=== PATIENT | female | born 1995 | race Caucasian/White ===

== ENCOUNTER 2017-12-22 14:17 | Emergency (ER) | payer SELFPAY ==
[2017-12-22 14:18] VITALS: BP 124/73; PULSE 79; RESP 16; TEMP 36.7; O2SAT 99; BMI 24.5
[2017-12-22 16:18] VITALS: RESP 14
[2017-12-22 16:25] LABS: Red Blood Cells-Urine 0 SEEN /hpf (0-5)
[2017-12-22 16:30] LABS: Color, Urine Yellow (Yellow); Glucose, Dipstick Normal (Normal); Leukocyte Esterase-Dipstick 25 /ul (Negative); Nitrite-Dipstick Negative (Negative); Occult Blood-Urine Negative /ul (Negative); Protein-Dipstick Negative (Negative); Specific Gravity, Urine 1.015 (1.002-1.030); Urine Bilirubin Dipstick Negative (Negative); Urine Clarity Clear (Clear); Urine Urobilinogen Normal (Normal); Urine pH 6.5 (5.0 - 8.0)
--- NOTE | 2017-12-22 16:33 | ED.VISSUMM ---
- ER Visit Summary Date of Service: 12/22/17 Chief Complaint: Abdominal pain History of Present Illness: The patient is a 22 F who [facility] the [facility]. She is a 14 weeks . She reports that she has intermittent abdominal pain that began 3 days ago. It lasts seconds to minutes at a time. She reports that is worsened by sitting down and relieved by nothing. Pain is 3 out of 10 at worst and she is pain-free currently. She denies any nausea, vomiting, diarrhea. No melena or hematochezia. No dysuria or frequency. No vaginal bleeding or discharge. Physical Examination: Vitals: Stable. Afebrile. General: Well-nourished and well-developed. Head: Normocephalic atraumatic. Neck: Supple, no lymphadenopathy. No JVD. Nontender. Cardiovascular: Regular rate and rhythm. No murmurs. Respiratory: No respiratory distress. Clear to auscultation bilaterally. Abdominal: Soft, mild tenderness palpation in the left upper quadrant, nondistended, normal bowel sounds. No guarding, rebound, or peritoneal signs. Specifically no pain in the right upper or right lower quadrants. Back: Nontender. Extremities: Nontender, no edema. Skin: Normal color, no rash. Neurologic: Alert and oriented ?3. Cranial nerves II through XII are intact. Normal strength and sensation. Psych: Normal affect. Test Results: Urinalysis shows bacteria with no signs of infection. Emergency Department Course and Treatment: Patient refused pain or nausea medications. Bedside ultrasound shows good movement and heartbeat. Patient's urine was sent for culture and she was given a dose of Macrobid p.o. Treatment Plan: At this time the patient was reassured. She will be discharged on Macrobid. She will be discharged with instructions [facility] Disposition: To home in improved and stable condition. Impression: 1. Abdominal pain, uncertain cause. 2. Second trimester . 3. Bacteriuria. This note was generated with [employer] software. It may contain incorrect words, spelling, and punctuation that were not noted in review of the chart prior to signing ED Disposition - Plan for ED Patient: Chief Complaint: Abd Pain Instructions: ED Abdominal Pain Unkn Cause Prescriptions: Nitrofurantoin Macrocrystals [Macrobid] 100 mg PO Q12 #14 capsule Referrals: Thelma Penny CNM [Certified Nurse Sales Representative Door To Door] - 1 Week
[2017-12-22 16:34] LABS: Ketone-Dipstick 150 mg/dl (Negative)
[2017-12-22 16:50] LABS: Bacteria 1+ /hpf (None Seen); Mucous, Urine RARE /hpf (<or=2+); Squamous Epithelial Cells - UA 0-5 SEEN /hpf (5-10); White Blood Cells 0-5 SEEN /hpf (0-5)
[2017-12-22] MEDS: Nitrofurantoin Macrocrystals 100 MG Capsule PO (17:13)
[2017-12-22 17:19] VITALS: BP 121/76; PULSE 83; RESP 14; O2SAT 99
== END 2017-12-22 17:20 | disposition home or self-care (01) ==
LOC: ED 15:00
PROVIDERS: Emergency Provider Emergency Medicine
DX: O26.892 Other specified pregnancy related conditions, second trimester (principal); R10.9 Unspecified abdominal pain; R82.71 Bacteriuria; Z3A.14 14 weeks gestation of pregnancy; Z87.442 Personal history of urinary calculi
CPT/HCPCS: 81001; 87086; 87088; 99283; J7030; A4216

== ENCOUNTER 2018-02-16 13:47 | Emergency (ER) | payer MEDICAID, SELFPAY ==
[2018-02-16 13:47] VITALS: BP 153/91; PULSE 95; RESP 20; TEMP 36.6; O2SAT 98; BMI 24.9
--- NOTE | 2018-02-16 14:04 | ED.VISSUMM ---
- ER Visit Summary Date of Service: 02/16/18 Chief Complaint: Burning right-sided chest pain under her bra strap History of Present Illness: The patient is a 22 F who presents with right-sided burning chest pain that is worse when she sits up and moves. She denies any history of direct trauma. 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 She is , 21 weeks gestation. Third . Second was complicated by miscarriage. She denies any shortness of breath or difficulty breathing. She denies indigestion. She denies any leg pain, swelling discoloration. She has not noted a rash. She denies any recent URI symptoms. She has no other complaints. Physical Examination: Vital signs are remarkable for an elevated blood pressure 153/91. She is not tachycardic hypoxic or febrile. HEENT exam is unremarkable. There is reproducible chest pain over the right costal margin/lower rib cage. There is no rash. There is no crepitus obtains air. There is no erythema, warmth or induration. Negative clinical Burks sign. Lungs are clear to auscultation. Heart is regular without murmur, gallop or rub. Patient winces when she sits up from supine position. This reproduces/exacerbates her pain. Test Results: None Emergency Department Course and Treatment: Since patient has reproducible pain with palpation and change in position this represents a musculoskeletal issue. Since she is in her second trimester NSAIDs are safe. Treatment Plan: Anti-inflammatory and follow-up with commercial litigation associate as needed Disposition: Discharged to home Impression: Right-sided chest wall pain of musculoskeletal etiology Second trimester This note was generated with [employer] dictation software. It may contain incorrect words, spelling, and punctuation that were not noted in review of the chart prior to signing ED Disposition - Plan for ED Patient: Disposition: Home or Assisted Living Chief Complaint: Chest Other Instructions: ED Strain Chest Wall Prescriptions: Naproxen [Naprosyn] 500 mg PO BID #10 tab Referrals: Care Physician,No Primary [Primary Care Provider] - Thelma Penny CNM [Certified Nurse Front Desk Person] - 1 Week if not improving
--- NOTE | 2018-02-16 14:09 | ED.DCSUM_ITS ---
- ER Visit Summary Date of Service: 02/16/18 Chief Complaint: Burning right-sided chest pain under her bra strap History of Present Illness: The patient is a 22 F who presents with right-sided burning chest pain that is worse when she sits up and moves. She denies any history of direct trauma. 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 She is , 21 weeks gestation. Third . Second was complicated by miscarriage. She denies any shortness of breath or difficulty breathing. She denies indigestion. She denies any leg pain, swelling discoloration. She has not noted a rash. She denies any recent URI symptoms. She has no other complaints. Physical Examination: Vital signs are remarkable for an elevated blood pressure 153/91. She is not tachycardic hypoxic or febrile. HEENT exam is unremarkable. There is reproducible chest pain over the right costal margin/ lower rib cage. There is no rash. There is no crepitus obtains air. There is no erythema, warmth or induration. Negative clinical Burks sign. Lungs are clear to auscultation. Heart is regular without murmur, gallop or rub. Patient winces when she sits up from supine position. This reproduces/ exacerbates her pain. Test Results: None Emergency Department Course and Treatment: Since patient has reproducible pain with palpation and change in position this represents a musculoskeletal issue. Since she is in her second trimester NSAIDs are safe. Treatment Plan: Anti-inflammatory and follow-up with looseleaf binder coverer as needed Disposition: Discharged to home Impression: Right-sided chest wall pain of musculoskeletal etiology Second trimester This note was generated with [employer] dictation software. It may contain incorrect words, spelling, and punctuation that were not noted in review of the chart prior to signing ED Disposition - Plan for ED Patient: Disposition: Home or Assisted Living Chief Complaint: Chest Other Instructions: ED Strain Chest Wall Prescriptions: Naproxen [Naprosyn] 500 mg PO BID #10 tab Referrals: Care Physician,No Primary [Primary Care Provider] - Thelma Penny CNM [Certified Nurse Drug And Alcohol Treatment Specialist] - 1 Week if not improving
[2018-02-16 14:20] VITALS: BP 130/77; PULSE 78; RESP 16; O2SAT 99
[2018-02-16] MEDS: Naproxen 250 MG Tablet 500 MG PO (14:20)
== END 2018-02-16 14:41 | disposition home or self-care (01) ==
PROVIDERS: Emergency Provider Emergency Medicine
DX: R07.89 Other chest pain (principal); O26.892 Other specified pregnancy related conditions, second trimester; Z3A.21 21 weeks gestation of pregnancy
CPT/HCPCS: 99283

== ENCOUNTER 2018-05-18 15:15 | Outpatient (CLI) | payer MEDICAID, SELFPAY ==
[2018-05-18 15:31] VITALS: BMI 30.6
[2018-05-18 15:38] LABS: Color, Urine Straw (Yellow); Glucose, Dipstick Normal (Normal); Ketone-Dipstick 5 mg/dl (Negative); Leukocyte Esterase-Dipstick Negative /ul (Negative); Nitrite-Dipstick Negative (Negative); Occult Blood-Urine Negative /ul (Negative); Protein-Dipstick Negative (Negative); Specific Gravity, Urine 1.005 (1.002-1.030); Urine Bilirubin Dipstick Negative (Negative); Urine Clarity Clear (Clear); Urine Urobilinogen Normal (Normal)
[2018-05-18] MEDS: 0.9% Normal Saline 1,000 ML 500 ML IV (16:20)
[2018-05-18] MEDS: Betamethasone/Betamethasone 30 MG/5 ML Vial 12 MG IM (16:25)
[2018-05-18 16:46] LABS: Hematocrit 35.2 % (37-47); Hemoglobin 11.5 g/dl (12.0-15.0); Mean Corp Hgb Conc 32.7 g/gl (32-36); Mean Corpuscular Hgb 27.8 pg (27.0-32.0); Mean Platelet Vol. 9.8 fl (6.2-12.0); Platelet Count 241 K/mm3 (150-450); RBC Distribution Width CV 12.5 % (11.6-14.6); RBC Distribution Width SD 38.5 fl (35.1-43.9); Red Blood Count 4.14 M/mm3 (4.2-5.4); Scan Indicated on CBC? Y/N NO
[2018-05-18 16:53] LABS: Partial Thromboplast Time 24.3 Seconds (24.1-36.2)
[2018-05-18 16:57] LABS: AST(SGOT) 16 U/L (15-37); Alanine Aminotransfer ALT/SGPT 11 U/L (13-56); Creatinine, Serum 0.64 mg/dL (0.55-1.02); EST Glomerular Filtration Rate 123 mL/min (>60); Est Glom Filt Rate - Afr Amer 149 mL/min (>60); Estimated Creatinine Clearance 103.16 ml/min
[2018-05-18 17:04] LABS: Creatinine, Urine (random) < 13.00 mg/dL (NO RANGE EST.); Protein, Urine (Random) < 6.0 mg/dL (<11.9)
[2018-05-18 18:01] LABS: Group B Strep DNA By PCR Negative (Negative); Internal Control PASS; Probe Check PASS; Specimen Processing Control PASS
[2018-05-18] MEDS: 0.9% Normal Saline 1,000 ML 200 ML IV (18:10)
--- NOTE | 2018-05-19 13:23 | OB.TRI.NOTE ---
History of Present Illness Date of Service: 05/18/18 Was patient seen by the physician?: Yes Reason For Visit: threatened PTL Date of Service: 05/18/18 Final LEIGHTON: 07/01/18 Final LEIGHTON Source: LMP Gestational age: 33 Weeks and 6 Days Allergies No Known Allergies Allergy (Verified 05/18/18 15:32) NST - FHR Rate Baby A Baseline: 125 Variability:: Moderate Accelerations:: 15 x 15 Decelerations:: None NST Reactive:: Yes Uterine Activity:: Q 2-5 minutes Impression/Plan 22yo female with threatened PTL Patient monitored for more than 6 hours. Cvx was stable at 3.5cm for 4 hours. She was then discharged home. BMZ given & patient will return tomorrow for BMZ #2. Normal preE labs - no evidence preE Rapid GBS - negative
== END 2018-05-18 23:05 | disposition home or self-care (01) ==
LOC: WPOUT 15:21 → WP 15:22
PROVIDERS: Visit Provider Obstetrics & Gynecology
DX: O60.03 Preterm labor without delivery, third trimester (principal); Z3A.33 33 weeks gestation of pregnancy
CPT/HCPCS: 96360; 96361 ×4; 36415; 59025; 59050; 81002; 82565; 82570; 84156; 84450; 84460; 84550; 85027; 85610; 85730; 87081; 87653; 96372; 99218; J7030; G0378; J0702

== ENCOUNTER 2018-05-19 16:15 | Outpatient (CLI) | payer MEDICAID, SELFPAY ==
[2018-05-19 16:58] VITALS: BMI 30.6
--- NOTE | 2018-06-25 23:22 | OB.TRI.NOTE ---
History of Present Illness Date of Service: 05/19/18 Was patient seen by the physician?: No Reason For Visit: CELESTONE Final LEIGHTON Source: LMP Allergies No Known Allergies Allergy (Verified 05/25/18 23:17) Impression/Plan BMZ administration
== END 2018-05-19 17:20 | disposition home or self-care (01) ==
LOC: WPOUT 16:24 → WP 16:25
PROVIDERS: Visit Provider Obstetrics & Gynecology
DX: O60.00 Preterm labor without delivery, unspecified trimester (principal); Z3A.00 Weeks of gestation of pregnancy not specified
CPT/HCPCS: 99218; G0378; J0702

== ENCOUNTER 2018-05-21 12:30 | Outpatient (CLI) | payer MEDICAID, SELFPAY ==
--- NOTE | 2018-05-22 01:13 | OB.TRI.NOTE ---
History of Present Illness Date of Service: 05/21/18 Was patient seen by the physician?: Yes Reason For Visit: R/O LABOR Date of Service: 05/21/18 Final LEIGHTON: 07/01/18 Final LEIGHTON Source: LMP Gestational age: 34 Weeks and 2 Days History of Present Illness: 22yo @ 34+ wks gestation c/o contractions. no vb or lof. Allergies No Known Allergies Allergy (Verified 05/18/18 15:32) - Pertinent Past Medical History Pertinent Past Medical History: pt did receive 2 doses of 12mg IM celestone with last dose given on 05/20/18 Physical Exam General: Alert, Oriented x3 Abdomen: Soft, Non Tender, Gravid Estimated gestational size: Appropriate for gestational size Presentation: Cephalic Cervix Dilation (cm): 3.5 Station: -2 Effacement (%): 75 NST - FHR Rate Baby A Baseline: 140 Variability:: Moderate Accelerations:: 15 x 15 Decelerations:: None NST Reactive:: Yes FHR Category:: Category I Uterine Activity:: irregular Impression/Plan 22yo @ 34+ wks gestation, contractions- not in labor 1) cervical exam done by myself x 2 - first exam was 4cm had membranes that were bulging- on second exam two hours later she was 3.5 cm and 70-80% effaced with NO bulging membranes 2) expectant mgmt at home at this time- DC HOME with LABOR INSTRUCTIONS REVIEWED 3) GBS negative
== END 2018-05-21 15:00 | disposition home or self-care (01) ==
LOC: WPOUT 12:43 → WP 12:43
PROVIDERS: Visit Provider Obstetrics & Gynecology
DX: O26.893 Other specified pregnancy related conditions, third trimester (principal); Z3A.34 34 weeks gestation of pregnancy; N85.8 Other specified noninflammatory disorders of uterus
CPT/HCPCS: 59025; 59050; 99218; G0378

== ENCOUNTER 2018-05-23 18:55 | Outpatient (CLI) | payer MEDICAID, SELFPAY ==
[2018-05-23 19:47] VITALS: BMI 31.0
--- NOTE | 2018-05-23 20:09 | OB.TRI.NOTE ---
History of Present Illness Was patient seen by the physician?: Yes Reason For Visit: R/O LABOR Date of Service: 05/23/18 Final LEIGHTON: 07/01/18 Final LEIGHTON Source: LMP Gestational age: 34 Weeks and 3 Days Allergies No Known Allergies Allergy (Verified 05/23/18 19:49) Physical Exam Cervix Dilation (cm): 4 Station: -3 Effacement (%): 70 NST - FHR Rate Baby A Baseline: 130 Variability:: Moderate Accelerations:: 15 x 15 Decelerations:: None NST Reactive:: Yes Uterine Activity:: Q 5-7 minutes Impression/Plan 22yo female with ctxs No evidence PTL - stable cervical exam Reactive NST
== END 2018-05-23 20:17 | disposition home or self-care (01) ==
LOC: WPOUT 19:09 → WP 19:09
PROVIDERS: Visit Provider Obstetrics & Gynecology
DX: O26.893 Other specified pregnancy related conditions, third trimester (principal); N85.8 Other specified noninflammatory disorders of uterus; Z3A.34 34 weeks gestation of pregnancy
CPT/HCPCS: 59025; 59050; 99218; G0378

== ENCOUNTER 2018-05-25 22:35 | Inpatient (IN) | payer MEDICAID, SELFPAY ==
[2018-05-25 23:14] VITALS: BMI 31.5
[2018-05-25] MEDS: Lactated Ringers 1,000 ML 50 ML IV (23:45)
[2018-05-26 00:18] LABS: Hemoglobin 10.8 g/dl (12.0-15.0); Mean Corp Hgb Conc 32.7 g/gl (32-36); Mean Corpuscular Hgb 27.6 pg (27.0-32.0); Mean Corpuscular Volume 84.4 fL (81-99); Mean Platelet Vol. 9.7 fl (6.2-12.0); Platelet Count 252 K/mm3 (150-450); RBC Distribution Width CV 12.5 % (11.6-14.6); RBC Distribution Width SD 38.2 fl (35.1-43.9); Red Blood Count 3.91 M/mm3 (4.2-5.4); Scan Indicated on CBC? Y/N NO; White Blood Count 18.2 K/mm3 (4.4-11.0)
[2018-05-26] MEDS: Oxytocin 30 units/NS 500 ml 30 UNITS/500 ML IV.SOLN 334 UNITS IV (01:05)
--- NOTE | 2018-05-26 01:16 | PCM.OB.VAG ---
Vaginal Delivery Maternal Presentation: Active Labor Amniotic Membrane Rupture Type: Spontaneous Amniotic Fluid Description: Clear Final LEIGHTON Source: US <20 weeks Gestational age: 35.5 Date of Procedure: 05/26/18 Pre-Operative Diagnosis: spontaneous labor Post-Operative Diagnosis: live male infant Surgery/ Procedure Performed: Spontaneous Vaginal Delivery Type of Anesthesia: None Description of Procedure: Pt presented to L&D at 6cm- progressed to 8cm at approx 12:50am at which time she had SROM and was complete and I was notified at 12:55am at which time I arrived on the unit at 1:01am and the infant was delivered by nursing staff at 1:00am on 05/26/18. Per nursing staff no delay in delivery- no nuchal cords. I delivered placenta without complication. No lacerations. Presentation: Vertex Placental Delivery Description: Spontaneous Placenta Disposition: [facility] Cord Vessel Description: 3 Vessels Nuchal Cord Compression: Without compression Cord Entanglement: None Estimated Blood Loss: 100 A gender: Male (1 minute): 8 (5 minute): 9 Episiotomy Description: None Laceration: None Medications given after delivery: IV Pitocin Complications: None
--- NOTE | 2018-05-26 01:20 | OP.PCM_ITS ---
Vaginal Delivery Maternal Presentation: Active Labor Amniotic Membrane Rupture Type: Spontaneous Amniotic Fluid Description: Clear Final LEIGHTON Source: US <20 weeks Gestational age: 35.5 Date of Procedure: 05/26/18 Pre-Operative Diagnosis: spontaneous labor Post-Operative Diagnosis: live male infant Surgery/ Procedure Performed: Spontaneous Vaginal Delivery Type of Anesthesia: None Description of Procedure: Pt presented to L&D at 6cm- progressed to 8cm at approx 12:50am at which time she had SROM and was complete and I was notified at 12:55am at which time I arrived on the unit at 1:01am and the infant was delivered by nursing staff at 1 :00am on 05/26/18. Per nursing staff no delay in delivery- no nuchal cords. I delivered placenta without complication. No lacerations. Presentation: Vertex Placental Delivery Description: Spontaneous Placenta Disposition: [facility] Cord Vessel Description: 3 Vessels Nuchal Cord Compression: Without compression Cord Entanglement: None Estimated Blood Loss: 100 A gender: Male (1 minute): 8 (5 minute): 9 Episiotomy Description: None Laceration: None Medications given after delivery: IV Pitocin Complications: None
[2018-05-26] MEDS: Oxytocin 30 units/NS 500 ml 30 UNITS/500 ML IV.SOLN 167 UNITS IV (01:35)
[2018-05-26] MEDS: Ibuprofen 600 MG Tablet PO ×2 (05:52→15:54)
[2018-05-26 08:00] VITALS: BP 123/82; RESP 18; TEMP 36.8
--- NOTE | 2018-05-26 09:10 | PCM.HP.OB ---
History Date of Admission: 05/25/18 Final LEIGHTON: 06/25/18 Final LEIGHTON Source: US <20 weeks Gestational age: 35 Weeks and 5 Days History of this : This is a 22 year-old, G [], P [], at 35 weeks gestational age. Allergies No Known Allergies Allergy (Verified 05/25/18 23:17) Home Medications: Home Medications Ferrous Gluconate 325 mg PO BIDCM 05/18/18 Pnv with Ca,No.72/Iron/FA [ Plus Tablet] 1 each PO DAILY 05/18/18 Smoking Status: Former smoker Alcohol: None Number of Fetus(es): 1 History Past Pregnancies: Past Pregnancies Delivery Date Name GA/Weeks Outcome Route Weight Infant Gender Labor Length Anesthesia Delivery Location Provider FOB Labs: AB +, HIV neg, RUB imm, HEP B neg, GBS neg, Syphilis neg Expected Delivery Method: Spontaneous Vaginal Physical Exam Vitals: Vital Signs Temp Resp BP 98.2 F 18 123/82 H 05/26/18 08:00 05/26/18 08:00 05/26/18 08:00 General: Alert, Oriented x3 Estimated gestational size: Appropriate for gestational size Presentation: Cephalic Cervix Dilation (cm): 6 Station: -2 Effacement (%): 80 Assessment/Plan This is a 22 year-old, G 3, P 1, at 35 weeks gestational age in labor 1) admit to L&D 2) monitor FHR/toco 3) anticipate 4) previously received IM steriods 5) GBS neg
--- NOTE | 2018-05-26 10:20 | NURSING ---
Patient expressed large clot into toilet while voiding. Denies abdominal pain, cramping, or gushes of blood. Fundus is firm and two below umbilicus. Will notify physician.
[2018-05-26 12:00] VITALS: BP 134/93; PULSE 80; RESP 16; TEMP 36.4
[2018-05-26 15:58] VITALS: BP 122/79; PULSE 80; RESP 18; TEMP 36.5
--- NOTE | 2018-05-26 19:04 | DCINST_ITS ---
Discharge Diet: No Restrictions Discharge Activity: Return to Normal Activity, May not drive while taking narcotic pain medications., May Shower May resume sexual activity in: 4-6 weeks Additional Activity Instructions:: Nothing in the vagina for 4-6 weeks. You may return to work/school in 6 weeks. Call your doctor if your incision/area has: Continuous Slow Oozing, Sudden Increased Bleeding, Increased Pain/ Swelling, Increased Redness, Foul Smelling Discharge Additional Instructions: If you experience any of the following, contact your healthcare provider. * Bleeding that soaks a pad every hour for 2 hours * Fever 100.4 or higher * Unrelieved incision or abdominal pain * Swelling, redness, discharge or bleeding from your incision or episiotomy site * Your incision begins to separate * Problems urinating (including inability to urinate or burning while urinating) . * Visual changes * Severe headache * Flu-like symptoms * Pain or redness in one of both of your breasts * Pain, warmth, tenderness or swelling in your legs, especially the calf area * Frequent nausea and vomiting * Symptoms of depression or anxiety If you experience any of the following, call 911 or go to the nearest Emergency Room. * Chest pain * Problems breathing * Seizure activity * Partial or complete paralysis of a body part, slurred speech, weakness or drooping of the face, or a sudden inability to walk or hold your balance Allergies/Adverse Reactions: Allergies No Known Allergies Allergy (Verified 05/25/18 23:17) Medications to take at Discharge Pnv with Ca,No.72/Iron/FA [ Plus Tablet] 1 each PO DAILY 05/18/18 Ibuprofen [Motrin] 800 mg PO Q8H PRN PRN #30 tab 05/26/18 The following prescriptions were given: Ibuprofen [Motrin] 800 mg PO Q8H PRN PRN #30 tab PRN Reason: Pain When: Call to make an appointment with your doctor in 6 weeks. If you had elevated Blood Pressure or 4th degree laceration you will need to be seen in 2 weeks. Primary Care Physician: Care Physician,No Primary [Primary Care Provider] -
[2018-05-26 21:05] VITALS: BP 130/75; PULSE 91; RESP 16; TEMP 36.9
[2018-05-26] MEDS: Senna/Docusate Sodium 1 Tablet PO (21:17)
[2018-05-26 23:54] VITALS: BP 114/72; PULSE 81; RESP 18; TEMP 36.7
[2018-05-27 03:30] VITALS: BP 128/87; PULSE 83; RESP 20; TEMP 37.2
--- NOTE | 2018-05-27 09:07 | PCM.PN.OB ---
Subjective: Doing well per patient and nursing staff. Voiding and passing flatus. without difficulty. Motrin for pain. Denies headache, visual changes, chest pain, shortness of breath, increased vaginal bleeding or clots, no leg pain. Planning D/C home today. - Physical Exam General: Alert, Oriented x3, Cooperative Neck: Supple, No JVD, Negative Carotid Bruits Lungs: Clear to auscultation, Normal air movement, No rhonchi, No wheeze Cardiovascular: Regular rate, Regular Rhythm, No murmurs Abdomen: Bowel Sounds Present, Soft, Non Tender Extremities: No edema Psych/Mental Status: Normal Affect, Appropriate Vital Signs Temp Pulse Resp BP 98.9 F 83 20 H 128/87 H 05/27/18 03:30 05/27/18 03:30 05/27/18 03:30 05/27/18 03:30 Oxygen Delivery Method Room Air Weight: 166 lb 14.239 oz Body Mass Index (BMI) 31.5 Intake and Output for Last 24 Hours 05/25/18 05/26/18 05/27/18 23:59 23:59 23:59 Output Total 1100 / 1100 Balance -1100 / -1100 Medical Necessity - Tobacco Use Smoking Status: Former smoker Assessment/Plan A: PPD#1 P: 1) Planning D/C home today. Discharge and instructions given. 2) Follow up in 6 weeks for visit.
[2018-05-27 09:31] VITALS: BP 132/84; PULSE 96; RESP 16; TEMP 36.8; O2SAT 97
[2018-05-27] MEDS: Prenatal Vits Tablet 1 TABLET PO (10:47)
[2018-05-27 13:30] VITALS: BP 135/84; PULSE 104; RESP 16; TEMP 37.1; O2SAT 99
[2018-05-27 19:46] VITALS: BP 138/75; PULSE 100; RESP 18; TEMP 36.8; O2SAT 99
[2018-05-28 02:25] VITALS: BP 138/87; PULSE 80; RESP 18; TEMP 36.4; O2SAT 99
[2018-05-28 08:00] VITALS: BP 137/88; PULSE 86; RESP 16; TEMP 36.9; O2SAT 97
[2018-05-28] MEDS: Prenatal Vits Tablet 1 TABLET PO (08:53)
[2018-05-28] MEDS: Ibuprofen 600 MG Tablet PO (08:53)
--- NOTE | 2018-05-28 08:55 | PCM.PN.OB ---
Subjective: Doing well per patient and nursing staff. Voiding and passing flatus. Ambulating and taking PO without difficulty. , consulted regarding for engorgement. Denies any headache, visual changed, chest pain, shortness of breath, vaginal bleeding, leg pain. Planning D/C home today. - Physical Exam General: Alert, Oriented x3, Cooperative Lungs: Clear to auscultation, Normal air movement, No rhonchi, No wheeze Cardiovascular: Regular rate, Regular Rhythm, No murmurs Abdomen: Bowel Sounds Present, Soft, Non Tender, - - Fundus firm 2 below U Extremities: No edema, - - Greg's negative. Musculoskeletal: No Tenderness to Palpation of Joints or Extremities Neurological: Deep Tendon Reflexes 2+/4 and Symmetrical Psych/Mental Status: Normal Affect, Appropriate Vital Signs Temp Pulse Resp BP Pulse Ox 98.5 F 86 16 137/88 H 97 05/28/18 08:00 05/28/18 08:00 05/28/18 08:00 05/28/18 08:00 05/28/18 08:00 Oxygen Delivery Method Room Air Weight: 166 lb 14.239 oz Body Mass Index (BMI) 31.5 Intake and Output for Last 24 Hours 05/26/18 05/27/18 05/28/18 23:59 23:59 23:59 Output Total 1100 / 1100 Balance -1100 / -1100 Medical Necessity - Tobacco Use Smoking Status: Former smoker Assessment/Plan A: PPD #2 P: 1) Discharge home today. Instructions given. 2) Follow up in 6 weeks. 3) BP elevated. Follow up in office in 3 days for BP check.
[2018-05-28 10:00] VITALS: BP 135/82; PULSE 89; RESP 16; TEMP 36.9; O2SAT 98
[2018-05-28 12:00] VITALS: BP 135/84; PULSE 84; RESP 16; TEMP 36.9; O2SAT 98
== END 2018-05-28 13:05 | disposition home or self-care (01) | DRG 373 ==
PROVIDERS: Admitting Provider Obstetrics & Gynecology; Visit Provider Obstetrics & Gynecology
DX: O60.14X0 Preterm labor third trimester with preterm delivery third trimester, not applicable or unspecified (principal); Z3A.35 35 weeks gestation of pregnancy; Z37.0 Single live birth; Z87.891 Personal history of nicotine dependence
CPT/HCPCS: 36415; 59025; 59050; 85027; 86850; 86900; 99218; J7120; G0378

== ENCOUNTER 2018-12-22 20:02 | Emergency (ER) | payer MEDICAID, SELFPAY ==
[2018-12-22 20:03] VITALS: BP 133/73; PULSE 117; PULSE 124; RESP 18; RESP 20; TEMP 37.7; O2SAT 99; BMI 29.4
--- NOTE | 2018-12-22 20:14 | ED.DCSUM_ITS ---
- ER Visit Summary Date of Service: 12/22/18 Chief Complaint: Fever, back pain History of Present Illness: The patient is a 23 F who has had fever and back pain that started this morning. She states that she has had body aches and chills. Her temperature is been elevated at home. She has been medicating with Tylenol. The pain is been in the lower part of her back on both sides. She denies dysuria or hematuria. She is currently 5 weeks gestation. She did not get a flu shot this year. Physical Examination: Vital signs reviewed. HEENT exam unremarkable. Heart is cardiac in regular rhythm without murmurs. Lungs are clear to auscultation. Abdomen is soft and nontender. Back is nontender at any place. Extremities reveal no edema. Skin exam normal. Neurologic exam normal. Test Results: Urinalysis is negative for infection. Influenza testing is also negative. Emergency Department Course and Treatment: The patient is to have a flu. She does not have a UTI or pyelonephritis. She likely has another viral illness that is causing this temperature at and body aches. She has no cough so I do not feel she needs a chest x-ray. She is currently . She can only take Tylenol. She will increase her hydration. She will follow-up with her [employer]ECT[employer]. Treatment Plan: [] Disposition: Discharge Impression: Acute viral illness This note was generated with [employer] dictation software. It may contain incorrect words, spelling, and punctuation that were not noted in review of the chart prior to signing ED Disposition - Plan for ED Patient: Chief Complaint: General Illness Referrals: Care Physician,No Primary [Primary Care Provider] -
[2018-12-22 20:20] VITALS: PULSE 111; TEMP 37.7
[2018-12-22 20:48] LABS: Bacteria 0 SEEN /hpf (None Seen); Mucous, Urine 0 SEEN /hpf (<or=2+); Red Blood Cells-Urine 0 SEEN /hpf (0-5); White Blood Cells 0 SEEN /hpf (0-5)
[2018-12-22 20:49] LABS: Color, Urine Yellow (Yellow); Glucose, Dipstick Normal (Normal); Ketone-Dipstick 50 mg/dl (Negative); Leukocyte Esterase-Dipstick Negative /ul (Negative); Nitrite-Dipstick Negative (Negative); Occult Blood-Urine Negative /ul (Negative); Protein-Dipstick Negative (Negative); Urine Bilirubin Dipstick Negative (Negative); Urine Clarity Clear (Clear); Urine Urobilinogen Normal (Normal); Urine pH 6.5 (5.0 - 8.0)
[2018-12-22 21:00] LABS: Squamous Epithelial Cells - UA 0-5 SEEN /hpf (5-10)
--- NOTE | 2018-12-22 21:11 | ED.DEP ---
ED Disposition - Plan for ED Patient: Disposition: Home or Assisted Living Chief Complaint: General Illness Instructions: ED Viral Syndrome Referrals: Care Physician,No Primary [Primary Care Provider] - Mami Griffith DO [STAFF PHYSICIAN] -
[2018-12-22 21:23] VITALS: PULSE 109; RESP 18; TEMP 37.7; O2SAT 97
== END 2018-12-22 21:24 | disposition home or self-care (01) ==
PROVIDERS: Emergency Provider Emergency Medicine
DX: O98.511 Other viral diseases complicating pregnancy, first trimester (principal); B34.9 Viral infection, unspecified; Z3A.01 Less than 8 weeks gestation of pregnancy
CPT/HCPCS: 81001; 87804; 99282

== ENCOUNTER 2019-06-28 10:40 | Outpatient (CLI) | payer MEDICAID, SELFPAY ==
[2019-06-28 10:48] VITALS: BMI 29.9
[2019-06-28] MEDS: Betamethasone/Betamethasone 30 MG/5 ML Vial 12 MG IM (10:58)
--- NOTE | 2019-07-04 08:12 | OB.TRI.NOTE ---
History of Present Illness Reason For Visit: CELESTONE Date of Service: 06/28/19 Final LEIGHTON: 08/24/19 Final LEIGHTON Source: US <20 weeks Gestational age: 32 Weeks and 5 Days Allergies No Known Allergies Allergy (Verified 06/28/19 10:49) Impression/Plan Visit for BMZ injection
== END 2019-06-28 11:00 | disposition home or self-care (01) ==
LOC: WPOUT 10:46 → WP 10:47
PROVIDERS: Referring Provider Obstetrics & Gynecology; Visit Provider Obstetrics & Gynecology
DX: Z34.93 Encounter for supervision of normal pregnancy, unspecified, third trimester (principal); Z3A.32 32 weeks gestation of pregnancy
CPT/HCPCS: 96372; 99218; G0378; J0702

== ENCOUNTER 2019-08-12 07:35 | Inpatient (IN) | payer MEDICAID, SELFPAY ==
[2019-08-12] MEDS: Lactated Ringers 1,000 ML 50 ML IV (07:50)
[2019-08-12 08:04] VITALS: BMI 31.2
[2019-08-12 08:12] LABS: Absolute Lymphocyte Count 2.39 X10^3/uL (0.83-4.51); Absolute Neutrophil Count 10.1 X10^3/uL (2.0-7.7); Basophil# 0.04 X10^3/uL; Basophil% 0.3 % (0-1); Eosinophil# 0.03 X10^3/uL; Eosinophils% 0.2 % (0-5); Hematocrit 35.1 % (37-47); Hemoglobin 11.3 g/dL (12.0-15.0); Lymphocyte # 2.39 X10^3/ul (4.0); Lymphocyte % 17.5 % (19-41); Mean Corp Hgb Conc 32.2 g/dL (32-36); Mean Corpuscular Hgb 26.6 pg (27.0-32.0); Mean Corpuscular Volume 82.6 fL (81-99); Mean Platelet Vol. 10.6 fl (6.2-12.0); Monocyte# 0.95 X10^3/uL; NRBC Flagged by Analyzer 0 % (0-5); Neutrophil # 10.11 X10^3/uL (2.7-7.7); Neutrophil % 74.1 % (47-70); Platelet Count 229 K/mm3 (150-450); RBC Distribution Width CV 14.8 % (11.6-14.6); RBC Distribution Width SD 43.6 fl (35.1-43.9); Red Blood Count 4.25 M/mm3 (4.2-5.4); White Blood Count 13.6 K/mm3 (4.4-11.0)
[2019-08-12] MEDS: Oxytocin 30 units/NS 500 ml 30 UNITS/500 ML IV.SOLN 334 UNITS IV (08:45)
--- NOTE | 2019-08-12 08:47 | PCM.OPRPT ---
Vaginal Delivery Maternal Presentation: Active Labor Amniotic Membrane Rupture Type: Spontaneous Amniotic Fluid Description: Clear Final LEIGHTON: 08/24/19 Gestational age: 38 Weeks and 2 Days Date of Procedure: 08/12/19 Pre-Operative Diagnosis: term gestation, active labor Post-Operative Diagnosis: live male Surgery/ Procedure Performed: Spontaneous Vaginal Delivery Type of Anesthesia: None Description of Procedure: of live male born without complication. Delayed cord clamping performed. Presentation: Vertex Placental Delivery Description: Spontaneous Placenta Disposition: [facility] Cord Vessel Description: 3 Vessels Cord Entanglement: None Estimated Blood Loss: 250 Infant A gender: Male (1 minute): 9 (5 minute): 9 Episiotomy Description: None Laceration: None Medications given after delivery: IV Pitocin
--- NOTE | 2019-08-12 08:51 | HP.PCM_ITS ---
History Date of Admission: 05/25/18 Final LEIGHTON: 08/24/19 Final LEIGHTON Source: US <20 weeks Gestational age: 38 Weeks and 2 Days History of this : This is a 23 year-old, G [id number] at 38.2 weeks gestation presents in active labor. Allergies No Known Allergies Allergy (Verified 08/12/19 08:04) Home Medications: Home Medications Pnv,Calcium 72/Iron/Folic Acid [ Plus Tablet] 1 each PO DAILY 05/18/18 Smoking Status: Never smoker Alcohol: None Number of Fetus(es): 1 History Past Pregnancies: Past Pregnancies Delivery Date Name GA/Weeks Outcome Route Weight Infant Gender Labor Length Anesthesia Delivery Location Provider FOB Physical Exam General: Alert, Oriented x3 Abdomen: Gravid Neurological: Cranial nerves II-XII grossly intact AUTO DAMAGE TRAINEE: Normal external genitalia Estimated gestational size: Appropriate for gestational size Presentation: Cephalic Cervix Dilation (cm): 10 Station: 2 Effacement (%): 100 Assessment/Plan This is a 23 year-old, G [id number] at 38.2 weeks gestation presents in active labor at 6 cm. I was called immediately for delivery- progressed to complete soon after SROM. Admit to labor and delivery Monitor heart rate and toco Anticipate normal spontaneous vaginal delivery
[2019-08-12] MEDS: Acetaminophen 500 MG Tablet 1000 MG PO ×2 (09:41→18:34)
[2019-08-12] MEDS: 0.9% Saline Lock 10 ML Syringe IV (11:35)
[2019-08-12 12:35] VITALS: BP 127/75; PULSE 93; RESP 16; TEMP 36.6; O2SAT 99
[2019-08-12 15:43] VITALS: BP 130/84; PULSE 85; RESP 18; TEMP 36.6; O2SAT 98
[2019-08-12] MEDS: Ibuprofen 600 MG Tablet PO ×2 (15:47→22:22)
[2019-08-12 20:29] VITALS: BP 127/88; PULSE 88; RESP 16; TEMP 37.1
[2019-08-13] VITALS: BP 114/62; PULSE 78; RESP 14; TEMP 36.7
[2019-08-13] MEDS: Acetaminophen 500 MG Tablet 1000 MG PO (01:56)
[2019-08-13 04:00] VITALS: BP 146/87; PULSE 68; RESP 16; TEMP 37.1
--- NOTE | 2019-08-13 07:26 | NURSING ---
Reviewed and agreed with charting by Natali Garcia RN.
--- NOTE | 2019-08-13 08:26 | PCM.PN.OB ---
Subjective: Seen at bedside, doing well. Patient reports good pain control. Lochia mild. Breast-feeding well. Voiding without difficulty. Patient requesting DC home. Patient denies any headaches, visual changes or right upper quadrant pain. - Physical Exam General: Alert, Oriented x3 Abdomen: Soft, Non Tender, Non-Distended, - - Fundus firm Extremities: No Calf Tenderness Vital Signs Temp Pulse Resp BP Pulse Ox 98.7 F 68 16 146/87 H 98 08/13/19 04:00 08/13/19 04:00 08/13/19 04:00 08/13/19 04:00 08/12/19 15:43 Oxygen Delivery Method Room Air Weight: 75 kg Body Mass Index (BMI) 31.2 Intake and Output for Last 24 Hours 08/11/19 08/12/19 08/13/19 23:59 23:59 23:59 Intake Total 545.83 / 545.83 Output Total 400 / 400 Balance 145.83 / 145.83 Laboratory Tests Past 24 Hrs 08/12/19 07:55 Blood Type AB POSITIVE Antibody Screen NEGATIVE Medical Necessity - Tobacco Use Smoking Status: Former smoker Assessment/Plan day #1, doing well Routine care Monitor vital signs-blood pressure slightly elevated but patient is asymptomatic. Will recheck blood pressure. Signs and symptoms of preeclampsia were reviewed with the patient
--- NOTE | 2019-08-13 08:29 | DCINST_ITS ---
Discharge Diet: No Restrictions Discharge Activity: Return to Normal Activity, May not drive while taking narcotic pain medications., May Shower May resume sexual activity in: 4-6 weeks Additional Activity Instructions:: Nothing in the vagina for 4-6 weeks. You may return to work/school in 6 weeks. Call your doctor if your incision/area has: Continuous Slow Oozing, Sudden Increased Bleeding, Increased Pain/ Swelling, Increased Redness, Foul Smelling Discharge Additional Instructions: If you experience any of the following, contact your healthcare provider. * Bleeding that soaks a pad every hour for 2 hours * Fever 100.4 or higher * Unrelieved incision or abdominal pain * Swelling, redness, discharge or bleeding from your incision or episiotomy site * Your incision begins to separate * Problems urinating (including inability to urinate or burning while urinating). * Visual changes * Severe headache * Flu-like symptoms * Pain or redness in one of both of your breasts * Pain, warmth, tenderness or swelling in your legs, especially the calf area * Frequent nausea and vomiting * Symptoms of depression or anxiety If you experience any of the following, call 911 or go to the nearest Emergency Room. * Chest pain * Problems breathing * Seizure activity * Partial or complete paralysis of a body part, slurred speech, weakness or drooping of the face, or a sudden inability to walk or hold your balance Allergies/Adverse Reactions: Allergies No Known Allergies Allergy (Verified 08/12/19 08:04) Medications to take at Discharge Pnv,Calcium 72/Iron/Folic Acid [ Plus Tablet] 1 each PO DAILY 05/18/18 Ibuprofen [Motrin] 600 mg PO Q6H PRN PRN #30 tab 08/13/19 The following prescriptions were given: Ibuprofen [Motrin] 600 mg PO Q6H PRN PRN #30 tab PRN Reason: Mild Pain (-02/02) Transmission Status: Pending to [facility] When: Call to make an appointment with your doctor in 6 weeks. If you had elevated Blood Pressure or 4th degree laceration you will need to be seen in 2 weeks. Please Follow Up With: Jada Shah MD Primary Care Physician: Care Physician,No Primary [Primary Care Provider] - Test Results: Test results from this visit will be discussed in further detail at your follow- up appointment, if applicable.
[2019-08-13 08:50] VITALS: BP 124/72; PULSE 83; RESP 14; TEMP 36.6
[2019-08-13 11:45] VITALS: BP 130/76; PULSE 88; RESP 18; TEMP 36.6; O2SAT 98
[2019-08-13 12:45] VITALS: BP 131/85; PULSE 78; RESP 16; TEMP 36.6
== END 2019-08-13 13:10 | disposition home or self-care (01) | DRG 560 ==
PROVIDERS: Obstetrics & Gynecology; Admitting Provider Obstetrics & Gynecology; Visit Provider Obstetrics & Gynecology
DX: O26.23 Pregnancy care for patient with recurrent pregnancy loss, third trimester (principal); Z3A.38 38 weeks gestation of pregnancy; Z37.0 Single live birth; Z87.891 Personal history of nicotine dependence
CPT/HCPCS: 59050; 85025; 86850; 86900; 86901; 99218; J7120; A4216; G0378

== ENCOUNTER 2020-08-27 09:37 | Emergency (ER) | payer MEDICAID, SELFPAY ==
[2020-08-27 09:38] VITALS: BP 123/60; PULSE 108; RESP 20; TEMP 35.5; O2SAT 96; BMI 23.9
--- NOTE | 2020-08-27 10:00 | CT_ITS ---
STUDY: CT ABDOMEN AND PELVIS WITHOUT CONTRAST REASON FOR EXAM: Female, 24 years old. LLQ PAIN RADIATION DOSAGE (If Supplied By Facility): CTDIvol = ( 6.51 ) mGy, DLP = ( 304.21 ) mGycm TECHNIQUE: Transaxial images were obtained from the dome of the diaphragm to the symphysis pubis without oral contrast, and without intravenous contrast. Sagittal and coronal images were reconstructed. Individualized dose optimization techniques were used for this CT. COMPARISON: 01/18/2017 FINDINGS: The visualized lung bases are unremarkable. The visualized portions of the heart are within normal limits. Normal liver. Normal gallbladder and extrahepatic biliary system. Normal spleen. Normal pancreas. Normal bilateral adrenal glands. Bilateral nonobstructing renal stones. 5 mm obstructing stone at the left ureteral vesicle junction with moderate ureteral dilatation and hydronephrosis. Normal visualized stomach. Normal small intestine. Normal colon. The appendix is visualized and appears normal. Normal abdominal aorta. Normal inferior vena cava. Normal retroperitoneum. Normal urinary bladder. Normal abdominal wall. Normal osseous structures. CT/Abdomen/Pelvis without Cont IMPRESSION: 5 mm obstructing stone at the left ureterovesical junction with moderate ureteral dilatation and hydronephrosis. Electronically Signed: Mateo Bernabe MD at 11:55 EDT Tel , Service support ,
--- NOTE | 2020-08-27 10:02 | ED.DCSUM_ITS ---
- ER Visit Summary Date of Service: 08/27/20 Chief Complaint: Left lower quadrant abdominal pain History of Present Illness: The patient is a 24 F who presents with left lower quadrant abdominal pain that began this morning. Patient states the pain began when she woke up today. Patient states she felt like she needed to have a bowel movement. Patient states she was able to have a bowel movement but this made her pain worse. Patient describes the pain is cramping. Patient states the pain is localized to the left lower quadrant but is starting to radiate to the right lower quadrant. Patient states nothing seems to help it. Patient admits to nausea but denies any vomiting. Patient denies any dysuria or hematuria. Patient denies any position of comfort. Physical Examination: Vital signs are stable for mild tachycardia of 108. Patient is afebrile. Patient is in no acute distress. Oral mucosa is pink and moist. Neck is supple. Trachea is midline. There is no JVD. Heart was regular rate and rhythm. Lungs are clear and equal bilaterally. Abdomen is soft. Bowel sounds are normal. There is mild left lower quadrant tenderness. There is no rebound or guarding noted. There is no CVA tenderness noted. Cranial nerves II through XII are intact. There are no focal motor or sensory deficits noted. Test Results: CT scan of the abdomen and pelvis was obtained. There is a 5 mm left distal ureteral calculus. There is hydronephrosis and hydroureter noted. This was interpreted by the radiologist and reviewed by myself. CBC shows a leukocytosis of 15.7. Basic metabolic profile was within normal limits. Urinalysis does not show any evidence of urinary tract infection. Serum hCG was negative. Emergency Department Course and Treatment: Patient was given IV fluids, Toradol, and Zofran. Patient was feeling better on reevaluation. Patient was given a prescription for a short course of [place]. Patient was instructed to drink plenty of fluids. Patient was instructed to follow-up with her primary care physician in 5 to 7 days. Patient was also given a referral for urology. Patient understood and was agreeable with the plan. All questions were answered. Disposition: Discharge home Impression: Left ureteral calculus This note was generated with [employer] software. It may contain incorrect words, spelling, and punctuation that were not noted in review of the chart prior to signing ED Disposition - Plan for ED Patient: Disposition: Home or Assisted Living Diagnosis: Calculus of distal left ureter Instructions: ED Renal Stone w Colic Prescriptions: Hydrocodone Bitart/Apap 5-325 [[place] 5MG-325MG] 1 tab PO Q6H PRN PRN 3 Days #10 tab PRN Reason: Pain Prescription Printed Referrals: Zuri Callahan MD [STAFF PHYSICIAN] - 3-5 Days
[2020-08-27] MEDS: Ketorolac 30 MG/ML Syringe IV (10:14)
[2020-08-27] MEDS: 0.9% Normal Saline 1,000 ML 250 ML IV (10:14)
[2020-08-27] MEDS: Ondansetron 4 MG/2 ML Vial IV (10:14)
[2020-08-27 10:19] LABS: Absolute Neutrophil Count 12.2 X10^3/uL (2.0-7.7); Basophil# 0.07 X10^3/uL; Basophil% 0.4 % (0-1); Eosinophil# 0.04 X10^3/uL; Eosinophils% 0.3 % (0-5); Hematocrit 39.8 % (37-47); Hemoglobin 12.5 g/dL (12.0-15.0); Lymphocyte % 17.2 % (19-41); Mean Corp Hgb Conc 31.4 g/dL (32-36); Mean Corpuscular Hgb 27.1 pg (27.0-32.0); Mean Corpuscular Volume 86.1 fL (81-99); Mean Platelet Vol. 9.6 fl (6.2-12.0); Monocyte% 3.8 % (0-10); NRBC Flagged by Analyzer 0 % (0-5); Neutrophil # 12.24 X10^3/uL (2.7-7.7); Neutrophil % 77.9 % (47-70); Platelet Count 351 K/mm3 (150-450); RBC Distribution Width CV 12.5 % (11.6-14.6); RBC Distribution Width SD 39.2 fl (35.1-43.9); Red Blood Count 4.62 M/mm3 (4.2-5.4); White Blood Count 15.7 K/mm3 (4.4-11.0)
[2020-08-27 10:20] LABS: Bacteria 0 SEEN /hpf (None Seen)
[2020-08-27 10:22] LABS: Color, Urine Yellow (Yellow); Glucose, Dipstick Normal (Normal); Ketone-Dipstick 50 mg/dl (Negative); Leukocyte Esterase-Dipstick 25 /ul (Negative); Nitrite-Dipstick Negative (Negative); Occult Blood-Urine 50 /ul (Negative); Protein-Dipstick 30 mg/dl (Negative); Specific Gravity, Urine 1.025 (1.002-1.030); Urine Clarity Clear (Clear); Urine Urobilinogen 1 mg/dl (Normal)
[2020-08-27 10:23] LABS: Urine Bilirubin Dipstick 1 mg/dL (Negative)
[2020-08-27 10:32] LABS: BUN 12 mg/dL (7-18); Estimated Creatinine Clearance 81.12 ml/min; Glucose 111 mg/dL (74-106)
[2020-08-27 10:32] LABS: Mucous, Urine 1+ /hpf (<or=2+); Red Blood Cells-Urine 0-5 SEEN /hpf (0-5); Squamous Epithelial Cells - UA 0-5 SEEN /hpf (5-10); White Blood Cells 0-5 SEEN /hpf (0-5)
[2020-08-27 10:33] LABS: Anion Gap 8 (5-15); Calcium,Total 8.8 mg/dL (8.5-10.1); Chloride 107 mmol/L (98-107); EST Glomerular Filtration Rate 93 mL/min (>60); Est Glom Filt Rate - Afr Amer 112 mL/min (>60); Potassium 3.8 mmol/L (3.5-5.1); Sodium Level 139 mmol/L (136-145)
[2020-08-27 10:52] LABS: Internal QC Validated? YES +Cl - CLEAR BKGD; Pregnancy, Serum, hCG Quali. NEGATIVE Negative
[2020-08-27 12:03] VITALS: BP 108/63; PULSE 74; RESP 15; O2SAT 98
--- NOTE | 2020-08-27 13:05 | CM.ED ---
Social Work Consult: No PCP Informant: Self Referral Met with patient in room. Introduced self and social work specialist role. Patient agreeable to speaking with this social work specialist. This social work specialist inquiring about PCP for patient. Patient reports to have a PCP at [facility] but to not be sure of their name. Patient states I see whoever over there. Patient denies any community needs or limitations. Patient reports to have positive support. No further needs identified. Matthieu Dorantes MSW, MIGUEL-S
[2020-08-27 13:16] VITALS: BP 116/74; PULSE 79; RESP 16; O2SAT 98
--- NOTE | 2020-08-27 13:16 | ED.RN ---
THIS NURSE REVIEWED D/C INSTRUCTIONS WITH PT. PT VERBALIZED UNDERSTANDING OF INSTRUCTIONS. IV D/C. IV CATHETER INTACT. PT TOLERATED WELL. PT DENIES FURTHER NEEDS OR QUESTIONS AT THIS TIME.
== END 2020-08-27 13:18 | disposition home or self-care (01) ==
PROVIDERS: Emergency Provider Emergency Medicine
DX: N20.1 Calculus of ureter (principal)
CPT/HCPCS: 74176; 80048; 81001; 84703; 85025; 96361; 96374; 96375; 99283; J7030; A4216; J2405

== ENCOUNTER 2021-06-09 12:55 | Inpatient (IN) | payer MEDICAID, SELFPAY ==
[2021-06-09] VITALS (18 sets, daily range): BP systolic 116–149; BP diastolic 62–88; PULSE 85–115; TEMP 36.2–36.9; O2SAT 98–100; BMI 30.5
[2021-06-09 12:59] LABS: Color, Urine Yellow (Yellow); Glucose, Dipstick Normal (Normal); Ketone-Dipstick Negative (Negative); Leukocyte Esterase-Dipstick Negative /ul (Negative); Nitrite-Dipstick Negative (Negative); Occult Blood-Urine Negative /ul (Negative); Protein-Dipstick Negative (Negative); Specific Gravity, Urine 1.015 (1.002-1.030); Urine Bilirubin Dipstick Negative (Negative); Urine Clarity Clear (Clear); Urine Urobilinogen Normal (Normal)
[2021-06-09] MEDS: Lactated Ringers 1,000 ML 50 ML IV (13:05)
--- NOTE | 2021-06-09 13:12 | PCM.HP.OB ---
HPI - General General Date of Admission: 06/09/21 HPI Narrative RONAL BHAKTA, is a 25 F @ 36.4 weeks who presents c/o contractions- Pt found to be 4/-3, admitted for labor. Maternal Data Information Final LEIGHTON: 07/03/21 Final LEIGHTON Source: US <20 weeks Gestational age: 36.4 [facility] Medical History (Updated 06/09/21 @ 13:[address] Jada Shah MD) GERD (gastroesophageal reflux disease) Headache History of pre-term labor Home Medications PNV,calcium 48-[id number]-edybj acid [ Plus (calcium carb)] 1 ea PO DAILY 05/18/18 [History Last Taken 08/11/19 10:00 1 tab] Allergy/AdvReac Type Severity Reaction Status Date / Time No Known Allergies Allergy Verified 06/09/21 12:17 Social History Smoking Status: Former smoker History Elective abortions Hx Para 3 Spontaneous abortions Hx # Term Pregnancies Ectopic pregnancies Hx # Pregnancies Multiple births # of living children NST FHR Rate Baby A Baseline: 140 Variability:: Moderate Accelerations:: 15 x 15 Decelerations:: Variable (possible occasional decel- breakup in FHR tracing.) NST Reactive:: Yes FHR Category:: Category I Uterine Activity:: q3-5 Vital Signs Vital Signs Vital Signs: 06/09/21 12:19 06/09/21 12:20 Temperature Source Temporal Pulse Rate 106 H Blood Pressure 149/88 H BP Systolic 149 BP Diastolic 88 Weight Weight: 73.3 kg Body Mass Index (BMI) 30.5 Physical Exam Const alert and oriented x3 General Appearance: cooperative HEENT normocephalic GI GI Narrative: Gravid, non tender to palpation. OB / External & Speculum: external exam normal Extremity normal to inspection Skin no rashes or lesions noted Neuro oriented x3 and CN's II-XII intact bilaterally Psych Appearance: grossly normal Labs Labs Labs: Blood Type AB POSITIVE Antibody Screen NEGATIVE Hct 39.8 % (37-47) Hgb 12.5 g/dL (12.0-15.0) Obstetrics US Group B Strep DNA Negative (Negative) Rhogam given: No Assessment & Plan (1) labor: QUALIFIERS: labor trimester: third trimester labor delivery status: with delivery in third trimester Fetus number: single or unspecified fetus Qualified Code(s): O60.14X0 - labor third trimester with delivery third trimester, not applicable or unspecified (2) 36 weeks gestation of : (3) Positive GBS test: (4) History of precipitous delivery: (5) History of delivery:
[2021-06-09 13:30] LABS: Absolute Lymphocyte Count 1.84 X10^3/uL (0.83-4.51); Absolute Neutrophil Count 10.4 X10^3/uL (2.0-7.7); Basophil# 0.05 X10^3/uL; Basophil% 0.4 % (0-1); Eosinophil# 0.07 X10^3/uL; Eosinophils% 0.5 % (0-5); Hematocrit 31.5 % (37-47); Hemoglobin 9.4 g/dL (12.0-15.0); Lymphocyte # 1.84 X10^3/ul (0.83-4.51); Lymphocyte % 13.6 % (19-41); Mean Corp Hgb Conc 29.8 g/dL (32-36); Mean Corpuscular Hgb 22.9 pg (27.0-32.0); Mean Corpuscular Volume 76.8 fL (81-99); Mean Platelet Vol. 10.1 fl (6.2-12.0); Monocyte# 0.68 X10^3/uL; NRBC Flagged by Analyzer 0.1 % (0-5); Neutrophil # 10.36 X10^3/uL (2.7-7.7); Neutrophil % 76.7 % (47-70); Platelet Count 218 K/mm3 (150-450); RBC Distribution Width CV 17.2 % (11.6-14.6); RBC Distribution Width SD 40.7 fl (35.1-43.9); White Blood Count 13.5 K/mm3 (4.4-11.0)
--- NOTE | 2021-06-09 16:41 | PCM.PN.BLA ---
Progress Note pt seen at bedside, contractions q2-5min, cervical change- 5cm/70/-2. AROM performed, clear fluid. Pt declines epidural at this time. Nitrous if desired. Anticipate vaginal delivery. FHR Cat 1 reactive.
[2021-06-09] MEDS: Penicillin G 3,000,000 Units 50 ML 100 UNITS IV (17:15)
[2021-06-09] MEDS: Oxytocin 30 units/NS 500 ml 30 UNITS/500 ML IV.SOLN 334 UNITS IV (17:51)
--- NOTE | 2021-06-09 17:57 | EX.PCM.OBRPT ---
Assessment & Plan (1) Vaginal delivery: (2) delivery: Maternal Data Information Final LEIGHTON: 07/03/21 Gestational age: 36.4 Vaginal Delivery Maternal Presentation Maternal Presentation: Active Labor Operative Information Date of Procedure: 06/09/21 Pre-Operative Diagnosis: gestation, labor, gbs positive Post-Operative Diagnosis: same, live male infant Surgery / Procedure Performed: Spontaneous Vaginal Delivery Type of Anesthesia: None Estimated Blood Loss: 200 Time of Delivery: 18:49 Findings Description of Procedure: pt progressed to fully dilated- remained in hands and knees position. Good maternal pushing efforts delivered infant without complication. was delivered and given to mother for immediate skin to skin. was vigorous at delivery. Delayed cord clamping performed- cord then clamped and cut. mother was then turned onto back to evaluate vagina, no lacerations noted. Pitocin started and placenta delivered intact without complication. Presentation: Vertex Amniotic Membrane Rupture Type: Artificial Amniotic Fluid Description: Clear Placental Delivery Description: Expressed Placenta Disposition: [facility] Specimen(s) Removed: placenta Cord Vessel Description: 3 Vessels Cord Entanglement: None Infant A Gender: Male (1 minute): 8 (5 minute): 9 Delayed Cord Clamping: Yes Post Vaginal Delivery Medications Given After Delivery: IV Pitocin Episiotomy Description: None Laceration: None Complication Complications: None
[2021-06-09] MEDS: Acetaminophen 500 MG Tablet 1000 MG PO (19:40)
[2021-06-09] MEDS: 0.9% Saline Lock 10 ML Syringe IV (20:17)
[2021-06-10] VITALS (11 sets, daily range): BP systolic 112–136; BP diastolic 60–85; PULSE 81–92; RESP 16–20; TEMP 36.3–36.8
[2021-06-10] MEDS: Acetaminophen 500 MG Tablet 1000 MG PO (03:55)
--- NOTE | 2021-06-10 13:04 | PCM.PN.OB ---
Subjective Subjective No complaints Objective Data Objective Data Vital Signs: Vital Signs Temp Pulse Resp BP Pulse Ox 97.6 F L 81 18 124/83 H 99 06/10/21 07:30 06/10/21 12:01 06/10/21 07:30 06/10/21 12:01 06/09/21 19:57 Oxygen Delivery Method Room Air Weight: 161 lb 9.581 oz Body Mass Index (BMI) 30.5 Intake & Output: Intake and Output for Last 24 Hours 06/08/21 06/09/21 06/10/21 23:59 23:59 23:59 Intake Total 905.0 / 905.0 Output Total 200 / 200 Balance 705.0 / 705.0 Lab / Micro Data Result Diagrams: 06/09/21 13:05 Labs: Laboratory Results - last 24 hr 06/09/21 13:05: WBC 13.5 H, RBC 4.10 L, Hgb 9.4 L, Hct 31.5 L, MCV 76.8 L, MCH 22.9 L, MCHC 29.8 L, RDW Std Deviation 40.7, RDW Coeff of Chance 17.2 H, Plt Count 218, MPV 10.1, Immature Gran % (Auto) 3.800 H, Neut % (Auto) 76.7 H, Lymph % (Auto) 13.6 L, [place] % (Auto) 5.0, Eos % (Auto) 0.5, Baso % (Auto) 0.4, Absolute Neuts (auto) 10.4 H, Absolute Lymphs (auto) 1.84, Nucleated RBC % 0.1 06/09/21 13:05: Blood Type AB POSITIVE, Antibody Screen NEGATIVE Micro: Microbiology 06/09/21 13:20 Mucosa - Nose SARS-CoV-2 Antigen (Rapid) - Final Physical Exam Const alert, oriented x3 and no apparent distress HEENT normocephalic GI soft to palpation, non-tender and non-distended GI Narrative: fundus firm, mid & below umbilicus Extremity normal to inspection and no calf tenderness Assessment & Plan (1) delivery: COMMENT: PPD#1 PLAN: Routine care D/c to home later today per patient request
--- NOTE | 2021-06-10 13:20 | PCM.DC.SUM ---
Providers Date of Admission: 06/09/21 Primary Care Physician: No Primary Care Phys Reason For Visit: VAGINAL DELIVERY Diagnosis Discharge Diagnosis (1) delivery: Status: Acute Code(s): O60.10X0 - labor with delivery, unspecified trimester, not applicable or unspecified Medications at Discharge Home Medications PNV,calcium 06-wsnx-lxcar acid [ Plus (calcium carb)] 1 ea PO DAILY 05/18/18 acetaminophen 1,000 mg PO Q6H PRN PRN #0 tab 06/10/21 ferrous sulfate [Slow Fe] 142 mg PO DAILY #30 tab 06/10/21 ibuprofen 600 mg PO Q6H PRN PRN #0 tab 06/10/21 Weight / BMI Weight Weight: 161 lb 9.581 oz Body Mass Index (BMI) 30.5 ABG / Lab / Microbiology Data Result Diagrams: 06/09/21 13:05 Laboratory: Laboratory Results - last 24 hr 06/09/21 13:05: WBC 13.5 H, RBC 4.10 L, Hgb 9.4 L, Hct 31.5 L, MCV 76.8 L, MCH 22.9 L, MCHC 29.8 L, RDW Std Deviation 40.7, RDW Coeff of Chance 17.2 H, Plt Count 218, MPV 10.1, Immature Gran % (Auto) 3.800 H, Neut % (Auto) 76.7 H, Lymph % (Auto) 13.6 L, [place] % (Auto) 5.0, Eos % (Auto) 0.5, Baso % (Auto) 0.4, Absolute Neuts (auto) 10.4 H, Absolute Lymphs (auto) 1.84, Nucleated RBC % 0.1 06/09/21 13:05: Blood Type AB POSITIVE, Antibody Screen NEGATIVE Microbiology: Microbiology 06/09/21 13:20 Mucosa - Nose SARS-CoV-2 Antigen (Rapid) - Final D/C Instructions Discharge Diet: No restrictions Discharge Activity: May Shower May resume sexual activity in: 6 weeks Weight Bearing Status: Weight bearing as tolerated Call your doctor if you observe: Fever of 101 or Higher, Coldness, Increased Pain, Change in Color, Inability to urinate, Inability to have a bowel movement, Using more than 1 pad per hour, Shortness of breath, Dizziness, Fainting spells, Chest pain, Increased palpitations (irregular heartbeat), Calf discomfort and Uncontrolled pain Please Follow Up With: Tuan Tim MD When: Follow up in 2 and 6 weeks for visits. Meaningful Use Info Meaningful Use Diagnoses (Choose all that apply): None applicable Discharge Plan Admission Admit Date/Time: 06/09/21 12:55 Primary Reason for Your Visit: Vaginal delivery Attending Provider: Jada Shah Primary Care Provider: Care Physician,No Primary Discharge Orders/Prescriptions Prescriptions: New acetaminophen 500 mg Tablet 1,000 mg PO Q6H PRN PRN (Reason: Pain 1-10 Or Fever) Qty: 0 RF: 0 ibuprofen 600 mg Tablet 600 mg PO Q6H PRN PRN (Reason: Pain Score 1-3) Qty: 0 RF: 0 Slow Fe 142 mg (45 mg iron) tablet extended release 142 mg PO DAILY Qty: 30 RF: 1 Continued PNV,calcium 81-zssa-ztbfy acid [ Plus (calcium carb)] 1 EACH tablet 1 ea PO DAILY RF: 0 Referrals / Follow Up: Care Physician,No Primary [Primary Care Provider] - Disposition Disposition (needs filled in before D/C Order can be placed): Home, Self Care
[2021-06-10] MEDS: Senna/Docusate Sodium 1 Tablet PO (16:56)
== END 2021-06-10 20:40 | disposition home or self-care (01) | DRG 560 ==
LOC: WPOUT 13:01 → WP 13:01
PROVIDERS: Admitting Provider Obstetrics & Gynecology; Referring Provider Obstetrics & Gynecology; Visit Provider Obstetrics & Gynecology
DX: O60.14X0 Preterm labor third trimester with preterm delivery third trimester, not applicable or unspecified (principal); O99.824 Streptococcus B carrier state complicating childbirth; Z3A.36 36 weeks gestation of pregnancy; Z37.0 Single live birth; Z87.891 Personal history of nicotine dependence
CPT/HCPCS: 59025; 59050; 81002; 85025; 86850; 86900; 86901; 87426; 99218; J7120; A4216; G0378

== ENCOUNTER 2021-08-29 04:53 | Emergency (ER) | payer OTHER, MEDICAID, SELFPAY ==
[2021-08-29 04:57] VITALS: BP 123/70; PULSE 86; RESP 18; TEMP 35.9; O2SAT 98; BMI 25.7
--- NOTE | 2021-08-29 05:05 | ED.VIS.GI ---
HPI HPI - GI History of Present Illness Chief Complaint: Abd Pain Informant: patient Abdominal Pain/Flank Pain Onset: Today and Hours Context: Gradual Onset Timing: Intermittent Quality: Cramping Current Severity: Mild Maximum Severity: Mild Nausea/Vomiting/Emesis GI Symptom: Positive for Nausea and Vomiting Onset: Today Severity: Mild Diarrhea/Melena/Hematochezia GI Symptom: Positive for Diarrhea; Negative for Melena and Hematochezia Onset: Today Stool Quality: Positive for Watery Severity: Mild Associated Symptoms Associated Symptoms: Negative for Dysuria, Frequency, Hematuria and Urgency Narrative Narrative: 25-year-old female past medical history of gastroesophageal reflux. States has never had a bleeding ulcer internal bleeding. She is also kidney stones. Said she was feeling fine and today had nausea vomiting diarrhea. Denies any melena. Denies any fever. No dysuria. Does not believe she is . She said when she threw up she thought that there might be some right and it was concerned it could be blood. She denies any black or bloody stools. Prior similar symptoms: No Recent Illness/Hospitalization: No PFSH PFSH Medical History GERD (gastroesophageal reflux disease) Headache History of pre-term labor History of delivery Home Medications NK 08/29/21 [History Last Taken Unknown] Allergy/AdvReac Type Severity Reaction Status Date / Time No Known Allergies Allergy Verified 08/29/21 04:54 Social History Smoking Status: Never smoker ROS ROS ED ROS Narrative Nausea, vomiting and diarrhea. Review of Systems ROS Unobtainable: Denies due to encephalopathy Constitutional Constitutional ED: Denies chills or fever(s) ENT ENT ED: Denies ear pain or sore throat Cardiovascular Cardiovascular: Denies chest pain Respiratory/Chest Respiratory/Chest: Denies cough or dyspnea Gastrointestinal Gastrointestinal: Reports abdominal pain, diarrhea, nausea and vomiting Genitourinary Genitourinary ED: Denies dysuria Musculoskeletal Musculoskeletal: Denies myalgias Integumentary Denies rash Neurologic Neurologic: Denies headache(s) Psychiatric Psychiatric: Denies depression Endocrine Endocrinology: Denies polyuria Hematologic/Lymphatic Hematologic/Lymphatic: Denies easy bruising Allergic/Immunologic Allergic/Immunologic ED: Denies urticaria EXAM Physical Exam Narrative Exam Narrative: Pleasant female no acute distress vital signs stable afebrile. Lungs are clear. Heart regular rhythm rate about 80 no murmur. Abdomen is soft, nontender, nondistended normal bowel sounds no peritoneal signs. Absolutely no localizing tenderness. Moving all 4 extremities. Skin unremarkable. Back nontender. Neurologically awake and alert. Const Vital Signs: 08/29/21 04:57 Temperature 96.7 F L Temperature Source Temporal Pulse Rate 86 Respiratory Rate 18 Blood Pressure 123/70 H Blood Pressure Mean 87 Pulse Ox 98 Oxygen Delivery Method Room Air Positive well nourished and well developed; Negative for obese, cachectic, contractures or unkempt General Appearance ED: well developed and NAD; Negative for unkempt, cachectic, contractures or pallor Nutritional Appearance: Negative for cachectic or obese HEENT Reports moist mucous membranes normocephalic and atraumatic; Negative for trauma or tenderness Eyes PERRL and EOMs intact bilaterally General Eye ED: Negative for pale conjunctiva or scleral icterus Neck no lymphadenopathy, supple and no JVD General: Negative for tenderness Resp normal respiratory effort and clear to auscultation bilaterally Auscultation: Negative for rales, rhonchi or wheezes Cardio regular rate, regular rhythm, S1 normal heart sound, S2 normal heart sound and no murmurs GI non-tender, non-distended and no masses Auscultation: normoactive bowel sounds Palpation: soft and tender; Negative for guarding, rigid or rebound tenderness present Back/Spine no CVA tenderness Extremity full ROM General Extremety ED: Negative for edema or tenderness General Extremity: Negative for edema Neuro moves all extremities Sensorium / Orientation: alert, oriented to person, oriented to place and oriented to time; Negative for confused, lethargic or stuporous Motor Exam: strength 5/5 throughout Psych mental status grossly normal Appearance: Negative for unkempt Skin no wounds General Skin Exam: Negative for jaundice or pallor Lesions: no lesions Rashes: no rashes MDM MDM MDM Narrative Medical decision making narrative: Young female clinically looks well has a very benign exam. Had nausea and vomiting and was concerned that she may have thrown up some blood. No prior history other than reflux. She has had no melena. Screening labs are being obtained along with she will be treated with IV fluids. States she is not nauseated now and is currently not having any pain. Repeat exam patient is doing well at 5:50 AM. Patient's exam is normal. Her abdomen is completely nontender. Has been very stable in emergency department. That she did show me a picture it did not clinically look like blood. Even if it was it was a very small amount. She will be discharged to home. Lab Data Attestation: I reviewed the patient's lab results. Lab results narrative: CBC normal white count 8. Hemoglobin 13.7 which is actually much better than her baseline from prior labs. Electrolytes potassium of 3.3. Gap of 9. Normal creatinine normal BUN. Liver enzymes are normal. Serum test negative. Labs: Laboratory Results - last 24 hr 08/29/21 08/29/21 08/29/21 05:14 05:14 05:14 WBC 8.2 RBC 5.02 Hgb 13.7 Hct 42.4 MCV 84.5 MCH 27.3 MCHC 32.3 RDW Std Deviation 43.5 RDW Coeff of Chance 14.3 Plt Count 363 MPV 9.8 Immature Gran % (Auto) 0.400 Neut % (Auto) 59.8 Lymph % (Auto) 29.8 [place] % (Auto) 7.0 Eos % (Auto) 2.3 Baso % (Auto) 0.7 Absolute Neuts (auto) 4.9 Absolute Lymphs (auto) 2.44 Nucleated RBC % 0 Sodium 140 Potassium 3.3 L Chloride 103 Carbon Dioxide 28.0 Anion Gap 9 BUN 15 Creatinine 0.66 Estim Creat Clear Calc 97.47 Est GFR (MDRD) Af Amer 137 Est GFR (MDRD) Non-Af 114 BUN/Creatinine Ratio 22.6 H Glucose 123 H Calcium 9.7 Total Bilirubin 0.30 AST 13 L ALT 14 Alkaline Phosphatase 82 Total Protein 8.5 H Albumin 4.5 Globulin 4.0 Albumin/Globulin Ratio 1.1 Serum , Qual NEGATIVE Discharge Plan Triage Chief Complaint: Abd Pain ED Provider: Johny Delong Dx/Rx/DC Orders Clinical Impression: Nausea & vomiting, Abdominal pain Instructions: Abdominal Pain, ED Vomiting (Adult) Prescriptions: No Action NK RF: 0 Primary Care Provider: Care Physician,No Primary Referrals: Care Physician,No Primary [Primary Care Provider] - Activity Restrictions/Additional Instructions: Plenty of fluids and rest. Increase diet slowly as tolerated. Your labs and blood counts today were normal. If you start throwing up again have significant blood or black or bloody stools you need reevaluated. There is no signs of any significant bleeding at this time. Disposition Disposition: Home, Self Care
[2021-08-29] MEDS: 0.9% Normal Saline 1,000 ML 1000 ML IV (05:14)
[2021-08-29 05:24] LABS: Absolute Lymphocyte Count 2.44 X10^3/uL (0.83-4.51); Absolute Neutrophil Count 4.9 X10^3/uL (2.0-7.7); Basophil# 0.06 X10^3/uL; Basophil% 0.7 % (0-1); Eosinophil# 0.19 X10^3/uL; Eosinophils% 2.3 % (0-5); Hematocrit 42.4 % (37-47); Hemoglobin 13.7 g/dL (12.0-15.0); Lymphocyte # 2.44 X10^3/ul (0.83-4.51); Lymphocyte % 29.8 % (19-41); Mean Corp Hgb Conc 32.3 g/dL (32-36); Mean Corpuscular Hgb 27.3 pg (27.0-32.0); Mean Corpuscular Volume 84.5 fL (81-99); Mean Platelet Vol. 9.8 fl (6.2-12.0); Monocyte# 0.57 X10^3/uL; NRBC Flagged by Analyzer 0 % (0-5); Neutrophil # 4.91 X10^3/uL (2.7-7.7); Neutrophil % 59.8 % (47-70); Platelet Count 363 K/mm3 (150-450); RBC Distribution Width CV 14.3 % (11.6-14.6); RBC Distribution Width SD 43.5 fl (35.1-43.9); Red Blood Count 5.02 M/mm3 (4.2-5.4); White Blood Count 8.2 K/mm3 (4.4-11.0)
[2021-08-29 05:31] LABS: Internal QC Validated? YES +Cl - CLEAR BKGD; Pregnancy, Serum, hCG Quali. NEGATIVE Negative
[2021-08-29 05:37] LABS: ALB/GLOB Ratio 1.1 RATIO (0.9-2.4); AST(SGOT) 13 U/L (15-37); Alanine Aminotransfer ALT/SGPT 14 U/L (13-56); Albumin, Serum 4.5 g/dL (3.2-5.0); Alkaline Phosphatase 82 U/L (45-117); Anion Gap 9 (5-15); BUN 15 mg/dL (7-18); BUN/Creat Ratio 22.6 RATIO (10-20); Calcium,Total 9.7 mg/dL (8.5-10.1); Chloride 103 mmol/L (98-107); Creatinine, Serum 0.66 mg/dL (0.55-1.02); EST Glomerular Filtration Rate 114 mL/min (>60); Est Glom Filt Rate - Afr Amer 137 mL/min (>60); Estimated Creatinine Clearance 97.47 ml/min; Glucose 123 mg/dL (74-106); Potassium 3.3 mmol/L (3.5-5.1); Protein, Total 8.5 g/dL (6.4-8.2); Sodium Level 140 mmol/L (136-145)
== END 2021-08-29 06:05 | disposition home or self-care (01) ==
PROVIDERS: Emergency Provider Emergency Medicine
DX: R10.9 Unspecified abdominal pain (principal); R11.2 Nausea with vomiting, unspecified; K21.9 Gastro-esophageal reflux disease without esophagitis; R19.7 Diarrhea, unspecified
CPT/HCPCS: 80053; 84703; 85025; 99283; J7030; A4216

== ENCOUNTER 2022-10-18 11:42 | Emergency (ER) | payer MEDICAID, SELFPAY ==
[2022-10-18 11:43] VITALS: BP 135/77; PULSE 96; RESP 16; TEMP 37.3; O2SAT 100; BMI 29.5
--- NOTE | 2022-10-18 12:51 | EX.ED.VIS.UR ---
HPI <KEVIN Gray - Last Filed: 10/18/22 18:17> HPI - URI History of Present Illness Chief Complaint: Cough Narrative Narrative: Patient presents today with a cough, nasal congestion, fatigue, and sore throat that started Sunday. Currently 31 weeks and has only been taking Tylenol for her symptoms. She states she did have a 101 degree fever yesterday. Patient denies abdominal pain, nausea, vomiting, diarrhea. She states the whole household is sick with similar symptoms and brought two of her children here to be evaluated also. ROS <KEVIN Gray - Last Filed: 10/18/22 18:17> ROS ED Constitutional Constitutional ED: Reports fever(s); Denies chills Eyes Eyes: Denies change in vision ENT ENT ED: Reports rhinorrhea and sore throat; Denies ear pain Cardiovascular Cardiovascular: Denies chest pain Respiratory/Chest Respiratory/Chest: Reports cough; Denies dyspnea, shortness of breath at rest, shortness of breath with exertion or wheezing Gastrointestinal Gastrointestinal: Denies abdominal pain, constipation, diarrhea, nausea or vomiting Genitourinary Genitourinary ED: Denies dysuria Musculoskeletal Musculoskeletal: Denies myalgias Integumentary Denies abscess, Abrasions or rash Neurologic Neurologic: Denies headache(s) or weakness PFSH <KEVIN Gray - Last Filed: 10/18/22 18:17> [facility] Medical History GERD (gastroesophageal reflux disease) Headache History of pre-term labor History of delivery Home Medications NK 08/29/21 [History Last Taken Unknown] Allergy/AdvReac Type Severity Reaction Status Date / Time No Known Allergies Allergy Verified 10/18/22 11:45 Social History Smoking Status: Never smoker EXAM <KEVIN Gray - Last Filed: 10/18/22 18:17> Physical Exam Const Vital Signs: 10/18/22 11:43 10/18/22 12:10 10/18/22 14:17 Temperature 99.1 F Temperature Source Temporal Pulse Rate 96 59 L Respiratory Rate 16 16 Respiratory Effort Normal Respiratory Depth Normal Respiratory Pattern Normal Blood Pressure 135/77 H 134/62 H Blood Pressure Mean 96 Pulse Ox 100 98 Oxygen Delivery Method Room Air Positive well nourished and well developed General Appearance ED: well developed HEENT Reports TM's clear and moist mucous membranes normocephalic and atraumatic Nose: nasal discharge Tympanic Membrane ED: Yes TM's clear Throat: posterior oropharynx normal Eyes PERRL and EOMs intact bilaterally Neck no lymphadenopathy and supple Resp normal respiratory effort and clear to auscultation bilaterally Auscultation: Negative for rales, rhonchi, wheezes or diminished lung sounds Cardio no murmurs Rate: regular rate Rhythm: regular rhythm GI non-tender, non-distended and no masses Palpation: soft Back/Spine normal ROM Extremity normal to inspection and full ROM Neuro oriented x3, CN's II-XII intact bilaterally and no sensory deficits noted Psych mental status grossly normal Skin Lesions: no lesions Rashes: no rashes <Dr. Sveta Mendez MD - Last Filed: 10/18/22 16:11> Physical Exam Const Vital Signs: 10/18/22 11:43 10/18/22 12:10 10/18/22 14:17 Temperature 99.1 F Temperature Source Temporal Pulse Rate 96 59 L Respiratory Rate 16 16 Respiratory Effort Normal Respiratory Depth Normal Respiratory Pattern Normal Blood Pressure 135/77 H 134/62 H Blood Pressure Mean 96 Pulse Ox 100 98 Oxygen Delivery Method Room Air [facility] <KEVIN Gray - Last Filed: 10/18/22 18:17> [facility] Narrative Medical decision making narrative: Patient tested positive for influenza A. Patient stated her whole household is sick with the same symptoms. I educated patient on supportive care and told her to follow-up if any worsening symptoms such as difficulty breathing or shortness of breath. Patient's vital signs are stable here in the ED and she did not have a fever. Patient is comfortable with plan and I am comfortable discharging her home with supportive care measures. I have answered all of her questions. <Dr. Sveta Mendez MD - Last Filed: 10/18/22 16:11> [facility] Treatment and Re-Evaluation Narrative: Patient seen and evaluated with MARIBEL. I personally interviewed and examined the patient. I was involved in all aspects of patient's orders, interpretation of results, and treatment. Patient presents with 2 of her children, all ill with URI symptoms including cough and fever. She is currently . No cramping or vaginal bleeding. Patient lying in bed no acute distress. Head neck examination unremarkable. Heart is regular rate and rhythm. Lung sounds are clear. Abdomen is soft, gravid, nontender. Skin examination reveals no rash. Swabs for COVID and influenza obtained. She does test positive for influenza A. Supportive care is discussed. Return instructions given. Discharge Plan Triage Chief Complaint: Cough ED Midlevel Provider: Kellie Alan ED Provider: Sveta Mendez Dx/Rx/DC Orders Clinical Impression: Influenza A, Instructions: ED Influenza (Adult) Prescriptions: No Action NK Primary Care Provider: Care Physician,No Primary Referrals: Care Physician,No Primary [Primary Care Provider] - Activity Restrictions/Additional Instructions: Stay well-hydrated and take [id number] Tylenol for fever. Follow-up with PCP in 1 week if no improvement in symptoms or if symptoms worsen. Disposition Disposition: Home, Self Care Discharge Date/Time: 10/18/22 14:17
[2022-10-18 14:17] VITALS: BP 134/62; PULSE 59; RESP 16; O2SAT 98
== END 2022-10-18 14:17 | disposition home or self-care (01) ==
PROVIDERS: Emergency Provider Emergency Medicine; Visit Provider Emergency Medicine
DX: O99.513 Diseases of the respiratory system complicating pregnancy, third trimester (principal); J10.1 Influenza due to other identified influenza virus with other respiratory manifestations; Z3A.31 31 weeks gestation of pregnancy
CPT/HCPCS: 87428; 99282

== ENCOUNTER 2022-12-16 03:45 | Inpatient (IN) | payer MEDICAID, SELFPAY ==
[2022-12-16] VITALS (62 sets, daily range): BP systolic 120–180; BP diastolic 61–99; PULSE 83–122; RESP 16; TEMP 36.3–37.6; O2SAT 90–100; BMI 32.3
[2022-12-16] MEDS: Lactated Ringers 1,000 ML 50 ML IV (04:00)
[2022-12-16 04:08] LABS: Absolute Lymphocyte Count 2.02 X10^3/uL (0.83-4.51); Absolute Neutrophil Count 7.7 X10^3/uL (2.0-7.7); Basophil# 0.06 X10^3/uL; Basophil% 0.6 % (0-1); Eosinophil# 0.06 X10^3/uL; Eosinophils% 0.6 % (0-5); Hematocrit 29.2 % (37-47); Lymphocyte # 2.02 X10^3/ul (0.83-4.51); Lymphocyte % 19.2 % (19-41); Mean Corp Hgb Conc 30.8 g/dL (32-36); Mean Corpuscular Hgb 25.1 pg (27.0-32.0); Mean Corpuscular Volume 81.3 fL (81-99); Mean Platelet Vol. 9.4 fl (6.2-12.0); Monocyte# 0.55 X10^3/uL; Monocyte% 5.2 % (0-10); NRBC Flagged by Analyzer 0 % (0-5); Neutrophil # 7.73 X10^3/uL (2.7-7.7); Neutrophil % 73.5 % (47-70); Platelet Count 257 K/mm3 (150-450); RBC Distribution Width CV 13.6 % (11.6-14.6); RBC Distribution Width SD 39.7 fl (35.1-43.9); Red Blood Count 3.59 M/mm3 (4.2-5.4); White Blood Count 10.5 K/mm3 (4.4-11.0)
[2022-12-16] MEDS: LACTATED RINGERS 500 ML 999 ML IV (08:11)
[2022-12-16] MEDS: Penicillin G 3,000,000 Units 50 ML 100 UNITS IV ×2 (08:46→12:26)
--- NOTE | 2022-12-16 09:40 | PCM.HP.OB ---
HPI - General General Date of Admission: 12/16/22 Date of Service: 12/16/22 Chief Complaint: ctx's HPI Narrative RONAL BHAKTA, is a 26 F who presents with ctx's q 4-7 min apart and mild range BP's. No pre e symptoms. No vb, lof. Good FM. She offer no complaints other than ctx's. PFSH PFS Medical History (Updated 12/16/22 @ 09:[address] Mami Griffith, DO) Chlamydia infection affecting GERD (gastroesophageal reflux disease) Headache History of pre-term labor History of delivery Allergy/AdvReac Type Severity Reaction Status Date / Time No Known Allergies Allergy Verified 10/18/22 11:45 Social History Smoking Status: Former smoker History Elective abortions Hx Para 4 Spontaneous abortions Hx # Term Pregnancies Ectopic pregnancies Hx # Pregnancies Multiple births # of living children NST FHR Rate Baby A FHR Category:: Category I Vital Signs Vital Signs Vital Signs: 12/16/22 02:47 12/16/22 02:47 12/16/22 02:48 Temperature Temperature Source Temporal Pulse Rate 108 H Blood Pressure BP Systolic BP Diastolic Pulse Ox 98 12/16/22 02:48 12/16/22 02:53 12/16/22 02:53 Temperature 98.6 F Temperature Source Pulse Rate 104 H Blood Pressure 142/95 H BP Systolic 142 BP Diastolic 95 Pulse Ox 12/16/22 03:00 12/16/22 03:00 12/16/22 03:17 Temperature Temperature Source Pulse Rate 101 H Blood Pressure 149/92 H 136/86 H BP Systolic 149 136 BP Diastolic 92 86 Pulse Ox 12/16/22 03:17 12/16/22 03:31 12/16/22 03:31 Temperature Temperature Source Pulse Rate 100 101 H Blood Pressure 136/80 H BP Systolic 136 BP Diastolic 80 Pulse Ox 12/16/22 07:22 12/16/22 07:22 12/16/22 07:22 Temperature Temperature Source Temporal Pulse Rate 106 H Blood Pressure 143/92 H BP Systolic 143 BP Diastolic 92 Pulse Ox 12/16/22 07:22 12/16/22 07:22 12/16/22 09:29 Temperature 98.0 F Temperature Source Pulse Rate Blood Pressure 140/89 H BP Systolic 140 BP Diastolic 89 Pulse Ox 100 12/16/22 09:29 12/16/22 09:29 12/16/22 09:29 Temperature Temperature Source Pulse Rate 110 H 109 H Blood Pressure BP Systolic BP Diastolic Pulse Ox 90 12/16/22 09:29 12/16/22 09:34 12/16/22 09:34 Temperature Temperature Source Pulse Rate 104 H Blood Pressure 140/90 H BP Systolic 140 BP Diastolic 90 Pulse Ox 99 12/16/22 09:34 Temperature Temperature Source Pulse Rate Blood Pressure BP Systolic BP Diastolic Pulse Ox 96 Weight Weight: 171 lb 4 oz Body Mass Index (BMI) 32.3 Physical Exam Const alert and no apparent distress HEENT normocephalic Resp normal respiratory effort GI soft to palpation GI Narrative: Gravid Labs Labs Labs: Blood Type AB POSITIVE Antibody Screen NEGATIVE Hct 29.2 % (37-47) L Hgb 9.0 g/dL (12.0-15.0) L Obstetrics US Group B Strep DNA Negative (Negative) Rhogam given: No Assessment & Plan (1) 39 weeks gestation of : PLAN: Admit for routine intrapartum care. PCN for GBS positive. Will rupture after 4 hours of antibiotic time. Epidural PRN. Pit as needed for augmentation. No symptoms of pre e. BP's were normal in office. Pre e workup on admission. Pelvis adequate and expected EFW < 4500 g. Anticipate vaginal delivery. (2) Uterine contractions: (3) Positive GBS test: (4) Elevated blood pressure reading without diagnosis of hypertension:
[2022-12-16] MEDS: fentaNYL-bupivacaine (epidural) 100 ML BAG EPIDURAL (10:00)
--- NOTE | 2022-12-16 10:23 | PCM.PN.BLA ---
Progress Note At bedside to check on pt. Comfortable with epidural. Assessment & Plan Assessment/Plan (1) Elevated blood pressure reading without diagnosis of hypertension: (2) Positive GBS test: (3) Uterine contractions: (4) 39 weeks gestation of : PLAN: Uterine contractions have spaced apart. Cvx remains 3/70/-2, head well applied. BP's still elevated without symptoms of pre e. AROM performed in usual fashion with return of clear fluid. Will start pit per protocol.
[2022-12-16] MEDS: Oxytocin 15 Units/NS 250ml 15 UNITS/250 ML IV.SOLN 2 UNITS IV (10:41)
--- NOTE | 2022-12-16 12:58 | PCM.PN.BLA ---
Progress Note Pt feeling pressure w/ ctx's. Assessment & Plan Assessment/Plan (1) Elevated blood pressure reading without diagnosis of hypertension: (2) Positive GBS test: (3) Uterine contractions: (4) 39 weeks gestation of : PLAN: Cvx /-1, anticipate vaginal delivery. Cont position changes. Category 1 tracing.
--- NOTE | 2022-12-16 13:51 | PCM.OPRPT ---
Problems Associated Problem List Diagnoses (1) Elevated blood pressure reading without diagnosis of hypertension: (2) Positive GBS test: (3) Uterine contractions: (4) 39 weeks gestation of : (5) Vaginal delivery: (6) Vaginal laceration: Report of Operation Date of Procedure: 12/16/22 Pre-Operative Diagnosis: 39 week gestation, single viable IUP, uterine contractions, gHTN Post-Operative Diagnosis: As above Surgery/Procedure Performed:: Repair of 1st degree vaginal laceration Description of Surgical Findings:: VFI apgars 9, 9 Normal appearing placenta with 3 VC 1st degree vaginal laceration Surgeon: Mami Griffith director of scout work: None Type of Anesthesia: Epidural Special Medications: None Specimen's removed: Placenta Drains: Dodge Estimated Blood Loss (mL): 150 Fluids Replaced: N/A Description of Procedure: The patient was complete and pushing. She pushed for 2 contractions. Head of infant was delivered in left occiput anterior position. Anterior shoulder was delivered with gentle downward traction, followed by the posterior shoulder and body of the infant without any force or delay. A vigorous viable female infant was delivered and placed on maternal abdomen. Apgars 9, 9. The cord was clamped and cut after a 60 sec delay by the father of the baby. The placenta was delivered with fundal massage and noted to be normal-appearing and intact with three-vessel cord. Pitocin was started. The uterus was explored x1. Fundus firm and bleeding hemostatic. A first-degree vaginal laceration was noted to be bleeding, therefore a [id number] was placed using 3-0 Vicryl to achieve hemostasis. Vaginal sweep was performed. Sharp and sponge counts were correct. Grafts/Implants Used: None Complications None Admit VTE Documentation VTE Present on Admission: No
[2022-12-16] MEDS: Acetaminophen 500 MG Tablet 1000 MG PO ×2 (14:24→22:46)
[2022-12-16] MEDS: Senna/Docusate Sodium 1 Tablet PO (14:24)
[2022-12-16] MEDS: Oxytocin 15 Units/NS 250ml 15 UNITS/250 ML IV.SOLN 334 UNITS IV (15:55)
[2022-12-16] MEDS: miSOPROStol 200 MCG Tablet 800 MCG RC (16:15)
[2022-12-16 16:17] LABS: Absolute Lymphocyte Count 2.42 X10^3/uL (0.83-4.51); Absolute Neutrophil Count 14.1 X10^3/uL (2.0-7.7); Basophil# 0.05 X10^3/uL; Basophil% 0.3 % (0-1); Eosinophil# 0.03 X10^3/uL; Eosinophils% 0.2 % (0-5); Hematocrit 28.5 % (37-47); Hemoglobin 8.8 g/dL (12.0-15.0); Lymphocyte # 2.42 X10^3/ul (0.83-4.51); Lymphocyte % 13.8 % (19-41); Mean Corp Hgb Conc 30.9 g/dL (32-36); Mean Corpuscular Hgb 25.4 pg (27.0-32.0); Mean Corpuscular Volume 82.1 fL (81-99); Mean Platelet Vol. 9.5 fl (6.2-12.0); Monocyte# 0.92 X10^3/uL; Monocyte% 5.2 % (0-10); NRBC Flagged by Analyzer 0 % (0-5); Neutrophil # 14.05 X10^3/uL (2.7-7.7); Neutrophil % 79.8 % (47-70); Platelet Count 277 K/mm3 (150-450); RBC Distribution Width SD 41.1 fl (35.1-43.9); Red Blood Count 3.47 M/mm3 (4.2-5.4); White Blood Count 17.6 K/mm3 (4.4-11.0)
--- NOTE | 2022-12-16 16:18 | PCM.PN.BLA ---
Progress Note Called for increased bleeding. At bedside to examine patient. She is reasonably tearful. No lightheadedness or dizziness. Having some uterine pain. Assessment & Plan Assessment/Plan (1) hemorrhage: PLAN: - Total EBL ~1200 L. Upon presentation into the room Pitocin running. Uterus explored with minimal clot removed and no retained tissue. Cytotec 800 mcg rectal placed. Fundus firm at U-1. Bleeding hemostatic at this time. Suspect atony given rapid change and multiparous patient. With fundal massage minimal to no bleeding noted. Closely monitor vitals and for symptoms of anemia given Hgb 9.0 prior to delivery. Stat CBC now and repeat CBC in AM. May need IV iron or a blood transfusion given anemia in . Will reassess bleeding and fundus.
[2022-12-16 16:33] LABS: International Normalized Ratio 1.1; Prothrombin Time (Protime)PT. 13.9 SECONDS (11.7-14.9)
[2022-12-16 16:34] LABS: Partial Thromboplast Time 25.6 Seconds (24.1-36.2)
[2022-12-16] MEDS: Ibuprofen 600 MG Tablet PO (16:36)
[2022-12-16 16:37] LABS: Fibrinogen 444 mg/dl (203-444)
--- NOTE | 2022-12-16 17:19 | NURSING ---
1545: RN in to assess pt for last PP check, pt states felt gush. Upon removal of sheets, pool of blood noted. RN started fundal massage, several clots expressed. RN called discharge door operator to bring hemorrhage cart back. Math And Science Instructor to call Dr. Griffith. 1550: Extra staff in room to assist with hemorrhage. Hemorrhage cart in room. 1555: IV pitocin initated. Running at 334 ml/hr 1603: Dr. Griffith in room 1605: 2nd IV started by Sharri. 1607:Vaginal sweep completed by Dr. Griffith-small clots noted, no retained placenta. 1611: 800 mg rectal cytotec given by Dr. Griffith. Bleeding appropriate and fundus firm at U-2. 1615: Dr. Griffith out of room. 1625: Dr. Griffith back in room to assess bleeding. Bleeding appropriate and fundus U-2. Pt c/o cramping. Total QBL; 1272 ml
--- NOTE | 2022-12-16 21:18 | NURSING ---
report given to divya TOLEDO. that RN to assume care of couplet at this time.
[2022-12-17] VITALS (8 sets, daily range): BP systolic 113–137; BP diastolic 70–88; PULSE 74–87; RESP 14–16; TEMP 36.1–36.5; O2SAT 97–100
[2022-12-17] MEDS: Ibuprofen 600 MG Tablet PO (01:37)
[2022-12-17 04:13] LABS: Hematocrit 23.8 % (37-47); Hemoglobin 7.3 g/dL (12.0-15.0); Mean Corp Hgb Conc 30.7 g/dL (32-36); Mean Corpuscular Hgb 25.4 pg (27.0-32.0); Mean Corpuscular Volume 82.9 fL (81-99); Mean Platelet Vol. 9.4 fl (6.2-12.0); Platelet Count 228 K/mm3 (150-450); RBC Distribution Width CV 13.9 % (11.6-14.6); RBC Distribution Width SD 41.6 fl (35.1-43.9); Red Blood Count 2.87 M/mm3 (4.2-5.4); White Blood Count 11.3 K/mm3 (4.4-11.0)
[2022-12-17 04:35] LABS: ALB/GLOB Ratio 0.5 RATIO (0.9-2.4); AST(SGOT) 15 U/L (15-37); Alanine Aminotransfer ALT/SGPT 11 U/L (13-56); Albumin, Serum 1.9 g/dL (3.2-5.0); Alkaline Phosphatase 80 U/L (45-117); Anion Gap 8 (5-15); BUN 9 mg/dL (7-18); BUN/Creat Ratio 16.5 RATIO (10-20); Calcium,Total 7.7 mg/dL (8.5-10.1); Chloride 105 mmol/L (98-107); Creatinine, Serum 0.54 mg/dL (0.55-1.02); EST Glomerular Filtration Rate 142 mL/min (>60); Est Glom Filt Rate - Afr Amer 171 mL/min (>60); Estimated Creatinine Clearance 118.09 ml/min; Globulin 3.5 g/dL (2.2-4.2); Glucose 101 mg/dL (74-106); Potassium 3.4 mmol/L (3.5-5.1); Protein, Total 5.4 g/dL (6.4-8.2); Sodium Level 138 mmol/L (136-145)
--- NOTE | 2022-12-17 04:38 | PN.OBGYN_ITS ---
Subjective Subjective Patient is doing well. She denies any lightheadedness or dizziness. She is ambulating and voiding without difficulty. She denies chest pain or shortness of breath. Lochia has been normal. Some cramping with breast-feeding. She desires to go home today. Objective Data Objective Data Vital Signs: Vital Signs Temp Pulse Resp BP Pulse Ox O2 Del Method 97.3 F L 74 16 113/75 97 Room Air 12/17/22 03:58 12/17/22 03:58 12/17/22 03:58 12/17/22 03:58 12/17/22 03:58 12/17/22 03:58 Oxygen Delivery Method Room Air Weight: 171 lb 4 oz Body Mass Index (BMI) 32.3 Intake & Output: Intake and Output for Last 24 Hours 12/15/22 12/16/22 12/17/22 23:59 23:59 23:59 Intake Total 2192.50 / 2192.50 Output Total 2805 / 2805 Balance -612.50 / -612.50 Lab / Micro Data Result Diagrams: 12/17/22 04:00 12/17/22 04:00 Labs: Laboratory Results - last 24 hr 12/16/22 04:00: Blood Type AB POSITIVE, Antibody Screen NEGATIVE 12/16/22 16:00: WBC 17.6 H, RBC 3.47 L, Hgb 8.8 L, Hct 28.5 L, MCV 82.1, MCH 25.4 L, MCHC 30.9 L, RDW Std Deviation 41.1, RDW Coeff of Chance 14.0, Plt Count 277, MPV 9.5, Immature Gran % (Auto) 0.700, Neut % (Auto) 79.8 H, Lymph % (Auto) 13.8 L, [place] % (Auto) 5.2, Eos % (Auto) 0.2, Baso % (Auto) 0.3, Absolute Neuts (auto) 14.1 H, Absolute Lymphs (auto) 2.42, Nucleated RBC % 0 12/16/22 16:00: PT 13.9, INR 1.1, APTT 25.6, Fibrinogen 444 12/17/22 04:00: WBC 11.3 H, RBC 2.87 L, Hgb 7.3 L, Hct 23.8 L, MCV 82.9, MCH 25.4 L, MCHC 30.7 L, RDW Std Deviation 41.6, RDW Coeff of Chance 13.9, Plt Count 228, MPV 9.4 12/17/22 04:00: Sodium 138, Potassium 3.4 L, Chloride 105, Carbon Dioxide 25.0, Anion Gap 8, BUN 9, Creatinine 0.54 L, Estim Creat Clear Calc 118.09, Est GFR (MDRD) Af Amer 171, Est GFR (MDRD) Non-Af 142, BUN/Creatinine Ratio 16.5, Glucose 101, Calcium 7.7 L, Total Bilirubin 0.20, AST 15, ALT 11 L, Alkaline Phosphatase 80, Total Protein 5.4 L, Albumin 1.9 L, Globulin 3.5, Albumin/Globulin Ratio 0.5 L Physical Exam Const alert and no apparent distress General Appearance: comfortable Resp normal respiratory effort GI soft to palpation, non-tender and non-distended GI Narrative: FF@U-1 Extremity normal to inspection Assessment & Plan (1) Vaginal delivery: PLAN: PPD#1 s/p vaginal delivery followed by PPH for > 1 L. She has no symptoms of anemia. Hgb on admission was 9. Recheck this AM. Discussed possible need for IV iron vs blood transfusion. Doing well and desires to go home today. Anticipate discharge later today. (2) Vaginal laceration: (3) hemorrhage:
--- NOTE | 2022-12-17 06:33 | DCINST_ITS ---
Discharge Instructions Diet Discharge Diet: No restrictions Activity Discharge Activity: May Drive May resume sexual activity in: 6 weeks Ice area for (Minutes): 15 Weight Bearing Status: Weight bearing as tolerated Lifting Restrictions: Nothing heavier than baby Dressing / Incision Call your doctor if you observe: Fever of 101 or Higher, Coldness, Increased Pain, Numbness or Tingling, Change in Color, Inability to urinate, Inability to have a bowel movement, Using more than 1 pad per hour, Shortness of breath, Dizziness, Fainting spells, Swelling in the ankles, Chest pain, Increased palpitations (irregular heartbeat), Calf discomfort and Uncontrolled pain Cleanse incision/area with: Soap & Water Follow Up Care Please Follow Up With: Mami Griffith DO When: 1 week for blood pressure check and early visit 6 weeks for exam and will recheck your anemia Test Results: Test results from this visit will be discussed in further detail at your follow- up appointment, if applicable. Discharge Plan Admission Admit Date/Time: 12/16/22 03:45 Primary Reason for Your Visit: Delivery Attending Provider: Mami Griffith Primary Care Provider: Care Physician,Caterina Primary Instructions Patient Instructions: After a Vaginal Discharge Orders/Prescriptions Prescriptions: New ferrous sulfate 325 mg (65 mg iron) tablet 325 mg PO DAILY Qty: 60 0RF Referrals / Follow Up: Care Physician,No Primary [Primary Care Provider] - Disposition Disposition (needs filled in before D/C Order can be placed): Home, Self Care
[2022-12-17] MEDS: Senna/Docusate Sodium 1 Tablet PO (06:36)
--- NOTE | 2022-12-17 07:05 | NURSING ---
This RN has found MOB sleeping with in bed on multiple rounds throughout the night. This RN has discussed, on multiple occasions, to place in bassinet when feeling tired and wanting to sleep. MOB verbalized understanding of discussion and at 0600 rounds was in bed with MOB, and MOB was asleep. This RN placed infant in bassinet and reinforced safe sleep teaching.
[2022-12-17] MEDS: Sodium Ferric Gluconat 250 MG in 0.9% Normal Saline 250 ML 135 MG IV (08:03)
[2022-12-17] MEDS: 0.9% Saline Lock 10 ML Syringe IV ×2 (08:04→10:16)
[2022-12-17] MEDS: Acetaminophen 500 MG Tablet 1000 MG PO (08:12)
--- NOTE | 2022-12-17 08:13 | NURSING ---
this rn spoke to physician on unit. HGB went from 8.8 on admission and dropped to 7.3. Doctor ordered IV iron to be given and wants patient to be seen this week in the office. pt has remained asymptomatic and vital signs are stable.
--- NOTE | 2022-12-17 08:15 | NURSING ---
report given to Jimmy RN and that RN will assume care at this time
== END 2022-12-17 14:20 | disposition home or self-care (01) | DRG 560 ==
LOC: WPOUT 03:48 → WP 03:48
PROVIDERS: Admitting Provider Obstetrics & Gynecology; Visit Provider Obstetrics & Gynecology
DX: O98.82 Other maternal infectious and parasitic diseases complicating childbirth (principal); O70.0 First degree perineal laceration during delivery; Z37.0 Single live birth; O72.1 Other immediate postpartum hemorrhage; R03.0 Elevated blood-pressure reading, without diagnosis of hypertension; O26.23 Pregnancy care for patient with recurrent pregnancy loss, third trimester; Z87.891 Personal history of nicotine dependence; O99.824 Streptococcus B carrier state complicating childbirth; Z3A.39 39 weeks gestation of pregnancy; O26.893 Other specified pregnancy related conditions, third trimester; B95.1 Streptococcus, group B, as the cause of diseases classified elsewhere
CPT/HCPCS: 59025; 59050; 80053; 85025; 85027; 85384; 85610; 85730; 86850; 86900; 86901; 99221; J7050; J7120; A4216; G0378; J2916

== ENCOUNTER 2023-12-02 15:36 | Emergency (ER) | payer MEDICAID, SELFPAY ==
[2023-12-02 15:36] VITALS: BP 165/95; PULSE 105; RESP 24; TEMP 36; O2SAT 100; BMI 33.8
[2023-12-02 15:47] VITALS: BP 140/91; PULSE 112; RESP 18; O2SAT 100; O2SAT 99
--- NOTE | 2023-12-02 15:56 | EKG12_ITS ---
Test Reason : SOB Blood Pressure : / mmHG Vent. Rate : 100 BPM Atrial Rate : 100 BPM P-R Int : 112 ms QRS Dur : 070 ms QT Int : 350 ms P-R-T Axes : 053 037 023 degrees QTc Int : 451 ms Normal sinus rhythm Normal ECG Confirmed by HORACE CAGE, HENRY ([id number]), manager editorial JOSE EDEN ([id number]) on 12/04/2023 9:54:03 AM Referred By: Confirmed By:HENRY VU MD
--- NOTE | 2023-12-02 15:59 | EDS_ITS ---
HPI History of Present Illness Chief Complaint: Shortness of Breath Narrative Narrative: 27-year-old female presenting with cough, congestion for 8 or 9 weeks. Patient initially seen at urgent care for the symptoms and stated that she never had any fever, chills, body aches, nausea, vomiting. She is coughing but not producing much sputum. Patient was initially treated for sinobronchitis with amoxicillin. She states at this point she still continues have symptoms and followed up with the urgent care again and was put on Augmentin for sinusitis. Patient is not doing any better as far as cough or congestion. She notes that she has pain under her right breast. She states it is reproducible. She does not have any known trauma. She notes no bruising. No rashes. There is no radiation of the pain under her breast. No PE risk factors other than and no cardiac history. She notes that her blood pressure looks higher than usual today but she states it has been normal at all of her follow-up visits with OB and has not been elevated at home. [facility] Medical History Chlamydia infection affecting Elevated blood pressure reading without diagnosis of hypertension GERD (gastroesophageal reflux disease) Headache History of pre-term labor History of delivery hemorrhage Vaginal laceration Home Medications ferrous sulfate 325 mg (65 mg iron) tablet 325 mg PO DAILY #60 tabs 12/17/22 [Rx Last Taken Unknown] Allergy/AdvReac Type Severity Reaction Status Date / Time No Known Allergies Allergy Verified 10/18/22 11:45 Social History Smoking Status: Former smoker ROS ROS ED Constitutional Constitutional ED: Denies chills, fever(s) or sweats Eyes Eyes: Denies blurry vision or change in vision ENT ENT ED: Denies ear pain or sore throat Cardiovascular Cardiovascular: Reports chest pain; Denies palpitations or racing heartbeat Respiratory/Chest Respiratory/Chest: Reports cough and dyspnea; Denies sputum Gastrointestinal Gastrointestinal: Denies abdominal pain, constipation, diarrhea, nausea or vomiting Genitourinary Genitourinary ED: Denies dysuria, hematuria or urinary frequency Musculoskeletal Musculoskeletal: Denies arthralgias, myalgias or neck pain Integumentary Denies abscess, Abrasions or rash Neurologic Neurologic: Denies headache(s), paresthesias or weakness Psychiatric Psychiatric: Denies anxiety, depression, suicidal ideation or suicidal thoughts Endocrine Endocrinology: Denies polydipsia or polyuria EXAM Physical Exam Const Vital Signs: 12/02/23 15:36 12/02/23 15:47 12/02/23 15:47 Temperature 96.8 F L Temperature Source Temporal Pulse Rate 105 H 112 H Respiratory Rate 24 H 18 Respiratory Effort Short of Breath Respiratory Depth Normal Respiratory Pattern Tachypnea Blood Pressure 165/95 H 140/91 H Blood Pressure Mean 118 107 Pulse Ox 100 100 Oxygen Delivery Method Room Air Room Air Room Air 12/02/23 16:13 12/02/23 16:36 Temperature Temperature Source Pulse Rate 107 H Respiratory Rate 16 Respiratory Effort Respiratory Depth Respiratory Pattern Blood Pressure 135/95 H Blood Pressure Mean 108 Pulse Ox 99 99 Oxygen Delivery Method Room Air Room Air Positive well nourished General Appearance ED: NAD; Negative for pallor HEENT Reports moist mucous membranes Face and Sinus: normal facial exam, sinuses nontender and face symmetric Nose: external nose normal and nasal discharge clear Eyes PERRL and EOMs intact bilaterally Chest Wall Chest Narrative: Focal area of tenderness to palpation under the right breast approximately a centimeter in diameter. No crepitance. Equal symmetric breath sounds and chest wall rise. Resp normal respiratory effort and clear to auscultation bilaterally Auscultation: Negative for rales or rhonchi Cardio regular rate Rate: tachycardic GI normal to inspection, nondistended, normoactive bowel sounds Neuro oriented x3 and CN's II-XII intact bilaterally Sensorium / Orientation: alert Motor Exam: strength 5/5 throughout Psych mental status grossly normal Skin no rashes or lesions noted General Skin Exam: Negative for jaundice or pallor MDM MDM MDM Narrative Medical decision making narrative: Patient presenting with shortness of breath, cough, congestion x 8-9 weeks. Patient has been on amoxicillin and Augmentin with no significant improvement. She notes that she has some pain in her chest which is completely reproducible and is under her right breast that is very focal area. Differential includes ACS,PE, costochondritis, dehydration, anemia, electrolyte abnormalities, pn eumonia, muscle strain. CBC was obtained to assess white blood cell count, hemoglobin, platelets. CMP to assess liver function, renal function, electrolytes, glucose. High-sensitivity troponin EKG to assess for ischemia/dysrhythmia. Chest x-ray was not ordered as a D-dimer was ordered to assess for PE and if this is positive we will obtain a CTA of the chest and we will skip the chest x-ray. CBC shows a leukocytosis at 14.7. Hemoglobin 10.1. Renal function, electrolytes within normal limits. LFTs are normal. High- sensitivity troponin 4. EKG on my interpretation shows normal sinus rhythm with reticular 100 bpm without sign of ischemic change or dysrhythmia. D-dimer was elevated at 1.28. After discussion of the risk benefits with the patient we we will perform CTA of the chest. Bedside ultrasound was performed and shows good movement with heart tones of 140 bpm. CTA of the chest was obtained and is negative for PE, dissection, infiltrate. Patient counseled on findings. Patient's blood pressure currently 135/95. I spoke with Jackie Thompson who is on-call for [employer]. She recommend that the patient make a follow-up appointment tomorrow to be seen in the office in the next couple of days given that she has not been seen by them and she has been going to the urgent care and with her elevated blood pressure she wants her to have her assessed. She will keep blood pressure diary at home. Patient again states that her blood pressures have been normal outpatient. Return precautions are discussed Impression: 1. Chest wall pain 2. Dyspnea 3. Cough 4. Elevated blood pressure Lab Data Attestation: I reviewed the patient's lab results. Labs: Laboratory Results - last 24 hr 12/02/23 15:49 WBC 14.7 H RBC 3.91 L Hgb 10.1 L Hct 32.3 L MCV 82.6 MCH 25.8 L MCHC 31.3 L RDW Std Deviation 39.3 RDW Coeff of Chance 13.2 Plt Count 241 MPV 9.7 Immature Gran % (Auto) 2.400 H Neut % (Auto) 83.0 H Lymph % (Auto) 8.7 L [place] % (Auto) 4.9 Eos % (Auto) 0.7 Baso % (Auto) 0.3 Absolute Neuts (auto) 12.2 H Absolute Lymphs (auto) 1.28 Nucleated RBC % 0 D-Dimer Quant (PE/DVT) 1.50 H* Sodium 139 Potassium 3.5 Chloride 106 Carbon Dioxide 26.0 Anion Gap 7 BUN 6 L Creatinine 0.67 Estim Creat Clear Calc 94.33 Est GFR (MDRD) Af Amer 134 Est GFR (MDRD) Non-Af 111 BUN/Creatinine Ratio 9.0 L Glucose 88 Calcium 8.7 Total Bilirubin 0.30 Direct Bilirubin 0.06 AST 19 ALT 11 L Alkaline Phosphatase 88 Troponin I High Sens 4 Total Protein 7.2 Albumin 2.5 L Globulin 4.7 H Radiography Diagnostic Testing: Clinical Impression(s) from Imaging Studies Chest CTA 12/02/23 16:33 IMPRESSION: No demonstrated pulmonary embolism or arterial dissection. Splenomegaly. Electronically Signed: Yonathan Maxwell DO at 17:22 EST Reading Location ID and State: [facility] / [place] Tel [phone], Service support , Procedures Other Procedures Procedure(s): Bedside ultrasound: Performed by myself at the bedside. heart tones 140 bpm. Good movement. Discharge Plan Triage Chief Complaint: Shortness of Breath ED Provider: Shelton Corral Dx/Rx/DC Orders Instructions: ED Dyspnea Prescriptions: No Action ferrous sulfate 325 mg (65 mg iron) tablet 325 mg PO DAILY Qty: 60 0RF Primary Care Provider: Care Physician,No Primary Referrals: Jackie Correia CNM [Med Staff - Adv Practice Prof] - As soon as possible Care Physician,No Primary [Primary Care Provider] - Disposition Disposition: Home, Self Care
--- OUTSIDE RECORDS SUMMARY | 2023-12-02 16:00 | XMS RPT_ITS | CCD ---
Author Name Unknown Address [id number] [place] [address] Organization [facility] Care Team Providers Care Postal Inspector Name Role Phone SAUNDRA DODSON Unavailable Unavailable PHYSICIAN, NONE Unavailable Unavailable Danica CAGE, Tiara Nguyen Primary Care Provider Danica CAGE, Tiara Nguyen Primary Care Provider Tiara Mishra MD Primary Care Provider Danica CAGE, Tiara Nguyen Primary Care Provider TIARA MISHRA Primary Care Unavailab le JADA GONZALEZ Attending Unavail able JACKIE GUNN Attending Unavailable TIARA MISHRA Primary Care Unavailab le TIARA MISHRA Primary Care Unavailab le TIARA MISHRA Primary Care Unavailab ERICA Garcia Referring Unavailable TIARA MISHRA Primary Care Unavailab CALIXTO Garcia Attending Unavailable CALIXTO COLLADO Referring Unavailable TIARA MISHRA Primary Care Unavailab le TIARA MISHRA Primary Care Unavailab le TIARA MISHRA Primary Care Unavailab le JADA GONZALEZ Attending Unavail able TIARA MISHRA Primary Care Unavailab THELMA Santos Attending Unavailable TIARA MISHRA Primary Care Unavailab le JADA GONZALEZ Attending Unavail able TIARA MISHRA Primary Care Unavailab le TIARA MISHRA Primary Care Unavailab SANDRA Fleming Attending Unavailable EMELY ADLER Attending Unavailable TIARA MISHRA Primary Care Unavailab le TIARA MISHRA Primary Care Unavailab ERICA Garcia Attending Unavailable TIARA MISHRA Primary Care Unavailab ERICA Garcia Referring Unavailable EDUARDO GUEVARA Attending Unavailable TIARA MISHRA Primary Care Unavailab sean Medications Current Medications Medication Drug Class(es) Dates Sig (Normalized) Sig (Original) amoxicillin 875 mg oral tablet (4 sources) Penicillin-class Antibacterial Start: 11-11-2023 End: 11-18-2023 take 1 tablet by mouth twice daily amoxicillin (AMOXIL) 875 mg tablet Take 1 tablet by mouth two times a day for 7 days. 14 tablet 0 11/11/2023 11/18/2023 Active Completed/Discontinued Medications Medication Drug Class(es) Dates Sig (Normalized) Sig (Original) famotidine 20 mg oral tablet (20 sources) Histamine-2 Receptor Antagonist Start: 10-27-2022 End: 09-04-2023 take 1 tablet by mouth twice daily famotidine (PEPCID) 20 mg tablet Indications: 32 weeks gestation of , Encounter for supervision of other normal in second trimester , Mild acid reflux Take 1 tablet by mouth twice daily. 60 tablet 0 11/16/2022 09/04/2023 Discontinued (Other) Problems Active Problems Problem Classification Problem Date Documented Date Episodic/Chronic Esophageal disorders (2 sources) Gastroesophageal reflux disease; Translations: [Gastro-esophageal reflux disease without esophagitis] Chronic Headache; including migraine (20 sources) Migraine; Translations: [Migraine, unspecified, not intractable, without status migrainosus] 09-05-2016 Chronic Other complications of ; puerperium affecting management of mother (1 source) Complication of , childbirth and/or the puerperium; Translations: [Other complications of the puerperium, not elsewhere classified] Episodic Other complications of ; puerperium affecting management of mother (1 source) Disorder of breast associated with childbirth; Translations: [Other disorders of breast associated with and the puerperium] Episodic Other complications of (1 source) Maternal obesity complicating , childbirth and the puerperium, antepartum; Translations: [Obesity complicating , second trimester] Chronic Other complications of (1 source) Anemia during - baby not yet delivered; Translations: [Anemia complicating , third trimester] Chronic Other complications of (1 source) Uncertain viability of ; Translations: [ with inconclusive viability, not applicable or unspecified] 07-11-2023 Episodic Other complications of (1 source) History of gestational diabetes mellitus; Translations: [Supervision of with other poor reproductive or obstetric history, unspecified trimester] 07-11-2023 Episodic Other female genital disorders (1 source) Personal history of pre-term labor; Translations: [History of delivery] Onset: 09-04-2023 Episodic Other and delivery including normal (3 sources) Normal ; Translations: [Encounter for supervision of other normal , second trimester] Episodic Other screening for suspected conditions (not mental disorders or infectious disease) (20 sources) Patient encounter status; Translations: [Encounter for other screening for genetic and chromosomal anomalies] Onset: 01-28-2019 01-28-2019 Episodic Other upper respiratory infections (2 sources) Bacterial sinusitis; Translations: [Chronic sinusitis, unspecified] Chronic Other upper respiratory infections (3 sources) Acute upper respiratory infection; Translations: [Acute upper respiratory infection, unspecified] Onset: 11-21-2023 Episodic Residual codes; unclassified (2 sources) Gestation period, 11 weeks; Translations: [11 weeks gestation of ] Episodic Residual codes; unclassified (1 source) Gestation period, 17 weeks; Translations: [17 weeks gestation of ] Episodic Residual codes; unclassified (2 sources) Gestation period, 20 weeks; Translations: [20 weeks gestation of ] Episodic Residual codes; unclassified (1 source) Gestation period, 28 weeks; Translations: [28 weeks gestation of ] Episodic Residual codes; unclassified (3 sources) Gestation period, 32 weeks; Translations: [32 weeks gestation of ] Episodic Residual codes; unclassified (1 source) Gestation period, 34 weeks; Translations: [34 weeks gestation of ] Episodic Residual codes; unclassified (1 source) Gestation period, 36 weeks; Translations: [36 weeks gestation of ] Episodic Residual codes; unclassified (1 source) Gestation period, 37 weeks; Translations: [37 weeks gestation of ] Episodic Residual codes; unclassified (1 source) Gestation period, 39 weeks; Translations: [39 weeks gestation of ] Episodic Residual codes; unclassified (1 source) Gestation period, 10 weeks; Translations: [10 weeks gestation of ] 07-11-2023 Episodic Residual codes; unclassified (2 sources) History of hemorrhage; Translations: [Personal history of other complications of , childbirth and the puerperium] 07-11-2023 Episodic Residual codes; unclassified (2 sources) Gestation period, 18 weeks; Translations: [18 weeks gestation of ] 09-04-2023 Episodic Residual codes; unclassified (1 source) Gestation period, 25 weeks; Translations: [25 weeks gestation of ] 10-25-2023 Episodic Residual codes; unclassified (1 source) Personal history of other complications of , childbirth and the puerperium; Translations: [History of hemorrhage] Onset: 09-04-2023 Episodic Unclassified (1 source) Cough, unspecified type; Translations: [Cough, unspecified type] Onset: 11-21-2023 Past or Other Problems Problem Classification Problem Date Documented Date Episodic/Chronic Bacterial infection; unspecified site (20 sources) Bacteria present; Translations: [Streptococcus, group B, as the cause of diseases classified elsewhere] Onset: 06-08-2021 06-08-2021 Episodic Contraceptive and procreative management (1 source) Encounter for other general counseling and advice on contraception; Translations: [ control counseling] Onset: 04-10-2023 Episodic Diabetes mellitus without complication (20 sources) Increased glucose level; Translations: [Other abnormal glucose] Onset: 03-24-2014 Episodic Diabetes or abnormal glucose tolerance complicating ; childbirth; or the puerperium (4 sources) Abnormal glucose level; Translations: [Abnormal glucose complicating ] Onset: 07-25-2023 Episodic Other complications of ; puerperium affecting management of mother (1 source) Other disorders of breast associated with and the puerperium; Translations: [ bloody nipple discharge] Onset: 04-10-2023 Episodic Other complications of (20 sources) Nausea and vomiting; Translations: [Vomiting of , unspecified] Onset: 11-15-2020 Episodic Other complications of (20 sources) H/O: premature delivery; Translations: [Supervision of other high risk pregnancies, unspecified trimester] Onset: 12-26-2018 Episodic Other complications of (20 sources) High risk ; Translations: [Supervision of high risk , unspecified, unspecified trimester] Onset: 04-27-2021 Episodic Other complications of (20 sources) Pain in female pelvis; Translations: [Other specified related conditions, unspecified trimester] Onset: 11-15-2020 11-15-2020 Episodic Other complications of (1 source) Supervision of with other poor reproductive or obstetric history, unspecified trimester; Translations: [History of gestational diabetes in prior , currently ] Onset: 07-25-2023 Episodic Other complications of (2 sources) with inconclusive viability, not applicable or unspecified; Translations: [Encounter to determine viability of , single or unspecified fetus] Onset: 07-11-2023 Episodic Other hematologic conditions (20 sources) History of anemia; Translations: [Personal history of diseases of the blood and blood-forming organs and certain disorders involving the immune mechanism] Onset: 05-22-2022 Episodic Residual codes; unclassified (20 sources) Genetic disorder carrier; 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] Onset: 11-15-2020 Episodic Residual codes; unclassified (20 sources) Family history of substance abuse; Translations: [Family history of other substance abuse and dependence] Onset: 04-01-2018 04-01-2018 Episodic Residual codes; unclassified (20 sources) History of past delivery; Translations: [Personal history of other complications of , childbirth and the puerperium] Onset: 01-15-2019 11-15-2020 Episodic Residual codes; unclassified (1 source) 10 weeks gestation of ; Translations: [10 weeks gestation of ] Onset: 07-25-2023 Episodic Results Test Name Value Interpretation Reference Range Facil ity Vital Signs Date Time Vital Sign Value Performing Clinician Agustin العلي 11-11-2023 13:35-0500 Body temperature 98.71 [degF] Aman Dickens APRN.CNP Work Phone: [facility] 11-11-2023 13:35-0500 Body weight 80.11 kg Aman Dickens APRN.CNP Work Phone: [facility] 11-11-2023 13:35-0500 Diastolic blood pressure 95 mm[Hg] Aman Dickens APRN.CNP Work Phone: [facility] 11-11-2023 13:35-0500 Heart rate 100 /min Aman Dickens APRN.ACID PURIFICATION EQUIPMENT OPERATOR Work Phone: [facility] 11-11-2023 13:35-0500 Respiratory rate 22 /min Aman Rodriguezjulius BATCH WEIGHER.ACID PURIFICATION EQUIPMENT OPERATOR Work Phone: [facility] 11-11-2023 13:35-0500 SaO2% (BldA) [Mass fraction] 98 % [facility] BATCH WEIGHER.ACID PURIFICATION EQUIPMENT OPERATOR Work Phone: [facility] 11-11-2023 13:35-0500 Systolic blood pressure 143 mm[Hg] Aman Wenjulius BATCH WEIGHER.ACID PURIFICATION EQUIPMENT OPERATOR Work Phone: [facility] 10-25-2023 16:00-0500 Body weight 78.02 kg Jada Howard MD Work Phone: [facility] 10-25-2023 16:00-0500 Diastolic blood pressure 78 mm[Hg] Jada Howard MD Work Phone: [facility] 10-25-2023 16:00-0500 Systolic blood pressure 120 mm[Hg] Jada Howard MD Work Phone: [facility] 09-14-2023 12:01-0400 Body temperature 97.7 [degF] Brenda Adler BATCH WEIGHER.ACID PURIFICATION EQUIPMENT OPERATOR Work Phone: [facility] 09-14-2023 12:01-0400 Body weight 75.75 kg Brenda Adler APRN.ACID PURIFICATION EQUIPMENT OPERATOR Work Phone: [facility] 09-14-2023 12:01-0400 Diastolic blood pressure 74 mm[Hg] Brenda Adler BATCH WEIGHER.ACID PURIFICATION EQUIPMENT OPERATOR Work Phone: [facility] 09-14-2023 12:01-0400 Heart rate 98 /min Brenda Adler APRN.ACID PURIFICATION EQUIPMENT OPERATOR Work Phone: [facility] 09-14-2023 12:01-0400 Respiratory rate 18 /min Brenda Adler BATCH WEIGHER.ACID PURIFICATION EQUIPMENT OPERATOR Work Phone: [facility] 09-14-2023 12:01-0400 SaO2% (BldA) [Mass fraction] 97 % Brenda Adler APRN.ACID PURIFICATION EQUIPMENT OPERATOR Work Phone: [facility] 09-14-2023 12:01-0400 Systolic blood pressure 122 mm[Hg] Brenda Adler APRN.ACID PURIFICATION EQUIPMENT OPERATOR Work Phone: [facility] 09-04-2023 11:10-0400 Body weight 72.12 kg Calixto Collado MD Work Phone: [facility] 09-04-2023 11:10-0400 Diastolic blood pressure 80 mm[Hg] Calixto Collado MD Work Phone: [facility] 09-04-2023 11:10-0400 Systolic blood pressure 120 mm[Hg] Calixto Collado MD Work Phone: [facility] 09-04-2023 10:02-0400 Body weight 72.12 kg Eduardo Guevara MD Work Phone: [facility] 09-04-2023 10:02-0400 Diastolic blood pressure 80 mm[Hg] Eduardo Guevara MD Work Phone: [facility] 09-04-2023 10:02-0400 Systolic blood pressure 120 mm[Hg] Eduardo Guevara MD Work Phone: [facility] 07-11-2023 13:06-0400 Body height 154.9 cm Erica Menon APRN.ACID PURIFICATION EQUIPMENT OPERATOR Work Phone: [facility] 07-11-2023 13:06-0400 Body weight 70.76 kg Erica Menon APRN.ACID PURIFICATION EQUIPMENT OPERATOR Work Phone: [facility] 07-11-2023 13:06-0400 Diastolic blood pressure 70 mm[Hg] Erica Menon APRN.ACID PURIFICATION EQUIPMENT OPERATOR Work Phone: [facility] 07-11-2023 13:06-0400 Systolic blood pressure 110 mm[Hg] Erica Menon APRN.ACID PURIFICATION EQUIPMENT OPERATOR Work Phone: [facility] 04-10-2023 15:11-0400 Body weight 66.68 kg Emely Adler MD Work Phone: [facility] 04-10-2023 15:11-0400 Diastolic blood pressure 60 mm[Hg] Emely Adler MD Work Phone: [facility] 04-10-2023 15:11-0400 Systolic blood pressure 110 mm[Hg] Emely Adler MD Work Phone: [facility] 04-05-2023 10:05-0400 Body temperature 97.81 [degF] Krislyn Aberegg PA Work Phone: [facility] 04-05-2023 10:05-0400 Body weight 66.77 kg Krislyn Aberegg PA Work Phone: [facility] 04-05-2023 10:05-0400 Diastolic blood pressure 76 mm[Hg] Krislyn Aberegg PA Work Phone: [facility] 04-05-2023 10:05-0400 Heart rate 97 /min Krislyn Aberegg PA Work Phone: [facility] 04-05-2023 10:05-0400 Respiratory rate 21 /min Krislyn Aberegg PA Work Phone: [facility] 04-05-2023 10:05-0400 SaO2% (BldA) [Mass fraction] 97 % Krislyn Aberegg PA Work Phone: [facility] 04-05-2023 10:05-0400 Systolic blood pressure 104 mm[Hg] Krislyn Aberegg PA Work Phone: [facility] 2022 13:24-0500 Body weight 74.75 kg Jackie Plotts BATCH WEIGHER.CNM Work Phone: [facility] 2022 13:24-0500 Diastolic blood pressure 74 mm[Hg] Jackie Plotts BATCH WEIGHER.CNM Work Phone: [facility] 2022 13:24-0500 Systolic blood pressure 110 mm[Hg] Jackie Plotts BATCH WEIGHER.CNM Work Phone: [facility] 12-13-2022 11:05-0500 Body weight 77.56 kg Jada Howard MD Work Phone: [facility] 12-13-2022 11:05-0500 Diastolic blood pressure 76 mm[Hg] Jada Howard MD Work Phone: [facility] 12-13-2022 11:05-0500 Systolic blood pressure 136 mm[Hg] Jada Howard MD Work Phone: [facility] 12-04-2022 11:35-0500 Body weight 76.57 kg Thelma Penny BATCH WEIGHER.CNM Work Phone: [facility] 12-04-2022 11:35-0500 Diastolic blood pressure 70 mm[Hg] Thelma Penny BATCH WEIGHER.CNM Work Phone: [facility] 12-04-2022 11:35-0500 Systolic blood pressure 122 mm[Hg] Thelma Penny BATCH WEIGHER.CNM Work Phone: [facility] 11-24-2022 13:28-0500 Body weight 78.02 kg Calixto Collado MD Work Phone: [facility] 11-24-2022 13:28-0500 Diastolic blood pressure 74 mm[Hg] Calixto Collado MD Work Phone: [facility] 11-24-2022 13:28-0500 Systolic blood pressure 122 mm[Hg] Calixto Collado MD Work Phone: [facility] 11-13-2022 14:03-0500 Body weight 76.66 kg Jackie Gunn BATCH WEIGHER.CNM Work Phone: [facility] 11-13-2022 14:03-0500 Diastolic blood pressure 70 mm[Hg] Jackie Gunn BATCH WEIGHER.CNM Work Phone: [facility] 11-13-2022 14:03-0500 Systolic blood pressure 122 mm[Hg] Jackie Gunn BATCH WEIGHER.CNM Work Phone: [facility] 10-27-2022 13:39-0500 Body weight 76.66 kg Mami Griffith MD Work Phone: [facility] 10-27-2022 13:39-0500 Diastolic blood pressure 70 mm[Hg] Mami Griffith MD Work Phone: [facility] 10-27-2022 13:39-0500 Systolic blood pressure 120 mm[Hg] Mami Griffith MD Work Phone: [facility] 10-23-2022 15:58-0500 Body temperature 97.59 [degF] Amanda Praisler-Wood BATCH WEIGHER.ACID PURIFICATION EQUIPMENT OPERATOR Work Phone: [facility] 10-23-2022 15:58-0500 Body weight 75.3 kg Amanda Praisler-Wood BATCH WEIGHER.ACID PURIFICATION EQUIPMENT OPERATOR Work Phone: [facility] 10-23-2022 15:58-0500 Diastolic blood pressure 86 mm[Hg] Amanda Praisler-Wood BATCH WEIGHER.ACID PURIFICATION EQUIPMENT OPERATOR Work Phone: [facility] 10-23-2022 15:58-0500 Heart rate 91 /min Amanda Praisler-Wood BATCH WEIGHER.ACID PURIFICATION EQUIPMENT OPERATOR Work Phone: [facility] 10-23-2022 15:58-0500 Respiratory rate 18 /min Amanda Praisler-Wood BATCH WEIGHER.ACID PURIFICATION EQUIPMENT OPERATOR Work Phone: [facility] 10-23-2022 15:58-0500 SaO2% (BldA) [Mass fraction] 100 % Amanda Praisler-Wood BATCH WEIGHER.ACID PURIFICATION EQUIPMENT OPERATOR Work Phone: [facility] 10-23-2022 15:58-0500 Systolic blood pressure 122 mm[Hg] Amanda Praisler-Wood BATCH WEIGHER.ACID PURIFICATION EQUIPMENT OPERATOR Work Phone: [facility] 09-29-2022 13:10-0400 Body weight 74.12 kg Thelma Penny BATCH WEIGHER.CNM Work Phone: [facility] 09-29-2022 13:10-0400 Diastolic blood pressure 60 mm[Hg] Thelma Penny BATCH WEIGHER.CNM Work Phone: [facility] 09-29-2022 13:10-0400 Systolic blood pressure 100 mm[Hg] Thelma Penny BATCH WEIGHER.CNM Work Phone: [facility] 08-03-2022 14:31-0400 Body weight 68.95 kg Jackie Plotts BATCH WEIGHER.CNM Work Phone: [facility] 08-03-2022 14:31-0400 Diastolic blood pressure 60 mm[Hg] Jackie Plotts BATCH WEIGHER.CNM Work Phone: [facility] 08-03-2022 14:31-0400 Systolic blood pressure 110 mm[Hg] Jackie Plotts BATCH WEIGHER.CNM Work Phone: [facility] 07-18-2022 10:32-0400 Body weight 67.59 kg Calixto Collado MD Work Phone: [facility] 07-18-2022 10:32-0400 Diastolic blood pressure 64 mm[Hg] Calixto Collado MD Work Phone: [facility] 07-18-2022 10:32-0400 Systolic blood pressure 118 mm[Hg] Calixto Collado MD Work Phone: [facility] 06-05-2022 13:12-0400 Body weight 65.32 kg Jackie Plotts BATCH WEIGHER.CNM Work Phone: [facility] 06-05-2022 13:12-0400 Diastolic blood pressure 68 mm[Hg] Jackie Plotts BATCH WEIGHER.CNM Work Phone: [facility] 06-05-2022 13:12-0400 Systolic blood pressure 110 mm[Hg] Jackie Plotts BATCH WEIGHER.CNM Work Phone: [facility] Encounters Encounter Date Encounter Type Care Provider Facility Start: 11-21-2023 End: 11-22-2023 ambulatory TIARA MISHRA Facility:[facility] Start: 11-11-2023 End: 11-11-2023 [facility] Start: 11-11-2023 End: 11-11-2023 Office outpatient visit 25 minutes Aman Chrissie LUNA Work Phone: [facility] Procedures Date Procedure Procedure Detail Performing Clinician Start: 10-25-2023 URINE OB DIP B/O Jada Howard MD Work Phone: Start: 09-04-2023 URINE OB DIP B/O Abelardo Collado MD Work Phone: Start: 07-25-2023 Antibody screen DANIEL MISHRA Plan of Treatment Date Care Activity Detail Author Start: 07-11-2026 PAP TESTING PAP TESTING [facility] Start: 07-11-2026 Screening for malign ant neoplasm of cervix Pap Testing [facility] Start: 03-20-2024 Urine microalbumin profile [facility] Start: 12-10-2023 RSV Vaccine (1 - Ris k 1-dose series) RSV Vaccine (1 - Risk 1-dose series) [facility] Start: 11-22-2023 PAP TESTING PAP TESTING [facility] Start: 10-25-2023 End: 01-24-2024 CBC panel - Blood by Automated count [facility] Work Phone: Immunizations Immunization Date Immunization Notes Care Provider Melissa zarate 11-14-2018 influenza virus vaccine, unspecified formulation Emely Adler MD Work Phone: [facility] 03-20-2014 tetanus toxoid, redu camilo diphtheria toxoid, and acellular pertussis vaccine, adsorbed Nurse Wstr Work Phone: [facility] Work Phone: Payers Date Payer Category Payer Medicaid [id number] 2021 Private Health Insurance [employer] A ETNA CHOICE POS II [id number] 2021-Present [phone] [address] [place] [address] POS [id number] 2021 Private Health Insurance [employer] A ETNA CHOICE POS II [id number] 2021-Present [phone] [address] [place] [address] POS [id number] 2018 Medicaid [id number] 2018 Medicaid [employer] [id number] 2018-Present [phone] [address] [place] [address] Medicaid [id number] 2018 Medicaid [id number] Social History Date Type Detail Facility Start: 04-24-2016 End: 08-31-2022 Tobacco smoking status NHIS Ex-smoker [facility] End: 10-07-2013 History of tobacco use Current smoker [facility] Start: 04-24-2016 End: 08-31-2022 Tobacco use and exposure Smokeless tobacco non-user [facility] Start: 05-22-2022 End: 11-11-2023 Alcohol intake Current non-drinker of alcohol (finding) [facility] Start: 11-15-2020 Education 21 [facility] Start: 03-29-2022 [facility] Start: 1995 Sex Assigned At Not on file [facility] Start: 05-12-2022 End: 08-31-2022 Exposure to SARS-CoV-2 (event) Not sure [facility] Work Phone: End: 10-07-2013 History of tobacco use Cigarette Smoker [facility] Start: 11-14-2018 End: 07-11-2023 History of Social function [facility] Start: 11-14-2018 End: 07-11-2023 Tobacco use panel [facility] Adult Depression Screening Assessment 0 [facility] Medical Equipment Procedure Code Equipment Code Equipment Origin al Text Equipment Identifier Dates Start: 10-27-2022 End: 09-04-2023 Goals Date Patient Goal Desired Activity /State Personal health goal Personal health goal Clinical Notes 06-27-2019 to 11-21-2023 Aman Dickens APRN.ACID PURIFICATION EQUIPMENT OPERATOR - 11/11/2023 1:38 PM ESTTelephone Encounter - Marita Brothers RN - 11/02/2023 1:22 PM ESTPrenatal Quick Notes - Jada Gonzalez MD - 10/25/2023 4:49 PM EST Note Date & Type Note Facility 11-21-2023 Note HNO ID: [id number] Author: Sandra Carias APRN.ACID PURIFICATION EQUIPMENT OPERATOR Service: ? Author Type: Nurse Practitioner Type: Progress Notes Filed: 11/21/2023 6:35 PM Note Text: 11/21/2023 Patient presents with: Recheck: Seen in 11/11, completed ATB. Continues with head pressure, congestion and cough SUBJECTIVE: This is a 27 year old that is here today for Above Complaints.. Cough for eight Completed seven day course of Amoxicillin. Ears feel plugged. Using OTC benadryl and zyrtec as recommended by OB. Currently 30 weeks . No decrease in movement or vaginal drainage. Denies fevers, chills, sore throat, headaches, SOB, dyspnea, wheezing, chest pain, nausea, vomiting or diarrhea PAST MEDICAL HISTORY Diagnosis Date Abnormal Pap smear of cervix LGSIL Acid reflux Anemia complicating , second trimester 04/16/2018 ASCUS of cervix with negative high risk HPV Chlamydia infection complicating 05/28/2014 Migraines Overweight ALLERGIES Patient has no known allergies. MEDICATIONS Current Outpatient Medications Medication Sig multivitamin (CLASSIC ) 28 mg iron- 800 mcg tab(s) Take 1 tablet by mouth once daily. No current facility-administered medications for this visit. Medications and allergies reviewed by this provider. SOCIAL HISTORY Social History Tobacco Use Smoking status: Former Years: 1 Types: Cigarettes Quit date: 10/07/2013 Years since quittin.1 Smokeless tobacco: Never Vaping Use Vaping Use: Never used Substance Use Topics Alcohol use: No Drug use: No REVIEW OF SYSTEMS All other reviewed and negative other than HPI. OBJECTIVE: BP 138/80 Pulse 96 Temp 36.9 ?C (98.4 ?F) Resp 16 Wt 80.5 kg (177 lb 6.4 oz) LMP 04/30/2023 SpO2 96% BMI 33.52 kg/m? . Vital signs reviewed by this provider. APPEARANCE Well appearing, alert, in no acute distress, well-hydrated, well nourished. EYES PERRLA, conjunctiva and sclera normal. EARS External ears normal, canals clear NOSE/SINUS positive findings: sinus tenderness maxillary bilateral THROAT normal, no erythema NECK Supple, no adenopathy HEART RRR with normal S1 and S2, no murmurs, no gallops, no JVD appreciated LUNG clear to auscultation. No wheezes, rhonchi or rales Hepatitis B Vaccine(1 of 3 - 3-dose series) Never done Covid-19 Vaccine(1) Never done Depression Assessment Never done Influenza Vaccine(1) due on 07/27/2023 RSV Vaccine(1 - Risk 1-dose series) due on 12/10/2023 DTaP,Tdap,Td Vaccine(2 - Td or Tdap) due on 03/20/2024 Pap Testing due on 07/11/2026 Hepatitis C Screening Completed HIV Screening Completed HPV Vaccine Aged Out ASSESSMENT/PLAN: 1. Acute maxillary sinusitis, recurrence not specified - ICD9: 461.0, ICD10: J01.00 (primary diagnosis) - will extend treatment for 7 more days - Will begin treatment with Augmentin 875 mg PO BID for 7 days - The patient should also be given nasal saline gtts and suction prn and Flonase nasal spray for the first 5-7 days of treatment. - Supportive care with plenty of fluids, rest, and analgesia prn. - Follow up in 3-5 days if symptoms persist or worsen. - AMOXICILLIN 875 MG-POTASSIUM CLAVULANATE 125 MG TABLET - FLUTICASONE PROPIONATE 50 MCG/ACTUATION NASAL SPRAY,SUSPENSION - keep humidifier by bed 2. Cough, unspecified type - ICD9: 786.2, ICD10: R05.9 - likely caused from nasal drainage - no red flag symptoms or exam findings - red flag symptoms discussed, verbalizes understanding - follow-up if fails to improve to ER with red flag symptoms Sandra Carias, BATCH WEIGHER.ACID PURIFICATION EQUIPMENT OPERATOR Prescription instructions reviewed with patient as applicable. Patient advised if symptoms do not improve or if symptoms worsen sooner, to contact their primary care physician. Potential red flag symptoms discussed with the patient. Reviewed appropriate action plan to take if red flag symptoms occur. Patient agreeable to treatment plan. I spent a total of 25 minutes on the date of the service which included preparing to see the patient, [id number] patient care, completing clinical documentation, obtaining and/or reviewing separately obtained history, performing a medically appropriate examination, counseling and educating the patient/family/caregiver, and ordering medications, tests, or procedures. [facility] 11-11-2023 Note HNO ID: [id number] Author: Aman Dickens APRN.ASHLEY Service: ? Author Type: Nurse Practitioner Type: Progress Notes Filed: 11/11/2023 1:54 PM Note Text: Subjective HPI Nontoxic-appearing 27-week female presents urgent care chief complaint cough sinus pressure. Duration of symptoms 6 weeks. Associated symptoms listed above. States sinus pressure and cough worse in the last 4 to 5 days. Has not used any OTC medications. Denies any significant pain. Increased pain over sinuses if leaning forward. No decreased movement and leaking of fluid. Denies any fever body aches chills productive cough chest pain shortness of breath pleuritic pain hemoptysis nausea vomiting abdominal pain change in bowel or bladder habits. Past medical history prescription medication use and allergies reviewed. .Patient presents with: Cough: Productive cough, chest congestion x6 weeks PAST MEDICAL HISTORY Diagnosis Date Abnormal Pap smear of cervix LGSIL Acid reflux Anemia complicating , second trimester 04/16/2018 ASCUS of cervix with negative high risk HPV Chlamydia infection complicating 05/28/2014 Migraines Overweight PAST SURGICAL HISTORY Procedure Laterality Date ESOPHAGOGASTRODUODENOSCOPY TRANSORAL DIAGNOSTIC 09/14/16 EGD ([facility] [place] ALLERGIES Patient has no known allergies. MEDICATIONS multivitamin (CLASSIC ) 28 mg iron- 800 mcg tab(s) Take 1 tablet by mouth once daily. FAMILY HISTORY Adopted: Yes Problem Relation Age of Onset Alcohol/Drug Mother ETOH No Known Problems Sister other ( alcohol Syndrome) Brother No Known Problems Brother No Known Problems Brother No Known Problems Son No Known Problems Son No Known Problems Son Social History Tobacco Use Smoking status: Former Years: 1 Types: Cigarettes Quit date: 10/07/2013 Years since quittin.1 Smokeless tobacco: Never Vaping Use Vaping Use: Never used Substance Use Topics Alcohol use: No Drug use: No BP 143/95 Pulse 100 Temp 37.1 ?C (98.7 ?F) Resp 22 Wt 80.1 kg (176 lb 9.6 oz) LMP 04/30/2023 SpO2 98% BMI 33.37 kg/m? Bp 138/85 hr 80 Review of Systems Constitutional: Negative for chills, fever and malaise/fatigue. HENT: Positive for congestion and sinus pain. Negative for ear discharge, ear pain and sore throat. Eyes: Negative for blurred vision, pain, discharge and redness. Respiratory: Positive for cough. Negative for hemoptysis, sputum production, shortness of breath, wheezing and stridor. Cardiovascular: Negative for chest pain. Gastrointestinal: Negative for abdominal pain, diarrhea, nausea and vomiting. Musculoskeletal: Negative for myalgias. Skin: Negative for itching and rash. Neurological: Negative for dizziness and headaches. Objective Physical Exam Constitutional: General: She is not in acute distress. Appearance: She is not diaphoretic. HENT: Head: Normocephalic. Jaw: No trismus, tenderness, swelling or pain on movement. Nose: Congestion present. Right Sinus: Maxillary sinus tenderness present. Left Sinus: Maxillary sinus tenderness present. Mouth/Throat: Mouth: Mucous membranes are moist. Pharynx: Oropharynx is clear. Uvula midline. No pharyngeal swelling, oropharyngeal exudate, posterior oropharyngeal erythema or uvula swelling. Eyes: Conjunctiva/sclera: Conjunctivae normal. Pupils: Pupils are equal, round, and reactive to light. Cardiovascular: Rate and Rhythm: Normal rate and regular rhythm. Heart sounds: Normal heart sounds. Pulmonary: Effort: Pulmonary effort is normal. No tachypnea, accessory muscle usage or respiratory distress. Breath sounds: Normal breath sounds. No stridor. No wheezing, rhonchi or rales. Abdominal: General: There is no distension. Palpations: Abdomen is soft. Tenderness: There is no abdominal tenderness. There is no guarding or rebound. Musculoskeletal: Cervical back: Normal range of motion and neck supple. No edema, erythema, rigidity or tenderness. No pain with movement. Normal range of motion. Lymphadenopathy: Cervical: No cervical adenopathy. Skin: General: Skin is warm and dry. Neurological: Mental Status: She is alert and oriented to person, place, and time. ASSESSMENT/PLAN: 1. Sinobronchitis - ICD9: 473.9, 490, ICD10: J32.9, J40 No adventitious lung sounds. Hemodynamically stable. Treat as sinobronchitis. Recommend follow-up with PCP or SAP PORTAL CONSULTANT next 2 to 3 days for reevaluation. Repeat BP check. Patient was educated on supportive therapies. Patient was instructed to immediately proceed to emergency room for any new, worsening, or symptoms lasting longer than anticipated. The patient's clinical presentation is otherwise unremarkable at this time. Based on exam and clinical finding, the patient is stable for discharge. Plan of care was discussed with patient. Patient verbalizes understanding and agrees to plan (more content not included)... [facility] 11-11-2023 History of Presen t illness Narrative Subjective HPI Nontoxic-appearing 27-week female presents urgent care chief complaint cough sinus pressure. Duration of symptoms 6 weeks. Associated symptoms listed above. States sinus pressure and cough worse in the last 4 to 5 days. Has not used any OTC medications. Denies any significant pain. Increased pain over sinuses if leaning forward. No decreased movement and leaking of fluid. Denies any fever body aches chills productive cough chest pain shortness of breath pleuritic pain hemoptysis nausea vomiting abdominal pain change in bowel or bladder habits. Past medical history prescription medication use and allergies reviewed. .Patient presents with: Cough: Productive cough, chest congestion x6 weeks PAST MEDICAL HISTORY Diagnosis Date Abnormal Pap smear of cervix LGSIL Acid reflux Anemia complicating , second trimester 04/16/2018 ASCUS of cervix with negative high risk HPV Chlamydia infection complicating 05/28/2014 Migraines Overweight PAST SURGICAL HISTORY Procedure Laterality Date ESOPHAGOGASTRODUODENOSCOPY TRANSORAL DIAGNOSTIC 09/14/16 EGD ([facility] [place]) ALLERGIES Patient has no known allergies. MEDICATIONS multivitamin (CLASSIC ) 28 mg iron- 800 mcg tab(s) Take 1 tablet by mouth once daily. FAMILY HISTORY Adopted: Yes Problem Relation Age of Onset Alcohol/Drug Mother ETOH No Known Problems Sister other ( alcohol Syndrome) Brother No Known Problems Brother No Known Problems Brother No Known Problems Son No Known Problems Son No Known Problems Son Social History Tobacco Use Smoking status: Former Years: 1 Types: Cigarettes Quit date: 10/07/2013 Years since quittin.1 Smokeless tobacco: Never Vaping Use Vaping Use: Never used Substance Use Topics Alcohol use: No Drug use: No BP 143/95 Pulse 100 Temp 37.1 C (98.7 F) Resp 22 Wt 80.1 kg (176 lb 9.6 oz) LMP 04/30/2023 SpO2 98% BMI 33.37 kg/m Bp 138/85 hr 80 Review of Systems Constitutional: Negative for chills, fever and malaise/fatigue. HENT: Positive for congestion and sinus pain. Negative for ear discharge, ear pain and sore throat. Eyes: Negative for blurred vision, pain, discharge and redness. Respiratory: Positive for cough. Negative for hemoptysis, sputum production, shortness of breath, wheezing and stridor. Cardiovascular: Negative for chest pain. Gastrointestinal: Negative for abdominal pain, diarrhea, nausea and vomiting. Musculoskeletal: Negative for myalgias. Skin: Negative for itching and rash. Neurological: Negative for dizziness and headaches. Objective Physical Exam Constitutional: General: She is not in acute distress. Appearance: She is not diaphoretic. HENT: Head: Normocephalic. Jaw: No trismus, tenderness, swelling or pain on movement. Nose: Congestion present. Right Sinus: Maxillary sinus tenderness present. Left Sinus: Maxillary sinus tenderness present. Mouth/Throat: Mouth: Mucous membranes are moist. Pharynx: Oropharynx is clear. Uvula midline. No pharyngeal swelling, oropharyngeal exudate, posterior oropharyngeal erythema or uvula swelling. Eyes: Conjunctiva/sclera: Conjunctivae normal. Pupils: Pupils are equal, round, and reactive to light. Cardiovascular: Rate and Rhythm: Normal rate and regular rhythm. Heart sounds: Normal heart sounds. Pulmonary: Effort: Pulmonary effort is normal. No tachypnea, accessory muscle usage or respiratory distress. Breath sounds: Normal breath sounds. No stridor. No wheezing, rhonchi or rales. Abdominal: General: There is no distension. Palpations: Abdomen is soft. Tenderness: There is no abdominal tenderness. There is no guarding or rebound. Musculoskeletal: Cervical back: Normal range of motion and neck supple. No edema, erythema, rigidity or tenderness. No pain with movement. Normal range of motion. Lymphadenopathy: Cervical: No cervical adenopathy. Skin: General: Skin is warm and dry. Neurological: Mental Status: She is alert and oriented to person, place, and time. ASSESSMENT/PLAN: 1. Sinobronchitis - ICD9: 473.9, 490, ICD10: J32.9, J40 No adventitious lung sounds. Hemodynamically stable. Treat as sinobronchitis. Recommend follow-up with PCP or SAP PORTAL CONSULTANT next 2 to 3 days for reevaluation. Repeat BP check. Patient was educated on supportive therapies. Patient was instructed to immediately proceed to emergency room for any new, worsening, or symptoms lasting longer than anticipated. The patient's clinical presentation is otherwise unremarkable at this time. Based on exam and clinical finding, the patient is stable for discharge. Plan of care was discussed with patient. Patient verbalizes understanding and agrees to plan of care. This note was generated using Pianpian software. It may contain errors in wording, punctuation, or spelling. Aman Dickens APRN.ASHLEY documented in this encounter [facility] 11-02-2023 Miscellaneous Notes 2nd risk assessment form submitted 11/02/23 Marita Brothers RN documented in this encounter [facility] 10-25-2023 Miscellaneous Notes DM-Pt doing well. Denies vaginal Bleeding, Leaking fluid, or regular Contractions. Pt reports good movement. Mucous dischage Physical Exam: Gen: female in no apparent distress Abd: soft, Gravid. Non tender to palpation. See flow sheet A/P: @ 25.3 weeks 1) s/sx labor reviewed 2) 28 week labs ordered 3) reviewed tdap and rsv vaccine 4) RTO 2-3 weeks Jada Shah MD documented in this encounter [facility] 10-25-2023 Instructions Vijay Cooper, TRE - 10/25/2023 3:48 PM EST SEQUENTIAL SCREENINGS The [facility] offers sequential screenings for women who are interested in screenings for chromosomal abnormalities and certain defects during a . The sequential screen combines ultrasound and blood tests to determine the risk of chromosomal abnormalities, including Down's Syndrome (Trisomy 21) and Trisomy 18, as well as open neural tube defects including spina bifida. Ultrasound examination is performed between 11 weeks and 13 weeks gestational age. Blood tests are drawn after the ultrasound and again later in the between 15 and 21 weeks gestational age. Please let your physician know if you are interested in this testing. It will require an appointment with our quality control lab technician. This is not an ultrasound performed by a physician in our office during a routine visit. SIGNS AND SYMPTOMS OF LABOR 1. Contractions every 10 minutes or more often 2. Clear, pink, or brownish fluid (water) leaking from vagina 3. Feeling that baby is pushing down, pressure 4. Low, dull backache 5. Cramps that feel like a period 6. Cramps with or without diarrhea If you notice any of the above symptoms, contact our office at [phone] and ask to speak with a nurse. After hours, you can call doctors registry at [phone] OR call [facility] at [phone] and ask to have the doctor automobile service station mechanic paged. If you consider this an emergency, dial 9-1-0 or go to your nearest emergency department. NEED HELP? Are you dealing with a violent or abusive relationship? Are you a victim of rape or sexual assult? Call [facility] ([place]) 24 hour Crisis Hotline: 925.527.2417 or 974-721-5735. MANUAL Your Guide to a Healthy manual is now on-line. Visit [email or web address] to download your free copy documented in this encounter [facility] 09-14-2023 Note HNO ID: [id number] Author: Brenda Adler APRN.ACID PURIFICATION EQUIPMENT OPERATOR Service: ? Author Type: Nurse Practitioner Type: Progress Notes Filed: 09/14/2023 12:23 PM Note Text: CC: Patient presents with: Sinus Problem: Sinus congestion and POSADA x 3 days HPI: Sara Bhakta is a 27 year old female who presents to the office with complaint of head congestion and sinus symptoms for 3 days. Symptoms are worsening Associated symptoms includes nasal congestion and headache. Denies fever, cough, nausea, vomiting , and diarrhea. Treatments tried include Acetaminophen with no relief of symptoms. Sick contacts: unknown. History of asthma, frequent episodes of bronchitis, chronic bronchitis, bronchiectasis or COPD: No Smoker: No Seasonal/environmental allergies: No The ROS is otherwise negative. The patient's pmh, medications, allergies, and past visits are reviewed. PHYSICAL EXAM: BP 122/74 Pulse 98 Temp 36.5 ?C (97.7 ?F) (Tympanic) Resp 18 Wt 75.8 kg (167 lb) LMP 04/30/2023 SpO2 97% BMI 31.55 kg/m? General appearance: in no acute distress Head: Normocephalic Eyes: EOM's intact, conjunctiva pink and moist, no icterus, sclera white, non-injected Ears: Right ear: External ear/canal- Normal, TM - clear with good landmarks. Left ear: External ear/canal- Normal, TM - clear with good landmarks Oropharynx:moist without lesions, No erythema, exudates or tonsillar hypertrophy. Heart: Negative. RRR without obvious murmur, gallop, or rubs. No ectopy. Lungs: clear to auscultation, without rales or wheeze, good air exchange PAST MEDICAL HISTORY Diagnosis Date Abnormal Pap smear of cervix LGSIL Acid reflux Anemia complicating , second trimester 04/16/2018 ASCUS of cervix with negative high risk HPV Chlamydia infection complicating 05/28/2014 Migraines Overweight PAST SURGICAL HISTORY Procedure Laterality Date ESOPHAGOGASTRODUODENOSCOPY TRANSORAL DIAGNOSTIC 09/14/16 EGD ([facility] [place] ALLERGIES Patient has no known allergies. MEDICATIONS multivitamin (CLASSIC ) 28 mg iron- 800 mcg tab(s) Take 1 tablet by mouth once daily. FAMILY HISTORY Adopted: Yes Problem Relation Age of Onset Alcohol/Drug Mother ETOH No Known Problems Sister other ( alcohol Syndrome) Brother No Known Problems Brother No Known Problems Brother No Known Problems Son No Known Problems Son No Known Problems Son Social History Tobacco Use Smoking status: Former Years: 1 Types: Cigarettes Quit date: 10/07/2013 Years since quittin.9 Smokeless tobacco: Never Vaping Use Vaping Use: Never used Substance Use Topics Alcohol use: No Drug use: No ASSESSMENT/PLAN: 1. URI, acute - ICD9: 465.9, ICD10: J06.9 Patient does not want any viral testing at this time. Did discuss patient she is in viral window at 3 days. Most viruses are 7 to 10 days. Potential red flag symptoms discussed with the patient. Reviewed appropriate action plan to take if red flag symptoms occur. Patient agreeable to treatment plan. Brenda Adler APRN.[facility] 09-14-2023 History of Presen t illness Narrative CC: Patient presents with: Sinus Problem: Sinus congestion and POSADA x 3 days HPI: Sara Bhakta is a 27 year old female who presents to the office with complaint of head congestion and sinus symptoms for 3 days. Symptoms are worsening Associated symptoms includes nasal congestion and headache. Denies fever, cough, nausea, vomiting , and diarrhea. Treatments tried include Acetaminophen with no relief of symptoms. Sick contacts: unknown. History of asthma, frequent episodes of bronchitis, chronic bronchitis, bronchiectasis or COPD: No Smoker: No Seasonal/environmental allergies: No The ROS is otherwise negative. The patient's pmh, medications, allergies, and past visits are reviewed. PHYSICAL EXAM: BP 122/74 Pulse 98 Temp 36.5 C (97.7 F) (Tympanic) Resp 18 Wt 75.8 kg (167 lb) LMP 04/30/2023 SpO2 97% BMI 31.55 kg/m General appearance: in no acute distress Head: Normocephalic Eyes: EOM's intact, conjunctiva pink and moist, no icterus, sclera white, non-injected Ears: Right ear: External ear/canal- Normal, TM - clear with good landmarks. Left ear: External ear/canal- Normal, TM - clear with good landmarks Oropharynx:moist without lesions, No erythema, exudates or tonsillar hypertrophy. Heart: Negative. RRR without obvious murmur, gallop, or rubs. No ectopy. Lungs: clear to auscultation, without rales or wheeze, good air exchange PAST MEDICAL HISTORY Diagnosis Date Abnormal Pap smear of cervix LGSIL Acid reflux Anemia complicating , second trimester 04/16/2018 ASCUS of cervix with negative high risk HPV Chlamydia infection complicating 05/28/2014 Migraines Overweight PAST SURGICAL HISTORY Procedure Laterality Date ESOPHAGOGASTRODUODENOSCOPY TRANSORAL DIAGNOSTIC 09/14/16 EGD ([facility]) ALLERGIES Patient has no known allergies. MEDICATIONS multivitamin (CLASSIC ) 28 mg iron- 800 mcg tab(s) Take 1 tablet by mouth once daily. FAMILY HISTORY Adopted: Yes Problem Relation Age of Onset Alcohol/Drug Mother ETOH No Known Problems Sister other ( alcohol Syndrome) Brother No Known Problems Brother No Known Problems Brother No Known Problems Son No Known Problems Son No Known Problems Son Social History Tobacco Use Smoking status: Former Years: 1 Types: Cigarettes Quit date: 10/07/2013 Years since quittin.9 Smokeless tobacco: Never Vaping Use Vaping Use: Never used Substance Use Topics Alcohol use: No Drug use: No ASSESSMENT/PLAN: 1. URI, acute - ICD9: 465.9, ICD10: J06.9 Patient does not want any viral testing at this time. Did discuss patient she is in viral window at 3 days. Most viruses are 7 to 10 days. Potential red flag symptoms discussed with the patient. Reviewed appropriate action plan to take if red flag symptoms occur. Patient agreeable to treatment plan. Brenda Adler APRN.ASHLEY documented in this encounter [facility] 09-14-2023 Miscellaneous Notes Patient notified and voiced understanding of information and instructions below from provider. Appointment given for BP check in office today. Sofiya Leal RN Left message for patient to call office. See if patient can come at 9:50 on CP schedule for a blood pressure check. VIJAY COOPER RN Patient has history of migraine headaches. Please make sure she is taking Extra Strength Tylenol 1000 mg by mouth every 6-8 hours. She should try drinking electrolytes (Gatorade, Powerade etc.) and she can also try taking a Zyrtec 10 mg as well as Benadryl 25 mg. The Benadryl will make her tired so don't drive/work etc. She is welcome to stop in for BP check today. Jackie Gunn APRN.CNM Patient 19w4d calling with complaints of headache for the last 3 days. Patient states she is taking Tylenol every 4 hours and also trying caffeine drinks and nothing is helping. Denies any dizziness or blurred vision with the headache. States on day 1 of headache she did have nausea with the headache but that has since went away. Denies any cramping, bleeding or leaking fluid. Patient states she is prone to migraine headaches. Do you want patient to be seen in office for BP check? Patient does not have access to check her BP at home. Sofiya Leal RN documented in this encounter [facility] 09-04-2023 Note HNO ID: [id number] Author: Eduardo Guevara MD Service: ? Author Type: Physician Type: Progress Notes Filed: 09/04/2023 12:34 PM Note Text: OBSTETRICS MATERNAL MEDICINE CONSULT SERVICE DATE: September 04, 2023 SERVICE TIME: 10:00am REQUESTING PROVIDER: Erica Menon CNP Subjective HISTORY OF THE PRESENT ILLNESS: Sara is a 27 year old female, , who is at 18w1d with an LEIGHTON of 02/04/2024, by Last Menstrual Period dating method. 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 She had consultation with [facility] in 2019 , reports history of spontaneous in 34th week. 17OHP was recommended in that (delivered at term). Review of medical record notes first delivery was term ,2nd delivery was spontaneous at 35w5d. This was followed by term , then delivery 36w4d, followed by most recently term delivery (11/2022). Her last was complicated by gestational hypertension. She is overall feeling well this . She does struggle with migraine headaches when , which have been an issue however none currently. She denies any relevant medical history relating to today's visit other than obstetrics history as noted. HISTORY REVIEW PAST MEDICAL HISTORY Diagnosis Date Abnormal Pap smear of cervix LGSIL Acid reflux Anemia complicating , second trimester 04/16/2018 ASCUS of cervix with negative high risk HPV Chlamydia infection complicating 05/28/2014 Migraines Overweight PAST SURGICAL HISTORY Procedure Laterality Date ESOPHAGOGASTRODUODENOSCOPY TRANSORAL DIAGNOSTIC 09/14/16 EGD [place] [place] FAMILY HISTORY Adopted: Yes Problem Relation Age of Onset Alcohol/Drug Mother ETOH No Known Problems Sister other ( alcohol Syndrome) Brother No Known Problems Brother No Known Problems Brother No Known Problems Son No Known Problems Son No Known Problems Son Social History Tobacco Use Smoking status: Former Years: 1 Types: Cigarettes Quit date: 10/07/2013 Years since quittin.9 Smokeless tobacco: Never Vaping Use Vaping Use: Never used Substance Use Topics Alcohol use: No Drug use: No Obstetric History T3 L5 SAB0 IAB0 Ectopic0 Multiple0 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 Name of Baby 1: Leonel Date: 06/05/14 GA: 37w3d Delivery: Vaginal, Spontaneous Apgar1: 8 Apgar5: 9 Living: Living Name of Baby 2: Not recorded Date: 02/2017 GA: 5w0d Delivery: SPONTANEOUS Apgar1: Not recorded Apgar5: Not recorded Living: Not recorded Name of Baby 3: Meri Date: 05/26/18 GA: 35w5d Delivery: Vaginal, Spontaneous Apgar1: 8 Apgar5: 9 Living: Living Name of Baby 4: David Date: 08/12/19 GA: 38w2d Delivery: Vaginal, Spontaneous Apgar1: 9 Apgar5: 9 Living: Living Name of Baby 5: Not recorded Date: 06/09/21 GA: 36w4d Delivery: Vaginal, Spontaneous Apgar1: 8 Apgar5: 9 Living: Living Name of Baby 6: Ronald Date: 12/16/22 GA: 39w3d Delivery: Vaginal, Spontaneous Apgar1: 9 Apgar5: 9 Living: Living Name of Baby 7: Not recorded Date: Not recorded GA: Not recorded Delivery: Not recorded Apgar1: Not recorded Apgar5: Not recorded Living: Not recorded ALLERGIES No Known Allergies PRIOR TO ADMISSION MEDICATIONS: Current Outpatient Medications Medication Instructions alcohol swabs Use 4 times a day blood sugar diagnostic test strip Check blood sugar 4 times a day: fasting and 2 hours after each meal famotidine (PEPCID) 20 mg, ORAL, 2 TIMES DAILY ferrous sulfate 325 mg, ORAL, EVERY OTHER DAY-AMB fluticasone (FLONASE) 50 mcg/actuation nasal spray 2 Sprays, EACH NOSTRIL, DAILY, Rinse mouth after use. Lancets lancets Use 4 times a day multivitamin (CLASSIC ) 28 mg iron- 800 mcg tab(s) 1 tablet, ORAL, DAILY REVIEW OF SYSTEMS: The remainder of the review of systems is negative. Objective LAST VITALS: BP 120/80 Wt 159 lb (72.1 kg) LMP 04/30/2023 BMI 30.04 kg/m? 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 Doing well today with reassuring anatomy ultrasound and cervical length ultrasound. She is at increased risk for recurrent based on her history. She previously declined 17OHP in prior , and now FDA has removed this medication from the market. We discussed vagi (more content not included)... [facility] 09-04-2023 Miscellaneous Notes RR- VB No. LOF No. CTXS No. Movement: present. Other c/o: No. Medication list reviewed. Physical Exam See Flow Sheet Abd: soft, nontender, gravid Ext: edema: no A/P 18w1d Estimated Date of Delivery: 02/04/24 Labs: second part of sequential today declines flu vaccine. f/u in 4 weeks or prn Calixto Collado M.D. documented in this encounter [facility] 09-04-2023 Instructions Pascale Bingham Ma - 09/04/2023 10:51 AM EDT SEQUENTIAL SCREENINGS The [facility] offers sequential screenings for women who are interested in screenings for chromosomal abnormalities and certain defects during a . The sequential screen combines ultrasound and blood tests to determine the risk of chromosomal abnormalities, including Down's Syndrome (Trisomy 21) and Trisomy 18, as well as open neural tube defects including spina bifida. Ultrasound examination is performed between 11 weeks and 13 weeks gestational age. Blood tests are drawn after the ultrasound and again later in the between 15 and 21 weeks gestational age. Please let your physician know if you are interested in this testing. It will require an appointment with our quality control lab technician. This is not an ultrasound performed by a physician in our office during a routine visit. SIGNS AND SYMPTOMS OF LABOR 1. Contractions every 10 minutes or more often 2. Clear, pink, or brownish fluid (water) leaking from vagina 3. Feeling that baby is pushing down, pressure 4. Low, dull backache 5. Cramps that feel like a period 6. Cramps with or without diarrhea If you notice any of the above symptoms, contact our office at [phone] and ask to speak with a nurse. After hours, you can call doctors registry at [phone] OR call [facility] at [phone] and ask to have the doctor automobile service station mechanic paged. If you consider this an emergency, dial 9-1-1 or go to your nearest emergency department. NEED HELP? Are you dealing with a violent or abusive relationship? Are you a victim of rape or sexual assult? Call [facility] 24 hour Crisis Hotline: 357.664.4733 or 903-603-2610. MANUAL Your Guide to a Healthy manual is now on-line. Visit [email or web address] to download your free copy documented in this encounter [facility] 09-04-2023 History of Presen t illness Narrative OBSTETRICS MATERNAL MEDICINE CONSULT SERVICE DATE: September 04, 2023 SERVICE TIME: 10:00am REQUESTING PROVIDER: Erica Menon CNP Subjective HISTORY OF THE PRESENT ILLNESS: Sara is a 27 year old female, , who is at 18w1d with an LEIGHTON of 02/04/2024, by Last Menstrual Period dating method. 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 She had consultation with M in 2019 , reports history of spontaneous in 34th week. 17OHP was recommended in that (delivered at term). Review of medical record notes first delivery was term ,2nd delivery was spontaneous at 35w5d. This was followed by term , then delivery 36w4d, followed by most recently term delivery (11/2022). Her last was complicated by gestational hypertension. She is overall feeling well this . She does struggle with migraine headaches when , which have been an issue however none currently. She denies any relevant medical history relating to today's visit other than obstetrics history as noted. HISTORY REVIEW PAST MEDICAL HISTORY Diagnosis Date Abnormal Pap smear of cervix LGSIL Acid reflux Anemia complicating , second trimester 04/16/2018 ASCUS of cervix with negative high risk HPV Chlamydia infection complicating 05/28/2014 Migraines Overweight PAST SURGICAL HISTORY Procedure Laterality Date ESOPHAGOGASTRODUODENOSCOPY TRANSORAL DIAGNOSTIC 09/14/16 EGD ([facility] [place] FAMILY HISTORY Adopted: Yes Problem Relation Age of Onset Alcohol/Drug Mother ETOH No Known Problems Sister other ( alcohol Syndrome) Brother No Known Problems Brother No Known Problems Brother No Known Problems Son No Known Problems Son No Known Problems Son Social History Tobacco Use Smoking status: Former Years: 1 Types: Cigarettes Quit date: 10/07/2013 Years since quittin.9 Smokeless tobacco: Never Vaping Use Vaping Use: Never used Substance Use Topics Alcohol use: No Drug use: No Obstetric History T3 L5 SAB0 IAB0 Ectopic0 Multiple0 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 Name of Baby 1: Leonel Date: 06/05/14 GA: 37w3d Delivery: Vaginal, Spontaneous Apgar1: 8 Apgar5: 9 Living: Living Name of Baby 2: Not recorded Date: 02/2017 GA: 5w0d Delivery: SPONTANEOUS Apgar1: Not recorded Apgar5: Not recorded Living: Not recorded Name of Baby 3: Meri Date: 05/26/18 GA: 35w5d Delivery: Vaginal, Spontaneous Apgar1: 8 Apgar5: 9 Living: Living Name of Baby 4: David Date: 08/12/19 GA: 38w2d Delivery: Vaginal, Spontaneous Apgar1: 9 Apgar5: 9 Living: Living Name of Baby 5: Not recorded Date: 06/09/21 GA: 36w4d Delivery: Vaginal, Spontaneous Apgar1: 8 Apgar5: 9 Living: Living Name of Baby 6: Ronald Date: 12/16/22 GA: 39w3d Delivery: Vaginal, Spontaneous Apgar1: 9 Apgar5: 9 Living: Living Name of Baby 7: Not recorded Date: Not recorded GA: Not recorded Delivery: Not recorded Apgar1: Not recorded Apgar5: Not recorded Living: Not recorded ALLERGIES No Known Allergies PRIOR TO ADMISSION MEDICATIONS: Current Outpatient Medications Medication Instructions alcohol swabs Use 4 times a day blood sugar diagnostic test strip Check blood sugar 4 times a day: fasting and 2 hours after each meal famotidine (PEPCID) 20 mg, ORAL, 2 TIMES DAILY ferrous sulfate 325 mg, ORAL, EVERY OTHER DAY-AMB fluticasone (FLONASE) 50 mcg/actuation nasal spray 2 Sprays, EACH NOSTRIL, DAILY, Rinse mouth after use. Lancets lancets Use 4 times a day multivitamin (CLASSIC ) 28 mg iron- 800 mcg tab(s) 1 tablet, ORAL, DAILY REVIEW OF SYSTEMS: The remainder of the review of systems is negative. Objective LAST VITALS: BP 120/80 Wt 159 lb (72.1 kg) LMP 04/30/2023 BMI 30.04 kg/m PHYSICAL EXAM: General: WD, WN HEENT: NC/AT, sclera white, pupils equal Lungs: normal respiratory effort Abdomen: soft, nontender during US exam FHT: Present on US LABS relevant to today's visit: HgbA1c: 5.1% First trimester screen: negative IMAGING: US shows: biometry consistent with dates No gross anomalies Normal TV cervical length Impression/Recommendations 27 year old EGA:18w1d with two prior late births and 3 term births, also history carrier screen positive for SLOS carrier. Doing well today with reassuring anatomy ultrasound and cervical length ultrasound. She is at increased risk for recurrent based on her history. She previously declined 17OHP in prior , and now FDA has removed this medication from the market. We discussed vaginal progesterone. Evidence not strong to support this as prophylaxis, however may be beneficial in context of cervical shortening to reduce risk of recurrent . Evidence for cerclage in context of cervical shortening Therefore offered cervical length measurement at 20 and 22 weeks with plan for vaginal progesterone if shortening < 25 mm. She declines cervical length screening or progesterone, elects clinical surveillance. Discussed carrier frequency/autosomal recessive inheritance of SLOS and option for partner screening or diagnosis. She declines. Ultrasound today is reassuring however all ultrasounds have potential for non-visualized malformations. She did have concerns regarding bleeding at delivery, and we discussed that grand multiparity is risk factor for hemorrhage, therefore precautions are made by delivery team to mitigate bleeding. Her hemoglobin should be optimized third trimester in anticipation of delivery. She would like to avoid IOL if possible although understands if indicated (ie for hypertension or indication). She will continue care with her OB team; MFM is available if any complications arise. As she declines cervical length screening, follow up ultrasound can be performed if requested (she does have history of insulin resistance in past therefore may need third trimester growth surveillance). Consultation requested by Erica Menon CNP for an opinion regarding history delivery, history SLOS carrier. My final recommendations will be communicated back to the requesting physician by way of shared Medical record or letter to requesting physician via US mail. Medical Decision Making: Problems: Moderate: 2+ stable chronic illnesses Risk: Moderate: Moderate risk from testing/treatment Medical Decision Making Level: 4 - Moderate SIGNATURE: Eduardo Guevara MD PATIENT NAME: Sara Clarkwrubina DATE: September 04, 2023 TIME: 10:28 AM documented in this encounter [facility] 08-30-2023 Miscellaneous Notes Patient notified. Lizz Cano RN Needs cervical length US so keep MFM consult scheduled Emely Adler MD 17w3d Patient called to cancel today's appointment because she does not have a sausage cutter. She was scheduled to see you this afternoon. Asking why she is needing MFM consult on 09/04. Per AG note patient is to see MFM with hx of labor. Patient asking why she didn't need to see MFM her last 3 pregnancies. She has not been seen by a provider since 07/11 initial OB. Please advise if patient needs MFM appointment. She has an OB visit with RR on 09/04 scheduled. Sveta Ashford RN documented in this encounter [facility] 07-25-2023 Instructions Sveta Ashford RN - 07/25/2023 2:14 PM EDT SEQUENTIAL TESTING PROCESS Sequential Screen First Trimester Today you are currently: 12w2d weeks 07/25/2023: Ultrasound and blood test. Sequential Screen Second Trimester (16-17 Weeks Gestation) When you are called with your results, the nurse will give the optimal draw dates for the Sequential screen second trimester. Blood testing can be done at any [facility] lab. Please report to the any baker chef office medical front desk specialist for the Sequential Part 2 requisition and order before reporting to the lab. Your weight will need to be documented for testing. Please note: -No appointment is need for your second blood draw. -Office hours are 8 am to 4:30 pm. -Please have testing done prior to 12 noon on Sunday's -Once the sequential testing is started, in the first trimester the only follow-up will be for the sequential screen second trimester. Please don't have a Quad screen ordered by another provider. If you or your Provider have any questions please call your maternal medicine office, for east side please call [phone] or for the West side call [phone] and ask for the the nurse. Thank you. documented in this encounter [facility] 07-25-2023 Miscellaneous Notes Patient here for First Trimester Screening. Please file order. documented in this encounter [facility] 07-13-2023 Miscellaneous Notes risk assessment form complete Joelle Awan RN documented in this encounter [facility] 07-12-2023 Note HNO ID: [id number] Author: Jada Gonzalez MD Service: ? Author Type: Physician Type: Progress Notes Filed: 07/12/2023 1:12 PM Note Text: OB point of care ultrasound was performed. See imaging tab for details. Jada Shah MD [facility] 07-12-2023 History of Presen t illness Narrative OB point of care ultrasound was performed. See imaging tab for details. Jada Shah MD documented in this encounter [facility] 07-11-2023 Note HNO ID: [id number] Author: Erica Mneon APRN.ASHLEY Service: ? Author Type: Nurse Practitioner Type: Progress Notes Filed: 07/11/2023 4:23 PM Note Text: INITIAL OB ASSESSMENT OB Provider: Erica Menon CNP HPI: Sara is a 27 year old White here to establish Obstetrical Care. Patient's last menstrual period was 04/30/2023. from OB Dating Form. Cycles regular was unplanned but accepted Complaints: None OB History T3 L5 SAB0 IAB0 Ectopic0 Multiple0 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 Previous history: Prior : never History of 4th degree laceration: No History of shoulder dystocia: No History of Hypertensive disorders including pre-eclampsia, chronic hypertension or gestational hypertension: No History of gestational diabetes: Yes, diet-controlled. Hgba1c ordered. Patient's Risk Screening for delivery: Have you had a prior palacio between 20w and 36w6d?: (!) Yes (35weeks and 5 days 2017 and 36 weeks 4 days 2020) Did you present in active spontaneous labor or have ruptured membranes, or advanced cervical dilation (greater than or equal to 4 cm) or effacement?: (!) Yes MEDICAL/PSYCHOSOCIAL HISTORY: History of hemorrhage or bleeding concerns: Yes, last PPH. No blood transfusion.+ iron transfusion Thyroid Disease: No History of chronic hypertension: No History of pre-existing diabetes: No ABO/RH(D) Date Value Ref Range Status 12/23/2020 AB POSTIVE Final BMI 29.48 kg/(m2) History of abnormal pap: Yes LSIL Prior treatment for cervical dysplasia: none. 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 I don't have enough money to pay my bills: Never Within the past 12 months, have you worried that your food would run out before you had money to buy more: Never In the past 12 months, has lack of reliable transportation kept you from going to medical appointments or work, or from keeping things needed for daily living: Never In the past 12 months, have you had any concerns about having a place to live, or about the condition or quality of your housing: Never Are there any cultural or spiritual needs we should be aware of: No Depression: denies symptoms of depression. OB Depression and Anxiety Screening- This Encounter (since 07/10/2023) Over the past 2 weeks have you felt down, depressed, or hopeless? Negative Over the past two weeks, have you felt little interest or pleasure in doing things?? Negative Feeling nervous, anxious or on edge 0-Not at all Not being able to stop or control worrying 0-Not al all Anxiety Pre-Screening Total (If >/= 3 additional questions will be reviewed) 0 GENETIC SCREENING: Partner present: No Patient verbalized knowledge of partner family health history: No Do you or your partner have any personal or family history of defects not previously discussed: unknown if family has defects Do you have history of a complicated by anomaly, genetic condition, or demise: Yes, one child with 2 webbed toes on each foot. Marital Status:Co-habitating Partner: Name: Harmeet King Age: 40 Occupation: CPA Gender: Male History of STDs: None PAST MEDICAL HISTORY Diagnosis Date Abnormal Pap smear of cervix LGSIL Acid reflux Anemia complicating , second trimester 04/16/2018 ASCUS of cervix with negative high risk HPV Chlamydia infection complicating 05/28/2014 Migraines Overweight PAST SURGICAL HISTORY Procedure Laterality Date ESOPHAGOGASTRODUODENOSCOPY TRANSORAL DIAGNOSTIC 09/14/16 EGD ([facility] [place] Current Outpatient Medications Medication Sig Dispense Refill multivitamin (CLASSIC ) 28 mg iron- 800 mcg tab(s) Take 1 tablet by mouth once daily. fluticasone (FLONASE) 50 mcg/actuation nasal spray Use 2 Sprays in each nostril once daily. Rinse mouth after use. 11.1 mL 0 famotidine (PEPCID) 20 mg tablet Take 1 tablet by mouth twice daily. 60 tablet 0 ferrous sulfate 325 mg (65 mg iron) tablet Take 1 tablet by mouth every other day. (Patient not taking: Reported on 04/05/2023) 30 tablet 1 blood sugar diagnostic test strip Check blood sugar 4 times a day: fasting and 2 hours after each meal (Patient not taking: Reported on 04/05/2023) 300 Strip 5 Lancets lancets Use 4 times a day (Patient not taking: Reported on 04/05/2023) 300 Each 5 alcohol swabs Use 4 times a day 300 Each 5 No current (more content not included)... [facility] 07-11-2023 Instructions Isela Wyman Ma 07/11/2023 1:05 PM EDT Please select the following link to access the [facility] Your Guide to a Healthy . [email or web address] documented in this encounter [facility] 07-11-2023 History of Presen t illness Narrative Images from the original note were not included. INITIAL OB ASSESSMENT OB Provider: Erica Menon CNP HPI: Sara is a 27 year old White here to establish Obstetrical Care. Patient's last menstrual period was 04/30/2023. from OB Dating Form. Cycles regular was unplanned but accepted Complaints: None OB History T3 L5 SAB0 IAB0 Ectopic0 Multiple0 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 Previous history: Prior : never History of 4th degree laceration: No History of shoulder dystocia: No History of Hypertensive disorders including pre-eclampsia, chronic hypertension or gestational hypertension: No History of gestational diabetes: Yes, diet-controlled. Hgba1c ordered. Patient's Risk Screening for delivery: Have you had a prior palacio between 20w and 36w6d?: (!) Yes (35weeks and 5 days 2017 and 36 weeks 4 days 2020) Did you present in active spontaneous labor or have ruptured membranes, or advanced cervical dilation (greater than or equal to 4 cm) or effacement?: (!) Yes MEDICAL/PSYCHOSOCIAL HISTORY: History of hemorrhage or bleeding concerns: Yes, last PPH. No blood transfusion.+ iron transfusion Thyroid Disease: No History of chronic hypertension: No History of pre-existing diabetes: No ABO/RH(D) Date Value Ref Range Status 12/23/2020 AB POSTIVE Final BMI 29.48 kg/(m^2) History of abnormal pap: Yes LSIL Prior treatment for cervical dysplasia: none. 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 I don't have enough money to pay my bills: Never Within the past 12 months, have you worried that your food would run out before you had money to buy more: Never In the past 12 months, has lack of reliable transportation kept you from going to medical appointments or work, or from keeping things needed for daily living: Never In the past 12 months, have you had any concerns about having a place to live, or about the condition or quality of your housing: Never Are there any cultural or spiritual needs we should be aware of: No Depression: denies symptoms of depression. OB Depression and Anxiety Screening- This Encounter (since 07/10/2023) Over the past 2 weeks have you felt down, depressed, or hopeless? Negative Over the past two weeks, have you felt little interest or pleasure in doing things? Negative Feeling nervous, anxious or on edge 0-Not at all Not being able to stop or control worrying 0-Not al all Anxiety Pre-Screening Total (If >/= 3 additional questions will be reviewed) 0 GENETIC SCREENING: Partner present: No Patient verbalized knowledge of partner family health history: No Do you or your partner have any personal or family history of defects not previously discussed: unknown if family has defects Do you have history of a complicated by anomaly, genetic condition, or demise: Yes, one child with 2 webbed toes on each foot. Marital Status:Co-habitating Partner: Name: Harmeet King Age: 40 Occupation: CPA Gender: Male History of STDs: None PAST MEDICAL HISTORY Diagnosis Date Abnormal Pap smear of cervix LGSIL Acid reflux Anemia complicating , second trimester 04/16/2018 ASCUS of cervix with negative high risk HPV Chlamydia infection complicating 05/28/2014 Migraines Overweight PAST SURGICAL HISTORY Procedure Laterality Date ESOPHAGOGASTRODUODENOSCOPY TRANSORAL DIAGNOSTIC 09/14/16 EGD ([facility] [place] Current Outpatient Medications Medication Sig Dispense Refill multivitamin (CLASSIC ) 28 mg iron- 800 mcg tab(s) Take 1 tablet by mouth once daily. fluticasone (FLONASE) 50 mcg/actuation nasal spray Use 2 Sprays in each nostril once daily. Rinse mouth after use. 11.1 mL 0 famotidine (PEPCID) 20 mg tablet Take 1 tablet by mouth twice daily. 60 tablet 0 ferrous sulfate 325 mg (65 mg iron) tablet Take 1 tablet by mouth every other day. (Patient not taking: Reported on 04/05/2023) 30 tablet 1 blood sugar diagnostic test strip Check blood sugar 4 times a day: fasting and 2 hours after each meal (Patient not taking: Reported on 04/05/2023) 300 Strip 5 Lancets lancets Use 4 times a day (Patient not taking: Reported on 04/05/2023) 300 Each 5 alcohol swabs Use 4 times a day 300 Each 5 No current facility-administered medications for this visit. Allergies As of Date: 07/11/2023 (No Known Allergies) Fully Assessed 07/11/2023 Does patient have penicillin allergy: No REVIEW OF SYSTEMS: GENERAL: Negative for: Fever or Chills HEENT: Negative for: Headache, Impaired Vision, Ringing in Ears, Nosebleeds. Hx migraine NECK: Negative for: Swelling, Pain, Stiffness RESPIRATORY: Negative for: Cough, Shortness of breath, Wheezing GASTROINTESTINAL: Negative for: Heartburn, Constipation, Diarrhea, Blood in stool, Vomiting MUSCULOSKELETAL: Negative for: Muscle or joint pain, stiffness, Joint swelling NEUROLOGIC/PSYCHIATRIC: Negative for: Weakness, Paralysis, Numbness, Tingling, Tremor, Anxiety, Depression, Memory loss SKIN: fine rash to arms and face - no itching GENITOURINARY: Negative for: vaginal itching, vaginal discharge, hematuria or dysuria PHYSICAL EXAM: BP 110/70 Ht 5' 1 (1.55m) Wt 156 lb (70.8kg) LMP 04/30/2023 BMI 29.49 kg/(m^2). GENERAL: pleasant in no apparent distress DERMATOLOGY: Normal, non-icteric, and non-hirsute. Non-pruitic rash to face and forearms. NECK: Supple, full range of motion, no adenopathy, and thyroid normal CHEST: Normal inspiratory effort BREAST: soft, non-tender, symmetric, no dominant mass, normal nipple-areolar complex, no lymphadenopathy, and no nipple discharge ABDOMEN: soft, non-tender, and no masses NEURO: alert and oriented x3,exam grossly non-focal PELVIS: External genitalia normal without lesions. Perineal body intact. No vaginal or cervical lesions. Cervix closed. Uterus 10 week size. No adnexal masses or tenderness. Clinical Pelvimetry: Pelvimetry clinically assessed as adequate Limited OB ultrasound exam: single intrauterine , positive cardiac activity, and crown-rump length 10 weeks 4 days OB Risk Screening: Completed, positive findings include: Patient answered 'Yes' they had a prior palacio between 20w and 36w6d. SBIRT Sara Bhakta was given the 4P's screening tool. Sara answered as follows: OB Opioid Screening - Last Recorded (since 10/14/2022) Did any of your parents have a problem with alcohol or other drug use? -- biological mother has issues with drinking. Patient adopted Does your partner have a problem with alcohol or other drug use? No In the past, have you had difficulties in your life because of alcohol or other drugs, including prescription medications? No In the past month have you drunk any alcohol or used other drugs? No Are you taking medication for pain during the either prescribed or not? No Based on the screen and further questions, she is considered at Low risk due to:No past or current use. Positive reinforcement of current behavior. Erica Menon APRN.ACID PURIFICATION EQUIPMENT OPERATOR ASSESSMENT: 27 year old at 10w2d wks gestational age PLAN: 1) Patient oriented to practice. Discussed nutrition, folic acid supplementation, dietary guidelines, exercise, smoking, alcohol, caffeine, and drug use. Discussed gestational weight gain guidelines. Discussed routine OB labs including STD/HIV. Discussed how to access Your guide to a health and the Gyroscopic Engineering Technician. Discussed aneuploidy and carrier screening. Regarding aneuploidy screening, nuchal translucency/first trimester early anatomy ultrasound and NIPT were discussed. Regarding carrier screening, the myriad screen was discussed. The risks/benefits and limitations of NIPT/aneuploidy screening were reviewed including the potential for false negative and false positive results. We discussed the availability of professional-society guided carrier screening and reviewed the conditions screened and limitations of screening. The availability of genetic counseling was reviewed. Information on aneuploidy/carrier screening was provided. The patient chooses: Aneuploidy screening: chooses to proceed with First trimester early anatomy ultrasound (12-13w6d) and Carrier screening: Accepts and genetic consult Patient offered option of Virtual Visits. Patient prefers in person visits. Reviewed midwifery and occasional babysitter services that are available. 2) History of . Will order MFM consult for further discussion. History of PPH requiring iron infusion 3) Grand multip Follow up in 2 weeks or sooner prn. Erica Menon APRN.CNP documented in this encounter [facility] 04-10-2023 Note HNO ID: [id number] Author: Emely Adler MD Service: ? Author Type: Physician Type: Progress Notes Filed: 04/10/2023 3:47 PM Note Text: cultureChaperone offered: Patient declines. Sara Bhakta is a 27 year old female who presents for problem visit. HPI: Patient presents with blood tinged breast mild from her right breast. It seems to only occur when pumping on that side. She is nursing her 2 year old AND . It is painful on the right nipple when her 2 year old nurses. Denies left breast concerns. OB History T3 L5 SAB0 IAB0 Ectopic0 Multiple0 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 Rug Shampooer History LMP: 04/08/2022 (Approximate), Unknown Age at Menarche: Age at First : Age at Menopause: Rug Shampooer History Comments: Sexual Activity: Yes; Male; TTC Contraception: No contraception data on record PAST MEDICAL HISTORY Diagnosis Date Abnormal Pap smear of cervix LGSIL Acid reflux Anemia complicating , second trimester 04/16/2018 ASCUS of cervix with negative high risk HPV Chlamydia infection complicating 05/28/2014 Migraines Overweight PAST SURGICAL HISTORY Procedure Laterality Date ESOPHAGOGASTRODUODENOSCOPY TRANSORAL DIAGNOSTIC 09/14/16 EGD ([facility] [place] FAMILY HISTORY Adopted: Yes Problem Relation Age of Onset Alcohol/Drug Mother ETOH No Known Problems Sister other ( alcohol Syndrome) Brother No Known Problems Brother No Known Problems Brother No Known Problems Son No Known Problems Son No Known Problems Son Social History Tobacco Use Smoking status: Former Years: 1.00 Types: Cigarettes Quit date: 10/07/2013 Years since quittin.5 Smokeless tobacco: Never Vaping Use Vaping Use: Never used Substance Use Topics Alcohol use: No Drug use: No Current Outpatient Medications Medication Sig fluticasone (FLONASE) 50 mcg/actuation nasal spray Use 2 Sprays in each nostril once daily. Rinse mouth after use. famotidine (PEPCID) 20 mg tablet Take 1 tablet by mouth twice daily. ferrous sulfate 325 mg (65 mg iron) tablet Take 1 tablet by mouth every other day. (Patient not taking: Reported on 04/05/2023) blood sugar diagnostic test strip Check blood sugar 4 times a day: fasting and 2 hours after each meal (Patient not taking: Reported on 04/05/2023) Lancets lancets Use 4 times a day (Patient not taking: Reported on 04/05/2023) alcohol swabs Use 4 times a day multivitamin (CLASSIC ) 28 mg iron- 800 mcg tab(s) Take 1 tablet by mouth once daily. (Patient not taking: Reported on 04/05/2023) No current facility-administered medications for this visit. Allergies As of Date: 04/10/2023 (No Known Allergies) Fully Assessed 04/05/2023 Allergies and current medication updated:Yes EXAM: LMP 04/08/2022 GENERAL: pleasant, female in no apparent distress BREAST: soft, non-tender, symmetric, no dominant mass, normal nipple-areolar complex but right nipple appears irritated with cracks, no lymphadenopathy, and no nipple discharge other than clear to white breast milk ASSESSMENT AND PLAN: 27yo female with bloody breast milk from right nipple Check breast milk culture Compounded nipple cream given Patient to update office in 1 week or PRN as may need referral to general surgery Needs to schedule annual exam Micronor given for control after discussing R/B/A Medical Decision Making: Problems: Moderate: New problem with uncertain prognosis Data: Unique test(s) ordered: 1 Risk: Moderate: Drug management Medical Decision Making Level: 4 - Moderate Emely Adler MD [facility] 04-10-2023 History of Presen t illness Narrative cultureChaperone offered: Patient declines. Sara Bhakta is a 27 year old female who presents for problem visit. HPI: Patient presents with blood tinged breast mild from her right breast. It seems to only occur when pumping on that side. She is nursing her 2 year old & . It is painful on the right nipple when her 2 year old nurses. Denies left breast concerns. OB History T3 L5 SAB0 IAB0 Ectopic0 Multiple0 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 Rug Shampooer History LMP: 04/08/2022 (Approximate), Unknown Age at Menarche: Age at First : Age at Menopause: Rug Shampooer History Comments: Sexual Activity: Yes; Male; TTC Contraception: No contraception data on record PAST MEDICAL HISTORY Diagnosis Date Abnormal Pap smear of cervix LGSIL Acid reflux Anemia complicating , second trimester 04/16/2018 ASCUS of cervix with negative high risk HPV Chlamydia infection complicating 05/28/2014 Migraines Overweight PAST SURGICAL HISTORY Procedure Laterality Date ESOPHAGOGASTRODUODENOSCOPY TRANSORAL DIAGNOSTIC 09/14/16 EGD ([facility] [place] FAMILY HISTORY Adopted: Yes Problem Relation Age of Onset Alcohol/Drug Mother ETOH No Known Problems Sister other ( alcohol Syndrome) Brother No Known Problems Brother No Known Problems Brother No Known Problems Son No Known Problems Son No Known Problems Son Social History Tobacco Use Smoking status: Former Years: 1.00 Types: Cigarettes Quit date: 10/07/2013 Years since quittin.5 Smokeless tobacco: Never Vaping Use Vaping Use: Never used Substance Use Topics Alcohol use: No Drug use: No Current Outpatient Medications Medication Sig fluticasone (FLONASE) 50 mcg/actuation nasal spray Use 2 Sprays in each nostril once daily. Rinse mouth after use. famotidine (PEPCID) 20 mg tablet Take 1 tablet by mouth twice daily. ferrous sulfate 325 mg (65 mg iron) tablet Take 1 tablet by mouth every other day. (Patient not taking: Reported on 04/05/2023) blood sugar diagnostic test strip Check blood sugar 4 times a day: fasting and 2 hours after each meal (Patient not taking: Reported on 04/05/2023) Lancets lancets Use 4 times a day (Patient not taking: Reported on 04/05/2023) alcohol swabs Use 4 times a day multivitamin (CLASSIC ) 28 mg iron- 800 mcg tab(s) Take 1 tablet by mouth once daily. (Patient not taking: Reported on 04/05/2023) No current facility-administered medications for this visit. Allergies As of Date: 04/10/2023 (No Known Allergies) Fully Assessed 04/05/2023 Allergies and current medication updated:Yes EXAM: LMP 04/08/2022 GENERAL: pleasant, female in no apparent distress BREAST: soft, non-tender, symmetric, no dominant mass, normal nipple-areolar complex but right nipple appears irritated with cracks, no lymphadenopathy, and no nipple discharge other than clear to white breast milk ASSESSMENT AND PLAN: 27yo female with bloody breast milk from right nipple Check breast milk culture Compounded nipple cream given Patient to update office in 1 week or PRN as may need referral to general surgery Needs to schedule annual exam Micronor given for control after discussing R/B/A Medical Decision Making: Problems: Moderate: New problem with uncertain prognosis Data: Unique test(s) ordered: 1 Risk: Moderate: Drug management Medical Decision Making Level: 4 - Moderate Emely Adler MD documented in this encounter [facility] 04-05-2023 Note HNO ID: [id number] Author: KEVIN Prince Service: ? Author Type: Physician Hydro Electric Station Operator Type: Progress Notes Filed: 04/05/2023 10:20 AM Note Text: This note was created using CleanMyCRM. Subjective Sara Bhakta is a 27 year old female. HPI 19-year-old female presents for sore throat, sinus congestion and headache. Patient states she started getting nasal congestion about 3 days ago. She has a lot of sinus pressure. She states she had a sore throat a few days ago, but this is now resolved. No cough. No fevers. No sick contacts. No other complaints. She has not tried anything [id number] for symptoms PAST MEDICAL HISTORY Diagnosis Date Abnormal Pap smear of cervix LGSIL Acid reflux Anemia complicating , second trimester 04/16/2018 ASCUS of cervix with negative high risk HPV Chlamydia infection complicating 05/28/2014 Migraines Overweight PAST SURGICAL HISTORY Procedure Laterality Date ESOPHAGOGASTRODUODENOSCOPY TRANSORAL DIAGNOSTIC 09/14/16 EGD ([facility] [place] ALLERGIES Patient has no known allergies. MEDICATIONS famotidine (PEPCID) 20 mg tablet Take 1 tablet by mouth twice daily. alcohol swabs Use 4 times a day fluticasone (FLONASE) 50 mcg/actuation nasal spray Use 2 Sprays in each nostril once daily. Rinse mouth after use. ferrous sulfate 325 mg (65 mg iron) tablet Take 1 tablet by mouth every other day. (Patient not taking: Reported on 04/05/2023) blood sugar diagnostic test strip Check blood sugar 4 times a day: fasting and 2 hours after each meal (Patient not taking: Reported on 04/05/2023) Lancets lancets Use 4 times a day (Patient not taking: Reported on 04/05/2023) multivitamin (CLASSIC ) 28 mg iron- 800 mcg tab(s) Take 1 tablet by mouth once daily. (Patient not taking: Reported on 04/05/2023) FAMILY HISTORY Adopted: Yes Problem Relation Age of Onset Alcohol/Drug Mother ETOH No Known Problems Sister other ( alcohol Syndrome) Brother No Known Problems Brother No Known Problems Brother No Known Problems Son No Known Problems Son No Known Problems Son Social History Tobacco Use Smoking status: Former Years: 1.00 Types: Cigarettes Quit date: 10/07/2013 Years since quittin.4 Smokeless tobacco: Never Vaping Use Vaping Use: Never used Substance Use Topics Alcohol use: No Drug use: No Review of Systems Constitutional: Negative for chills and fever. HENT: Positive for congestion and sinus pressure. Negative for ear pain and sore throat. Respiratory: Negative for cough and shortness of breath. Cardiovascular: Negative for chest pain. Gastrointestinal: Negative for diarrhea and vomiting. Objective BP 104/76 Pulse 97 Temp 36.6 ?C (97.8 ?F) Resp 21 Wt 66.8 kg (147 lb 3.2 oz) LMP 04/08/2022 (Approximate) SpO2 97% BMI 26.92 kg/m? Physical Exam Vitals and nursing note reviewed. Constitutional: General: She is not in acute distress. Appearance: Normal appearance. She is not toxic-appearing. HENT: Right Ear: Tympanic membrane and ear canal normal. Left Ear: Tympanic membrane and ear canal normal. Nose: Mucosal edema and congestion present. Mouth/Throat: Mouth: Mucous membranes are moist. Pharynx: No oropharyngeal exudate or posterior oropharyngeal erythema. Eyes: Conjunctiva/sclera: Conjunctivae normal. Cardiovascular: Rate and Rhythm: Normal rate and regular rhythm. Pulmonary: Effort: Pulmonary effort is normal. Breath sounds: Normal breath sounds. Neurological: Mental Status: She is alert. Assessment and Plan ASSESSMENT/PLAN: 1. URI, acute - ICD9: 465.9, ICD10: J06.9 - Discussed viral etiology and rationale for treatment. - Symptomatic treatment with prn analgesia - Supportive care with fluids and rest -Day 3 of symptoms, discussed most likely viral. -Rx for Flonase -Declines COVID/flu swab Diagnosis and treatment plan were discussed and questions were answered to the patient's satisfaction. Pt acknowledged understanding of concepts and follow up plan. Specific signs and symptoms that would indicate the need for higher level of care were discussed in detail warranting prompt ER evaluation. KEVIN Prince [facility] 04-05-2023 History of Presen t illness Narrative This note was created using CleanMyCRM. Subjective Sara Bhakta is a 27 year old female. HPI 19-year-old female presents for sore throat, sinus congestion and headache. Patient states she started getting nasal congestion about 3 days ago. She has a lot of sinus pressure. She states she had a sore throat a few days ago, but this is now resolved. No cough. No fevers. No sick contacts. No other complaints. She has not tried anything [id number] for symptoms PAST MEDICAL HISTORY Diagnosis Date Abnormal Pap smear of cervix LGSIL Acid reflux Anemia complicating , second trimester 04/16/2018 ASCUS of cervix with negative high risk HPV Chlamydia infection complicating 05/28/2014 Migraines Overweight PAST SURGICAL HISTORY Procedure Laterality Date ESOPHAGOGASTRODUODENOSCOPY TRANSORAL DIAGNOSTIC 09/14/16 EGD ([facility] [place] ALLERGIES Patient has no known allergies. MEDICATIONS famotidine (PEPCID) 20 mg tablet Take 1 tablet by mouth twice daily. alcohol swabs Use 4 times a day fluticasone (FLONASE) 50 mcg/actuation nasal spray Use 2 Sprays in each nostril once daily. Rinse mouth after use. ferrous sulfate 325 mg (65 mg iron) tablet Take 1 tablet by mouth every other day. (Patient not taking: Reported on 04/05/2023) blood sugar diagnostic test strip Check blood sugar 4 times a day: fasting and 2 hours after each meal (Patient not taking: Reported on 04/05/2023) Lancets lancets Use 4 times a day (Patient not taking: Reported on 04/05/2023) multivitamin (CLASSIC ) 28 mg iron- 800 mcg tab(s) Take 1 tablet by mouth once daily. (Patient not taking: Reported on 04/05/2023) FAMILY HISTORY Adopted: Yes Problem Relation Age of Onset Alcohol/Drug Mother ETOH No Known Problems Sister other ( alcohol Syndrome) Brother No Known Problems Brother No Known Problems Brother No Known Problems Son No Known Problems Son No Known Problems Son Social History Tobacco Use Smoking status: Former Years: 1.00 Types: Cigarettes Quit date: 10/07/2013 Years since quittin.4 Smokeless tobacco: Never Vaping Use Vaping Use: Never used Substance Use Topics Alcohol use: No Drug use: No Review of Systems Constitutional: Negative for chills and fever. HENT: Positive for congestion and sinus pressure. Negative for ear pain and sore throat. Respiratory: Negative for cough and shortness of breath. Cardiovascular: Negative for chest pain. Gastrointestinal: Negative for diarrhea and vomiting. Objective BP 104/76 Pulse 97 Temp 36.6 C (97.8 F) Resp 21 Wt 66.8 kg (147 lb 3.2 oz) LMP 04/08/2022 (Approximate) SpO2 97% BMI 26.92 kg/m Physical Exam Vitals and nursing note reviewed. Constitutional: General: She is not in acute distress. Appearance: Normal appearance. She is not toxic-appearing. HENT: Right Ear: Tympanic membrane and ear canal normal. Left Ear: Tympanic membrane and ear canal normal. Nose: Mucosal edema and congestion present. Mouth/Throat: Mouth: Mucous membranes are moist. Pharynx: No oropharyngeal exudate or posterior oropharyngeal erythema. Eyes: Conjunctiva/sclera: Conjunctivae normal. Cardiovascular: Rate and Rhythm: Normal rate and regular rhythm. Pulmonary: Effort: Pulmonary effort is normal. Breath sounds: Normal breath sounds. Neurological: Mental Status: She is alert. Assessment and Plan ASSESSMENT/PLAN: 1. URI, acute - ICD9: 465.9, ICD10: J06.9 - Discussed viral etiology and rationale for treatment. - Symptomatic treatment with prn analgesia - Supportive care with fluids and rest -Day 3 of symptoms, discussed most likely viral. -Rx for Flonase -Declines COVID/flu swab Diagnosis and treatment plan were discussed and questions were answered to the patient's satisfaction. Pt acknowledged understanding of concepts and follow up plan. Specific signs and symptoms that would indicate the need for higher level of care were discussed in detail warranting prompt ER evaluation. KEVIN Prince documented in this encounter [facility] 2022 Note HNO ID: [id number] Author: Jackie Gunn APRN.CNM Service: ? Author Type: Junior Electrical Engineer Type: Progress Notes Filed: 2022 2:00 PM Note Text: EARLY VISIT Sara Bhakta is a 27 year old here for a problem visit of post headache. She reports headache started on right side of head towards cheondoism last night. Took Tylenol with minimal relief. Denies vison changes or photophobia. Stopped drinking caffeine since delivery and recent lack of sleep due to and . Here today for blood pressure check. Delivery Summary: 12/16/2022 ROS: General: Denies any fever or chills Hypertension Screening: Headache? Yes. Was it successfully treated with Tylenol? minimal Visual Changes? No Epigastric Pain? No Increased Swelling? No Taking any BP medications at home? No If applicable, monitoring BP at home? (If Yes, include results) NA Mood: normal Depression: denies symptoms of depression. OB Depression and Anxiety Screening- This Encounter (since 12/18/2022) Over the past 2 weeks have you felt down, depressed, or hopeless? Negative Over the past two weeks, have you felt little interest or pleasure in doing things?? Negative Feeling nervous, anxious or on edge 0-Not at all Not being able to stop or control worrying 0-Not al all Anxiety Pre-Screening Total (If >/= 3 additional questions will be reviewed) 0 Feeding: Breast feeding problems: None Bladder: No dysuria, gross hematuria, urinary frequency, urinary urgency, or incontinence Bowel symptoms: Negative for abdominal discomfort, blood in stools or black stools and change in bowel habits Abdomen: N/A Bleeding: light flow Bottom and Perineum: No issues Sleep: no sleep concerns, does not feel rested [place] since delivery: n/a Emotional support: Yes Exercise: N/A Other issues: None PHYSICAL EXAMINATION: BP 110/74 Wt 164 lb 12.8 oz (74.8 kg) LMP 04/08/2022 (Approximate) Yes BMI 30.14 kg/m? General: pleasant,female in no apparent distress, AANDO x 3. Skin warm and intact. Breast: Deferred Abdomen: Deferred /Incision: N/A Pelvic: Deferred Bimanual: Deferred ASSESSMENT AND PLAN: 27 year old status post with normal course. Headache - Suspect tension headache - Drink caffeine - Increase fluids - add in electrolytes - Continue Tylenol 1000 mg PO every 8 hours as needed - Ibuprofen 600 mg PO every 6 hours as needed - Blood pressures today- 119/77 average - Recommended healthcare prof - Reviewed preeclampsia precautions and when to keke Follow up: RTO next week for 2 week post visit Jackie Gunn APRN.CNM [facility] 2022 Instructions Jackie Gunn APRN.CNM - 2022 1:44 PM EST Ibuprofen 600 mg by mouth every 6 hours Tylenol 1000 mg by mouth every 8 hours Cold and warm packs to back of neck Schedule with chiropractor documented in this encounter [facility] 2022 History of Presen t illness Narrative EARLY VISIT Sara Bhakta is a 27 year old here for a problem visit of post headache. She reports headache started on right side of head towards cheondoism last night. Took Tylenol with minimal relief. Denies vison changes or photophobia. Stopped drinking caffeine since delivery and recent lack of sleep due to and . Here today for blood pressure check. Delivery Summary: 12/16/2022 ROS: General: Denies any fever or chills Hypertension Screening: Headache? Yes. Was it successfully treated with Tylenol? minimal Visual Changes? No Epigastric Pain? No Increased Swelling? No Taking any BP medications at home? No If applicable, monitoring BP at home? (If Yes, include results) NA Mood: normal Depression: denies symptoms of depression. OB Depression and Anxiety Screening- This Encounter (since 12/18/2022) Over the past 2 weeks have you felt down, depressed, or hopeless? Negative Over the past two weeks, have you felt little interest or pleasure in doing things? Negative Feeling nervous, anxious or on edge 0-Not at all Not being able to stop or control worrying 0-Not al all Anxiety Pre-Screening Total (If >/= 3 additional questions will be reviewed) 0 Feeding: Breast feeding problems: None Bladder: No dysuria, gross hematuria, urinary frequency, urinary urgency, or incontinence Bowel symptoms: Negative for abdominal discomfort, blood in stools or black stools and change in bowel habits Abdomen: N/A Bleeding: light flow Bottom and Perineum: No issues Sleep: no sleep concerns, does not feel rested [place] since delivery: n/a Emotional support: Yes Exercise: N/A Other issues: None PHYSICAL EXAMINATION: BP 110/74 Wt 164 lb 12.8 oz (74.8 kg) LMP 04/08/2022 (Approximate) Yes BMI 30.14 kg/m General: pleasant,female in no apparent distress, A&O x 3. Skin warm and intact. Breast: Deferred Abdomen: Deferred /Incision: N/A Pelvic: Deferred Bimanual: Deferred ASSESSMENT AND PLAN: 27 year old status post with normal course. Headache - Suspect tension headache - Drink caffeine - Increase fluids - add in electrolytes - Continue Tylenol 1000 mg PO every 8 hours as needed - Ibuprofen 600 mg PO every 6 hours as needed - Blood pressures today- 119/77 average - Recommended healthcare prof - Reviewed preeclampsia precautions and when to keke Follow up: RTO next week for 2 week post visit Jackie Gunn APRN.CNM documented in this encounter [facility] 12-18-2022 Note HNO ID: [id number] Author: Lizz Cano RN Service: ? Author Type: ? Type: Progress Notes Filed: 12/18/2022 10:35 AM Note Text: Patient delivered via by Dr. Griffith on 12/16/22 at [facility]. See OB history. Lizz Cano RN [facility] 12-18-2022 History of Presen t illness Narrative Patient delivered via by Dr. Griffith on 12/16/22 at [facility]. See OB history. Lizz Cano RN documented in this encounter [facility] 12-13-2022 Miscellaneous Notes DM-Pt doing well. Denies vaginal Bleeding, Leaking fluid, or regular Contractions. Pt reports good movement Physical Exam: Gen: female in no apparent distress Abd: soft, Gravid. Non tender to palpation. See flow sheet A/P: @ 39 weeks 1) requesting IOL- set up for 39.2 weeks 2) Consent signed 3) Kick counts and labor reviewed Jada Shah MD documented in this encounter [facility] 12-13-2022 Instructions Isela Wyman Ma - 12/13/2022 11:04 AM EST SEQUENTIAL SCREENINGS The [facility] offers sequential screenings for women who are interested in screenings for chromosomal abnormalities and certain defects during a . The sequential screen combines ultrasound and blood tests to determine the risk of chromosomal abnormalities, including Down's Syndrome (Trisomy 21) and Trisomy 18, as well as open neural tube defects including spina bifida. Ultrasound examination is performed between 11 weeks and 13 weeks gestational age. Blood tests are drawn after the ultrasound and again later in the between 15 and 21 weeks gestational age. Please let your physician know if you are interested in this testing. It will require an appointment with our quality control lab technician. This is not an ultrasound performed by a physician in our office during a routine visit. SIGNS AND SYMPTOMS OF LABOR 1. Contractions every 10 minutes or more often 2. Clear, pink, or brownish fluid (water) leaking from vagina 3. Feeling that baby is pushing down, pressure 4. Low, dull backache 5. Cramps that feel like a period 6. Cramps with or without diarrhea If you notice any of the above symptoms, contact our office at [phone] and ask to speak with a nurse. After hours, you can call doctors registry at [phone] OR call [facility] at [phone] and ask to have the doctor automobile service station mechanic paged. If you consider this an emergency, dial 9-- or go to your nearest emergency department. NEED HELP? Are you dealing with a violent or abusive relationship? Are you a victim of rape or sexual assult? Call [facility] ([place]) 24 hour Crisis Hotline: 692.412.5000 or 502-253-8757. MANUAL Your Guide to a Healthy manual is now on-line. Visit [email or web address] to download your free copy documented in this encounter [facility] 12-04-2022 Miscellaneous Notes JAMES-S: Sara Bhakta is a 26 year old female who presents at 37w5d with LEIGHTON:12/20/2022, by Ultrasound for a routine visit. Good FM. Denies headache, visual changes, chest pain, shortness of breath, vaginal bleeding, leakage of fluid, or dysuria. Feeling well, no complaints. O: See flow sheet Gen: No apparent distress Abd: Gravid, nontender S=D, 26 lb, vertex ASSESSMENT/PLAN: 1. 37 weeks gestation of P: 1) Labor precautions reviewed and when to call 2) RTO in one week 3) Prepregnancy BMI 25 4) GBS positive, will treat during labor Thelma Penny APRN.CNM documented in this encounter [facility] 12-04-2022 Loretta Hobbs Cma - 12/04/2022 11:06 AM EST SEQUENTIAL SCREENINGS The [facility] offers sequential screenings for women who are interested in screenings for chromosomal abnormalities and certain defects during a . The sequential screen combines ultrasound and blood tests to determine the risk of chromosomal abnormalities, including Down's Syndrome (Trisomy 21) and Trisomy 18, as well as open neural tube defects including spina bifida. Ultrasound examination is performed between 11 weeks and 13 weeks gestational age. Blood tests are drawn after the ultrasound and again later in the between 15 and 21 weeks gestational age. Please let your physician know if you are interested in this testing. It will require an appointment with our quality control lab technician. This is not an ultrasound performed by a physician in our office during a routine visit. SIGNS AND SYMPTOMS OF LABOR 1. Contractions every 10 minutes or more often 2. Clear, pink, or brownish fluid (water) leaking from vagina 3. Feeling that baby is pushing down, pressure 4. Low, dull backache 5. Cramps that feel like a period 6. Cramps with or without diarrhea If you notice any of the above symptoms, contact our office at [phone] and ask to speak with a nurse. After hours, you can call doctors registry at [phone] OR call [facility] at [phone] and ask to have the doctor automobile service station mechanic paged. If you consider this an emergency, dial [phone]- or go to your nearest emergency department. NEED HELP? Are you dealing with a violent or abusive relationship? Are you a victim of rape or sexual assult? Call [facility] ([place]) 24 hour Crisis Hotline: 891.977.7906 or 943-233-8876. MANUAL Your Guide to a Healthy manual is now on-line. Visit [email or web address] to download your free copy documented in this encounter [facility] 11-29-2022 Miscellaneous Notes Patient notified. Voiced understanding. Sveta Ashford RN At this time I would just maintain a bland diet and stay hydrated with electrolyte drinks. Cramping/pain is normal with diarrhea and GI illness which we are seeing right now. If she has high fever, blood in stool then needs to go to ER. If any OB concerns notify office. 37w0d Patient has been having diarrhea since 11/24/22. Still occuring about 6x a day. When she does have BM she has severe lower abdominal and back pain to the point she is bent over and shaking- almost intolerable. Pain only occurs during BM. She has been taking tylenol and that does help at times. She is starting to feel better overall yesterday and today. She has an appetite and is able to eat and drink normal. No fever. She previously talked to RR over the weekend and thought it was a GI virus. Asking if she should be concerned this is still occurring or what else she can do. Next ob visit 12/04/21. Please review. Lizz Cano RN documented in this encounter [facility] 11-24-2022 Miscellaneous Notes RR- VB No. LOF No. CTXS irreg . Movement: present. Other c/o: No. Medication list reviewed. Physical Exam See Flow Sheet Abd: soft, nontender, gravid Ext: edema: Trace A/P 36w2d Estimated Date of Delivery: 12/20/22 GBS done. Brief US confirms vtx did not do 3 hr gtt, BS done for 2 weeks, all within target F/u in 1 week or prn. Calixto Collado M.D. documented in this encounter [facility] 11-24-2022 Instructions Pascale Bingham Ma - 11/24/2022 1:26 PM EST SEQUENTIAL SCREENINGS The [facility] offers sequential screenings for women who are interested in screenings for chromosomal abnormalities and certain defects during a . The sequential screen combines ultrasound and blood tests to determine the risk of chromosomal abnormalities, including Down's Syndrome (Trisomy 21) and Trisomy 18, as well as open neural tube defects including spina bifida. Ultrasound examination is performed between 11 weeks and 13 weeks gestational age. Blood tests are drawn after the ultrasound and again later in the between 15 and 21 weeks gestational age. Please let your physician know if you are interested in this testing. It will require an appointment with our quality control lab technician. This is not an ultrasound performed by a physician in our office during a routine visit. SIGNS AND SYMPTOMS OF LABOR 1. Contractions every 10 minutes or more often 2. Clear, pink, or brownish fluid (water) leaking from vagina 3. Feeling that baby is pushing down, pressure 4. Low, dull backache 5. Cramps that feel like a period 6. Cramps with or without diarrhea If you notice any of the above symptoms, contact our office at [phone] and ask to speak with a nurse. After hours, you can call doctors registry at [phone] OR call [facility] at [phone] and ask to have the doctor automobile service station mechanic paged. If you consider this an emergency, dial 9--3 or go to your nearest emergency department. NEED HELP? Are you dealing with a violent or abusive relationship? Are you a victim of rape or sexual assult? Call [facility] ([place]) 24 hour Crisis Hotline: 597.985.8825 or 527-690-1073. MANUAL Your Guide to a Healthy manual is now on-line. Visit [email or web address] to download your free copy documented in this encounter [facility] 11-16-2022 Miscellaneous Notes filed 35w0d Last RX sent 10/27. 30 tablets. Patient is taking twice a day. Would you like to increase number of tablets? Requested Prescriptions Pending Prescriptions Disp Refills famotidine (PEPCID) 20 mg tablet 30 tablet 0 Sig: Take 1 tablet by mouth twice daily. Sveta Ashford RN documented in this encounter [facility] 11-13-2022 Miscellaneous Notes S: aSra Bhakta is a 26 year old female who presents at 34 weeks gestation for a routine visit. Has been monitoring blood glucose levels but forgot to bring in the sheets today. Reports only 3 elevated levels after dinner only. All fasting levels within normal ranges. She will send results through MyChart. Denies headache, visual changes, chest pain, shortness of breath, vaginal bleeding, leakage of fluid, or dysuria. Taking iron daily. Feeling well, no complaints. O: See flow sheet Gen: No apparent distress Abd: Gravid, nontender ASSESSMENT/PLAN: 1. Diet controlled gestational diabetes mellitus (GDM) in third trimester - ICD9: 648.83, ICD10: O24.410 (primary diagnosis) - URINE OB DIP B/O - Patient to send in logs 2. 34 weeks gestation of - ICD9: V22.2, ICD10: Z3A.34 - Repeat CBC next visit P: 1) PTL precautions reviewed and when to call 2) RTO 2 weeks or sooner if needed Jackie Gunn APRN.CNM documented in this encounter [facility] 11-13-2022 Instructions Pascale Bingham Ma - 11/13/2022 1:58 PM EST SEQUENTIAL SCREENINGS The [facility] offers sequential screenings for women who are interested in screenings for chromosomal abnormalities and certain defects during a . The sequential screen combines ultrasound and blood tests to determine the risk of chromosomal abnormalities, including Down's Syndrome (Trisomy 21) and Trisomy 18, as well as open neural tube defects including spina bifida. Ultrasound examination is performed between 11 weeks and 13 weeks gestational age. Blood tests are drawn after the ultrasound and again later in the between 15 and 21 weeks gestational age. Please let your physician know if you are interested in this testing. It will require an appointment with our quality control lab technician. This is not an ultrasound performed by a physician in our office during a routine visit. SIGNS AND SYMPTOMS OF LABOR 1. Contractions every 10 minutes or more often 2. Clear, pink, or brownish fluid (water) leaking from vagina 3. Feeling that baby is pushing down, pressure 4. Low, dull backache 5. Cramps that feel like a period 6. Cramps with or without diarrhea If you notice any of the above symptoms, contact our office at [phone] and ask to speak with a nurse. After hours, you can call [facility] at [phone] OR call [facility] at [phone] and ask to have the doctor automobile service station mechanic paged. If you consider this an emergency, dial 9-1-5 or go to your nearest emergency department. NEED HELP? Are you dealing with a violent or abusive relationship? Are you a victim of rape or sexual assult? Call [facility] ([place]) 24 hour Crisis Hotline: 543.669.6513 or 363-186-9564. MANUAL Your Guide to a Healthy manual is now on-line. Visit [email or web address] to download your free copy documented in this encounter [facility] 10-27-2022 Miscellaneous Notes SW- Recovered from the flu. Having some residual congestion. Went to urgent care. No pain, vb, lof. Good FM. PE: Gen- NAD, well appearing Abd- Soft, gravid, NT Ext- No edema See flowsheet A/p 32 wk gestation - Pepcid for acid reflux - Growth US today and final report pending - Start iron for anemia - Difficult for her to complete 3 hour GTT. Will do BG checks x 2 weeks - RTO 2 wks Mami Griffith DO documented in this encounter [facility] 10-27-2022 Instructions Angela Brown MA - 10/27/2022 1:05 PM EST SEQUENTIAL SCREENINGS The [facility] offers sequential screenings for women who are interested in screenings for chromosomal abnormalities and certain defects during a . The sequential screen combines ultrasound and blood tests to determine the risk of chromosomal abnormalities, including Down's Syndrome (Trisomy 21) and Trisomy 18, as well as open neural tube defects including spina bifida. Ultrasound examination is performed between 11 weeks and 13 weeks gestational age. Blood tests are drawn after the ultrasound and again later in the between 15 and 21 weeks gestational age. Please let your physician know if you are interested in this testing. It will require an appointment with our quality control lab technician. This is not an ultrasound performed by a physician in our office during a routine visit. SIGNS AND SYMPTOMS OF LABOR 1. Contractions every 10 minutes or more often 2. Clear, pink, or brownish fluid (water) leaking from vagina 3. Feeling that baby is pushing down, pressure 4. Low, dull backache 5. Cramps that feel like a period 6. Cramps with or without diarrhea If you notice any of the above symptoms, contact our office at [phone] and ask to speak with a nurse. After hours, you can call doctors registry at [phone] OR call [facility] at [phone] and ask to have the doctor automobile service station mechanic paged. If you consider this an emergency, dial 2-8-4 or go to your nearest emergency department. NEED HELP? Are you dealing with a violent or abusive relationship? Are you a victim of rape or sexual assult? Call [facility] ([place]) 24 hour Crisis Hotline: 699.484.1738 or 971-964-1306. MANUAL Your Guide to a Healthy manual is now on-line. Visit [email or web address] to download your free copy documented in this encounter [facility] 10-23-2022 History of Presen t illness Narrative Subjective HPI Sara Bhakta is a 26 year old female who presents with head congestion, pressure on left side of her face, sinus pain, and cough for the past 8 days. She was diagnosed with COVID 10/16/2022 and has had these symptoms since. She is currently 31.5 weeks . She has not had a fever. She has been taking tylenol at home. Review of Systems Constitutional: Negative for chills and fever. HENT: Positive for congestion and sinus pain. Negative for ear pain and sore throat. Respiratory: Positive for cough. Cardiovascular: Negative. Neurological: Positive for headaches. BP 122/86 Pulse 91 Temp 36.4 C (97.6 F) Resp 18 Wt 75.3 kg (166 lb) LMP 04/08/2022 (Approximate) SpO2 100% BMI 30.36 kg/m PAST MEDICAL HISTORY Diagnosis Date Abnormal Pap smear of cervix LGSIL Acid reflux Anemia complicating , second trimester 04/16/2018 ASCUS of cervix with negative high risk HPV Chlamydia infection complicating 05/28/2014 Migraines Overweight PAST SURGICAL HISTORY Procedure Laterality Date ESOPHAGOGASTRODUODENOSCOPY TRANSORAL DIAGNOSTIC 09/14/16 EGD ([facility] ALLERGIES Patient has no known allergies. MEDICATIONS amoxicillin (AMOXIL) 875 mg tablet Take 1 tablet by mouth twice daily for 10 days. multivitamin (CLASSIC ) 28 mg iron- 800 mcg tab(s) Take 1 tablet by mouth once daily. FAMILY HISTORY Adopted: Yes Problem Relation Age of Onset Alcohol/Drug Mother ETOH No Known Problems Sister other ( alcohol Syndrome) Brother No Known Problems Brother No Known Problems Brother No Known Problems Son No Known Problems Son No Known Problems Son Social History Tobacco Use Smoking status: Former Years: 1.00 Types: Cigarettes Quit date: 10/07/2013 Years since quittin.0 Smokeless tobacco: Never Vaping Use Vaping Use: Never used Substance Use Topics Alcohol use: No Drug use: No Objective Physical Exam Vitals and nursing note reviewed. Constitutional: Appearance: Normal appearance. HENT: Right Ear: Tympanic membrane, ear canal and external ear normal. Left Ear: Tympanic membrane, ear canal and external ear normal. Nose: Nasal tenderness, mucosal edema, congestion and rhinorrhea present. Mouth/Throat: Mouth: Mucous membranes are moist. Pharynx: Oropharynx is clear. Uvula midline. No oropharyngeal exudate or posterior oropharyngeal erythema. Cardiovascular: Rate and Rhythm: Normal rate and regular rhythm. Heart sounds: Normal heart sounds. Pulmonary: Effort: Pulmonary effort is normal. No respiratory distress. Breath sounds: Normal breath sounds. No wheezing or rales. Musculoskeletal: Cervical back: Neck supple. Lymphadenopathy: Cervical: No cervical adenopathy. Skin: General: Skin is warm and dry. Findings: No erythema or rash. Neurological: Mental Status: She is alert. ASSESSMENT/PLAN: 1. Bacterial sinusitis - ICD9: 473.9, 041.9, ICD10: J32.9, B96.89 - Will begin treatment with as per antibiotic as written, see orders - Supportive care with plenty of fluids, rest, and analgesia prn. - AMOXICILLIN 875 MG TABLET - Follow-up with your PCP in 3-5 days if symptoms have not improved or sooner if symptoms worsen - Discussed red flags and need for immediate medical evaluation if any occur. - Discussed supportive care treatment with fluids, rest and analgesia. - Discussed expected course of illness Amanda Brown APRN.CNP documented in this encounter [facility] 10-23-2022 Instructions Amanda Brown APRN.CNP - 10/23/2022 4:17 PM EST Images from the original note were not included. ASSESSMENT/PLAN: 1. Bacterial sinusitis - ICD9: 473.9, 041.9, ICD10: J32.9, B96.89 - Will begin treatment with as per antibiotic as written, see orders - Supportive care with plenty of fluids, rest, and analgesia prn. - AMOXICILLIN 875 MG TABLET - Follow-up with your PCP in 3-5 days if symptoms have not improved or sooner if symptoms worsen - Discussed red flags and need for immediate medical evaluation if any occur. - Discussed supportive care treatment with fluids, rest and analgesia. - Discussed expected course of illness Amanda Brown APRN.CNP Adult Sinusitis Patient Education What is Sinusitis? Sinusitis [[id number]-[id number]-[id number]-tis] is inflammation of the sinuses or swelling of the lining of the sinus cavity or nose. During an infection the sinuses become blocked with fluid causing swelling of the lining of the sinuses. Symptoms: (viral and bacterial infections) Stuffy nose Runny nose Postnasal drip Fever Toothache Headache Tiredness Cough Sore throat Face and head pressure and or pain Common causes: 98% of sinus infections are viral caused by viruses. Risk Factors of Sinusitis Include: Allergies, air pollution, indoor humidity and outdoor temperature changes, andstructural changes in the nose may contribute to sinus pain, pressure and congestion. When to get help? Temperature greater than 100.4 F Symptoms lasting more than 10 days or worsening symptoms greater than 7-10 days. If you do not improve or worsen after a course of antibiotics, you should be re-examined. Diagnosis and Treatment: Your healthcare provider will ask a number of questions about your symptoms and how long they have occurred. If symptoms of sinusitis persist greater than 10 days, it is possible you have a bacterial sinus infection and an antibiotic is prescribed. If it is viral, antibiotics will not help. You may be instructed to take vshr-juj-tlsmuax medications for symptoms. including fever reducers acetaminophen or ibuprofen, nasal saline spray, cough and cold preparations and decongestants as prescribed by the physician, nurse practitioner or physician assistant auditor. Self-Care and Prevention: Rest Fluids for hydration Good hand washing Humidifier Avoid smoking and exposure to second hand smoke Avoid sick contacts documented in this encounter [facility] 10-23-2022 Miscellaneous Notes Patient notified. Voiced understanding. [employer] message also sent for patient to refer back to. Sveta Ashford RN Attempted to call patient. Unable to leave message-mailbox is full. Lizz Cano RN She can take pseudofed to help with sinus pressure. Can use a netti pot as well to help clear nasal passages. Vitamin D 1,000 international unit(s) PO once daily and vitamin c 500mg PO once daily. Hope she gets relief soon. Thelma Penny APRN.CNM 31w5d Patient called to report that she tested positive for influenza on Sunday, 10/19 at [facility]. Calling to report that she has sinus pressure that is making the left side of her face hurt. The pressure is even making her teeth hurt. Taking Tylenol only. [employer] message sent with link to medications safe in . Advised to go to ER if she develops SOB or CP. Next OB visit is on 10/27. Encouraged to rest and push fluids. Do you have anything further to advise. Sveta Ashford RN documented in this encounter [facility] 09-29-2022 Miscellaneous Notes JAMES-S: Sara Bhakta is a 26 year old female who presents at 28w2d with LEIGHTON:12/20/2022, by Ultrasound for a routine visit. Good FM. Denies headache, visual changes, chest pain, shortness of breath, vaginal bleeding, leakage of fluid, or dysuria. Feeling well, no complaints. O: See flow sheet Gen: No apparent distress Abd: Gravid, nontender S=D, 21 lb TWG ASSESSMENT/PLAN: 1. 28 weeks gestation of Plan: - 1 hour GCT, CBC, and RPR today - AB positive - TDAP vaccine declines - LARC form reviewed and signed. Patient declines. Does not plan to use control - Depression screen negative - Opioid screen negative - plan form discussed and given to patient. Patient desires unmedicated - PTL precautions and kick counts reviewed - RTO- 2 weeks or sooner if needed Thelma Penny APRN.CNM SBIRT Sara Bhakta was given the 4P's screening tool. Sara answered as follows: OB Opioid Screening - Last Recorded (since 01/02/2022) Did any of your parents have a problem with alcohol or other drug use? No Does your partner have a problem with alcohol or other drug use? No In the past, have you had difficulties in your life because of alcohol or other drugs, including prescription medications? No In the past month have you drunk any alcohol or used other drugs? No Are you taking medication for pain during the either prescribed or not? No Based on the screen and further questions, she is considered at Low risk due to:No past or current use. Positive reinforcement of current behavior. Plan to rescreen early third trimester. Thelma Penny APRN.CNM I spent a total of minutes on the date of the service which included preparing to see the patient, [id number]-[id number] patient care, completing clinical documentation, obtaining and/or reviewing separately obtained history, performing a medically appropriate examination, counseling and educating the patient/family/caregiver, and ordering medications, tests, or procedures. documented in this encounter [facility] 09-29-2022 Instructions Thelma Penny APRN.CNM - 09/29/2022 1:08 PM EDT 1) Chiropractor for back pain. 2) Ice to back, on for 20 minutes, off for 20 minutes, for 2 hours 3) Pelvic tilts, handout given 4) Biofreeze or icy hot 5) Warm bath with 2 cups of epsom salt 6) Abdominal support belt ([employer], [employer], or check with insurance for coverage) Go to [facility] [facility] online and fill out information SIGNS AND SYMPTOMS OF LABOR 1. Contractions every 10 minutes or more often 2. Clear, pink, or brownish fluid (water) leaking from vagina 3. Feeling that baby is pushing down, pressure 4. Low, dull backache 5. Cramps that feel like a period 6. Cramps with or without diarrhea If you notice any of the above symptoms, contact our office at [phone] and ask to speak with a nurse. After hours, you can call doctors registry at [phone] OR call [facility] at [phone] and ask to have the doctor automobile service station mechanic paged. If you consider this an emergency, dial 7-8-7 or go to your nearest emergency department. NEED HELP? Are you dealing with a violent or abusive relationship? Are you a victim of rape or sexual assult? Call [facility] ([place]) 24 hour Crisis Hotline: 290.412.1338 or 338-439-4094. MANUAL Your Guide to a Healthy manual is now on-line. Visit [email or web address] to download your free copy documented in this encounter [facility] 08-17-2022 Miscellaneous Notes Agree with urgent care eval 22w1d Called and spoke with patient. See attached image. Rash appeared 5 days ago. Continues to become larger in size. Warm to the touch. Does not itch. Feels more like a burn. She has poison edda on her hands and arms. Was treated for another rash in June with hydrocortisone cream. That rash cleared up. Has been apply the hydrocortisone cream to this rash as well. No improvement. Would you like patient to go back to Urgent Care? Sveta Ashford RN documented in this encounter [facility] 08-03-2022 Miscellaneous Notes Sara Bhakta is a 26 year old female who presents at 20w1d for a routine visit. Just completed anatomy US- awaiting final results. Having a girl! No movement to date- placenta is anterior. Denies any nausea or vomiting. Appetite has improved. Denies headache, visual changes, chest pain, shortness of breath, vaginal bleeding, leakage of fluid, or dysuria. Feeling well, no complaints. PTL / Bleeding precautions reviewed. RTC in 4 weeks or sooner if needed. Jackie Gunn APRN.CNM documented in this encounter [facility] 08-03-2022 Instructions Isela Wyman Ma - 08/03/2022 1:53 PM EDT SEQUENTIAL SCREENINGS The [facility] offers sequential screenings for women who are interested in screenings for chromosomal abnormalities and certain defects during a . The sequential screen combines ultrasound and blood tests to determine the risk of chromosomal abnormalities, including Down's Syndrome (Trisomy 21) and Trisomy 18, as well as open neural tube defects including spina bifida. Ultrasound examination is performed between 11 weeks and 13 weeks gestational age. Blood tests are drawn after the ultrasound and again later in the between 15 and 21 weeks gestational age. Please let your physician know if you are interested in this testing. It will require an appointment with our quality control lab technician. This is not an ultrasound performed by a physician in our office during a routine visit. SIGNS AND SYMPTOMS OF LABOR 1. Contractions every 10 minutes or more often 2. Clear, pink, or brownish fluid (water) leaking from vagina 3. Feeling that baby is pushing down, pressure 4. Low, dull backache 5. Cramps that feel like a period 6. Cramps with or without diarrhea If you notice any of the above symptoms, contact our office at [phone] and ask to speak with a nurse. After hours, you can call doctors registry at [phone] OR call [facility] at [phone] and ask to have the doctor automobile service station mechanic paged. If you consider this an emergency, dial 9-1-6 or go to your nearest emergency department. NEED HELP? Are you dealing with a violent or abusive relationship? Are you a victim of rape or sexual assult? Call [facility] ([place]) 24 hour Crisis Hotline: 858.493.5813 or 109-971-5921. MANUAL Your Guide to a Healthy manual is now on-line. Visit [email or web address] to download your free copy documented in this encounter [facility] 07-18-2022 Miscellaneous Notes RR- VB No. LOF No. CTXS No. Movement: not yet. Other c/o: Yes: Other: approx8 small erythemetous 4 mm-10mm lesions on abdomen and one on upper right thigh. No necrotic area, not raised, no pustules or plaques. Has not had before. Given hydrocortisone by urgent care. No exposures. No one else has them. Mildly pruritic. Medication list reviewed. Physical Exam See Flow Sheet Abd: soft, nontender, gravid A/P 17w6d Estimated Date of Delivery: 12/20/22 nonspecifici skin rash, hydrocortisone, if worsens notify office avoid irritants Second portion of sequential screen today anatomy US scheduled f/u in 4 weeks or prn Calixto Collado M.D. documented in this encounter [facility] 07-18-2022 Instructions Pascale Bingham Ma - 07/18/2022 10:34 AM EDT SEQUENTIAL SCREENINGS The [facility] offers sequential screenings for women who are interested in screenings for chromosomal abnormalities and certain defects during a . The sequential screen combines ultrasound and blood tests to determine the risk of chromosomal abnormalities, including Down's Syndrome (Trisomy 21) and Trisomy 18, as well as open neural tube defects including spina bifida. Ultrasound examination is performed between 11 weeks and 13 weeks gestational age. Blood tests are drawn after the ultrasound and again later in the between 15 and 21 weeks gestational age. Please let your physician know if you are interested in this testing. It will require an appointment with our quality control lab technician. This is not an ultrasound performed by a physician in our office during a routine visit. SIGNS AND SYMPTOMS OF LABOR 1. Contractions every 10 minutes or more often 2. Clear, pink, or brownish fluid (water) leaking from vagina 3. Feeling that baby is pushing down, pressure 4. Low, dull backache 5. Cramps that feel like a period 6. Cramps with or without diarrhea If you notice any of the above symptoms, contact our office at [phone] and ask to speak with a nurse. After hours, you can call doctors registry at [phone] OR call [facility] at [phone] and ask to have the doctor automobile service station mechanic paged. If you consider this an emergency, dial 7-2-5 or go to your nearest emergency department. NEED HELP? Are you dealing with a violent or abusive relationship? Are you a victim of rape or sexual assult? Call [facility] ([facility] 24 hour Crisis Hotline: 152.492.6010 or 704-073-6740. MANUAL Your Guide to a Healthy manual is now on-line. Visit [email or web address] to download your free copy documented in this encounter [facility] 06-05-2022 Miscellaneous Notes NOB completed today. Jackie Gunn APRN.CNM documented in this encounter [facility] 06-05-2022 Instructions Sofiya Leal RN - 06/05/2022 2:00 PM EDT SEQUENTIAL TESTING PROCESS Sequential Screen First Trimester Today you are currently: 8w2d weeks 06/05/2022: Ultrasound and blood test. Sequential Screen Second Trimester (16-17 Weeks Gestation) When you are called with your results, the nurse will give the optimal draw dates for the Sequential screen second trimester. Blood testing can be done at any [facility] lab. Please report to the any baker chef office medical front desk specialist for the Sequential Part 2 requisition and order before reporting to the lab. Your weight will need to be documented for testing. Please note: -No appointment is need for your second blood draw. -Office hours are 8 am to 4:30 pm. -Please have testing done prior to 12 noon on Sunday's -Once the sequential testing is started, in the first trimester the only follow-up will be for the sequential screen second trimester. Please don't have a Quad screen ordered by another provider. If you or your Provider have any questions please call your maternal medicine office, for east side please call [phone] or for the West side call [phone] and ask for the the nurse. Thank you. documented in this encounter [facility] 06-05-2022 Miscellaneous Notes Please file pended order Sofiya Leal RN Patient here for First Trimester Screening. See ultrasound report for details. Options for genetic screening and diagnosis discussed with the patient. Patient opts for first trimester screening and the sequential screening protocol. Limitations of screening tests discussed with the patient. Jackie Gunn APRN.CNM documented in this encounter [facility] 06-05-2022 History of Presen t illness Narrative Images from the original note were not included. INITIAL OB ASSESSMENT OB Provider: Jackie Gunn CNM HPI: Sara Bhakta is a 26 year old female here to establish Obstetrical Care. Patient's last menstrual period was 04/08/2022 (approximate). from OB Dating Form. Cycle length: 28 days Complaints: nausea without vomiting, headaches- history of migraines- no treatment was planned. This is patient and her partner's first child together OB History T2 L4 SAB0 IAB0 Ectopic0 Multiple0 Live Births4 Prior : never History of 4th degree laceration: No Patient's Risk Screening for delivery: History of abnormal pap: Yes Prior treatment for cervical dysplasia: none. 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 No Marital Status: Legally from father of previous pregnancies Partner: Name: Camron Age: 38 Occupation: [employer] Gender: male History of STDs: None PAST MEDICAL HISTORY Diagnosis Date Abnormal Pap smear of cervix LGSIL Acid reflux Anemia complicating , second trimester 04/16/2018 ASCUS of cervix with negative high risk HPV Chlamydia infection complicating 05/28/2014 Migraines Overweight PAST SURGICAL HISTORY Procedure Laterality Date ESOPHAGOGASTRODUODENOSCOPY TRANSORAL DIAGNOSTIC 09/14/16 EGD ([facility] [place] Review of Systems: GENERAL: Negative for: Fever or Chills and Positive for: Fatigue HEENT: Negative for: Impaired Vision, Ringing in Ears, Nosebleeds + Headaches NECK: Negative for: Swelling, Pain, Stiffness RESPIRATORY: Negative for: Cough, Shortness of breath, Wheezing GASTROINTESTINAL: Negative for: Constipation, Diarrhea, Blood in stool, Vomiting and Positive for: Heartburn MUSCULOSKELETAL: Negative for: Muscle or joint pain, stiffness, Joint swelling NEUROLOGIC/PSYCHIATRIC: Negative for: Weakness, Paralysis, Numbness, Tingling, Tremor, Anxiety, Depression, Memory loss SKIN: Negative for: Rash, Itching GENITOURINARY: Negative for: vaginal itching, vaginal discharge, hematuria or dysuria PHYSICAL EXAM: BP 110/68 Wt 144 lb (65.3kg) LMP 04/08/2022 GENERAL: pleasant female in no apparent distress DERMATOLOGY: Normal, without lesions, non-icteric and non-hirsute NECK: Supple, full range of motion, no adenopathy and thyroid normal CHEST: Normal inspiratory effort BREAST: soft, non-tender, symmetric, no dominant mass, normal nipple-areolar complex, no lymphadenopathy and no nipple discharge ABDOMEN: soft, non-tender and no masses NEURO: alert and oriented x3,exam grossly non-focal PELVIS: External genitalia normal without lesions. Perineal body intact. No vaginal or cervical lesions. Cervix closed. Uterus 12 week size. No adnexal masses or tenderness. Clinical Pelvimetry: Pelvimetry clinically assessed as adequate Limited OB ultrasound exam: single intrauterine , positive cardiac activity and crown-rump length 11.6 weeks OB Risk Screening: Completed, positive findings include: Patient answered 'Yes' they had a prior palacio between 20w and 36w6d. SBIRT Sara Bhakta was given the 4P's screening tool. Sara answered as follows: OB Opioid Screening - Last Recorded (since 09/08/2021) Did any of your parents have a problem with alcohol or other drug use? Yes mother-ETOH Does your partner have a problem with alcohol or other drug use? No In the past, have you had difficulties in your life because of alcohol or other drugs, including prescription medications? No In the past month have you drunk any alcohol or used other drugs? No Are you taking medication for pain during the either prescribed or not? No Based on the screen and further questions, she is considered at Low risk due to:No past or current use. Positive reinforcement of current behavior. Jackie Gunn APRN.CNM ASSESSMENT: 26 year old at 11.5 wks gestational age PLAN: 1) Patient oriented to practice. Discussed nutrition, folic acid supplementation, dietary guidelines, exercise, smoking, alcohol, caffeine, and drug use. Discussed routine OB labs including STD/HIV. Discussed aneuploidy screening options including serum screening and nuchal translucency. Dating US today - per LMP 8 weeks gestation, but by TVUS 12 weeks gestation 2) History of counseled regarding use of 17 hydroxy progestrone, patient declines Follow up in 4 weeks or sooner prn. Jackie Gunn APRN.CNM documented in this encounter [facility] 06-05-2022 Instructions Isela Wyman Ma - 06/05/2022 1:12 PM EDT Reglan, Tylenol 1000 mg, and Benadryl 25 mg for headache Drink Powerade or Gatorade Please select the following link to access the [facility] Your Guide to a Healthy . [email or web address] documented in this encounter [facility] 05-23-2022 Miscellaneous Notes I don't think she will need blood work at this time. I will complete an US at first OB. Thanks for the heads up! Jackie Gunn APRN.CNM Patient had telephone Pre new OB appointment today. She is 6 para 4. She states her last menstrual period was April 08. She states she had a negative test on April 07 and a positive test on April 19. She has an appointment with Jackie on June 05. Please advise if you want to do any blood work or ultrasound prior to new OB appointment. documented in this encounter [facility] 05-22-2022 Miscellaneous Notes DISTANCE HEALTH VISIT This Team Access Model visit is a phone encounter. It required patient-provider interaction for the medical decision making as documented below. is not the father the baby. They are .Patient is complaining of nausea and occasional vomiting in . Dietary considerations discussed . Vitamin B6 recommended. Advised patient to call/come in if she is unable to keep any food or fluids down in a 24-hour period. Patient has a history of anemia. Received IV iron last . Patient has a history of a precipitous delivery with her third delivery. Patient had 2 previous deliveries her second and fourth delivery. She took Lisa for 1 week with her third and did not like how it made her feel. Declined Lisa last . Does not want Lisa this as well. Patient had genetic testing in the past. 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 Quiroz and he had recommended seeing a genetic counselor. Patient did not want to proceed and declines to proceed at this time as well. Discussed aneuploidy screening. Patient desires nuchal ultrasound and sequential testing.Joanne Anderson RN documented in this encounter [facility] 05-22-2022 History of Presen t illness Narrative # 1 - Date: 06/05/14, Sex: Male, Weight: 8 lb 6 oz (3.799 kg), GA: 37w3d, Delivery: Vaginal, Spontaneous, Apgar1: 8, Apgar5: 9, Living: Living, Comments: Spontaneous labor, 1st degree laceration, EBL 300cc # 2 - Date: 02/2017, Sex: None, Weight: None, GA: 5w0d, Delivery: SPONTANEOUS , Apgar1: None, Apgar5: None, Living: None, Comments: None # 3 - Date: 05/26/18, Sex: Male, Weight: 5 lb 15 oz (2.693 kg), GA: 35w5d, Delivery: Vaginal, Spontaneous, Apgar1: 8, Apgar5: 9, Living: Living, Comments: spontaneous labor, EBL 100cc # 4 - Date: 08/12/19, Sex: Male, Weight: 7 lb 14 oz (3.572 kg), GA: 38w2d, Delivery: Vaginal, Spontaneous, Apgar1: 9, Apgar5: 9, Living: Living, Comments: spontaneous labor,precipitous delivery, EBL 250cc # 5 - Date: 06/09/21, Sex: Male, Weight: 6 lb 5 oz (2.863 kg), GA: 36w4d, Delivery: Vaginal, Spontaneous, Apgar1: 8, Apgar5: 9, Living: Living, Comments: spontaneous labor, EBL 200mL, no lacerations # 6 - Date: None, Sex: None, Weight: None, GA: None, Delivery: None, Apgar1: None, Apgar5: None, Living: None, Comments: None documented in this encounter [facility] documented as of this encounter (statuses as of 09/04/2023) [facility] History of Past illness Narrative* Problem Noted Date Diagnosed Date Resolved Date Positive GBS test 06/08/2021 09/04/2023 Pelvic pain in 11/15/202008/2023 Overview: 11/15/2020 Patient called in on November 08 complaining of cramping in . Quantitative hCGs were done and she had an ultrasound this morning. Patient denies any bleeding this . Denies any pain today. TKRN Nausea and vomiting in 11/15/2020 09/04/2023 Overview: 2Patient is complaining of nausea and occasional vomiting in . Dietary considerations discussed . Vitamin B6 recommended. Advised patient to call/come in if she is unable to keep any food or fluids down in a 24-hour period. 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 ASCUS with positive high risk HPV cervical 01/15/2019 11/30/2020 Overview: 11/30/20-Pap smear Negative. Thelma Penny APRN.CNM 01/15/19-Patient with history of ASCUS positive HR HPV, other type on 07/18/18. Patient did not follow up for colposcopy. To schedule colposcopy in second trimester with physician. Thelma Penny APRN.CNM Screening for genetic disease carrier status 9 08/04/2019 Overview: 01/15/19-Patient would like Horizon 14 panel carrier screening. Drawn today. Thelma Penny APRN.CNM History of precipitous delivery 01/15/2019 09/04/2023 Short interval between pregn ancies affecting , antepartum 12/26/2018 09/23/2019 Overview: 12/26/2018Patient delivered last child 05/26/2018. TKRN Anemia complicating pregnanc y, second trimester 04/16/2018 11/22/2020 Overview: 04/01/18-Hgb 10.7, start PO iron. Recheck in 4 weeks. Thelma Penny APRN.CNM UTI (urinary tract infection ) in , antepartum 01/22/2018 01/15/2019 Overview: 12/22/17- UTI, treated with Macrobid by [facility] ER. Thelma Penny CNM Current with histo ry of spontaneous during prior 10/25/2017 08/04/20 Overview: 10/25/2017Patient had a previous miscarriage 02/2017. Denies any bleeding, pain or cramping. Miscarriage precautions given. TKRN Chlamydia infection complicating 05/28/2014 06/22/2015 Overview: Negative GC/Chlamydia 06/08/14. Sho Weiss, ASHLEY Elevated glucose 03/24/2014 09/04/2023 Overview: 10/02/22- Elevated 1 hour- 3 hour ordered. Jackie Gunn APRN.CNM 03/30/14 - 3hr GTT normal - KJ 03/24/14 - needs 3hr GTT - KJ of partner 03/20/2014 06/22/2015 Overview: 03/20/14 - father of baby Sunday of a drug overdose, she is upset but coping, referal to counseling, her parents are supportive & going to help her with baby - KJ Supervision of normal first 12/04/2013 06/22/2015 Overview: Boy on us Leonel Quit smoking 10/28/2013 06/22/2015 Overview: 10/28/2013 Pt recently quit smoking October 07, 2013. Discussed risks of smoking during and advised pt to continue not smoking. TKRN Patient request for diagnostic testing 10/28/2013 09/04/2023 Overview: 05/22/2022 Discussed aneuploidy screening. Patient desires nuchal ultrasound and sequential testing.Joanne Anderson RN documented as of this encounter (statuses as of 09/04/2023) [facility] History of Past illness Narrative* Problem Noted Date Diagnosed Date Resolved Date Positive GBS test 06/08/2021 09/04/2023 Pelvic pain in 11/15/202008/2023 Overview: 11/15/2020 Patient called in on November 08 complaining of cramping in . Quantitative hCGs were done and she had an ultrasound this morning. Patient denies any bleeding this . Denies any pain today. TKRN Nausea and vomiting in 11/15/2020 09/04/2023 Overview: 05/22/2022atient is complaining of nausea and occasional vomiting in . Dietary considerations discussed . Vitamin B6 recommended. Advised patient to call/come in if she is unable to keep any food or fluids down in a 24-hour period. 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 ASCUS with positive high risk HPV cervical 01/15/2019 11/30/2020 Overview: 11/30/20-Pap smear Negative. Thlema Penny APRN.CNM 01/15/19-Patient with history of ASCUS positive HR HPV, other type on 07/18/18. Patient did not follow up for colposcopy. To schedule colposcopy in second trimester with physician. Thelma Penny APRN.CNM Screening for genetic disease carrier status 9 08/04/2019 Overview: 01/15/19-Patient would like Horizon 14 panel carrier screening. Drawn today. Thelma Penny APRN.CNM History of precipitous delivery 01/15/2019 09/04/2023 Short interval between pregn ancies affecting , antepartum 12/26/2018 09/23/2019 Overview: 12/26/2018Patient delivered last child 05/26/2018. TKRN Anemia complicating pregnanc y, second trimester 04/16/2018 11/22/2020 Overview: 04/01/18-Hgb 10.7, start PO iron. Recheck in 4 weeks. Thelma Penny APRN.CNM UTI (urinary tract infection ) in , antepartum 01/22/2018 01/15/2019 Overview: 12/22/17- UTI, treated with Macrobid by [facility] ER. Thelma Penny CNM Current with histo ry of spontaneous during prior 10/25/2017 08/04/20 19 Overview: 10/25/2017Patient had a previous miscarriage 02/2017. Denies any bleeding, pain or cramping. Miscarriage precautions given. TKRN Chlamydia infection complicating 05/28/2014 06/22/2015 Overview: Negative GC/Chlamydia 06/08/14. Sho Weiss, ACID PURIFICATION EQUIPMENT OPERATOR Elevated glucose 03/24/2014 09/04/2023 Overview: 10/02/22- Elevated 1 hour- 3 hour ordered. Jackie Gunn APRN.CNM 03/30/14 - 3hr GTT normal - KJ 03/24/14 - needs 3hr GTT - KJ of partner 03/20/2014 06/22/2015 Overview: 03/20/14 - father of baby Sunday of a drug overdose, she is upset but coping, referal to counseling, her parents are supportive & going to help her with baby - KJ Supervision of normal first 12/04/2013 06/22/2015 Overview: Boy on us Leonel Quit smoking 10/28/2013 06/22/2015 Overview: 10/28/2013 Pt recently quit smoking October 07, 2013. Discussed risks of smoking during and advised pt to continue not smoking. TKRN Patient request for diagnostic testing 10/28/2013 09/04/2023 Overview: 05/22/2022 Discussed aneuploidy screening. Patient desires nuchal ultrasound and sequential testing.Joanne Anderson RN documented as of this encounter (statuses as of 09/14/2023) [facility] History of Past illness Narrative* Problem Noted Date Diagnosed Date Resolved Date Positive GBS test 06/08/2021 09/04/2023 Pelvic pain in 11/15/202008/2023 Overview: 11/15/2020 Patient called in on November 08 complaining of cramping in . Quantitative hCGs were done and she had an ultrasound this morning. Patient denies any bleeding this . Denies any pain today. TKRN Nausea and vomiting in 11/15/2020 09/04/2023 Overview: 05/22/2022atient is complaining of nausea and occasional vomiting in . Dietary considerations discussed . Vitamin B6 recommended. Advised patient to call/come in if she is unable to keep any food or fluids down in a 24-hour period. 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 ASCUS with positive high risk HPV cervical 01/15/2019 11/30/2020 Overview: 11/30/20-Pap smear Negative. Thelma Penny APRN.CNM 01/15/19-Patient with history of ASCUS positive HR HPV, other type on 07/18/18. Patient did not follow up for colposcopy. To schedule colposcopy in second trimester with physician. Thelma Penny APRN.CNM Screening for genetic disease carrier status 08/04/2019 Overview: 01/15/19-Patient would like Horizon 14 panel carrier screening. Drawn today. Thelma Penny APRN.CNM History of precipitous delivery 01/15/2019 09/04/2023 Short interval between pregn ancies affecting , antepartum 12/26/2018 09/23/2019 Overview: 12/26/2018Patient delivered last child 05/26/2018. TKRN Anemia complicating pregnanc y, second trimester 04/16/2018 11/22/2020 Overview: 04/01/18-Hgb 10.7, start PO iron. Recheck in 4 weeks. Thelma Penny APRN.CNM UTI (urinary tract infection ) in , antepartum 01/22/2018 01/15/2019 Overview: 12/22/17- UTI, treated with Macrobid by [facility]. Thelma Penny CNM Current with histo ry of spontaneous during prior 10/25/2017 08/04/20 19 Overview: 10/25/2017Patient had a previous miscarriage 02/2017. Denies any bleeding, pain or cramping. Miscarriage precautions given. TKRN Chlamydia infection complicating 05/28/2014 06/22/2015 Overview: Negative GC/Chlamydia 06/08/14. Sho Weiss, ACID PURIFICATION EQUIPMENT OPERATOR Elevated glucose 03/24/2014 09/04/2023 Overview: 10/02/22- Elevated 1 hour- 3 hour ordered. Jackie Gunn APRN.CNM 03/30/14 - 3hr GTT normal - KJ 03/24/14 - needs 3hr GTT - KJ of partner 03/20/2014 06/22/2015 Overview: 03/20/14 - father of baby Sunday of a drug overdose, she is upset but coping, referal to counseling, her parents are supportive & going to help her with baby - KJ Supervision of normal first 12/04/2013 06/22/2015 Overview: Boy on us Castaneda Quit smoking 10/28/2013 06/22/2015 Overview: 10/28/2013 Pt recently quit smoking October 07, 2013. Discussed risks of smoking during and advised pt to continue not smoking. TKRN Patient request for diagnostic testing 10/28/2013 09/04/2023 Overview: 05/22/2022 Discussed aneuploidy screening. Patient desires nuchal ultrasound and sequential testing.Joanne Anderson RN documented as of this encounter (statuses as of 09/14/2023) [facility]07-14-2021 History of Past illness Narrative* Problem Noted Date Diagnosed Date Resolved Date Positive GBS test 06/08/2021 09/04/2023 Pelvic pain in 11/15/202008/2023 Overview: 11/15/2020 Patient called in on November 08 complaining of cramping in . Quantitative hCGs were done and she had an ultrasound this morning. Patient denies any bleeding this . Denies any pain today. TKRN Nausea and vomiting in 11/15/2020 09/04/2023 Overview: 2Patient is complaining of nausea and occasional vomiting in . Dietary considerations discussed . Vitamin B6 recommended. Advised patient to call/come in if she is unable to keep any food or fluids down in a 24-hour period. 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 ASCUS with positive high risk HPV cervical 01/15/2019 11/30/2020 Overview: 11/30/20-Pap smear Negative. Thelma Penny APRN.CNM 01/15/19-Patient with history of ASCUS positive HR HPV, other type on 07/18/18. Patient did not follow up for colposcopy. To schedule colposcopy in second trimester with physician. Thelma Penny APRN.CNM Screening for genetic disease carrier status 9 08/04/2019 Overview: 01/15/19-Patient would like Horizon 14 panel carrier screening. Drawn today. Thelma Penny APRN.CNM History of precipitous delivery 01/15/2019 09/04/2023 Short interval between pregn ancies affecting , antepartum 12/26/2018 09/23/2019 Overview: 12/26/2018Patient delivered last child 05/26/2018. TKRN Anemia complicating pregnanc y, second trimester 04/16/2018 11/22/2020 Overview: 04/01/18-Hgb 10.7, start PO iron. Recheck in 4 weeks. Thelma Penny APRN.CNM UTI (urinary tract infection ) in , antepartum 01/22/2018 01/15/2019 Overview: 12/22/17- UTI, treated with Macrobid by [facility]. Thelma Penny CNM Current with histo ry of spontaneous during prior 10/25/2017 08/04/20 19 Overview: 10/25/2017Patient had a previous miscarriage 02/2017. Denies any bleeding, pain or cramping. Miscarriage precautions given. TKRN Chlamydia infection complicating 05/28/2014 06/22/2015 Overview: Negative GC/Chlamydia 06/08/14. Sho Weiss CNP Elevated glucose 03/24/2014 09/04/2023 Overview: 10/02/22- Elevated 1 hour- 3 hour ordered. Jackie Gunn APRN.CNM 03/30/14 - 3hr GTT normal - KJ 03/24/14 - needs 3hr GTT - KJ of partner 03/20/2014 06/22/2015 Overview: 03/20/14 - father of baby Sunday of a drug overdose, she is upset but coping, referal to counseling, her parents are supportive & going to help her with baby - KJ Supervision of normal first 12/04/2013 06/22/2015 Overview: Boy on us Leonel Quit smoking 10/28/2013 06/22/2015 Overview: 10/28/2013 Pt recently quit smoking October 07, 2013. Discussed risks of smoking during and advised pt to continue not smoking. TKRN Patient request for diagnostic testing 10/28/2013 09/04/2023 Overview: 05/22/2022 Discussed aneuploidy screening. Patient desires nuchal ultrasound and sequential testing.Joanne Anderson RN documented as of this encounter (statuses as of 10/26/2023) [facility]07-14-2021 History of Past illness Narrative* Problem Noted Date Diagnosed Date Resolved Date Positive GBS test 06/08/2021 09/04/2023 Pelvic pain in 11/15/202008/2023 Overview: 11/15/2020 Patient called in on November 08 complaining of cramping in . Quantitative hCGs were done and she had an ultrasound this morning. Patient denies any bleeding this . Denies any pain today. TKRN Nausea and vomiting in 11/15/2020 09/04/2023 Overview: 2Patient is complaining of nausea and occasional vomiting in . Dietary considerations discussed . Vitamin B6 recommended. Advised patient to call/come in if she is unable to keep any food or fluids down in a 24-hour period. 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 ASCUS with positive high risk HPV cervical 01/15/2019 11/30/2020 Overview: 11/30/20-Pap smear Negative. Thelma Penny APRN.CNM 01/15/19-Patient with history of ASCUS positive HR HPV, other type on 07/18/18. Patient did not follow up for colposcopy. To schedule colposcopy in second trimester with physician. Thelma Penny APRN.CNM Screening for genetic disease carrier status 08/04/2019 Overview: 01/15/19-Patient would like Horizon 14 panel carrier screening. Drawn today. Thelma Penny APRN.CNM History of precipitous delivery 01/15/2019 09/04/2023 Short interval between pregn ancies affecting , antepartum 12/26/2018 09/23/2019 Overview: 12/26/2018Patient delivered last child 05/26/2018. TKRN Anemia complicating pregnanc y, second trimester 04/16/2018 11/22/2020 Overview: 04/01/18-Hgb 10.7, start PO iron. Recheck in 4 weeks. Thelma Penny APRN.TIANNA UTI (urinary tract infection ) in , antepartum 01/22/2018 01/15/2019 Overview: 12/22/17- UTI, treated with Macrobid by [facility]. Thelma Penny CNM Current with histo ry of spontaneous during prior 10/25/2017 08/04/20 19 Overview: 10/25/2017Patient had a previous miscarriage 02/2017. Denies any bleeding, pain or cramping. Miscarriage precautions given. TKRN Chlamydia infection complicating 05/28/2014 06/22/2015 Overview: Negative GC/Chlamydia 06/08/14. Sho Weiss, ASHLEY Elevated glucose 03/24/2014 09/04/2023 Overview: 10/02/22- Elevated 1 hour- 3 hour ordered. Jackie Gunn APRN.TIANNA 03/30/14 - 3hr GTT normal - KJ 03/24/14 - needs 3hr GTT - KJ of partner 03/20/2014 06/22/2015 Overview: 03/20/14 - father of baby Sunday of a drug overdose, she is upset but coping, referal to counseling, her parents are supportive & going to help her with baby - KJ Supervision of normal first 12/04/2013 06/22/2015 Overview: Boy on us Leonel Quit smoking 10/28/2013 06/22/2015 Overview: 10/28/2013 Pt recently quit smoking October 07, 2013. Discussed risks of smoking during and advised pt to continue not smoking. TKRN Patient request for diagnostic testing 10/28/2013 09/04/2023 Overview: 05/22/2022 Discussed aneuploidy screening. Patient desires nuchal ultrasound and sequential testing.Joanne Anderson RN documented as of this encounter (statuses as of 11/02/2023) [facility]07-14-2021 History of Past illness Narrative* Problem Noted Date Diagnosed Date Resolved Date Positive GBS test 06/08/2021 09/04/2023 Pelvic pain in 11/15/202008/2023 Overview: 11/15/2020 Patient called in on November 08 complaining of cramping in . Quantitative hCGs were done and she had an ultrasound this morning. Patient denies any bleeding this . Denies any pain today. TKRN Nausea and vomiting in 11/15/2020 09/04/2023 Overview: 05/22/2022atient is complaining of nausea and occasional vomiting in . Dietary considerations discussed . Vitamin B6 recommended. Advised patient to call/come in if she is unable to keep any food or fluids down in a 24-hour period. 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 ASCUS with positive high risk HPV cervical 01/15/2019 11/30/2020 Overview: 11/30/20-Pap smear Negative. Thelma Penny APRN.CNM 01/15/19-Patient with history of ASCUS positive HR HPV, other type on 07/18/18. Patient did not follow up for colposcopy. To schedule colposcopy in second trimester with physician. Thelma Penny APRN.CNM Screening for genetic disease carrier status 9 08/04/2019 Overview: 01/15/19-Patient would like Horizon 14 panel carrier screening. Drawn today. Thelma Penny APRN.CNM History of precipitous delivery 01/15/2019 09/04/2023 Short interval between pregn ancies affecting , antepartum 12/26/2018 09/23/2019 Overview: 12/26/2018Patient delivered last child 05/26/2018. TKRN Anemia complicating pregnanc y, second trimester 04/16/2018 11/22/2020 Overview: 04/01/18-Hgb 10.7, start PO iron. Recheck in 4 weeks. Thelma Penny APRN.CNM UTI (urinary tract infection ) in , antepartum 01/22/2018 01/15/2019 Overview: 12/22/17- UTI, treated with Macrobid by [facility]. Thelma Penny CNM Current with histo ry of spontaneous during prior 10/25/2017 08/04/20 Overview: 10/25/2017Patient had a previous miscarriage 02/2017. Denies any bleeding, pain or cramping. Miscarriage precautions given. TKRN Chlamydia infection complicating 05/28/2014 06/22/2015 Overview: Negative GC/Chlamydia 06/08/14. Sho Weiss CNP Elevated glucose 03/24/2014 09/04/2023 Overview: 10/02/22- Elevated 1 hour- 3 hour ordered. Jackie Gunn APRN.CNM 03/30/14 - 3hr GTT normal - KJ 03/24/14 - needs 3hr GTT - KJ of partner 03/20/2014 06/22/2015 Overview: 03/20/14 - father of baby Sunday of a drug overdose, she is upset but coping, referal to counseling, her parents are supportive & going to help her with baby - KJ Supervision of normal first 12/04/2013 06/22/2015 Overview: Boy on us Leonel Quit smoking 10/28/2013 06/22/2015 Overview: 10/28/2013 Pt recently quit smoking October 07, 2013. Discussed risks of smoking during and advised pt to continue not smoking. TKRN Patient request for diagnostic testing 10/28/2013 09/04/2023 Overview: 05/22/2022 Discussed aneuploidy screening. Patient desires nuchal ultrasound and sequential testing.Joanne Anderson RN documented as of this encounter (statuses as of 11/11/2023) [facility]08-02-2019 History of Past illness Narrative* Problem Noted Date Resolved Date Threatened premature labor in third trimester 08/04/2019 Overview: 06/27/19 - BMZ #1 today and will repeat tomorrow at [facility] - Emely Adler MD ASCUS with positive high risk HPV cervical 01/1511/30/2020 Overview: 11/30/20-Pap smear Negative. Thelma Penny APRN.CNM 01/15/19-Patient with history of ASCUS positive HR HPV, other type on 07/18/18. Patient did not follow up for colposcopy. To schedule colposcopy in second trimester with physician. Thelma Penny APRN.CNM Screening for genetic disease carrier status 08/04/2019 Overview: 01/15/19-Patient would like Horizon 14 panel carrier screening. Drawn today. Thelma Penny APRN.CNM Short interval between pregn ancies affecting , antepartum 12/26/2018 09/23/2019 Overview: 12/26/2018Patient delivered last child 05/26/2018. TKRN Anemia complicating , second trimester 04/16/2018 11/22/2020 Overview: 04/01/18-Hgb 10.7, start PO iron. Recheck in 4 weeks. Thelma Penny APRN.TIANNA UTI (urinary tract infection) in , ante 01/22/2018 01/15/2019 Overview: 12/22/17- UTI, treated with Macrobid by [facility]. Thelma Penny CNM Current with histo ry of spontaneous during prior 10/25/2017 08/04/2019 Overview: 10/25/2017Patient had a previous miscarriage 02/2017. Denies any bleeding, pain or cramping. Miscarriage precautions given. TKRN Chlamydia infection complicating 05/2806/22/2015 Overview: Negative GC/Chlamydia 06/08/14. Sho Weiss, ACID PURIFICATION EQUIPMENT OPERATOR Elevated glucose 03/24/2014 06/22/2015 Overview: 03/30/14 - 3hr GTT normal - KJ 03/24/14 - needs 3hr GTT - KJ of partner 03/20/2014 06/22/2015 Overview: 03/20/14 - father of baby Sunday of a drug overdose, she is upset but coping, referal to counseling, her parents are supportive & going to help her with baby - KJ Supervision of normal first 12/04/2013 06/22/2015 Overview: Boy on us Leonel Quit smoking 10/28/2013 06/22/2015 Overview: 10/28/2013 Pt recently quit smoking October 07, 2013. Discussed risks of smoking during and advised pt to continue not smoking. TKRN documented as of this encounter (statuses as of 05/22/2022) [facility] History of Past illness Narrative* Problem Noted Date Resolved Date Threatened premature labor in third trimester 08/04/2019 Overview: 06/27/19 - BMZ #1 today and will repeat tomorrow at [facility] - Emely Adler MD ASCUS with positive high risk HPV cervical 01/1511/30/2020 Overview: 11/30/20-Pap smear Negative. Thelma Penny APRN.CNM 01/15/19-Patient with history of ASCUS positive HR HPV, other type on 07/18/18. Patient did not follow up for colposcopy. To schedule colposcopy in second trimester with physician. Thelma Penny APRN.CNM Screening for genetic disease carrier status 08/04/2019 Overview: 01/15/19-Patient would like Horizon 14 panel carrier screening. Drawn today. Thelma Penny APRN.CNM Short interval between pregn ancies affecting , antepartum 12/26/2018 09/23/2019 Overview: 12/26/2018Patient delivered last child 05/26/2018. TKRN Anemia complicating , second trimester 04/16/2018 11/22/2020 Overview: 04/01/18-Hgb 10.7, start PO iron. Recheck in 4 weeks. Thelma Penny APRN.CNM UTI (urinary tract infection) in , ante 01/22/2018 01/15/2019 Overview: 12/22/17- UTI, treated with Macrobid by [facility]. Thelma Penny CNM Current with histo ry of spontaneous during prior 10/25/2017 08/04/2019 Overview: 10/25/2017Patient had a previous miscarriage 02/2017. Denies any bleeding, pain or cramping. Miscarriage precautions given. TKRN Chlamydia infection complicating 05/2806/22/2015 Overview: Negative GC/Chlamydia 06/08/14. Sho Weiss, ACID PURIFICATION EQUIPMENT OPERATOR Elevated glucose 03/24/2014 06/22/2015 Overview: 03/30/14 - 3hr GTT normal - KJ 03/24/14 - needs 3hr GTT - KJ of partner 03/20/2014 06/22/2015 Overview: 03/20/14 - father of baby Sunday of a drug overdose, she is upset but coping, referal to counseling, her parents are supportive & going to help her with baby - KJ Supervision of normal first 12/04/2013 06/22/2015 Overview: Boy on us Castaneda Quit smoking 10/28/2013 06/22/2015 Overview: 10/28/2013 Pt recently quit smoking October 07, 2013. Discussed risks of smoking during and advised pt to continue not smoking. TKRN documented as of this encounter (statuses as of 05/23/2022) [facility] History of Past illness Narrative* Problem Noted Date Resolved Date Threatened premature labor in third trimester 08/04/2019 Overview: 06/27/19 - BMZ #1 today and will repeat tomorrow at [facility] - Emely Adler MD ASCUS with positive high risk HPV cervical 01/1511/30/2020 Overview: 11/30/20-Pap smear Negative. Thelma Penny APRN.CNM 01/15/19-Patient with history of ASCUS positive HR HPV, other type on 07/18/18. Patient did not follow up for colposcopy. To schedule colposcopy in second trimester with physician. Thelma Penny APRN.CNM Screening for genetic disease carrier status 08/04/2019 Overview: 01/15/19-Patient would like Horizon 14 panel carrier screening. Drawn today. Thelma Penny APRN.CNM Short interval between pregn ancies affecting , antepartum 12/26/2018 09/23/2019 Overview: 12/26/2018Patient delivered last child 05/26/2018. TKRN Anemia complicating , second trimester 04/16/2018 11/22/2020 Overview: 04/01/18-Hgb 10.7, start PO iron. Recheck in 4 weeks. Thelma Penny APRN.TIANNA UTI (urinary tract infection) in , ante 01/22/2018 01/15/2019 Overview: 12/22/17- UTI, treated with Macrobid by [facility]. Thelma Penny CNM Current with histo ry of spontaneous during prior 10/25/2017 08/04/2019 Overview: 10/25/2017Patient had a previous miscarriage 02/2017. Denies any bleeding, pain or cramping. Miscarriage precautions given. TKRN Chlamydia infection complicating 05/2806/22/2015 Overview: Negative GC/Chlamydia 06/08/14. Sho Weiss, ACID PURIFICATION EQUIPMENT OPERATOR Elevated glucose 03/24/2014 06/22/2015 Overview: 03/30/14 - 3hr GTT normal - KJ 03/24/14 - needs 3hr GTT - KJ of partner 03/20/2014 06/22/2015 Overview: 03/20/14 - father of baby Sunday of a drug overdose, she is upset but coping, referal to counseling, her parents are supportive & going to help her with baby - KJ Supervision of normal first 12/04/2013 06/22/2015 Overview: Boy on us Leonel Quit smoking 10/28/2013 06/22/2015 Overview: 10/28/2013 Pt recently quit smoking October 07, 2013. Discussed risks of smoking during and advised pt to continue not smoking. TKRN documented as of this encounter (statuses as of 06/05/2022) [facility] History of Past illness Narrative* Problem Noted Date Resolved Date Threatened premature labor in third trimester 08/04/2019 Overview: 06/27/19 - BMZ #1 today and will repeat tomorrow at [facility] - Emely Adler MD ASCUS with positive high risk HPV cervical 01/1511/30/2020 Overview: 11/30/20-Pap smear Negative. Thelma Penny APRN.CNM 01/15/19-Patient with history of ASCUS positive HR HPV, other type on 07/18/18. Patient did not follow up for colposcopy. To schedule colposcopy in second trimester with physician. Thelma Penny APRN.CNM Screening for genetic disease carrier status 08/04/2019 Overview: 01/15/19-Patient would like Horizon 14 panel carrier screening. Drawn today. Thelma Penny APRN.CNM Short interval between pregn ancies affecting , antepartum 12/26/2018 09/23/2019 Overview: 12/26/2018Patient delivered last child 05/26/2018. TKRN Anemia complicating , second trimester 04/16/2018 11/22/2020 Overview: 04/01/18-Hgb 10.7, start PO iron. Recheck in 4 weeks. Thelma Penny APRN.CNM UTI (urinary tract infection) in , ante 01/22/2018 01/15/2019 Overview: 12/22/17- UTI, treated with Macrobid by [facility]. Thelma Penny CNM Current with histo ry of spontaneous during prior 10/25/2017 08/04/2019 Overview: 10/25/2017Patient had a previous miscarriage 02/2017. Denies any bleeding, pain or cramping. Miscarriage precautions given. TKRN Chlamydia infection complicating 05/2806/22/2015 Overview: Negative GC/Chlamydia 06/08/14. Sho Weiss, ACID PURIFICATION EQUIPMENT OPERATOR Elevated glucose 03/24/2014 06/22/2015 Overview: 03/30/14 - 3hr GTT normal - KJ 03/24/14 - needs 3hr GTT - KJ of partner 03/20/2014 06/22/2015 Overview: 03/20/14 - father of baby Sunday of a drug overdose, she is upset but coping, referal to counseling, her parents are supportive & going to help her with baby - KJ Supervision of normal first 12/04/2013 06/22/2015 Overview: Boy on us Leonel Quit smoking 10/28/2013 06/22/2015 Overview: 10/28/2013 Pt recently quit smoking October 07, 2013. Discussed risks of smoking during and advised pt to continue not smoking. TKRN documented as of this encounter (statuses as of 06/05/2022) [facility] History of Past illness Narrative* Problem Noted Date Resolved Date Threatened premature labor in third trimester 08/04/2019 Overview: 06/27/19 - BMZ #1 today and will repeat tomorrow at [facility] - Emely Adler MD ASCUS with positive high risk HPV cervical 01/1511/30/2020 Overview: 11/30/20-Pap smear Negative. Thelma Penny APRN.CNM 01/15/19-Patient with history of ASCUS positive HR HPV, other type on 07/18/18. Patient did not follow up for colposcopy. To schedule colposcopy in second trimester with physician. Thelma Penny APRN.CNM Screening for genetic disease carrier status 08/04/2019 Overview: 01/15/19-Patient would like Horizon 14 panel carrier screening. Drawn today. Thelma Penny APRN.CNM Short interval between pregn ancies affecting , antepartum 12/26/2018 09/23/2019 Overview: 12/26/2018Patient delivered last child 05/26/2018. TKRN Anemia complicating , second trimester 04/16/2018 11/22/2020 Overview: 04/01/18-Hgb 10.7, start PO iron. Recheck in 4 weeks. Thelma Penny APRN.TIANNA UTI (urinary tract infection) in , ante 01/22/2018 01/15/2019 Overview: 12/22/17- UTI, treated with Macrobid by [facility]. Thelma Penny CNM Current with histo ry of spontaneous during prior 10/25/2017 08/04/2019 Overview: 10/25/2017Patient had a previous miscarriage 02/2017. Denies any bleeding, pain or cramping. Miscarriage precautions given. TKRN Chlamydia infection complicating 05/2806/22/2015 Overview: Negative GC/Chlamydia 06/08/14. Sho Weiss, ACID PURIFICATION EQUIPMENT OPERATOR Elevated glucose 03/24/2014 06/22/2015 Overview: 03/30/14 - 3hr GTT normal - KJ 03/24/14 - needs 3hr GTT - KJ of partner 03/20/2014 06/22/2015 Overview: 03/20/14 - father of baby Sunday of a drug overdose, she is upset but coping, referal to counseling, her parents are supportive & going to help her with baby - KJ Supervision of normal first 12/04/2013 06/22/2015 Overview: Boy on us Leonel Quit smoking 10/28/2013 06/22/2015 Overview: 10/28/2013 Pt recently quit smoking October 07, 2013. Discussed risks of smoking during and advised pt to continue not smoking. TKRN documented as of this encounter (statuses as of 06/05/2022) [facility] History of Past illness Narrative* Problem Noted Date Resolved Date Threatened premature labor in third trimester 08/04/2019 Overview: 06/27/19 - BMZ #1 today and will repeat tomorrow at [facility] - Emely Adler MD ASCUS with positive high risk HPV cervical 01/1511/30/2020 Overview: 11/30/20-Pap smear Negative. Thelma Penny APRN.CNM 01/15/19-Patient with history of ASCUS positive HR HPV, other type on 07/18/18. Patient did not follow up for colposcopy. To schedule colposcopy in second trimester with physician. Thelma Penny APRN.CNM Screening for genetic disease carrier status 08/04/2019 Overview: 01/15/19-Patient would like Horizon 14 panel carrier screening. Drawn today. Thelma Penny APRN.CNM Short interval between pregn ancies affecting , antepartum 12/26/2018 09/23/2019 Overview: 12/26/2018Patient delivered last child 05/26/2018. TKRN Anemia complicating , second trimester 04/16/2018 11/22/2020 Overview: 04/01/18-Hgb 10.7, start PO iron. Recheck in 4 weeks. Thelma Penny APRN.CNM UTI (urinary tract infection) in , ante 01/22/2018 01/15/2019 Overview: 12/22/17- UTI, treated with Macrobid by [facility]. Thelma Penny CNM Current with histo ry of spontaneous during prior 10/25/2017 08/04/2019 Overview: 10/25/2017Patient had a previous miscarriage 02/2017. Denies any bleeding, pain or cramping. Miscarriage precautions given. TKRN Chlamydia infection complicating 05/2806/22/2015 Overview: Negative GC/Chlamydia 06/08/14. Sho Weiss, ACID PURIFICATION EQUIPMENT OPERATOR Elevated glucose 03/24/2014 06/22/2015 Overview: 03/30/14 - 3hr GTT normal - KJ 03/24/14 - needs 3hr GTT - KJ of partner 03/20/2014 06/22/2015 Overview: 03/20/14 - father of baby Sunday of a drug overdose, she is upset but coping, referal to counseling, her parents are supportive & going to help her with baby - KJ Supervision of normal first 12/04/2013 06/22/2015 Overview: Boy on us Leonel Quit smoking 10/28/2013 06/22/2015 Overview: 10/28/2013 Pt recently quit smoking October 07, 2013. Discussed risks of smoking during and advised pt to continue not smoking. TKRN documented as of this encounter (statuses as of 07/18/2022) [facility]08-02-2019 History of Past illness Narrative* Problem Noted Date Resolved Date Threatened premature labor in third trimester 08/04/2019 Overview: 06/27/19 - BMZ #1 today and will repeat tomorrow at [facility] - Emely Adler MD ASCUS with positive high risk HPV cervical 01/1511/30/2020 Overview: 11/30/20-Pap smear Negative. Thelma Penny APRN.CNM 01/15/19-Patient with history of ASCUS positive HR HPV, other type on 07/18/18. Patient did not follow up for colposcopy. To schedule colposcopy in second trimester with physician. Thelma Penny APRN.CNM Screening for genetic disease carrier status 08/04/2019 Overview: 01/15/19-Patient would like Horizon 14 panel carrier screening. Drawn today. Thelma Penny APRN.CNM Short interval between pregn ancies affecting , antepartum 12/26/2018 09/23/2019 Overview: 12/26/2018Patient delivered last child 05/26/2018. TKRN Anemia complicating , second trimester 04/16/2018 11/22/2020 Overview: 04/01/18-Hgb 10.7, start PO iron. Recheck in 4 weeks. Thelma Penny APRN.CNM UTI (urinary tract infection) in , ante 01/22/2018 01/15/2019 Overview: 12/22/17- UTI, treated with Macrobid by [facility]. Thelma Penny CNM Current with histo ry of spontaneous during prior 10/25/2017 08/04/2019 Overview: 10/25/2017Patient had a previous miscarriage 02/2017. Denies any bleeding, pain or cramping. Miscarriage precautions given. TKRN Chlamydia infection complicating 05/2806/22/2015 Overview: Negative GC/Chlamydia 06/08/14. Sho Weiss, ACID PURIFICATION EQUIPMENT OPERATOR Elevated glucose 03/24/2014 06/22/2015 Overview: 03/30/14 - 3hr GTT normal - KJ 03/24/14 - needs 3hr GTT - KJ of partner 03/20/2014 06/22/2015 Overview: 03/20/14 - father of baby Sunday of a drug overdose, she is upset but coping, referal to counseling, her parents are supportive & going to help her with baby - KJ Supervision of normal first 12/04/2013 06/22/2015 Overview: Boy on us Leonel Quit smoking 10/28/2013 06/22/2015 Overview: 10/28/2013 Pt recently quit smoking October 07, 2013. Discussed risks of smoking during and advised pt to continue not smoking. TKRN documented as of this encounter (statuses as of 08/03/2022) [facility]08-02-2019 History of Past illness Narrative* Problem Noted Date Resolved Date Threatened premature labor in third trimester 08/04/2019 Overview: 06/27/19 - BMZ #1 today and will repeat tomorrow at [facility] - Emely Adler MD ASCUS with positive high risk HPV cervical 01/1511/30/2020 Overview: 11/30/20-Pap smear Negative. Thelma Penny APRN.CNM 01/15/19-Patient with history of ASCUS positive HR HPV, other type on 07/18/18. Patient did not follow up for colposcopy. To schedule colposcopy in second trimester with physician. Thelma Penny APRN.CNM Screening for genetic disease carrier status 08/04/2019 Overview: 01/15/19-Patient would like Horizon 14 panel carrier screening. Drawn today. Thelma Penny APRN.CNM Short interval between pregn ancies affecting , antepartum 12/26/2018 09/23/2019 Overview: 12/26/2018Patient delivered last child 05/26/2018. TKRN Anemia complicating , second trimester 04/16/2018 11/22/2020 Overview: 04/01/18-Hgb 10.7, start PO iron. Recheck in 4 weeks. Thelma Penny APRN.CNM UTI (urinary tract infection) in , ante 01/22/2018 01/15/2019 Overview: 12/22/17- UTI, treated with Macrobid by [facility]. Thelma Penny CNM Current with histo ry of spontaneous during prior 10/25/2017 08/04/2019 Overview: 10/25/2017Patient had a previous miscarriage 02/2017. Denies any bleeding, pain or cramping. Miscarriage precautions given. TKRN Chlamydia infection complicating 05/2806/22/2015 Overview: Negative GC/Chlamydia 06/08/14. Sho Weiss, ACID PURIFICATION EQUIPMENT OPERATOR Elevated glucose 03/24/2014 06/22/2015 Overview: 03/30/14 - 3hr GTT normal - KJ 03/24/14 - needs 3hr GTT - KJ of partner 03/20/2014 06/22/2015 Overview: 03/20/14 - father of baby Sunday of a drug overdose, she is upset but coping, referal to counseling, her parents are supportive & going to help her with baby - KJ Supervision of normal first 12/04/2013 06/22/2015 Overview: Boy on us Leonel Quit smoking 10/28/2013 06/22/2015 Overview: 10/28/2013 Pt recently quit smoking October 07, 2013. Discussed risks of smoking during and advised pt to continue not smoking. TKRN documented as of this encounter (statuses as of 08/03/2022) [facility]08-02-2019 History of Past illness Narrative* Problem Noted Date Resolved Date Threatened premature labor in third trimester 08/04/2019 Overview: 06/27/19 - BMZ #1 today and will repeat tomorrow at [facility] - Emely Adler MD ASCUS with positive high risk HPV cervical 01/1511/30/2020 Overview: 11/30/20-Pap smear Negative. Thelma Penny APRN.CNM 01/15/19-Patient with history of ASCUS positive HR HPV, other type on 07/18/18. Patient did not follow up for colposcopy. To schedule colposcopy in second trimester with physician. Thelma Penny APRN.CNM Screening for genetic disease carrier status 08/04/2019 Overview: 01/15/19-Patient would like Horizon 14 panel carrier screening. Drawn today. Thelma Penny APRN.CNM Short interval between pregn ancies affecting , antepartum 12/26/2018 09/23/2019 Overview: 12/26/2018Patient delivered last child 05/26/2018. TKRN Anemia complicating , second trimester 04/16/2018 11/22/2020 Overview: 04/01/18-Hgb 10.7, start PO iron. Recheck in 4 weeks. Thelma Penny APRN.CNM UTI (urinary tract infection) in , ante 01/22/2018 01/15/2019 Overview: 12/22/17- UTI, treated with Macrobid by [facility]. Thelma Penny CNM Current with histo ry of spontaneous during prior 10/25/2017 08/04/2019 Overview: 10/25/2017Patient had a previous miscarriage 02/2017. Denies any bleeding, pain or cramping. Miscarriage precautions given. TKRN Chlamydia infection complicating 05/2806/22/2015 Overview: Negative GC/Chlamydia 06/08/14. Sho Weiss, ACID PURIFICATION EQUIPMENT OPERATOR Elevated glucose 03/24/2014 06/22/2015 Overview: 03/30/14 - 3hr GTT normal - KJ 03/24/14 - needs 3hr GTT - KJ of partner 03/20/2014 06/22/2015 Overview: 03/20/14 - father of baby Sunday of a drug overdose, she is upset but coping, referal to counseling, her parents are supportive & going to help her with baby - KJ Supervision of normal first 12/04/2013 06/22/2015 Overview: Boy on us Leonel Quit smoking 10/28/2013 06/22/2015 Overview: 10/28/2013 Pt recently quit smoking October 07, 2013. Discussed risks of smoking during and advised pt to continue not smoking. TKRN documented as of this encounter (statuses as of 08/03/2022) [facility]08-02-2019 History of Past illness Narrative* Problem Noted Date Resolved Date Threatened premature labor in third trimester 08/04/2019 Overview: 06/27/19 - BMZ #1 today and will repeat tomorrow at [facility] - Emely Adler MD ASCUS with positive high risk HPV cervical 01/1511/30/2020 Overview: 11/30/20-Pap smear Negative. Thelma Penny APRN.CNM 01/15/19-Patient with history of ASCUS positive HR HPV, other type on 07/18/18. Patient did not follow up for colposcopy. To schedule colposcopy in second trimester with physician. Thelma Penny APRN.CNM Screening for genetic disease carrier status 08/04/2019 Overview: 01/15/19-Patient would like Horizon 14 panel carrier screening. Drawn today. Thelma Penny APRN.CNM Short interval between pregn ancies affecting , antepartum 12/26/2018 09/23/2019 Overview: 12/26/2018Patient delivered last child 05/26/2018. TKRN Anemia complicating , second trimester 04/16/2018 11/22/2020 Overview: 04/01/18-Hgb 10.7, start PO iron. Recheck in 4 weeks. Thelma Penny APRN.CNM UTI (urinary tract infection) in , ante 01/22/2018 01/15/2019 Overview: 12/22/17- UTI, treated with Macrobid by [facility]. Thelma Penny CNM Current with histo ry of spontaneous during prior 10/25/2017 08/04/2019 Overview: 10/25/2017Patient had a previous miscarriage 02/2017. Denies any bleeding, pain or cramping. Miscarriage precautions given. TKRN Chlamydia infection complicating 05/2806/22/2015 Overview: Negative GC/Chlamydia 06/08/14. Sho Isela, ACID PURIFICATION EQUIPMENT OPERATOR Elevated glucose 03/24/2014 06/22/2015 Overview: 03/30/14 - 3hr GTT normal - KJ 03/24/14 - needs 3hr GTT - KJ of partner 03/20/2014 06/22/2015 Overview: 03/20/14 - father of baby Sunday of a drug overdose, she is upset but coping, referal to counseling, her parents are supportive & going to help her with baby - KJ Supervision of normal first 12/04/2013 06/22/2015 Overview: Boy on us Leonel Quit smoking 10/28/2013 06/22/2015 Overview: 10/28/2013 Pt recently quit smoking October 07, 2013. Discussed risks of smoking during and advised pt to continue not smoking. TKRN documented as of this encounter (statuses as of 08/17/2022) [facility]08-02-2019 History of Past illness Narrative* Problem Noted Date Resolved Date Threatened premature labor in third trimester 08/04/2019 Overview: 06/27/19 - BMZ #1 today and will repeat tomorrow at [facility] - Emely Adler MD ASCUS with positive high risk HPV cervical 01/1511/30/2020 Overview: 11/30/20-Pap smear Negative. Thelma Penny APRN.CNM 01/15/19-Patient with history of ASCUS positive HR HPV, other type on 07/18/18. Patient did not follow up for colposcopy. To schedule colposcopy in second trimester with physician. Thelma Penny APRN.CNM Screening for genetic disease carrier status 08/04/2019 Overview: 01/15/19-Patient would like Horizon 14 panel carrier screening. Drawn today. Thelma Penny APRN.CNM Short interval between pregn ancies affecting , antepartum 12/26/2018 09/23/2019 Overview: 12/26/2018Patient delivered last child 05/26/2018. TKRN Anemia complicating , second trimester 04/16/2018 11/22/2020 Overview: 04/01/18-Hgb 10.7, start PO iron. Recheck in 4 weeks. Thelma Penny APRN.CNM UTI (urinary tract infection) in , ante 01/22/2018 01/15/2019 Overview: 12/22/17- UTI, treated with Macrobid by [facility]. Thelma Penny CNM Current with histo ry of spontaneous during prior 10/25/2017 08/04/2019 Overview: 10/25/2017Patient had a previous miscarriage 02/2017. Denies any bleeding, pain or cramping. Miscarriage precautions given. TKRN Chlamydia infection complicating 05/2806/22/2015 Overview: Negative GC/Chlamydia 06/08/14. Sho Weiss, ASHLEY Elevated glucose 03/24/2014 06/22/2015 Overview: 03/30/14 - 3hr GTT normal - KJ 03/24/14 - needs 3hr GTT - KJ of partner 03/20/2014 06/22/2015 Overview: 03/20/14 - father of baby Sunday of a drug overdose, she is upset but coping, referal to counseling, her parents are supportive & going to help her with baby - KJ Supervision of normal first 12/04/2013 06/22/2015 Overview: Boy on us Leonel Quit smoking 10/28/2013 06/22/2015 Overview: 10/28/2013 Pt recently quit smoking October 07, 2013. Discussed risks of smoking during and advised pt to continue not smoking. TKRN documented as of this encounter (statuses as of 09/29/2022) [facility]08-02-2019 History of Past illness Narrative* Problem Noted Date Resolved Date Threatened premature labor in third trimester 08/04/2019 Overview: 06/27/19 - BMZ #1 today and will repeat tomorrow at [facility] - Emely Adler MD ASCUS with positive high risk HPV cervical 01/1511/30/2020 Overview: 11/30/20-Pap smear Negative. Thelma Penny APRN.CNM 01/15/19-Patient with history of ASCUS positive HR HPV, other type on 07/18/18. Patient did not follow up for colposcopy. To schedule colposcopy in second trimester with physician. Thelma Penny APRN.CNM Screening for genetic disease carrier status 08/04/2019 Overview: 01/15/19-Patient would like Horizon 14 panel carrier screening. Drawn today. Thelma Penny APRN.CNM Short interval between pregn ancies affecting , antepartum 12/26/2018 09/23/2019 Overview: 12/26/2018Patient delivered last child 05/26/2018. TKRN Anemia complicating , second trimester 04/16/2018 11/22/2020 Overview: 04/01/18-Hgb 10.7, start PO iron. Recheck in 4 weeks. Thelma Penny APRN.CNM UTI (urinary tract infection) in , ante 01/22/2018 01/15/2019 Overview: 12/22/17- UTI, treated with Macrobid by [facility]. Thelma Penny CNM Current with histo ry of spontaneous during prior 10/25/2017 08/04/2019 Overview: 10/25/2017Patient had a previous miscarriage 02/2017. Denies any bleeding, pain or cramping. Miscarriage precautions given. TKRN Chlamydia infection complicating 05/2806/22/2015 Overview: Negative GC/Chlamydia 06/08/14. 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 Discussed risks of smoking during and advised pt to continue not smoking. TKRN documented as of this encounter (statuses as of 10/02/2022) [facility] History of Past illness Narrative* Problem Noted Date Resolved Date Threatened premature labor in third trimester 08/04/2019 Overview: 06/27/19 - BMZ #1 today and will repeat tomorrow at [facility] - Emely Adler MD ASCUS with positive high risk HPV cervical 01/1511/30/2020 Overview: 11/30/20-Pap smear Negative. Thelma Penny APRN.CNM 01/15/19-Patient with history of ASCUS positive HR HPV, other type on 07/18/18. Patient did not follow up for colposcopy. To schedule colposcopy in second trimester with physician. Thelma Penny APRN.CNM Screening for genetic disease carrier status 08/04/2019 Overview: 01/15/19-Patient would like Horizon 14 panel carrier screening. Drawn today. Thelma Penny APRN.CNM Short interval between pregn ancies affecting , antepartum 12/26/2018 09/23/2019 Overview: 12/26/2018Patient delivered last child 05/26/2018. TKRN Anemia complicating , second trimester 04/16/2018 11/22/2020 Overview: 04/01/18-Hgb 10.7, start PO iron. Recheck in 4 weeks. Thelma Penny APRN.CNM UTI (urinary tract infection) in , ante 01/22/2018 01/15/2019 Overview: 12/22/17- UTI, treated with Macrobid by [facility]. Thelma Penny CNM Current with histo ry of spontaneous during prior 10/25/2017 08/04/2019 Overview: 10/25/2017Patient had a previous miscarriage 02/2017. Denies any bleeding, pain or cramping. Miscarriage precautions given. TKRN Chlamydia infection complicating 05/2806/22/2015 Overview: Negative GC/Chlamydia 06/08/14. 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 Discussed risks of smoking during and advised pt to continue not smoking. TKRN documented as of this encounter (statuses as of 10/23/2022) [facility]08-[facility] History of Past illness Narrative* Problem Noted Date Resolved Date Threatened premature labor in third trimester 08/04/2019 Overview: 06/27/19 - BMZ #1 today and will repeat tomorrow at [facility] - Emely Adler MD ASCUS with positive high risk HPV cervical 01/1511/30/2020 Overview: 11/30/20-Pap smear Negative. Thelma Penny APRN.CNM 01/15/19-Patient with history of ASCUS positive HR HPV, other type on 07/18/18. Patient did not follow up for colposcopy. To schedule colposcopy in second trimester with physician. Thelma Penny APRN.CNM Screening for genetic disease carrier status 08/04/2019 Overview: 01/15/19-Patient would like Horizon 14 panel carrier screening. Drawn today. Thelma Penny APRN.CNM Short interval between pregn ancies affecting , antepartum 12/26/2018 09/23/2019 Overview: 12/26/2018Patient delivered last child 05/26/2018. TKRN Anemia complicating , second trimester 04/16/2018 11/22/2020 Overview: 04/01/18-Hgb 10.7, start PO iron. Recheck in 4 weeks. Thelma Penny APRN.CNM UTI (urinary tract infection) in , ante 01/22/2018 01/15/2019 Overview: 12/22/17- UTI, treated with Macrobid by [facility]. Thelma Penny CNM Current with histo ry of spontaneous during prior 10/25/2017 08/04/2019 Overview: 10/25/2017Patient had a previous miscarriage 02/2017. Denies any bleeding, pain or cramping. Miscarriage precautions given. TKRN Chlamydia infection complicating 05/2806/22/2015 Overview: Negative GC/Chlamydia 06/08/14. 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 Discussed risks of smoking during and advised pt to continue not smoking. TKRN documented as of this encounter (statuses as of 10/23/2022) [facility] History of Past illness Narrative* Problem Noted Date Resolved Date Threatened premature labor in third trimester 08/04/2019 Overview: 06/27/19 - BMZ #1 today and will repeat tomorrow at [facility] - Emely Adler MD ASCUS with positive high risk HPV cervical 01/1511/30/2020 Overview: 11/30/20-Pap smear Negative. Thelma Penny APRN.CNM 01/15/19-Patient with history of ASCUS positive HR HPV, other type on 07/18/18. Patient did not follow up for colposcopy. To schedule colposcopy in second trimester with physician. Thelma Penny APRN.CNM Screening for genetic disease carrier status 08/04/2019 Overview: 01/15/19-Patient would like Horizon 14 panel carrier screening. Drawn today. Thelma Penny APRN.CNM Short interval between pregn ancies affecting , antepartum 12/26/2018 09/23/2019 Overview: 12/26/2018Patient delivered last child 05/26/2018. TKRN Anemia complicating , second trimester 04/16/2018 11/22/2020 Overview: 04/01/18-Hgb 10.7, start PO iron. Recheck in 4 weeks. Thelma Penny APRN.TIANNA UTI (urinary tract infection) in , ante 01/22/2018 01/15/2019 Overview: 12/22/17- UTI, treated with Macrobid by [facility]. Thelma Penny CNM Current with histo ry of spontaneous during prior 10/25/2017 08/04/2019 Overview: 10/25/2017Patient had a previous miscarriage 02/2017. Denies any bleeding, pain or cramping. Miscarriage precautions given. TKRN Chlamydia infection complicating 05/2806/22/2015 Overview: Negative GC/Chlamydia 06/08/14. 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 Discussed risks of smoking during and advised pt to continue not smoking. TKRN documented as of this encounter (statuses as of 10/27/2022) [facility] History of Past illness Narrative* Problem Noted Date Resolved Date Threatened premature labor in third trimester 08/04/2019 Overview: 06/27/19 - BMZ #1 today and will repeat tomorrow at [facility] - Emely Adler MD ASCUS with positive high risk HPV cervical 01/1511/30/2020 Overview: 11/30/20-Pap smear Negative. Thelma Penny APRN.CNM 01/15/19-Patient with history of ASCUS positive HR HPV, other type on 07/18/18. Patient did not follow up for colposcopy. To schedule colposcopy in second trimester with physician. Thelma Penny APRN.CNM Screening for genetic disease carrier status 08/04/2019 Overview: 01/15/19-Patient would like Horizon 14 panel carrier screening. Drawn today. Thelma Penny APRN.CNM Short interval between pregn ancies affecting , antepartum 12/26/2018 09/23/2019 Overview: 12/26/2018Patient delivered last child 05/26/2018. TKRN Anemia complicating , second trimester 04/16/2018 11/22/2020 Overview: 04/01/18-Hgb 10.7, start PO iron. Recheck in 4 weeks. Thelma Penny APRN.CNM UTI (urinary tract infection) in , ante 01/22/2018 01/15/2019 Overview: 12/22/17- UTI, treated with Macrobid by [facility]. Thelma Penny CNM Current with histo ry of spontaneous during prior 10/25/2017 08/04/2019 Overview: 10/25/2017Patient had a previous miscarriage 02/2017. Denies any bleeding, pain or cramping. Miscarriage precautions given. TKRN Chlamydia infection complicating 05/2806/22/2015 Overview: Negative GC/Chlamydia 06/08/14. 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 Discussed risks of smoking during and advised pt to continue not smoking. TKRN documented as of this encounter (statuses as of 10/27/2022) [facility] History of Past illness Narrative* Problem Noted Date Resolved Date Threatened premature labor in third trimester 08/04/2019 Overview: 06/27/19 - BMZ #1 today and will repeat tomorrow at [facility] - Emely Adler MD ASCUS with positive high risk HPV cervical 01/1511/30/2020 Overview: 11/30/20-Pap smear Negative. Thelma Penny APRN.CNM 01/15/19-Patient with history of ASCUS positive HR HPV, other type on 07/18/18. Patient did not follow up for colposcopy. To schedule colposcopy in second trimester with physician. Thelma Penny APRN.CNM Screening for genetic disease carrier status 08/04/2019 Overview: 01/15/19-Patient would like Horizon 14 panel carrier screening. Drawn today. Thelma Penny APRN.CNM Short interval between pregn ancies affecting , antepartum 12/26/2018 09/23/2019 Overview: 12/26/2018Patient delivered last child 05/26/2018. TKRN Anemia complicating , second trimester 04/16/2018 11/22/2020 Overview: 5/7/18-Hgb 10.7, start PO iron. Recheck in 4 weeks. Thelma Penny APRN.CNM UTI (urinary tract infection) in , ante 01/22/2018 01/15/2019 Overview: 12/22/17- UTI, treated with Macrobid by [facility]. Thelma Penny CNM Current with histo ry of spontaneous during prior 10/25/2017 08/04/2019 Overview: 10/25/2017Patient had a previous miscarriage 02/2017. Denies any bleeding, pain or cramping. Miscarriage precautions given. TKRN Chlamydia infection complicating 05/2806/22/2015 Overview: Negative GC/Chlamydia 06/08/14. 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 Discussed risks of smoking during and advised pt to continue not smoking. TKRN documented as of this encounter (statuses as of 11/13/2022) [facility]08-02-2019 History of Past illness Narrative* Problem Noted Date Resolved Date Threatened premature labor in third trimester 08/04/2019 Overview: 06/27/19 - BMZ #1 today and will repeat tomorrow at [facility] - Emely Adler MD ASCUS with positive high risk HPV cervical 01/1511/30/2020 Overview: 11/30/20-Pap smear Negative. Thelma Penny APRN.CNM 01/15/19-Patient with history of ASCUS positive HR HPV, other type on 07/18/18. Patient did not follow up for colposcopy. To schedule colposcopy in second trimester with physician. Thelma Penny APRN.CNM Screening for genetic disease carrier status 08/04/2019 Overview: 01/15/19-Patient would like Horizon 14 panel carrier screening. Drawn today. Thelma Penny APRN.CNM Short interval between pregn ancies affecting , antepartum 12/26/2018 09/23/2019 Overview: 12/26/2018Patient delivered last child 05/26/2018. TKRN Anemia complicating , second trimester 04/16/2018 11/22/2020 Overview: 04/01/18-Hgb 10.7, start PO iron. Recheck in 4 weeks. Thelma Penny APRN.CNM UTI (urinary tract infection) in , ante 01/22/2018 01/15/2019 Overview: 12/22/17- UTI, treated with Macrobid by [facility] ER. Thelma Penny CNM Current with histo ry of spontaneous during prior 10/25/2017 08/04/2019 Overview: 10/25/2017Patient had a previous miscarriage 02/2017. Denies any bleeding, pain or cramping. Miscarriage precautions given. TKRN Chlamydia infection complicating 05/2806/22/2015 Overview: Negative GC/Chlamydia 06/08/14. 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 Discussed risks of smoking during and advised pt to continue not smoking. TKRN documented as of this encounter (statuses as of 11/17/2022) [facility]08-02-2019 History of Past illness Narrative* Problem Noted Date Resolved Date Threatened premature labor in third trimester 08/04/2019 Overview: 06/27/19 - BMZ #1 today and will repeat tomorrow at [facility] - Emely Adler MD ASCUS with positive high risk HPV cervical 01/1511/30/2020 Overview: 11/30/20-Pap smear Negative. Thelma Penny APRN.CNM 01/15/19-Patient with history of ASCUS positive HR HPV, other type on 07/18/18. Patient did not follow up for colposcopy. To schedule colposcopy in second trimester with physician. Thelma Penny APRN.CNM Screening for genetic disease carrier status 08/04/2019 Overview: 01/15/19-Patient would like Horizon 14 panel carrier screening. Drawn today. Thelma Penny APRN.CNM Short interval between pregn ancies affecting , antepartum 12/26/2018 09/23/2019 Overview: 12/26/2018Patient delivered last child 05/26/2018. TKRN Anemia complicating , second trimester 04/16/2018 11/22/2020 Overview: 04/01/18-Hgb 10.7, start PO iron. Recheck in 4 weeks. Thelma Penny APRN.CNM UTI (urinary tract infection) in , ante 01/22/2018 01/15/2019 Overview: 12/22/17- UTI, treated with Macrobid by [facility] ER. Thelma Penny CNM Current with histo ry of spontaneous during prior 10/25/2017 08/04/2019 Overview: 10/25/2017Patient had a previous miscarriage 02/2017. Denies any bleeding, pain or cramping. Miscarriage precautions given. TKRN Chlamydia infection complicating 05/2806/22/2015 Overview: Negative GC/Chlamydia 06/08/14. 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 Discussed risks of smoking during and advised pt to continue not smoking. TKRN documented as of this encounter (statuses as of 11/29/2022) [facility]08-02-2019 History of Past illness Narrative* Problem Noted Date Resolved Date Threatened premature labor in third trimester 08/04/2019 Overview: 06/27/19 - BMZ #1 today and will repeat tomorrow at [facility] - Emely Adler MD ASCUS with positive high risk HPV cervical 01/1511/30/2020 Overview: 11/30/20-Pap smear Negative. Thelma Penny APRN.CNM 01/15/19-Patient with history of ASCUS positive HR HPV, other type on 07/18/18. Patient did not follow up for colposcopy. To schedule colposcopy in second trimester with physician. Thelma Penny APRN.CNM Screening for genetic disease carrier status 08/04/2019 Overview: 01/15/19-Patient would like Horizon 14 panel carrier screening. Drawn today. Thelma Penny APRN.CNM Short interval between pregn ancies affecting , antepartum 12/26/2018 09/23/2019 Overview: 12/26/2018Patient delivered last child 05/26/2018. TKRN Anemia complicating , second trimester 04/16/2018 11/22/2020 Overview: 04/01/18-Hgb 10.7, start PO iron. Recheck in 4 weeks. Thelma Penny APRN.CNM UTI (urinary tract infection) in , ante 01/22/2018 01/15/2019 Overview: 12/22/17- UTI, treated with Macrobid by [facility] ER. Thelma Penny CNM Current with histo ry of spontaneous during prior 10/25/2017 08/04/2019 Overview: 10/25/2017Patient had a previous miscarriage 02/2017. Denies any bleeding, pain or cramping. Miscarriage precautions given. TKRN Chlamydia infection complicating 05/2806/22/2015 Overview: Negative GC/Chlamydia 06/08/14. 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 Discussed risks of smoking during and advised pt to continue not smoking. TKRN documented as of this encounter (statuses as of 11/30/2022) [facility]08-02-2019 History of Past illness Narrative* Problem Noted Date Resolved Date Threatened premature labor in third trimester 08/04/2019 Overview: 06/27/19 - BMZ #1 today and will repeat tomorrow at [facility] - Emely Adler MD ASCUS with positive high risk HPV cervical 01/1511/30/2020 Overview: 11/30/20-Pap smear Negative. Thelma Penny APRN.CNM 01/15/19-Patient with history of ASCUS positive HR HPV, other type on 07/18/18. Patient did not follow up for colposcopy. To schedule colposcopy in second trimester with physician. Thelma Penny APRN.CNM Screening for genetic disease carrier status 08/04/2019 Overview: 01/15/19-Patient would like Horizon 14 panel carrier screening. Drawn today. Thelma Penny APRN.CNM Short interval between pregn ancies affecting , antepartum 12/26/2018 09/23/2019 Overview: 12/26/2018Patient delivered last child 05/26/2018. TKRN Anemia complicating , second trimester 04/16/2018 11/22/2020 Overview: 04/01/18-Hgb 10.7, start PO iron. Recheck in 4 weeks. Thelma Penny APRN.CNM UTI (urinary tract infection) in , ante 01/22/2018 01/15/2019 Overview: 12/22/17- UTI, treated with Macrobid by [facility] ER. Thelma Penny CNM Current with histo ry of spontaneous during prior 10/25/2017 08/04/2019 Overview: 10/25/2017Patient had a previous miscarriage 02/2017. Denies any bleeding, pain or cramping. Miscarriage precautions given. TKRN Chlamydia infection complicating 05/2806/22/2015 Overview: Negative GC/Chlamydia 06/08/14. 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 Discussed risks of smoking during and advised pt to continue not smoking. TKRN documented as of this encounter (statuses as of 12/04/2022) [facility]08-02-2019 History of Past illness Narrative* Problem Noted Date Resolved Date Threatened premature labor in third trimester 08/04/2019 Overview: 06/27/19 - BMZ #1 today and will repeat tomorrow at [facility] - Emely Adler MD ASCUS with positive high risk HPV cervical 01/1511/30/2020 Overview: 11/30/20-Pap smear Negative. Thelma Penny APRN.CNM 01/15/19-Patient with history of ASCUS positive HR HPV, other type on 07/18/18. Patient did not follow up for colposcopy. To schedule colposcopy in second trimester with physician. Thelma Penny APRN.CNM Screening for genetic disease carrier status 08/04/2019 Overview: 01/15/19-Patient would like Horizon 14 panel carrier screening. Drawn today. Thelma Penny APRN.CNM Short interval between pregn ancies affecting , antepartum 12/26/2018 09/23/2019 Overview: 12/26/2018Patient delivered last child 05/26/2018. TKRN Anemia complicating , second trimester 04/16/2018 11/22/2020 Overview: 04/01/18-Hgb 10.7, start PO iron. Recheck in 4 weeks. Thelma Penny APRN.TIANNA UTI (urinary tract infection) in , ante 01/22/2018 01/15/2019 Overview: 12/22/17- UTI, treated with Macrobid by [facility] ER. Thelma Penny CNM Current with histo ry of spontaneous during prior 10/25/2017 08/04/2019 Overview: 10/25/2017Patient had a previous miscarriage 02/2017. Denies any bleeding, pain or cramping. Miscarriage precautions given. TKRN Chlamydia infection complicating 05/2806/22/2015 Overview: Negative GC/Chlamydia 06/08/14. 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 Discussed risks of smoking during and advised pt to continue not smoking. TKRN documented as of this encounter (statuses as of 12/13/2022) [facility]08-02-2019 History of Past illness Narrative* Problem Noted Date Resolved Date Threatened premature labor in third trimester 08/04/2019 Overview: 06/27/19 - BMZ #1 today and will repeat tomorrow at [facility] - Emely Adler MD ASCUS with positive high risk HPV cervical 01/1511/30/2020 Overview: 11/30/20-Pap smear Negative. Thelma Penny APRN.CNM 01/15/19-Patient with history of ASCUS positive HR HPV, other type on 07/18/18. Patient did not follow up for colposcopy. To schedule colposcopy in second trimester with physician. Thelma Penny APRN.CNM Screening for genetic disease carrier status 08/04/2019 Overview: 01/15/19-Patient would like Horizon 14 panel carrier screening. Drawn today. Thelma Penny APRN.CNM Short interval between pregn ancies affecting , antepartum 12/26/2018 09/23/2019 Overview: 12/26/2018Patient delivered last child 05/26/2018. TKRN Anemia complicating , second trimester 04/16/2018 11/22/2020 Overview: 04/01/18-Hgb 10.7, start PO iron. Recheck in 4 weeks. Thelma Penny APRN.CNM UTI (urinary tract infection) in , ante 01/22/2018 01/15/2019 Overview: 12/22/17- UTI, treated with Macrobid by [facility] ER. Thelma Penny CNM Current with histo ry of spontaneous during prior 10/25/2017 08/04/2019 Overview: 10/25/2017Patient had a previous miscarriage 02/2017. Denies any bleeding, pain or cramping. Miscarriage precautions given. TKRN Chlamydia infection complicating 05/2806/22/2015 Overview: Negative GC/Chlamydia 06/08/14. 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 Discussed risks of smoking during and advised pt to continue not smoking. TKRN documented as of this encounter (statuses as of 12/18/2022) [facility]08-[facility]2019 History of Past illness Narrative* Problem Noted Date Resolved Date Threatened premature labor in third trimester 08/04/2019 Overview: 06/27/19 - BMZ #1 today and will repeat tomorrow at [facility] - Emely Adler MD ASCUS with positive high risk HPV cervical 01/1511/30/2020 Overview: 11/30/20-Pap smear Negative. Thelma Penny APRN.CNM 01/15/19-Patient with history of ASCUS positive HR HPV, other type on 07/18/18. Patient did not follow up for colposcopy. To schedule colposcopy in second trimester with physician. Thelma Penny APRN.CNM Screening for genetic disease carrier status 08/04/2019 Overview: 01/15/19-Patient would like Horizon 14 panel carrier screening. Drawn today. Thelma Penny APRN.CNM Short interval between pregn ancies affecting , antepartum 12/26/2018 09/23/2019 Overview: 12/26/2018Patient delivered last child 05/26/2018. TKRN Anemia complicating , second trimester 04/16/2018 11/22/2020 Overview: 04/01/18-Hgb 10.7, start PO iron. Recheck in 4 weeks. Thelma Penny APRN.TIANNA UTI (urinary tract infection) in , ante 01/22/2018 01/15/2019 Overview: 12/22/17- UTI, treated with Macrobid by [facility] ER. Thelma Penny CNM Current with histo ry of spontaneous during prior 10/25/2017 08/04/2019 Overview: 10/25/2017Patient had a previous miscarriage 02/2017. Denies any bleeding, pain or cramping. Miscarriage precautions given. TKRN Chlamydia infection complicating 05/2806/22/2015 Overview: Negative GC/Chlamydia 06/08/14. 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 Discussed risks of smoking during and advised pt to continue not smoking. TKRN documented as of this encounter (statuses as of 2022) [facility]08-02-2019 History of Past illness Narrative* Problem Noted Date Resolved Date Threatened premature labor in third trimester 08/04/2019 Overview: 06/27/19 - BMZ #1 today and will repeat tomorrow at [facility] - Emely Adler MD ASCUS with positive high risk HPV cervical 01/1511/30/2020 Overview: 11/30/20-Pap smear Negative. Thelma Penny APRN.CNM 01/15/19-Patient with history of ASCUS positive HR HPV, other type on 07/18/18. Patient did not follow up for colposcopy. To schedule colposcopy in second trimester with physician. Thelma Penny APRN.CNM Screening for genetic disease carrier status 08/04/2019 Overview: 01/15/19-Patient would like Horizon 14 panel carrier screening. Drawn today. Thelma Penny APRN.CNM Short interval between pregn ancies affecting , antepartum 12/26/2018 09/23/2019 Overview: 12/26/2018Patient delivered last child 05/26/2018. TKRN Anemia complicating , second trimester 04/16/2018 11/22/2020 Overview: 04/01/18-Hgb 10.7, start PO iron. Recheck in 4 weeks. Thelma Penny APRN.CNM UTI (urinary tract infection) in , ante 01/22/2018 01/15/2019 Overview: 12/22/17- UTI, treated with Macrobid by [facility] ER. Thelma Penny CNM Current with histo ry of spontaneous during prior 10/25/2017 08/04/2019 Overview: 10/25/2017Patient had a previous miscarriage 02/2017. Denies any bleeding, pain or cramping. Miscarriage precautions given. TKRN Chlamydia infection complicating 05/2806/22/2015 Overview: Negative GC/Chlamydia 06/08/14. 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 Discussed risks of smoking during and advised pt to continue not smoking. TKRN documented as of this encounter (statuses as of 04/05/2023) [facility] History of Past illness Narrative* Problem Noted Date Resolved Date Threatened premature labor in third trimester 08/04/2019 Overview: 06/27/19 - BMZ #1 today and will repeat tomorrow at [facility] - Emely Adler MD ASCUS with positive high risk HPV cervical 01/1511/30/2020 Overview: 11/30/20-Pap smear Negative. Thelma Penny APRN.CNM 01/15/19-Patient with history of ASCUS positive HR HPV, other type on 07/18/18. Patient did not follow up for colposcopy. To schedule colposcopy in second trimester with physician. Thelma Penny APRN.CNM Screening for genetic disease carrier status 08/04/2019 Overview: 01/15/19-Patient would like Horizon 14 panel carrier screening. Drawn today. Thelma Penny APRN.CNM Short interval between pregn ancies affecting , antepartum 12/26/2018 09/23/2019 Overview: 12/26/2018Patient delivered last child 05/26/2018. TKRN Anemia complicating , second trimester 04/16/2018 11/22/2020 Overview: 04/01/18-Hgb 10.7, start PO iron. Recheck in 4 weeks. Thelma Penny APRN.CNM UTI (urinary tract infection) in , ante 01/22/2018 01/15/2019 Overview: 12/22/17- UTI, treated with Macrobid by [facility] ER. Thelma Penny CNM Current with histo ry of spontaneous during prior 10/25/2017 08/04/2019 Overview: 10/25/2017Patient had a previous miscarriage 02/2017. Denies any bleeding, pain or cramping. Miscarriage precautions given. TKRN Chlamydia infection complicating 05/2806/22/2015 Overview: Negative GC/Chlamydia 06/08/14. 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 Discussed risks of smoking during and advised pt to continue not smoking. TKRN documented as of this encounter (statuses as of 04/11/2023) [facility] History of Past illness Narrative* Problem Noted Date Diagnosed Date Resolved Date Threatened premature labor in third trimester 06/27/20 19 08/04/2019 Overview: 06/27/19 - BMZ #1 today and will repeat tomorrow at [facility] - Emely Adler MD ASCUS with positive high risk HPV cervical 01/15/2019 11/30/2020 Overview: 11/30/20-Pap smear Negative. Thelma Penny APRN.CNM 01/15/19-Patient with history of ASCUS positive HR HPV, other type on 07/18/18. Patient did not follow up for colposcopy. To schedule colposcopy in second trimester with physician. Thelma Penny APRN.CNM Screening for genetic disease carrier status 9 08/04/2019 Overview: 01/15/19-Patient would like Horizon 14 panel carrier screening. Drawn today. Thelma Penny APRN.CNM Short interval between pregn ancies affecting , antepartum 12/26/2018 09/23/2019 Overview: 12/26/2018Patient delivered last child 05/26/2018. TKRN Anemia complicating pregnanc y, second trimester 04/16/2018 11/22/2020 Overview: 04/01/18-Hgb 10.7, start PO iron. Recheck in 4 weeks. Thelma Penny APRN.CNM UTI (urinary tract infection ) in , antepartum 01/22/2018 01/15/2019 Overview: 12/22/17- UTI, treated with Macrobid by [facility]. Thelma Penny CNM Current with histo ry of spontaneous during prior 10/25/2017 08/04/20 19 Overview: 10/25/2017Patient had a previous miscarriage 02/2017. Denies any bleeding, pain or cramping. Miscarriage precautions given. TKRN Chlamydia infection complicating 05/28/2014 06/22/2015 Overview: Negative GC/Chlamydia 06/08/14. Sho Weiss CNP of partner 03/20/2014 06/22/2015 Overview: 03/20/14 - father of baby Sunday of a drug overdose, she is upset but coping, referal to counseling, her parents are supportive & going to help her with baby - KJ Supervision of normal first 12/04/2013 06/22/2015 Overview: Boy on us Leonel Quit smoking 10/28/2013 06/22/2015 Overview: 10/28/2013 Pt recently quit smoking October 07, 2013. Discussed risks of smoking during and advised pt to continue not smoking. TKRN documented as of this encounter (statuses as of 07/12/2023) [facility] History of Past illness Narrative* Problem Noted Date Diagnosed Date Resolved Date Threatened premature labor in third trimester 06/27/2008/04/2019 Overview: 06/27/19 - BMZ #1 today and will repeat tomorrow at [facility] - Emely Adler MD ASCUS with positive high risk HPV cervical 01/15/2019 11/30/2020 Overview: 11/30/20-Pap smear Negative. Thelma Penny APRN.CNM 01/15/19-Patient with history of ASCUS positive HR HPV, other type on 07/18/18. Patient did not follow up for colposcopy. To schedule colposcopy in second trimester with physician. Thelma Penny APRN.CNM Screening for genetic disease carrier status 08/04/2019 Overview: 01/15/19-Patient would like Horizon 14 panel carrier screening. Drawn today. Thelma Penny APRN.CNM Short interval between pregn ancies affecting , antepartum 12/26/2018 09/23/2019 Overview: 12/26/2018Patient delivered last child 05/26/2018. TKRN Anemia complicating pregnanc y, second trimester 04/16/2018 11/22/2020 Overview: 04/01/18-Hgb 10.7, start PO iron. Recheck in 4 weeks. Thelma Penny APRN.CNM UTI (urinary tract infection ) in , antepartum 01/22/2018 01/15/2019 Overview: 12/22/17- UTI, treated with Macrobid by [facility]. Thelma Penny CNM Current with histo ry of spontaneous during prior 10/25/2017 08/04/20 Overview: 10/25/2017Patient had a previous miscarriage 02/2017. Denies any bleeding, pain or cramping. Miscarriage precautions given. TKRN Chlamydia infection complicating 05/28/2014 06/22/2015 Overview: Negative GC/Chlamydia 06/08/14. 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 Discussed risks of smoking during and advised pt to continue not smoking. TKRN documented as of this encounter (statuses as of 07/12/2023) [facility] History of Past illness Narrative* Problem Noted Date Diagnosed Date Resolved Date Threatened premature labor in third trimester 06/27/20 19 08/04/2019 Overview: 06/27/19 - BMZ #1 today and will repeat tomorrow at [facility] - Emely Adler MD ASCUS with positive high risk HPV cervical 01/15/2019 11/30/2020 Overview: 11/30/20-Pap smear Negative. Thelma Penny APRN.CNM 01/15/19-Patient with history of ASCUS positive HR HPV, other type on 07/18/18. Patient did not follow up for colposcopy. To schedule colposcopy in second trimester with physician. Thelma Penny APRN.CNM Screening for genetic disease carrier status 9 08/04/2019 Overview: 01/15/19-Patient would like Horizon 14 panel carrier screening. Drawn today. Thelma Penny APRN.CNM Short interval between pregn ancies affecting , antepartum 12/26/2018 09/23/2019 Overview: 12/26/2018Patient delivered last child 05/26/2018. TKRN Anemia complicating pregnanc y, second trimester 04/16/2018 11/22/2020 Overview: 04/01/18-Hgb 10.7, start PO iron. Recheck in 4 weeks. Thelma Penny APRN.CNM UTI (urinary tract infection ) in , antepartum 01/22/2018 01/15/2019 Overview: 12/22/17- UTI, treated with Macrobid by [facility]. Thelma Penny CNM Current with histo ry of spontaneous during prior 10/25/2017 08/04/20 Overview: 10/25/2017Patient had a previous miscarriage 02/2017. Denies any bleeding, pain or cramping. Miscarriage precautions given. TKRN Chlamydia infection complicating 05/28/2014 06/22/2015 Overview: Negative GC/Chlamydia 06/08/14. Sho Weiss, ASHLEY of partner 03/20/2014 06/22/2015 Overview: 03/20/14 - father of baby Sunday of a drug overdose, she is upset but coping, referal to counseling, her parents are supportive & going to help her with baby - KJ Supervision of normal first 12/04/2013 06/22/2015 Overview: Boy on us Leonel Quit smoking 10/28/2013 06/22/2015 Overview: 10/28/2013 Pt recently quit smoking October 07, 2013. Discussed risks of smoking during and advised pt to continue not smoking. TKRN documented as of this encounter (statuses as of 07/13/2023) [facility]08-02-[facility] History of Past illness Narrative* Problem Noted Date Diagnosed Date Resolved Date Threatened premature labor in third trimester 06/27/2008/04/2019 Overview: 06/27/19 - BMZ #1 today and will repeat tomorrow at [facility] - Emely Adler MD ASCUS with positive high risk HPV cervical 01/15/2019 11/30/2020 Overview: 11/30/20-Pap smear Negative. Thelma Penny APRN.CNM 01/15/19-Patient with history of ASCUS positive HR HPV, other type on 07/18/18. Patient did not follow up for colposcopy. To schedule colposcopy in second trimester with physician. Thelma Penny APRN.CNM Screening for genetic disease carrier status 08/04/2019 Overview: 01/15/19-Patient would like Horizon 14 panel carrier screening. Drawn today. Thelma Penny APRN.CNM Short interval between pregn ancies affecting , antepartum 12/26/2018 09/23/2019 Overview: 12/26/2018Patient delivered last child 05/26/2018. TKRN Anemia complicating pregnanc y, second trimester 04/16/2018 11/22/2020 Overview: 04/01/18-Hgb 10.7, start PO iron. Recheck in 4 weeks. Thelma Penny APRN.CNM UTI (urinary tract infection ) in , antepartum 01/22/2018 01/15/2019 Overview: 12/22/17- UTI, treated with Macrobid by [facility]. Thelma Penny CNM Current with histo ry of spontaneous during prior 10/25/2017 08/04/20 Overview: 10/25/2017Patient had a previous miscarriage 02/2017. Denies any bleeding, pain or cramping. Miscarriage precautions given. TKRN Chlamydia infection complicating 05/28/2014 06/22/2015 Overview: Negative GC/Chlamydia 06/08/14. 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 Discussed risks of smoking during and advised pt to continue not smoking. TKRN documented as of this encounter (statuses as of 07/25/2023) [facility] History of Past illness Narrative* Problem Noted Date Diagnosed Date Resolved Date Threatened premature labor in third trimester 06/27/20 19 08/04/2019 Overview: 06/27/19 - BMZ #1 today and will repeat tomorrow at [facility] - Emely Adler MD ASCUS with positive high risk HPV cervical 01/15/2019 11/30/2020 Overview: 11/30/20-Pap smear Negative. Thelma Penny APRN.CNM 01/15/19-Patient with history of ASCUS positive HR HPV, other type on 07/18/18. Patient did not follow up for colposcopy. To schedule colposcopy in second trimester with physician. Thelma Penny APRN.CNM Screening for genetic disease carrier status 9 08/04/2019 Overview: 01/15/19-Patient would like Horizon 14 panel carrier screening. Drawn today. Thelma Penny APRN.CNM Short interval between pregn ancies affecting , antepartum 12/26/2018 09/23/2019 Overview: 12/26/2018Patient delivered last child 05/26/2018. TKRN Anemia complicating pregnanc y, second trimester 04/16/2018 11/22/2020 Overview: 04/01/18-Hgb 10.7, start PO iron. Recheck in 4 weeks. Thelma Penny APRN.TIANNA UTI (urinary tract infection ) in , antepartum 01/22/2018 01/15/2019 Overview: 12/22/17- UTI, treated with Macrobid by [facility] ER. Thelma Penny CNM Current with histo ry of spontaneous during prior 10/25/2017 08/04/20 Overview: 10/25/2017Patient had a previous miscarriage 02/2017. Denies any bleeding, pain or cramping. Miscarriage precautions given. TKRN Chlamydia infection complicating 05/28/2014 06/22/2015 Overview: Negative GC/Chlamydia 06/08/14. Sho Weiss, ASHLEY of partner 03/20/2014 06/22/2015 Overview: 03/20/14 - father of baby Sunday of a drug overdose, she is upset but coping, referal to counseling, her parents are supportive & going to help her with baby - KJ Supervision of normal first 12/04/2013 06/22/2015 Overview: Boy on us Leonel Quit smoking 10/28/2013 06/22/2015 Overview: 10/28/2013 Pt recently quit smoking October 07, 2013. Discussed risks of smoking during and advised pt to continue not smoking. TKRN documented as of this encounter (statuses as of 08/02/2023) [facility] History of Past illness Narrative* Problem Noted Date Diagnosed Date Resolved Date Threatened premature labor in third trimester 06/27/20 19 08/04/2019 Overview: 06/27/19 - BMZ #1 today and will repeat tomorrow at [facility] - Emely Adler MD ASCUS with positive high risk HPV cervical 01/15/2019 11/30/2020 Overview: 11/30/20-Pap smear Negative. Thelma Penny APRN.CNM 01/15/19-Patient with history of ASCUS positive HR HPV, other type on 07/18/18. Patient did not follow up for colposcopy. To schedule colposcopy in second trimester with physician. Thelma Penny APRN.CNM Screening for genetic disease carrier status 9 08/04/2019 Overview: 01/15/19-Patient would like Horizon 14 panel carrier screening. Drawn today. Thelma Penny APRN.CNM Short interval between pregn ancies affecting , antepartum 12/26/2018 09/23/2019 Overview: 12/26/2018Patient delivered last child 05/26/2018. TKRN Anemia complicating pregnanc y, second trimester 04/16/2018 11/22/2020 Overview: 04/01/18-Hgb 10.7, start PO iron. Recheck in 4 weeks. Thelma Penny APRN.CNM UTI (urinary tract infection ) in , antepartum 01/22/2018 01/15/2019 Overview: 12/22/17- UTI, treated with Macrobid by [facility]. Thelma Penny CNM Current with histo ry of spontaneous during prior 10/25/2017 08/04/20 19 Overview: 10/25/2017Patient had a previous miscarriage 02/2017. Denies any bleeding, pain or cramping. Miscarriage precautions given. TKRN Chlamydia infection complicating 05/28/2014 06/22/2015 Overview: Negative GC/Chlamydia 06/08/14. 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 Discussed risks of smoking during and advised pt to continue not smoking. TKRN documented as of this encounter (statuses as of 09/01/2023) [facility]* Diagnosis Supervision of high risk , antepartum- Primary Carrier of genetic disorder Other genetic carrier status Nausea and vomiting in Unspecified vomiting of , unspecified as to episode of care History of anemia Personal history of diseases of blood and blood-forming organs History of delivery, currently with history of pre-term labor Patient request for diagnostic testing Other specified examination [facility] Diagnosis Encounter for screening for nuchal translucency- Primary [facility] Diagnosis 11 weeks gestation of - Primary state, incidental History of delivery, currently with history of pre-term labor [facility] Diagnosis Encounter for (NT) nuchal translucency scan- Primary Other specified screening 11 weeks gestation of state, incidental [facility] Diagnosis 17 weeks gestation of - Primary state, incidental History of delivery, currently with history of pre-term labor [facility] Diagnosis Encounter for anatomic survey- Primary 20 weeks gestation of state, incidental [facility] Diagnosis 20 weeks gestation of - Primary state, incidental [facility] Diagnosis History of delivery- Primary [facility] Diagnosis 28 weeks gestation of - Primary state, incidental [facility]* Diagnosis Elevated glucose Other abnormal glucose [facility]* Diagnosis Bacterial sinusitis- Primary Unspecified sinusitis (chronic) [facility]* Diagnosis Obesity complicating , second trimester- Primary 32 weeks gestation of state, incidental [facility] Diagnosis 32 weeks gestation of - Primary state, incidental Encounter for supervision of other normal in second trimester Mild acid reflux Esophageal reflux Anemia during in third trimester Abnormal glucose complicating Abnormal maternal glucose tolerance, complicating , childbirth, or the puerperium, unspecified as to episode of care [facility]* Diagnosis Diet controlled gestational diabetes mellitus (GDM) in third trimester- Primary 34 weeks gestation of state, incidental [facility]* Diagnosis 32 weeks gestation of state, incidental Encounter for supervision of other normal in second trimester Mild acid reflux Esophageal reflux [facility] Diagnosis Diet controlled gestational diabetes mellitus (GDM) in third trimester- Primary 36 weeks gestation of state, incidental [facility]* Diagnosis 37 weeks gestation of - Primary state, incidental [facility]* Diagnosis History of delivery, currently - Primary with history of pre-term labor Positive GBS test 39 weeks gestation of state, incidental [facility]* Diagnosis headache, - Primary Other specified complications, condition or complication care and examination of lactating mother [facility]* Diagnosis URI, acute- Primary Acute upper respiratory infections of unspecified site [facility]* Diagnosis bloody nipple discharge- Primary Other and unspecified disorder of breast associated with childbirth, condition or complication control counseling General counseling for initiation of other contraceptive measures [facility]* Diagnosis with uncertain viability, single or unspecified fetus- Primary 10 weeks gestation of state, incidental Encounter for Papanicolaou smear for cervical cancer screening History of hemorrhage Personal history of diseases of blood and blood-forming organs History of delivery History of gestational diabetes in prior , currently with other poor obstetric history [facility]* Diagnosis Encounter to determine viability of , single or unspecified fetus- Primary [facility]* Diagnosis Encounter for screening for nuchal translucency- Primary documented in this encounter [facility]* Diagnosis 18 weeks gestation of - Primary state, incidental Encounter for supervision of other normal in second trimester Encounter for screening of mother Unspecified screening documented in this encounter [facility] note* Diagnosis History of delivery- Primary History of hemorrhage Personal history of diseases of blood and blood-forming organs Genetic testing Other investigation and testing for procreative management 18 weeks gestation of state, incidental Encounter for anatomic survey documented in this encounter [facility] note* Diagnosis URI, acute- Primary Acute upper respiratory infections of unspecified site documented in this encounter [facility] note* Diagnosis Supervision of high risk due to social problems, second trimester- Primary History of delivery, currently in second trimester 25 weeks gestation of state, incidental documented in this encounter [facility] note* Diagnosis Sinobronchitis- Primary Unspecified sinusitis (chronic) documented in this encounter [facility] for referral (narrative)* Diagnostic Procedure Only (Routine) - Closed Specialty Diagnoses / Procedures Referred By Barbi orozco Referred To Contact [facility] Diagnoses 11 weeks gestation of Procedures NUCHAL TRANSLUCENCY WHI US NUCHAL TRANSLUCENCY 1ST GESTATION Jackie Gunn APRN.CNM [address] [place] [address] [place] [address] Referral ID Status Reason Start Date Expiration Date V isits Requested Visits Authorized [id number] Closed Auto-Generate d Referral 06/05/2022 11/25/2022 1 1 * Diagnostic Procedure Only (Routine) - Pending Review Specialty Diagnoses / Procedures Referred By Barbi orozco Referred To Contact [facility] Diagnoses 11 weeks gestation of Procedures OBSTETRIC ULTRASOUND WHI US PREG UTERUS AFTER 1ST TRIMEST GESTATION Jackie Gunn APRN.CNM [address] [place] [address] [facility] [address] [place] [address] Referral ID Status Reason Start Date Expiration Date Visits Requested Visits Authorized [id number] Pending Review Auto-Generat ed Referral 06/05/2022 06/05/2023 1 1 [facility] Diagnostic Procedure Only (Routine) - Pending Review Specialty Diagnoses / Procedures Referred By Barbi t Referred To Contact [facility] Diagnoses History of delivery Procedures OBSTETRIC ULTRASOUND WHI US PREG UTERUS AFTER 1ST TRIMEST GESTATION Jackie Gunn APRN.CNM [address] [place] [address] 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 Advance Directive(s) 09/14/2016 1:26 PM Advance Directive(s) 09/07/2016 11:47 AM Health Concerns Problem Noted Date OB Reminders 06/05/2022 Problem Noted Date OB Reminders 06/05/2022 Problem Noted Date OB Reminders 06/05/2022 Problem Noted Date OB Reminders 06/05/2022 Problem Noted Date OB Reminders 06/05/2022 Problem Noted Date OB Reminders 06/05/2022 Problem Noted Date OB Reminders 06/05/2022 Problem Noted Date OB Reminders 06/05/2022 Problem Noted Date OB Reminders 06/05/2022 Problem Noted Date OB Reminders 06/05/2022 Problem Noted Date OB Reminders 06/05/2022 Problem Noted Date OB Reminders 06/05/2022 Problem Noted Date OB Reminders 06/05/2022 Problem Noted Date OB Reminders 06/05/2022 Problem Noted Date OB Reminders 06/05/2022 Problem Noted Date OB Reminders 06/05/2022 Problem Noted Date Diagnosed Date OB Reminders 06/05/2022 [facility] Education - [facility]ON 07/11/2023 [place] - [place] 07/11/2023 Problem Noted Date Diagnosed Date OB Reminders 06/05/2022 [facility] Education - COMMON 07/11/2023 Education - [place] 07/11/2023 Problem Noted Date Diagnosed Date OB Reminders 06/05/2022 [facility] Education - [facility]ON 07/11/2023 Education - [place] 07/11/2023 Problem Noted Date Diagnosed Date OB Reminders 06/05/2022 [facility] Education - COMMON 07/11/2023 Education - [place] 07/11/2023 Problem Noted Date Diagnosed Date OB Reminders 06/05/2022 [facility] Education - [facility]ON 07/11/2023 Education - [place] 07/11/2023 Problem Noted Date Diagnosed Date OB Reminders 06/05/2022 [facility] Education - [facility] 07/11/2023 Education - [place] 07/11/2023 Problem Noted Date Diagnosed Date OB Reminders 06/05/2022 [facility] Education - [place] 07/11/2023 Education - [place] 07/11/2023 Problem Noted Date Diagnosed Date OB Reminders 06/05/2022 [facility] Education - [facility]ON 07/11/2023 Education - [place] 07/11/2023 Problem Noted Date Diagnosed Date OB Reminders 06/05/2022 [facility] Education - [facility]ON 07/11/2023 Education - [place] 07/11/2023 Problem Noted Date Diagnosed Date OB Reminders 06/05/2022 [facility] Education - COMMON 07/11/2023 Education - [place] 07/11/2023 Problem Noted Date Diagnosed Date OB Reminders 06/05/2022 [facility] Education - [facility]ON 07/11/2023 Education - [place] 07/11/2023 Problem Noted Date Diagnosed Date OB Reminders 06/05/2022 [facility] Education - COMMON 07/11/2023 Education - [place] 07/11/2023 Problem Noted Date Diagnosed Date OB Reminders 06/05/2022 [facility] Education - [facility] 07/11/2023 Education - [place] 07/11/2023 Reason for Referral Specialty Diagnoses / Procedures Referred By Contac t Referred To Contact Diagnoses 10 weeks gestation of Procedures CONSULT TO MEDICAL GENETICS - MEDICAL GENETICS COUNSELING EACH 30 MINUTES Erica Menon APRN.ACID PURIFICATION EQUIPMENT OPERATOR [address] [place] [address] [address] Referral ID Status Reason Start Date Expiration Date Visits Requested Visits Authorized [id number] Authorized PCP Requested Referral Auto-Generate d Referral 07/11/2023 07/10/2024 1 1 Specialty Diagnoses / Procedures Referred By Contac t Referred To Contact Diagnoses with uncertain viability, single or unspecified fetus Encounter for Papanicolaou smear for cervical cancer screening 10 weeks gestation of History of hemorrhage History of delivery Procedures CONSULT TO MATERNAL MEDI OFFICE/OUTPATIENT NEW [facility] MDM 60-74 MINUTES Erica Menon APRN.ACID PURIFICATION EQUIPMENT OPERATOR [address] [place] [address] Referral ID Status Reason Start Date Expiration Date Visits Requested Visits Authorized [id number] Authorized PCP Requested Referral Auto-Generate d Referral 07/11/2023 07/10/2024 1 1 Specialty Diagnoses / Procedures Referred By Contac t Referred To Contact [facility] Diagnoses 10 weeks gestation of Procedures NUCHAL TRANSLUCENCY WHI US NUCHAL TRANSLUCENCY 1ST GESTATION Erica Menon APRN.ACID PURIFICATION EQUIPMENT OPERATOR [address] [place] [address] [address] Referral ID Status Reason Start Date Expiration Date Visits Requested Visits Authorized [id number] Authorized Auto-Generat ed Referral 07/11/2023 07/10/2024 1 1 Specialty Diagnoses / Procedures Referred By Contac t Referred To Contact [facility] Diagnoses 10 weeks gestation of Procedures OBSTETRIC ULTRASOUND WHI US PREG UTERUS AFTER 1ST TRIMEST GESTATION Erica Menon, MEHRAN.ACID PURIFICATION EQUIPMENT OPERATOR [address] [place] [address] [facility] [address] [place] [address] Referral ID Status Reason Start Date Expiration Date Visits Requested Visits Authorized [id number] Pending Review Auto-Generat ed Referral 07/11/2023 07/10/2024 1 1 Additional Source Comments INFORMATION SOURCE (unrecogn ized section and content) DATE CREATED AUTHOR AUTHOR'S ORGANIZ ATION 11/26/2023 [facility] Source Comments (unrecognize d section and content) In the event this informatio n is protected by the Federal Confidentiality of Alcohol and Drug Abuse Patient Records regulations: The Federal rules restrict any use of the information to criminally investigate or prosecute any alcohol or drug abuse patient.[facility] the event this information is protected by the Federal Confidentiality of Alcohol and Drug Abuse Patient Records regulations: The Federal rules restrict any use of the information to criminally investigate or prosecute any alcohol or drug abuse patient.[facility] the event this information is protected by the Federal Confidentiality of Alcohol and Drug Abuse Patient Records regulations: The Federal rules restrict any use of the information to criminally investigate or prosecute any alcohol or drug abuse patient.[facility] the event this information is protected by the Federal Confidentiality of Alcohol and Drug Abuse Patient Records regulations: The Federal rules restrict any use of the information to criminally investigate or prosecute any alcohol or drug abuse patient.[facility] the event this information is protected by the Federal Confidentiality of Alcohol and Drug Abuse Patient Records regulations: The Federal rules restrict any use of the information to criminally investigate or prosecute any alcohol or drug abuse patient.[facility] the event this information is protected by the Federal Confidentiality of Alcohol and Drug Abuse Patient Records regulations: The Federal rules restrict any use of the information to criminally investigate or prosecute any alcohol or drug abuse patient.[facility] the event this information is protected by the Federal Confidentiality of Alcohol and Drug Abuse Patient Records regulations: The Federal rules restrict any use of the information to criminally investigate or prosecute any alcohol or drug abuse patient.[facility] the event this information is protected by the Federal Confidentiality of Alcohol and Drug Abuse Patient Records regulations: The Federal rules restrict any use of the information to criminally investigate or prosecute any alcohol or drug abuse patient.[facility] the event this information is protected by the Federal Confidentiality of Alcohol and Drug Abuse Patient Records regulations: The Federal rules restrict any use of the information to criminally investigate or prosecute any alcohol or drug abuse patient.[facility] the event this information is protected by the Federal Confidentiality of Alcohol and Drug Abuse Patient Records regulations: The Federal rules restrict any use of the information to criminally investigate or prosecute any alcohol or drug abuse patient.[facility] the event this information is protected by the Federal Confidentiality of Alcohol and Drug Abuse Patient Records regulations: The Federal rules restrict any use of the information to criminally investigate or prosecute any alcohol or drug abuse patient.[facility] the event this information is protected by the Federal Confidentiality of Alcohol and Drug Abuse Patient Records regulations: The Federal rules restrict any use of the information to criminally investigate or prosecute any alcohol or drug abuse patient.[facility]In the event this information is protected by the Federal Confidentiality of Alcohol and Drug Abuse Patient Records regulations: The Federal rules restrict any use of the information to criminally investigate or prosecute any alcohol or drug abuse patient.[facility]In the event this information is protected by the Federal Confidentiality of Alcohol and Drug Abuse Patient Records regulations: The Federal rules restrict any use of the information to criminally investigate or prosecute any alcohol or drug abuse patient.[facility] HospitalIn the event this information is protected by the Federal Confidentiality of Alcohol and Drug Abuse Patient Records regulations: The Federal rules restrict any use of the information to criminally investigate or prosecute any alcohol or drug abuse patient.[facility]In the event this information is protected by the Federal Confidentiality of Alcohol and Drug Abuse Patient Records regulations: The Federal rules restrict any use of the information to criminally investigate or prosecute any alcohol or drug abuse patient.[facility] HospitalIn the event this information is protected by the Federal Confidentiality of Alcohol and Drug Abuse Patient Records regulations: The Federal rules restrict any use of the information to criminally investigate or prosecute any alcohol or drug abuse patient.[facility] HospitalIn the event this information is protected by the Federal Confidentiality of Alcohol and Drug Abuse Patient Records regulations: The Federal rules restrict any use of the information to criminally investigate or prosecute any alcohol or drug abuse patient.[facility] HospitalIn the event this information is protected by the Federal Confidentiality of Alcohol and Drug Abuse Patient Records regulations: The Federal rules restrict any use of the information to criminally investigate or prosecute any alcohol or drug abuse patient.[facility] HospitalIn the event this information is protected by the Federal Confidentiality of Alcohol and Drug Abuse Patient Records regulations: The Federal rules restrict any use of the information to criminally investigate or prosecute any alcohol or drug abuse patient.[facility] HospitalIn the event this information is protected by the Federal Confidentiality of Alcohol and Drug Abuse Patient Records regulations: The Federal rules restrict any use of the information to criminally investigate or prosecute any alcohol or drug abuse patient.[facility] HospitalIn the event this information is protected by the Federal Confidentiality of Alcohol and Drug Abuse Patient Records regulations: The Federal rules restrict any use of the information to criminally investigate or prosecute any alcohol or drug abuse patient.[facility] HospitalIn the event this information is protected by the Federal Confidentiality of Alcohol and Drug Abuse Patient Records regulations: The Federal rules restrict any use of the information to criminally investigate or prosecute any alcohol or drug abuse patient.[facility] HospitalIn the event this information is protected by the Federal Confidentiality of Alcohol and Drug Abuse Patient Records regulations: The Federal rules restrict any use of the information to criminally investigate or prosecute any alcohol or drug abuse patient.[facility] HospitalIn the event this information is protected by the Federal Confidentiality of Alcohol and Drug Abuse Patient Records regulations: The Federal rules restrict any use of the information to criminally investigate or prosecute any alcohol or drug abuse patient.[facility] HospitalIn the event this information is protected by the Federal Confidentiality of Alcohol and Drug Abuse Patient Records regulations: The Federal rules restrict any use of the information to criminally investigate or prosecute any alcohol or drug abuse patient.[facility] HospitalIn the event this information is protected by the Federal Confidentiality of Alcohol and Drug Abuse Patient Records regulations: The Federal rules restrict any use of the information to criminally investigate or prosecute any alcohol or drug abuse patient.[facility] HospitalIn the event this information is protected by the Federal Confidentiality of Alcohol and Drug Abuse Patient Records regulations: The Federal rules restrict any use of the information to criminally investigate or prosecute any alcohol or drug abuse patient.[facility] HospitalIn the event this information is protected by the Federal Confidentiality of Alcohol and Drug Abuse Patient Records regulations: The Federal rules restrict any use of the information to criminally investigate or prosecute any alcohol or drug abuse patient.[facility] HospitalIn the event this information is protected by the Federal Confidentiality of Alcohol and Drug Abuse Patient Records regulations: The Federal rules restrict any use of the information to criminally investigate or prosecute any alcohol or drug abuse patient.[facility] HospitalIn the event this information is protected by the Federal Confidentiality of Alcohol and Drug Abuse Patient Records regulations: The Federal rules restrict any use of the information to criminally investigate or prosecute any alcohol or drug abuse patient.[facility] HospitalIn the event this information is protected by the Federal Confidentiality of Alcohol and Drug Abuse Patient Records regulations: The Federal rules restrict any use of the information to criminally investigate or prosecute any alcohol or drug abuse patient.[facility] HospitalIn the event this information is protected by the Federal Confidentiality of Alcohol and Drug Abuse Patient Records regulations: The Federal rules restrict any use of the information to criminally investigate or prosecute any alcohol or drug abuse patient.[facility] HospitalIn the event this information is protected by the Federal Confidentiality of Alcohol and Drug Abuse Patient Records regulations: The Federal rules restrict any use of the information to criminally investigate or prosecute any alcohol or drug abuse patient.[facility] HospitalIn the event this information is protected by the Federal Confidentiality of Alcohol and Drug Abuse Patient Records regulations: The Federal rules restrict any use of the information to criminally investigate or prosecute any alcohol or drug abuse patient.[facility] HospitalIn the event this information is protected by the Federal Confidentiality of Alcohol and Drug Abuse Patient Records regulations: The Federal rules restrict any use of the information to criminally investigate or prosecute any alcohol or drug abuse patient.[facility] HospitalIn the event this information is protected by the Federal Confidentiality of Alcohol and Drug Abuse Patient Records regulations: The Federal rules restrict any use of the information to criminally investigate or prosecute any alcohol or drug abuse patient.[facility] HospitalIn the event this information is protected by the Federal Confidentiality of Alcohol and Drug Abuse Patient Records regulations: The Federal rules restrict any use of the information to criminally investigate or prosecute any alcohol or drug abuse patient.[facility] HospitalIn the event this information is protected by the Federal Confidentiality of Alcohol and Drug Abuse Patient Records regulations: The Federal rules restrict any use of the information to criminally investigate or prosecute any alcohol or drug abuse patient.[facility] Reason for Visit (unrecogniz ed section and content) Specialty Diagnoses / Procedures Referred By Barbi orozco Referred To Contact Diagnoses with uncertain viability, single or unspecified fetus Encounter for Papanicolaou smear for cervical cancer screening 10 weeks gestation of History of hemorrhage History of delivery Procedures CONSULT TO MATERNAL MEDI OFFICE/OUTPATIENT [facility] 60-74 MINUTES Erica Menon APRN.ACID PURIFICATION EQUIPMENT OPERATOR [address] [place] [address] Referral ID Status Reason Start Date Expiration Date V isits Requested Visits Authorized [id number] Closed PCP Requested Referral Auto-Generated Referral 07/11/2023 07/10/2024 1 1 Reason Comments Care Reason Comments with uncertain dates Reason Comments Orders Reason Comments Initial OB Visit Specialty Diagnoses / Procedures Referred By Barbi orozco Referred To Contact [facility] Diagnoses 11 weeks gestation of Procedures NUCHAL TRANSLUCENCY WHI US NUCHAL TRANSLUCENCY 1ST GESTATION Jackie Gunn APRN.CNM [address] [place] [address] [facility] [address] [place] [address] Referral ID Status Reason Start Date Expiration Date V isits Requested Visits Authorized [id number] Closed Auto-Generate d Referral 06/05/2022 11/25/2022 1 1 Reason Onset Date Comments Care 07/18/2022 Reason Onset Date Comments Care 08/03/2022 Reason Onset Date Comments Care 09/29/2022 Reason Comments Question (OB Question) Influenza Reason Comments Pain, Sinus Head congestion x3 d ays Specialty Diagnoses / Procedures Referred By Contac t Referred To Contact [facility] Diagnoses History of delivery Procedures OBSTETRIC ULTRASOUND WHI US PREG UTERUS AFTER 1ST TRIMEST GESTATION Jackie Gunn APRN.TIANNA [address] [place] [address] [address] Referral ID Status Reason Start Date Expiration Date V isits Requested Visits Authorized [id number] Closed Auto-Generate d Referral 08/03/2022 08/03/2023 1 1 Reason Onset Date Comments Care 10/27/2022 Reason Onset Date Comments Care 11/13/2022 Reason Onset Date Comments Refill Request 11/15/2022 Reason Onset Date Comments Care 11/24/2022 Reason Comments Question (OB Question) Reason Onset Date Comments Care 12/04/2022 Reason Onset Date Comments Care 12/13/2022 Reason Comments Ob Delivery Note Reason Comments Early Pp headache Reason Comments Sore Throat Sinus, congestion, H A x 3 days Reason Comments Breast Problem Reason Comments Initial OB Visit 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 Reason Onset Date Comments Care 09/04/2023 Reason Comments OB-Headache Reason Comments Sinus Problem Sinus congestion and POSADA x 3 days Reason Onset Date Comments Care 10/25/2023 Reason Comments PRAF Reason Comments Cough Productive cough, ch est congestion x6 weeks Care Teams (unrecognized sec tion and content) Postal Inspector Relationship Specialty Start Date End Date Tiara Mishra MD [address] [place], [place] [id number] PCP - General Family Practice 09/05/16 Postal Inspector Relationship Specialty Start Date End Date Tiara Mishra MD [address] [facility] [place] [address] PCP - General Family Practice 09/05/16 Postal Inspector Relationship Specialty Start Date End Date Tiara Mishra MD [address] [facility] [place] [address] PCP - General Family Practice 09/05/16 Postal Inspector Relationship Specialty Start Date End Date Tiara Mishra MD [address] [facility] [place] [address] PCP - General Family Practice 09/05/16 Postal Inspector Relationship Specialty Start Date End Date Tiara Mishra MD [address] [facility] [place] [address] PCP - General Family Practice 09/05/16 Postal Inspector Relationship Specialty Start Date End Date Tiara Mishra MD [address] [facility] [place] [address] PCP - General Family Practice 09/05/16 Postal Inspector Relationship Specialty Start Date End Date Tiara Mishra MD [address] [facility] [place] [address] PCP - General Family Medicine 09/05/16 Postal Inspector Relationship Specialty Start Date End Date Tiara Mishra MD [address] [facility] [place] [address] PCP - General Family Medicine 09/05/16 Postal Inspector Relationship Specialty Start Date End Date Tiara Mishra MD [address] [facility] [place] [address] PCP - General Family Medicine 09/05/16 Postal Inspector Relationship Specialty Start Date End Date Tiara Mishra MD [address] [facility] [place] [address] PCP - General Family Medicine 09/05/16 Postal Inspector Relationship Specialty Start Date End Date Tiara Mishra MD [address] [facility] [place] [address] PCP - General Family Medicine 09/05/16 Postal Inspector Relationship Specialty Start Date End Date Tiara Mishra MD [address] [facility] [place] [address] PCP - General Family Medicine 09/05/16 Postal Inspector Relationship Specialty Start Date End Date Tiara Mishra MD [address] [facility] [place] [address] PCP - General Family Medicine 09/05/16 Postal Inspector Relationship Specialty Start Date End Date Tiara Mishra MD [address] [facility] [place] [address] PCP - General Family Medicine 09/05/16 Postal Inspector Relationship Specialty Start Date End Date Tiara Mishra MD [address] [facility] [place] [address] PCP - General Family Medicine 09/05/16 Postal Inspector Relationship Specialty Start Date End Date Tiara Mishra MD [address] [facility] [place] [address] PCP - General Family Medicine 09/05/16 Postal Inspector Relationship Specialty Start Date End Date Tiara Mishra MD [address] [facility] [place] [address] PCP - General Family Medicine 09/05/16 Postal Inspector Relationship Specialty Start Date End Date Tiara Mishra MD [address] [facility] [place] [address] PCP - General Family Medicine 09/05/16 Postal Inspector Relationship Specialty Start Date End Date Tiara Mishra MD [address] [facility] [place] [address] PCP - General Family Medicine 09/05/16 Postal Inspector Relationship Specialty Start Date End Date Tiara Mishra MD [address] [facility] [place] [address] PCP - General Family Medicine 09/05/16 Postal Inspector Relationship Specialty Start Date End Date Tiara Mishra MD [address] [facility] [place] [address] PCP - General Family Medicine 09/05/16 Postal Inspector Relationship Specialty Start Date End Date Tiara Mishra MD [address] [facility] [place] [address] PCP - General Family Medicine 09/05/16 Postal Inspector Relationship Specialty Start Date End Date Tiara Mishra MD [address] [facility] [place] [address] PCP - General Family Medicine 09/05/16 Postal Inspector Relationship Specialty Start Date End Date Tiara Mishra MD [address] [facility] [place] [address] PCP - General Family Medicine 09/05/16 Postal Inspector Relationship Specialty Start Date End Date Tiara Mishra MD [address] [facility] [place] [address] PCP - General Family Medicine 09/05/16 Postal Inspector Relationship Specialty Start Date End Date Tiara Mishra MD [address] [facility] [place] [address] PCP - General Family [facility] 09/05/16 Postal Inspector Relationship Specialty Start Date End Date Tiara Mishra MD [address] [place], [place] [address] PCP - [facility] 09/05/16 Postal Inspector Relationship Specialty Start Date End Date Tiara Mishra MD [address] [place], [place] [id number] PCP - General Family [facility] 09/05/16 FOR RECORDS PERTAINING TO PATIENTS WHO ARE OR HAVE BEEN ENROLLED IN A CHEMICAL DEPENDENCY/SUBSTANCEABUSE PROGRAM, SOME INFORMATION MAY BE OMITTED. This clinical summary was aggregated from multiple sources. Caution should be exercised in using it in the provision of clinical care. This summary normalizes information from multiple sources, and as a consequence, information in this document may materially change the coding, format and clinical context of patient data. In addition, data may be omitted in some cases. CLINICAL DECISIONS SHOULD BE BASED ON THE PRIMARY CLINICAL RECORDS. [facility] [employer] [facility] provides no warranty or guarantee of the accuracy or completeness of information in this document.
--- NOTE | 2023-12-02 16:01 | NURSING ---
NO OLD EKGS
[2023-12-02 16:06] LABS: Absolute Lymphocyte Count 1.28 X10^3/uL (0.83-4.51); Absolute Neutrophil Count 12.2 X10^3/uL (2.0-7.7); Basophil# 0.05 X10^3/uL; Basophil% 0.3 % (0-1); Eosinophils% 0.7 % (0-5); Hematocrit 32.3 % (37-47); Hemoglobin 10.1 g/dL (12.0-15.0); Lymphocyte # 1.28 X10^3/ul (0.83-4.51); Lymphocyte % 8.7 % (19-41); Mean Corp Hgb Conc 31.3 g/dL (32-36); Mean Corpuscular Hgb 25.8 pg (27.0-32.0); Mean Corpuscular Volume 82.6 fL (81-99); Mean Platelet Vol. 9.7 fl (6.2-12.0); Monocyte# 0.72 X10^3/uL; Monocyte% 4.9 % (0-10); NRBC Flagged by Analyzer 0 % (0-5); Neutrophil # 12.18 X10^3/uL (2.7-7.7); Platelet Count 241 K/mm3 (150-450); RBC Distribution Width CV 13.2 % (11.6-14.6); RBC Distribution Width SD 39.3 fl (35.1-43.9); Red Blood Count 3.91 M/mm3 (4.2-5.4); White Blood Count 14.7 K/mm3 (4.4-11.0)
[2023-12-02] MEDS: 0.9% Normal Saline (1000mL) 1,000 ML 1000 ML IV ×2 (16:11→17:14)
[2023-12-02 16:13] VITALS: O2SAT 99
[2023-12-02 16:23] LABS: AST(SGOT) 19 U/L (15-37); Alanine Aminotransfer ALT/SGPT 11 U/L (13-56); Albumin, Serum 2.5 g/dL (3.2-5.0); Alkaline Phosphatase 88 U/L (45-117); Anion Gap 7 (5-15); BUN 6 mg/dL (7-18); Bilirubin, Direct 0.06 mg/dL (0.00-0.30); Calcium,Total 8.7 mg/dL (8.5-10.1); Chloride 106 mmol/L (98-107); Creatinine, Serum 0.67 mg/dL (0.55-1.02); EST Glomerular Filtration Rate 111 mL/min (>60); Est Glom Filt Rate - Afr Amer 134 mL/min (>60); Estimated Creatinine Clearance 94.33 ml/min; Globulin 4.7 g/dL (2.2-4.2); Glucose 88 mg/dL (74-106); Potassium 3.5 mmol/L (3.5-5.1); Protein, Total 7.2 g/dL (6.4-8.2); Sodium Level 139 mmol/L (136-145); Troponin-I HS (w/2H Reflex) 4 pg/mL (3.0-54.0)
--- NOTE | 2023-12-02 16:33 | CT_ITS ---
STUDY: CTA CHEST REASON FOR EXAM: Female, 27 years old. Pulmonary embolism RADIATION DOSAGE (If Supplied By Facility): CTDIvol = ( 9.43 ) mGy, DLP = ( 321.20 ) mGycm TECHNIQUE: The examination was performed with the intravenous administration of IV 100mL Isovue-370. Post-processing of the angiographic images was performed, with multiplanar reformation and 3D reconstruction. Individualized dose optimization techniques were used for this CT. COMPARISON: FINDINGS: Normal enhancement of the main pulmonary artery and right and left pulmonary arteries. Normal enhancement of the bilateral peripheral pulmonary arteries. There is no demonstrated pulmonary embolism. Normal thoracic aorta and visualized great vessels. There is no demonstrated aortic dissection. Normal heart and pericardium. Normal mediastinum. Normal hilar regions. Normal visualized trachea and bronchi. The lungs are well expanded. Normal pulmonary parenchyma. Normal pleura. Normal chest wall structures. Normal osseous structures. Splenomegaly. CT/CTA Chest W/WO Contrast IMPRESSION: No demonstrated pulmonary embolism or arterial dissection. Splenomegaly. Electronically Signed: Yonathan Maxwell DO at 17:22 EST Reading Location ID and State: [facility] / [place] Tel [phone], Service support ,
[2023-12-02 16:36] VITALS: BP 135/95; PULSE 107; RESP 16; O2SAT 99
[2023-12-02 18:00] VITALS: BP 138/80; PULSE 100; RESP 16; O2SAT 99
[2023-12-02 18:00] LABS: Reflex Troponin-HS? (from REC) Y
[2023-12-02 18:22] VITALS: BP 138/80; PULSE 100; RESP 16; O2SAT 99
== END 2023-12-02 18:23 | disposition home or self-care (01) ==
PROVIDERS: Emergency Provider Student in an Organized Health Care Education/Training Program; Visit Provider Student in an Organized Health Care Education/Training Program
DX: R07.89 Other chest pain (principal); R03.0 Elevated blood-pressure reading, without diagnosis of hypertension; R05.9 Cough, unspecified; R06.00 Dyspnea, unspecified; Z87.891 Personal history of nicotine dependence; O99.891 Other specified diseases and conditions complicating pregnancy; Z3A.00 Weeks of gestation of pregnancy not specified
CPT/HCPCS: 71275; 80048; 80076; 84484; 85025; 85379; 87631; 93005; 96360; 96361; 99284; J7030; Q9967; A4216

== ENCOUNTER 2023-12-31 22:31 | Inpatient (IN) | payer MEDICAID, SELFPAY ==
--- OUTSIDE RECORDS SUMMARY | 2023-12-31 22:03 | XMS RPT_ITS | CCD ---
Author Name Unknown Address [address] [place] [address] Organization [facility] Care Team Providers Care Communication Assistant Name Role Phone SAUNDRA DODSON Unavailable Unavailable PHYSICIAN, NONE Unavailable Unavailable Danica CAGE, Tiara Nguyen Primary Care Provider Danica CAGE, Tiara Nguyen Primary Care Provider Tiara Mishra MD Primary Care Provider Danica CAGE, Tiara Nguyen Primary Care Provider CALIXTO COLLADO Attending Unavailable TIARA MISHRA Primary Care Unavailab le TIARA MISHRA Primary Care Unavailab ERICA Garcia Attending Unavailable JADA GONZALEZ Attending Unavail able TIARA MISHRA Primary Care Unavailab le TIARA MISHRA Primary Care Unavailab le TIARA MISHRA Primary Care Unavailab ERICA Garcia Referring Unavailable TIARA MISHRA Primary Care Unavailab ERICA Garcia Referring Unavailable EDUARDO GUEVARA Attending Unavailable TIARA MISHRA Primary Care Unavailab le JADA GONZALEZ Referring Unavail able TIARA MISHRA Primary Care Unavailab CINTHIA Jensen Attending Unavailable TIARA MISHRA Primary Care Unavailab EMELY Hdz Attending Unavailable TIARA MISHRA Primary Care Unavailab CALIXTO Garcia Attending Unavailable TIARA MISHRA Primary Care Unavailab CALIXTO Garcia Referring Unavailable TIARA MISHRA Primary Care Unavailab le TIARA MISHRA Primary Care Unavailab le JADA GONZALEZ Attending Unavail TIARA Kauffman Primary Care Unavailab le TIARA MISHRA Primary Care Unavailab le TIARA MISHRA Primary Care Unavailab SANDRA Fleming Attending Unavailable TIARA MISHRA Primary Care Unavailab le JADA GONZALEZ Referring Unavail francisco j TIARA MISHRA Primary Care Unavailab le CINTHIA GRIFFITH Referring Unavailable TIARA MISHRA Primary Care Unavailab le Medications Current Medications Medication Drug Class(es) Dates [...] not intractable, without status migrainosus] 09-05-2016 Chronic Hypertension complicating ; childbirth and the puerperium (3 sources) Elevated blood pressure; Translations: [Unspecified maternal hypertension, third trimester] Onset: 12-13-2023 12-28-2023 Chronic Other circulatory disease (2 sources) Elevated blood-pressure reading without diagnosis of hypertension; Translations: [Elevated blood-pressure reading, without diagnosis of hypertension] Onset: 12-13-2023 12-13-2023 Episodic Other complications of ; puerperium affecting [...] , third trimester] Chronic Other complications of (2 sources) Anemia of ; Translations: [Anemia complicating , third trimester] Onset: 12-13-2023 12-13-2023 Chronic Other complications of (1 source) Anemia in mother complicating , childbirth AND/OR puerperium; Translations: [Anemia complicating , third trimester] 12-28-2023 Chronic Other complications of (1 source) Anemia complicating , third trimester; Translations: [Anemia during in third trimester] Onset: 12-13-2023 Chronic Other complications of (20 sources) High risk ; Translations: [Supervision of high risk , unspecified, unspecified trimester] Onset: 04-27-2021 Episodic Other complications of (1 source) Uncertain viability of ; Translations: [ with inconclusive viability, not applicable or unspecified] 07-11-2023 Episodic Other complications of (1 source) History of gestational diabetes mellitus; Translations: [Supervision of with other poor reproductive or obstetric history, unspecified trimester] 07-11-2023 Episodic Other complications of (4 sources) Uterine size for dates discrepancy; Translations: [Uterine size-date discrepancy, third trimester] Onset: 12-13-2023 12-28-2023 Episodic Other complications of (1 source) Uterine size-date discrepancy, third trimester; Translations: [Uterine size-date discrepancy, third trimester] Onset: 12-13-2023 Episodic Other complications of (1 source) Supervision of high risk due to social problems, second trimester; Translations: [Supervision of high risk due to social problems, second trimester] Onset: 12-13-2023 Episodic Other and delivery including normal (3 sources) Normal ; Translations: [Encounter for supervision of other normal , second trimester] Episodic Other upper respiratory infections (2 sources) [...] Residual codes; unclassified (3 sources) Gestation period, 34 weeks; Translations: [34 weeks [...] 10-25-2023 Episodic Residual codes; unclassified (1 source) 25 weeks gestation of ; Translations: [25 weeks gestation of ] Onset: 12-13-2023 Episodic Residual codes; unclassified (1 source) 32 weeks gestation of ; Translations: [32 weeks gestation of ] Onset: 12-13-2023 Episodic Unclassified (1 source) Cough, unspecified type; [...] tolerance complicating ; childbirth; or the puerperium (7 sources) Abnormal glucose level; Translations: [Abnormal glucose [...] 12-26-2018 Episodic Other complications of (20 sources) Pain [...] or unspecified fetus] Onset: 07-11-2023 Episodic Other female genital disorders (1 source) Personal history of pre-term labor; Translations: [History of delivery] Onset: 09-04-2023 Episodic Other hematologic conditions (20 sources) History of anemia; Translations: [Personal history of diseases of the blood and blood-forming organs and certain disorders involving the immune mechanism] Onset: 05-22-2022 Episodic Other screening for suspected conditions (not mental disorders or infectious disease) (20 sources) Patient encounter status; Translations: [Encounter for other screening for genetic and chromosomal anomalies] Onset: 01-28-2019 01-28-2019 Episodic Residual codes; unclassified (20 sources) Genetic [...] 11-15-2020 Episodic Residual codes; unclassified (1 source) Personal history of other complications of , childbirth and the puerperium; Translations: [History of hemorrhage] Onset: 09-04-2023 Episodic Residual codes; unclassified (1 source) 10 weeks gestation of ; Translations: [10 weeks gestation of ] Onset: 07-25-2023 Episodic Results Test Name Value Interpretation Reference Range Facil ity Vital Signs Date Time Vital Sign Value Performing Clinician Agustin العلي 12-28-2023 09:22-0500 Body weight 80.29 kg Calixto Collado MD Work Phone: [facility] 12-28-2023 09:22-0500 Diastolic blood pressure 82 mm[Hg] Calixto Collado MD Work Phone: [facility] 12-28-2023 09:22-0500 Systolic blood pressure 134 mm[Hg] Calixto Collado MD Work Phone: [facility] 11-11-2023 13:35-0500 Body temperature 98.71 [degF] Aman Dickens APRN.THIRD LOADER Work Phone: [facility] 11-11-2023 13:35-0500 Body weight 80.11 kg Aman Wenjulius [employer].THIRD LOADER Work Phone: [facility] 11-11-2023 13:35-0500 Diastolic blood pressure 95 mm[Hg] [facility] [employer].THIRD LOADER Work Phone: [facility] 11-11-2023 13:35-0500 Heart rate 100 /min Aman Wenjulius [employer].THIRD LOADER Work Phone: [facility] 11-11-2023 13:35-0500 Respiratory rate 22 /min [facility] [employer].THIRD LOADER Work Phone: [facility] 11-11-2023 13:35-0500 SaO2% (BldA) [Mass fraction] 98 % Amanadonis Wenjulius [employer].THIRD LOADER Work Phone: [facility] 11-11-2023 13:35-0500 Systolic blood pressure 143 mm[Hg] Aman Wenjulius [employer].THIRD LOADER Work Phone: [facility] 10-25-2023 16:00-0500 Body weight 78.02 kg Jada Chawla MD Work Phone: [facility] 10-25-2023 16:00-0500 Diastolic blood pressure 78 mm[Hg] Jada Chawla MD Work Phone: [facility] 10-25-2023 16:00-0500 Systolic blood pressure 120 mm[Hg] Jada Chawla MD Work Phone: [facility] 09-14-2023 12:01-0400 Body temperature 97.7 [degF] Brenda Tim [employer].THIRD LOADER Work Phone: [facility] 09-14-2023 12:01-0400 Body weight 75.75 kg Brenda Tim [employer].THIRD LOADER Work Phone: [facility] 09-14-2023 12:01-0400 Diastolic blood pressure 74 mm[Hg] Brenda Tim [employer].THIRD LOADER Work Phone: [facility] 09-14-2023 12:01-0400 Heart rate 98 /min Brenda Tim APRN.THIRD LOADER Work Phone: [facility] 09-14-2023 12:01-0400 Respiratory rate 18 /min Brenda Tim APRN.THIRD LOADER Work Phone: [facility] 09-14-2023 12:01-0400 SaO2% (BldA) [Mass fraction] 97 % Brenda Tim APRN.THIRD LOADER Work Phone: [facility] 09-14-2023 12:01-0400 Systolic blood pressure 122 mm[Hg] Brenda Tim APRN.THIRD LOADER Work Phone: [facility] 09-04-2023 11:10-0400 Body weight 72.12 kg Calixto Collado MD Work Phone: [facility] 09-04-2023 11:10-0400 Diastolic blood pressure 80 mm[Hg] Calixto Collado MD Work Phone: [facility] 09-04-2023 11:10-0400 Systolic blood pressure 120 mm[Hg] Calixto Collado MD Work Phone: [facility] 09-04-2023 10:02-0400 Body weight 72.12 kg Eduardo Guevara MD Work Phone: [facility] 09-04-2023 10:02-0400 Diastolic blood pressure 80 mm[Hg] Eduardo Guevara MD Work Phone: [facility] 09-04-2023 10:02-0400 Systolic blood pressure 120 mm[Hg] Eduardo Guevara MD Work Phone: [facility] 07-11-2023 13:06-0400 Body height 154.9 cm Erica Menon APRN.THIRD LOADER Work Phone: [facility] 07-11-2023 13:06-0400 Body weight 70.76 kg Erica Menon APRN.THIRD LOADER Work Phone: [facility] 07-11-2023 13:06-0400 Diastolic blood pressure 70 mm[Hg] Erica Menon APRN.THIRD LOADER Work Phone: [facility] 07-11-2023 13:06-0400 Systolic blood pressure 110 mm[Hg] Erica Menon APRN.THIRD LOADER Work Phone: [facility] 04-10-2023 15:11-0400 Body weight 66.68 kg Emely Tim MD Work Phone: [facility] 04-10-2023 15:11-0400 Diastolic blood pressure 60 mm[Hg] Emely Tim MD Work Phone: [facility] 04-10-2023 15:11-0400 Systolic blood pressure 110 mm[Hg] Emely Tim MD Work Phone: [facility] 04-05-2023 10:05-0400 Body temperature 97.81 [degF] Krislyn Aberegg PA Work Phone: [facility] 04-05-2023 10:05-0400 Body weight 66.77 kg Krislyn Aberegg PA Work Phone: [facility] 04-05-2023 10:05-0400 Diastolic blood pressure 76 mm[Hg] Krislyn Aberegg PA Work Phone: [facility] 04-05-2023 10:05-0400 Heart rate 97 /min Krislyn Aberegg PA Work Phone: [facility] 04-05-2023 10:05-0400 Respiratory rate 21 /min Krislyn Aberegg PA Work Phone: [facility] 04-05-2023 10:05-0400 SaO2% (BldA) [Mass fraction] 97 % Krislyn Aberegg PA Work Phone: [facility] 04-05-2023 10:05-0400 Systolic blood pressure 104 mm[Hg] Krislyn Aberegg PA Work Phone: [facility] 2022 13:24-0500 Body weight 74.75 kg Jackie Correia APRN.CNM Work Phone: [facility] 2022 13:24-0500 Diastolic blood pressure 74 mm[Hg] Jackie Plotts [employer].CNM Work Phone: [facility] 2022 13:24-0500 Systolic blood pressure 110 mm[Hg] Jackie Plotts [employer].CNM Work Phone: [facility] 12-13-2022 11:05-0500 Body weight 77.56 kg Jada Chawla MD Work Phone: [facility] 12-13-2022 11:05-0500 Diastolic blood pressure 76 mm[Hg] Jada Chawla MD Work Phone: [facility] 12-13-2022 11:05-0500 Systolic blood pressure 136 mm[Hg] Jada Chawla MD Work Phone: [facility] 12-04-2022 11:35-0500 Body weight 76.57 kg Thelma Penny [employer].CNM Work Phone: [facility] 12-04-2022 11:35-0500 Diastolic blood pressure 70 mm[Hg] Themla Penny [employer].CNM Work Phone: [facility] 12-04-2022 11:35-0500 Systolic blood pressure 122 mm[Hg] Thelma Penny [employer].CNM Work Phone: [facility] 11-24-2022 13:28-0500 Body weight 78.02 kg Calixto Collado MD Work Phone: [facility] 11-24-2022 13:28-0500 Diastolic blood pressure 74 mm[Hg] Calixto Collado MD Work Phone: [facility] 11-24-2022 13:28-0500 Systolic blood pressure 122 mm[Hg] Calixto Collado MD Work Phone: [facility] 11-13-2022 14:03-0500 Body weight 76.66 kg Jackie Flexiggy [employer].CNM Work Phone: [facility] 11-13-2022 14:03-0500 Diastolic blood pressure 70 mm[Hg] Jackie Plotts [employer].CNM Work Phone: [facility] 11-13-2022 14:03-0500 Systolic blood pressure 122 mm[Hg] Jackie Plotts [employer].CNM Work Phone: [facility] 10-27-2022 13:39-0500 Body weight 76.66 kg Cinthia Griffith MD Work Phone: [facility] 10-27-2022 13:39-0500 Diastolic blood pressure 70 mm[Hg] Cinthia Griffith MD Work Phone: [facility] 10-27-2022 13:39-0500 Systolic blood pressure 120 mm[Hg] Cinthia Griffith MD Work Phone: [facility] 10-23-2022 15:58-0500 Body temperature 97.59 [degF] Amanda Praisler-Wood [employer].THIRD LOADER Work Phone: [facility] 10-23-2022 15:58-0500 Body weight 75.3 kg Amanda Praisler-Wood [employer].THIRD LOADER Work Phone: [facility] 10-23-2022 15:58-0500 Diastolic blood pressure 86 mm[Hg] Amanda Praisler-Wood [employer].THIRD LOADER Work Phone: [facility] 10-23-2022 15:58-0500 Heart rate 91 /min Amanda Praisler-Wood [employer].THIRD LOADER Work Phone: [facility] 10-23-2022 15:58-0500 Respiratory rate 18 /min Amanda Praisler-Wood [employer].THIRD LOADER Work Phone: [facility] 10-23-2022 15:58-0500 SaO2% (BldA) [Mass fraction] 100 % Amanda Praisler-Wood [employer].THIRD LOADER Work Phone: [facility] 10-23-2022 15:58-0500 Systolic blood pressure 122 mm[Hg] Amanda Praisler-Wood [employer].THIRD LOADER Work Phone: [facility] 09-29-2022 13:10-0400 Body weight 74.12 kg Thelma Penny [employer].CNM Work Phone: [facility] 09-29-2022 13:10-0400 Diastolic blood pressure 60 mm[Hg] Thelma Penny [employer].CNM Work Phone: [facility] 09-29-2022 13:10-0400 Systolic blood pressure 100 mm[Hg] Thelma Penny [employer].CNM Work Phone: [facility] 08-03-2022 14:31-0400 Body weight 68.95 kg Jackie Plotts [employer].CNM Work Phone: [facility] 08-03-2022 14:31-0400 Diastolic blood pressure 60 mm[Hg] Jackie Plotts [employer].CNM Work Phone: [facility] 08-03-2022 14:31-0400 Systolic blood pressure 110 mm[Hg] Jackie Plotts [employer].CNM Work Phone: [facility] 07-18-2022 10:32-0400 Body weight 67.59 kg Calixto Collado MD Work Phone: [facility] 07-18-2022 10:32-0400 Diastolic blood pressure 64 mm[Hg] Calixto Collado MD Work Phone: [facility] 07-18-2022 10:32-0400 Systolic blood pressure 118 mm[Hg] Calixto Collado MD Work Phone: [facility] 06-05-2022 13:12-0400 Body weight 65.32 kg Jackie Plotts [employer].CNM Work Phone: [facility] 06-05-2022 13:12-0400 Diastolic blood pressure 68 mm[Hg] Jackie Plotts [employer].CNM Work Phone: [facility] 06-05-2022 13:12-0400 Systolic blood pressure 110 mm[Hg] Jackie Plotts [employer].CNM Work Phone: [facility] Encounters Encounter Date Encounter Type Care Provider Facility Start: 12-28-2023 End: 12-29-2023 ambulatory JADA CHAWLA Facility:[facility] Start: 12-28-2023 End: 12-28-2023 ambulatory CALIXTO COLLADO Facility:[facility] Start: 12-28-2023 End: 12-28-2023 Patient encounter procedure Chief Counsel Diandra Ultrasound Work Phone: OB/Gynecology Procedures Date Procedure Procedure Detail Performing Clinician Start: 12-28-2023 URINE OB DIP B/O Abelardo Collado MD Work Phone: Start: 12-28-2023 Us preg uterus after 1st trimest 11/26 gestation Cinthia Griffith MD Work Phone: Start: 10-25-2023 URINE OB DIP B/O Jada Chawla MD Work Phone: Start: 09-04-2023 URINE OB DIP B/O Abelardo Collado MD Work Phone: Start: 07-25-2023 Antibody screen CALIXTO COLLADO Plan of Treatment Date Care Activity Detail Author Start: 07-11-2026 PAP TESTING PAP TESTING [facility] Start: 07-11-2026 Screening for malign ant neoplasm of cervix Pap Testing [facility] Start: 03-20-2024 Urine microalbumin profile [facility] Start: 12-10-2023 RSV Vaccine (1 - Ris k 1-dose series) RSV Vaccine (1 - Risk 1-dose series) [facility] Start: 11-26-2023 Depression Assessment Depression Ass essment [facility] Start: 11-22-2023 PAP TESTING PAP TESTING [facility] Start: 10-25-2023 End: 01-24-2024 CBC panel - Blood by Automated count [facility] Work Phone: Immunizations Immunization Date Immunization Notes Care Provider Melissa zarate 11-14-2018 influenza virus vaccine, unspecified formulation Emely Tim MD Work Phone: [facility] 03-20-2014 tetanus toxoid, redu camilo diphtheria toxoid, and acellular pertussis vaccine, adsorbed Nurse Wstr Work Phone: [facility] Work Phone: Payers Date Payer Category Payer Medicaid [id number] 2021 Private Health Insurance [employer] A ETNA CHOICE POS II [id number] 2021-Present [phone] [address] [place] [address] POS [id number] 2021 Private Health Insurance [employer] A ETNA CHOICE POS II [id number] 2021-Present [phone] [address] [place] [address] POS [id number] 2018 Medicaid [id number] 2018 Medicaid [employer] [id number] 2018-Present [phone] [address] [place] [address] Medicaid [id number] 2018 Medicaid [id number] Social History Date Type Detail Facility Start: 04-24-2016 End: 08-31-2022 Tobacco smoking status NHIS Ex-smoker [facility] End: 10-07-2013 History of tobacco use Current smoker [facility] Start: 04-24-2016 End: 08-31-2022 Tobacco use and exposure Smokeless tobacco non-user [facility] Start: 05-22-2022 End: 11-21-2023 Alcohol intake Current non-drinker of alcohol (finding) [facility] Start: 11-15-2020 Education 21 [facility] Start: 03-29-2022 [facility] Start: 1995 Sex Assigned At Not on file [facility] Start: 05-12-2022 End: 08-31-2022 Exposure to SARS-CoV-2 (event) Not sure [facility] Work Phone: End: 10-07-2013 History of tobacco use Cigarette Smoker [facility] Start: 11-14-2018 End: 07-11-2023 History of Social function [facility] Start: 11-14-2018 End: 07-11-2023 Tobacco use panel [facility] Adult Depression Screening Assessment 0 [facility] Medical Equipment Procedure Code Equipment Code Equipment Origin al Text Equipment Identifier Dates Start: 10-27-2022 End: 09-04-2023 Goals Date Patient Goal Desired Activity /State Personal health goal Personal health goal Clinical Notes 06-27-2019 to 12-28-2023 Addendum Note - Calixto Collado MD - 12/28/2023 10:00 AM ESTAddendum Note - Tiffany Tay Ma - 12/28/2023 9:55 AM ESTPrenatal Quick Notes - Calixto Collado MD - 12/28/2023 9:43 AM EST Note Date & Type Note Facility 12-28-2023 Miscellaneous Notes Addended by: CALIXTO COLLADO on: 12/28/2023 10:00 AM Modules accepted: Orders Addended by: TIFFANY TAY MA on: 12/28/2023 09:55 AM Modules accepted: Orders RR- VB No. LOF No. CTXS yesFetal Movement: present. Other c/o: still w/ sinus drainage. For 3 months. No fever or productive cough. Medication list reviewed. Physical Exam See Flow Sheet Abd: soft, nontender, gravid Ext: edema: Trace A/P [id number] Estimated Date of Delivery: 02/04/24 Labs: abnormal 1 hr, can't find a time to do 3 hr. D/w her importance of this US reviewed for size date discrepancy- AGA w/ normal fluid anemia- cont. fe and recheck labs today contractions- no evidence of PTL, reviewed PTL precautions reviewed GBS done BP stable, no evidence of preeclampsia, monitor closely Weekly NSTs due to possible gest HTN and possible undx gest DM Calixto Collado M.D. Medical Decision Making: Problems: Moderate: 2+ stable chronic illnesses Data: Unique test result(s) reviewed: 2 Unique test(s) ordered: 2 Risk: Moderate: Moderate risk from testing/treatment Medical Decision Making Level: 4 - Moderate documented in this encounter [facility] 12-28-2023 Instructions Tiffany Tay Ma - 12/28/2023 9:20 AM EST SEQUENTIAL SCREENINGS The [facility] offers sequential screenings for women who are [...] It will require an appointment with our instrument technician. This is not an ultrasound performed [...] the above symptoms, contact our office at [phone] and ask to speak with a nurse. After hours, you can call doctors registry at [phone] OR call [facility] at [phone] and ask to have the doctor blood bank order control clerk paged. If you consider this an emergency, dial 9--1 or go to your nearest emergency department. NEED HELP? Are you dealing with a violent or abusive relationship? Are you a victim of rape or sexual assult? Call [facility] ([place]) 24 hour Crisis Hotline: 467.187.6985 or 869-528-4849. MANUAL Your Guide to a Healthy manual is now on-line. Visit [email or web address] to download your free copy documented in this encounter [facility] 12-02-2023 Note HNO ID: [id number] Author: THELMA RENE APRN.THIRD LOADER Service: ? Author Type: Nurse Practitioner Type: Progress Notes Filed: 12/02/2023 15:29 Note Text: Called to exam room to triage patient by nursing staff Patient c/o shortness of breath and right sided chest discomfort. Acute onset x 4 days She is 31 weeks presently She has tried x 2 ATB over the past several weeks, but remains with SOB and chest pain She is and hypercoagulable. Sent to ED to rule out PE Declines EMS [facility] 11-21-2023 Note HNO ID: [id number] Author: Sandra Carias APRN.THIRD LOADER Service: ? Author Type: Nurse Practitioner Type: Progress Notes Filed: 11/21/2023 6:35 PM Note Text: 11/21/2023 Patient presents with: Recheck: Seen in EC 11/11, completed ATB. Continues with head pressure, [...] to ER with red flag symptoms Sandra Carias APRN.THIRD LOADER Prescription instructions reviewed with patient as applicable. [...] which included preparing to see the patient, [id number] patient care, completing clinical documentation, obtaining and/or reviewing separately obtained history, performing a medically appropriate examination, counseling and educating the patient/family/caregiver, and ordering medications, tests, or procedures. [facility] 11-11-2023 Note HNO ID: [id number] Author: Aman Dickens APRN.THIRD LOADER Service: ? Author Type: Nurse Practitioner Type: [...] Laterality Date ESOPHAGOGASTRODUODENOSCOPY TRANSORAL DIAGNOSTIC 09/14/16 EGD ([facility]) ALLERGIES Patient has no known allergies. MEDICATIONS [...] as sinobronchitis. Recommend follow-up with PCP or YARD SUPERVISOR next 2 to 3 days for reevaluation. [...] agrees to plan (more content not included)... [facility] 11-11-2023 History of Presen t illness [...] as sinobronchitis. Recommend follow-up with PCP or YARD SUPERVISOR next 2 to 3 days for reevaluation. [...] of care. This note was generated using [employer] software. It may contain errors in wording, punctuation, or spelling. Aman Dickens APRN.THIRD LOADER documented in this encounter [facility] 11-02-2023 Miscellaneous Notes 2nd risk assessment form submitted 11/02/23 Marita Brothers RN documented in this encounter [facility] 10-25-2023 Miscellaneous Notes DM-Pt doing well. Denies [...] Jada Shah MD documented in this encounter [facility] 10-25-2023 Instructions Vijay Cooper RN - 10/25/2023 3:48 PM EST SEQUENTIAL SCREENINGS [facility] offers sequential screenings for women who are [...] It will require an appointment with our instrument technician. This is not an ultrasound performed [...] the above symptoms, contact our office at [phone] and ask to speak with a nurse. After hours, you can call doctors registry at [phone] OR call [facility] at [phone] and ask to have the doctor blood bank order control clerk paged. If you consider this an emergency, dial 07-27- or go to your nearest emergency department. NEED HELP? Are you dealing with a violent or abusive relationship? Are you a victim of rape or sexual assult? Call [facility] ([place] 24 hour Crisis Hotline: 626.604.3520 or 881-521-3170. MANUAL Your Guide to a Healthy manual is now on-line. Visit [email or web address] to download your free copy documented in this encounter [facility] 09-14-2023 Note HNO ID: [id number] Author: Brenda Tim APRN.THIRD LOADER Service: ? Author Type: Nurse Practitioner Type: [...] occur. Patient agreeable to treatment plan. Brenda Tim APRN.[facility] 09-14-2023 History of Presen t illness [...] occur. Patient agreeable to treatment plan. Brenda Tim APRN.ASHLEY documented in this encounter [facility] 09-14-2023 Miscellaneous Notes Patient notified and voiced [...] stop in for BP check today. Jackie Correia APRN.CNM Patient 19w4d calling with complaints of [...] Sofiya Leal RN documented in this encounter [facility] 09-04-2023 Note HNO ID: [id number] Author: Eduardo Guevara MD Service: ? 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 She had consultation with MFM in 2019 , reports history of spontaneous [...] Laterality Date ESOPHAGOGASTRODUODENOSCOPY TRANSORAL DIAGNOSTIC 09/14/16 EGD ([facility]) FAMILY HISTORY Adopted: Yes Problem Relation Age [...] We discussed vagi (more content not included)... [facility] 09-04-2023 Miscellaneous Notes RR- VB No. LOF No. CTXS No. Movement: present. Other c/o: No. Medication list reviewed. Physical Exam See Flow Sheet Abd: soft, nontender, gravid Ext: edema: no A/P 18w1d Estimated Date of Delivery: 02/04/24 Labs: second part of sequential today declines flu vaccine. f/u in 4 weeks or prn Calixto Collado M.D. documented in this encounter [facility] 09-04-2023 Instructions Pascale Bingham Ma - 09/04/2023 10:51 AM EDT SEQUENTIAL SCREENINGS The [facility] offers sequential screenings for women who are [...] It will require an appointment with our instrument technician. This is not an ultrasound performed [...] the above symptoms, contact our office at [phone] and ask to speak with a nurse. After hours, you can call doctors registry at [phone] OR call [facility] at [phone] and ask to have the doctor blood bank order control clerk paged. If you consider this an emergency, dial or go to your nearest emergency department. NEED HELP? Are you dealing with a violent or abusive relationship? Are you a victim of rape or sexual assult? Call [facility] 24 hour Crisis Hotline: 745.823.3133 or 755-102-6205. MANUAL Your Guide to a Healthy manual is now on-line. 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 She had consultation with [facility] in 2019 , reports history of [...] Laterality Date ESOPHAGOGASTRODUODENOSCOPY TRANSORAL DIAGNOSTIC 09/14/16 EGD ([facility]) FAMILY HISTORY Adopted: Yes Problem Relation Age [...] SIGNATURE: Eduardo Guevara MD PATIENT NAME: Sara Bhakta DATE: September 04, 2023 TIME: 10:28 AM documented in this encounter [facility] 08-30-2023 Miscellaneous Notes Patient notified. Lizz Cano RN Needs cervical length US so keep MFM consult scheduled Emely Tim MD 17w3d Patient called to cancel today's appointment because she does not have a licensed surveyor. She was scheduled to see you this [...] Sveta Ashford RN documented in this encounter [facility] 07-25-2023 Instructions Sveta Ashford RN - 07/25/2023 2:14 PM EDT SEQUENTIAL TESTING PROCESS Sequential Screen First Trimester Today you are currently: 12w2d weeks 07/25/2023: Ultrasound and blood test. Sequential Screen Second Trimester (16-17 Weeks Gestation) When you are called with your results, the nurse will give the optimal draw dates for the Sequential screen second trimester. Blood testing can be done at any [facility] lab. Please report to the any lean leader office javascript front end developer for the Sequential Part 2 requisition and [...] medicine office, for east side please call [phone] or for the West side call [phone] and ask for the the nurse. Thank you. documented in this encounter [facility] 07-25-2023 Miscellaneous Notes Patient here for First Trimester Screening. Please file order. documented in this encounter [facility] 07-13-2023 Miscellaneous Notes risk assessment form complete Joelle Awan RN documented in this encounter [facility] 07-12-2023 Note HNO ID: [id number] Author: Jada Gonzalez MD Service: ? Author Type: Physician Type: Progress Notes Filed: 07/12/2023 1:12 PM Note Text: OB point of care ultrasound was performed. See imaging tab for details. Jada Shah MD [facility] 07-12-2023 History of Presen t illness Narrative OB point of care ultrasound was performed. See imaging tab for details. Jada Shha MD documented in this encounter [facility] 07-11-2023 Note HNO ID: [id number] Author: Erica Menon APRN.THIRD LOADER Service: ? Author Type: Nurse Practitioner Type: [...] use: No Multivitamin with Folic acid: Yes Orthodoxy or heritage: No Would refuse blood transfusion [...] Laterality Date ESOPHAGOGASTRODUODENOSCOPY TRANSORAL DIAGNOSTIC 09/14/16 EGD ([facility]) Current Outpatient Medications Medication Sig Dispense Refill [...] 5 No current (more content not included)... [facility] 07-11-2023 Instructions Tiffany Tay Ma - 07/11/2023 1:05 PM EDT Please select the following link to access the [facility] Your Guide to a Healthy . [email or web address] documented in this encounter [facility] 07-11-2023 History of Presen t illness Narrative [...] dysplasia: none. History of STDs: HPV, chlamydia 2013 Tobacco use: No Caffeine use: No Drug use: No Alcohol use: No Multivitamin with Folic acid: Yes Orthodoxy or heritage: No Would refuse blood transfusion [...] Laterality Date ESOPHAGOGASTRODUODENOSCOPY TRANSORAL DIAGNOSTIC 09/14/16 EGD ([facility]) Current Outpatient Medications Medication Sig Dispense Refill [...] Positive reinforcement of current behavior. Erica Menon APRN.THIRD LOADER ASSESSMENT: 27 year old at 10w2d wks gestational age PLAN: 1) Patient oriented to practice. Discussed nutrition, folic acid supplementation, dietary guidelines, exercise, smoking, alcohol, caffeine, and drug use. Discussed gestational weight gain guidelines. Discussed routine OB labs including STD/HIV. Discussed how to access Your guide to a health and the Offset Duplicating Machine Operator. Discussed aneuploidy and carrier screening. Regarding aneuploidy [...] prefers in person visits. Reviewed midwifery and outside plant cable engineer services that are available. 2) History of . Will order MFM consult for further discussion. History of PPH requiring iron infusion 3) Grand multip Follow up in 2 weeks or sooner prn. Erica Menon APRN.ASHLEY documented in this encounter [facility] 04-10-2023 Note HNO ID: [id number] Author: Emely Tim MD Service: ? Author Type: Physician Type: Progress Notes Filed: 04/10/2023 3:47 PM Note Text: cultureChaperone offered: Patient declines. Sara Bhakta is a 27 year old female who presents for problem visit. HPI: Patient presents with blood tinged breast mild from her right breast. It seems to only occur when pumping on that side. She is nursing her 2 year old AND infant. It is painful on the right nipple when her 2 year old nurses. Denies left breast concerns. OB History T3 L5 SAB0 IAB0 Ectopic0 Multiple0 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 Inspector Returned Materials History LMP: 04/08/2022 (Approximate), Unknown Age at Menarche: Age at First : Age at Menopause: Inspector Returned Materials History Comments: Sexual Activity: Yes; Male; TTC Contraception: No contraception data on record PAST MEDICAL HISTORY Diagnosis Date Abnormal Pap smear of cervix LGSIL Acid reflux Anemia complicating , second trimester 04/16/2018 ASCUS of cervix with negative high risk HPV Chlamydia infection complicating 05/28/2014 Migraines Overweight PAST SURGICAL HISTORY Procedure Laterality Date ESOPHAGOGASTRODUODENOSCOPY TRANSORAL DIAGNOSTIC 09/14/16 EGD ([facility]) FAMILY HISTORY Adopted: Yes Problem Relation Age [...] Decision Making Level: 4 - Moderate Emely Tim MD [facility] 04-10-2023 History of Presen t illness [...] L5 SAB0 IAB0 Ectopic0 Multiple0 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 Inspector Returned Materials History LMP: 04/08/2022 (Approximate), Unknown Age at Menarche: Age at First : Age at Menopause: Inspector Returned Materials History Comments: Sexual Activity: Yes; Male; TTC Contraception: No contraception data on record PAST MEDICAL HISTORY Diagnosis Date Abnormal Pap smear of cervix LGSIL Acid reflux Anemia complicating , second trimester 04/16/2018 ASCUS of cervix with negative high risk HPV Chlamydia infection complicating 05/28/2014 Migraines Overweight PAST SURGICAL HISTORY Procedure Laterality Date ESOPHAGOGASTRODUODENOSCOPY TRANSORAL DIAGNOSTIC 09/14/16 EGD ([facility]) FAMILY HISTORY Adopted: Yes Problem Relation Age [...] Decision Making Level: 4 - Moderate Emely Tim MD documented in this encounter [facility] 04-05-2023 Note HNO ID: [id number] Author: KEVIN Prince Service: ? Author Type: Physician Media Liaison Officer Type: Progress Notes Filed: 04/05/2023 10:20 AM Note Text: This note was created using Evozriter. Subjective Sara Bhakta is a 27 year [...] other complaints. She has not tried anything ljwt-hot-sitokcq for symptoms PAST MEDICAL HISTORY Diagnosis Date [...] detail warranting prompt ER evaluation. KEVIN Prince [facility] 04-05-2023 History of Presen t illness Narrative This note was created using Tepha. Subjective Sara Bhakta is a 27 year [...] other complaints. She has not tried anything xjrd-kaq-ycqhcbg for symptoms PAST MEDICAL HISTORY Diagnosis Date Abnormal Pap smear of cervix LGSIL Acid reflux Anemia complicating , second trimester 04/16/2018 ASCUS of cervix with negative high risk HPV Chlamydia infection complicating 05/28/2014 Migraines Overweight PAST SURGICAL HISTORY Procedure Laterality Date ESOPHAGOGASTRODUODENOSCOPY TRANSORAL DIAGNOSTIC 09/14/16 EGD ([facility]) ALLERGIES Patient has no known allergies. MEDICATIONS [...] evaluation. KEVIN Prince documented in this encounter [facility] 2022 Instructions Jackie Correia APRN.CNM - 2022 1:44 PM EST Ibuprofen 600 mg by mouth every 6 hours Tylenol 1000 mg by mouth every 8 hours Cold and warm packs to back of neck Schedule with chiropractor documented in this encounter [facility] 2022 History of Presen t illness Narrative EARLY VISIT Sara Bhakta is a 27 year old here for a problem visit of post headache. She reports headache started on right side of head towards [employer] last night. Took Tylenol with minimal relief. [...] no sleep concerns, does not feel rested [place] since delivery: n/a Emotional support: Yes Exercise: [...] Blood pressures today- 119/77 average - Recommended daycare worker - Reviewed preeclampsia precautions and when to keke Follow up: RTO next week for 2 week post visit Jackie Correia APRN.CNM documented in this encounter [facility] 12-18-2022 History of Presen t illness Narrative Patient delivered via by Dr. Griffith on 12/16/22 at [facility]. See OB history. Lizz Cano RN documented in this encounter [facility] 12-13-2022 Miscellaneous Notes DM-Pt doing well. Denies [...] Jada Shah MD documented in this encounter [facility] 12-13-2022 Instructions Tiffany Tay Pa - 12/13/2022 11:04 AM EST SEQUENTIAL SCREENINGS The [facility] offers sequential screenings for women who are [...] It will require an appointment with our instrument technician. This is not an ultrasound performed [...] the above symptoms, contact our office at [phone] and ask to speak with a nurse. After hours, you can call doctors registry at [phone] OR call [facility] at [phone] and ask to have the doctor blood bank order control clerk paged. If you consider this an emergency, dial 9--6 or go to your nearest emergency department. NEED HELP? Are you dealing with a violent or abusive relationship? Are you a victim of rape or sexual assult? Call [facility] 24 hour Crisis Hotline: 900.883.7930 or 066-448-7254. MANUAL Your Guide to a Healthy manual is now on-line. Visit [email or web address] to download your free copy documented in this encounter [facility] 12-04-2022 Miscellaneous Notes JAMES-S: Sara Bhakta is [...] Thelma Penny APRN.CNM documented in this encounter [facility] 12-04-2022 Loretta Hobbs Cma - 12/04/2022 11:06 AM EST SEQUENTIAL SCREENINGS The [facility] offers sequential screenings for women who are [...] It will require an appointment with our instrument technician. This is not an ultrasound performed [...] the above symptoms, contact our office at [phone] and ask to speak with a nurse. After hours, you can call doctors registry at [phone] OR call [facility] at [phone] and ask to have the doctor blood bank order control clerk paged. If you consider this an emergency, dial 9--1 or go to your nearest emergency department. NEED HELP? Are you dealing with a violent or abusive relationship? Are you a victim of rape or sexual assult? Call [facility] ([place] 24 hour Crisis Hotline: 957.418.9329 or 093-218-5091. MANUAL Your Guide to a Healthy manual is now on-line. Visit [email or web address] to download your free copy documented in this encounter [facility] 11-29-2022 Miscellaneous Notes Patient notified. Voiced understanding. [...] Lizz Cano RN documented in this encounter [facility] 11-24-2022 Miscellaneous Notes RR- VB No. LOF [...] Calixto Collado M.D. documented in this encounter [facility] 11-24-2022 Loretta Bingham Ma - 11/24/2022 1:26 PM EST SEQUENTIAL SCREENINGS The [facility] offers sequential screenings for women who are [...] It will require an appointment with our instrument technician. This is not an ultrasound performed [...] the above symptoms, contact our office at [phone] and ask to speak with a nurse. After hours, you can call doctors registry at [phone] OR call [facility] at [phone] and ask to have the doctor blood bank order control clerk paged. If you consider this an emergency, dial 9-6 or go to your nearest emergency department. NEED HELP? Are you dealing with a violent or abusive relationship? Are you a victim of rape or sexual assult? Call [facility] 24 hour Crisis Hotline: 261.544.8209 or 859-477-4972. MANUAL Your Guide to a Healthy manual is now on-line. Visit [email or web address] to download your free copy documented in this encounter [facility] 11-16-2022 Miscellaneous Notes filed 35w0d Last RX sent 10/27. 30 tablets. Patient is taking twice a day. Would you like to increase number of tablets? Requested Prescriptions Pending Prescriptions Disp Refills famotidine (PEPCID) 20 mg tablet 30 tablet 0 Sig: Take 1 tablet by mouth twice daily. Sveta Ashford RN documented in this encounter [facility] 11-13-2022 Miscellaneous Notes S: Sara Bhakta is a 26 year old female who presents at 34 weeks gestation for a routine visit. Has been monitoring blood glucose levels but forgot to bring in the sheets today. Reports only 3 elevated levels after dinner only. All fasting levels within normal ranges. She will send results through Wish. Denies headache, visual changes, chest pain, shortness [...] 2 weeks or sooner if needed Jackie Correia APRN.CNM documented in this encounter [facility] 11-13-2022 Instructions Pascale Bingham Ma - 11/13/2022 1:58 PM EST SEQUENTIAL SCREENINGS The [facility] offers sequential screenings for women who are [...] It will require an appointment with our instrument technician. This is not an ultrasound performed [...] the above symptoms, contact our office at [phone] and ask to speak with a nurse. After hours, you can call doctors registry at [phone] OR call [facility] at [phone] and ask to have the doctor blood bank order control clerk paged. If you consider this an emergency, dial 9--1 or go to your nearest emergency department. NEED HELP? Are you dealing with a violent or abusive relationship? Are you a victim of rape or sexual assult? Call [facility] 24 hour Crisis Hotline: 439.917.3463 or 233-142-4767. MANUAL Your Guide to a Healthy manual is now on-line. Visit [email or web address] to download your free copy documented in this encounter [facility] 10-27-2022 Miscellaneous Notes SW- Recovered from the [...] x 2 weeks - RTO 2 wks Cinthia Griffith DO documented in this encounter [facility] 10-27-2022 Instructions Angela Brown MA - 10/27/2022 1:05 PM EST SEQUENTIAL SCREENINGS The [facility] offers sequential screenings for women who are [...] It will require an appointment with our instrument technician. This is not an ultrasound performed [...] the above symptoms, contact our office at [phone] and ask to speak with a nurse. After hours, you can call doctors registry at [phone] OR call [facility] at [phone] and ask to have the doctor blood bank order control clerk paged. If you consider this an emergency, dial 91-2 or go to your nearest emergency department. NEED HELP? Are you dealing with a violent or abusive relationship? Are you a victim of rape or sexual assult? Call [facility] 24 hour Crisis Hotline: 221.281.3017 or 107-160-6311. MANUAL Your Guide to a Healthy manual is now on-line. Visit [email or web address] to download your free copy documented in this encounter [facility] 10-23-2022 History of Presen t illness Narrative [...] Laterality Date ESOPHAGOGASTRODUODENOSCOPY TRANSORAL DIAGNOSTIC 09/14/16 EGD ([facility]) ALLERGIES Patient has no known allergies. MEDICATIONS [...] Discussed expected course of illness Amanda Brown APRN.THIRD LOADER documented in this encounter [facility] 10-23-2022 Instructions Amanda Brown APRN.ASHLEY - 10/23/2022 4:17 PM EST Images from [...] Discussed expected course of illness Amanda Brown APRN.ASHLEY Adult Sinusitis Patient Education What is Sinusitis? Sinusitis [mhuk-owo-ymqz-tis] is inflammation of the sinuses or swelling [...] help. You may be instructed to take nlnc-npm-bbngvoq medications for symptoms. including fever reducers acetaminophen or ibuprofen, nasal saline spray, cough and cold preparations and decongestants as prescribed by the physician, nurse practitioner or physician pediatric medical assistant. Self-Care and Prevention: Rest Fluids for hydration Good hand washing Humidifier Avoid smoking and exposure to second hand smoke Avoid sick contacts documented in this encounter [facility] 10-23-2022 Miscellaneous Notes Patient notified. Voiced understanding. Platogo message also sent for patient to refer [...] positive for influenza on Sunday, 10/19 at [facility]. Calling to report that she has sinus pressure that is making the left side of her face hurt. The pressure is even making her teeth hurt. Taking Tylenol only. Platogo message sent with link to medications safe in . Advised to go to ER if she develops SOB or CP. Next OB visit is on 10/27. Encouraged to rest and push fluids. Do you have anything further to advise. Sveta Ashford RN documented in this encounter [facility] 09-29-2022 Miscellaneous Notes JAMES-S: Sara Bhakta is [...] RTO- 2 weeks or sooner if needed CHRISTINE VeraIRLorena Sara Bhakta was given the 4P's screening [...] which included preparing to see the patient, huhx-tl-butt patient care, completing clinical documentation, obtaining and/or reviewing separately obtained history, performing a medically appropriate examination, counseling and educating the patient/family/caregiver, and ordering medications, tests, or procedures. documented in this encounter [facility] 09-29-2022 Instructions Thelma Penny APRN.CNM - 09/29/2022 [...] check with insurance for coverage) Go to [facility] online and fill out information SIGNS AND [...] the above symptoms, contact our office at [phone] and ask to speak with a nurse. After hours, you can call doctors registry at [phone] OR call [facility] at [phone] and ask to have the doctor blood bank order control clerk paged. If you consider this an emergency, dial 9-1-4 or go to your nearest emergency department. NEED HELP? Are you dealing with a violent or abusive relationship? Are you a victim of rape or sexual assult? Call [facility] 24 hour Crisis Hotline: 892.495.1875 or 348-859-1849. MANUAL Your Guide to a Healthy manual is now on-line. Visit [email or web address] to download your free copy documented in this encounter [facility] 08-17-2022 Miscellaneous Notes Agree with urgent care [...] Sveta Ashford RN documented in this encounter [facility] 08-03-2022 Miscellaneous Notes Sara Bhakta is a [...] 4 weeks or sooner if needed. Jackie Correia APRN.CNM documented in this encounter [facility] 08-03-2022 Instructions Tiffany Tay Ma - 08/03/2022 1:53 PM EDT SEQUENTIAL SCREENINGS The [facility] offers sequential screenings for women who are [...] It will require an appointment with our instrument technician. This is not an ultrasound performed [...] the above symptoms, contact our office at [phone] and ask to speak with a nurse. After hours, you can call doctors registry at [phone] OR call [facility] at [phone] and ask to have the doctor blood bank order control clerk paged. If you consider this an emergency, dial 91-2 or go to your nearest emergency department. NEED HELP? Are you dealing with a violent or abusive relationship? Are you a victim of rape or sexual assult? Call [facility] ([place] 24 hour Crisis Hotline: 802.816.7941 or 797-181-5204. MANUAL Your Guide to a Healthy manual is now on-line. Visit [email or web address] to download your free copy documented in this encounter [facility] 07-18-2022 Miscellaneous Notes RR- VB No. LOF [...] Calixto Collado M.D. documented in this encounter [facility] 07-18-2022 Loretta Bingham Ma - 07/18/2022 10:34 AM EDT SEQUENTIAL SCREENINGS The [facility] offers sequential screenings for women who are [...] It will require an appointment with our instrument technician. This is not an ultrasound performed [...] the above symptoms, contact our office at [phone] and ask to speak with a nurse. After hours, you can call doctors registry at [phone] OR call [facility] at [phone] and ask to have the doctor blood bank order control clerk paged. If you consider this an emergency, dial [phone] or go to your nearest emergency department. NEED HELP? Are you dealing with a violent or abusive relationship? Are you a victim of rape or sexual assult? Call [facility] ([facility] 24 hour Crisis Hotline: 607.466.9186 or 397-724-5097. MANUAL Your Guide to a Healthy manual is now on-line. Visit [email or web address] to download your free copy documented in this encounter [facility] 06-05-2022 Miscellaneous Notes NOB completed today. Jackie Correia APRN.CNM documented in this encounter [facility] 06-05-2022 Instructions Sofiya Leal RN - 06/05/2022 2:00 PM EDT SEQUENTIAL TESTING PROCESS Sequential Screen First Trimester Today you are currently: 8w2d weeks 06/05/2022: Ultrasound and blood test. Sequential Screen Second Trimester (16-17 Weeks Gestation) When you are called with your results, the nurse will give the optimal draw dates for the Sequential screen second trimester. Blood testing can be done at any [facility] lab. Please report to the any lean leader office javascript front end developer for the Sequential Part 2 requisition and [...] medicine office, for east side please call [phone] or for the West side call [phone] and ask for the the nurse. Thank you. documented in this encounter [facility] 06-05-2022 Miscellaneous Notes Please file pended order Sofiya Leal RN Patient here for First Trimester Screening. See ultrasound report for details. Options for genetic screening and diagnosis discussed with the patient. Patient opts for first trimester screening and the sequential screening protocol. Limitations of screening tests discussed with the patient. Jackie Correia APRN.CNM documented in this encounter [facility] 06-05-2022 History of Presen t illness Narrative Images from the original note were not included. 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 Positive reinforcement of current behavior. Jackie Correia APRN.CNM ASSESSMENT: 26 year old at 11.5 [...] in 4 weeks or sooner prn. Jackie Correia APRN.CNM documented in this encounter [facility] 06-05-2022 Instructions Tiffany Tay Ma - 06/05/2022 1:12 PM EDT Reglan, Tylenol 1000 mg, and Benadryl 25 mg for headache Drink Powerade or Gatorade Please select the following link to access the [facility] Your Guide to a Healthy . [email or web address] documented in this encounter [facility] 05-23-2022 Miscellaneous Notes I don't think she will need blood work at this time. I will complete an US at first OB. Thanks for the heads up! Jackie Correia APRN.CNM Patient had telephone Pre new OB [...] new OB appointment. documented in this encounter [facility] 05-22-2022 Miscellaneous Notes DISTANCE HEALTH VISIT This [...] Declined Lisa last . Does not want [place] this as well. 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 ASCUS with positive high risk HPV [...] Overview: 12/22/17- UTI, treated with Macrobid by [facility] ER. Thelma Penny CNM Current with histo ry of spontaneous during prior 10/25/2017 08/04/20 19 Overview: 10/25/2017Patient had a previous miscarriage 02/2017. Denies any bleeding, pain or cramping. Miscarriage precautions given. TKRN Chlamydia infection complicating 05/28/2014 06/22/2015 Overview: Negative GC/Chlamydia 06/08/14. Sho Weiss, ASHLEY Elevated glucose 03/24/2014 09/04/2023 Overview: 10/02/22- Elevated 1 hour- 3 hour ordered. 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 ASCUS with positive high risk HPV [...] Overview: 12/22/17- UTI, treated with Macrobid by [facility] ER. Thelma Penny CNM Current with histo ry of spontaneous during prior 10/25/2017 08/04/20 19 Overview: 10/25/2017Patient had a previous miscarriage 02/2017. Denies any bleeding, pain or cramping. Miscarriage precautions given. TKRN Chlamydia infection complicating 05/28/2014 06/22/2015 Overview: Negative GC/Chlamydia 06/08/14. Sho Weiss, ASHLEY Elevated glucose 03/24/2014 09/04/2023 Overview: 10/02/22- Elevated 1 hour- 3 hour ordered. 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 ASCUS with positive high risk HPV [...] Overview: 12/22/17- UTI, treated with Macrobid by [facility] ER. Thelma Penny CNM Current with histo ry of spontaneous during prior 10/25/2017 08/04/20 Overview: 10/25/2017Patient had a previous miscarriage 02/2017. Denies any bleeding, pain or cramping. Miscarriage precautions given. TKRN Chlamydia infection complicating 05/28/2014 06/22/2015 Overview: Negative GC/Chlamydia 06/08/14. Sho Weiss, ASHLEY Elevated glucose 03/24/2014 09/04/2023 Overview: 10/02/22- Elevated 1 hour- 3 hour ordered. 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 ASCUS with positive high risk HPV [...] Overview: 12/22/17- UTI, treated with Macrobid by [facility] ER. Thelma Penny CNM Current with histo ry of spontaneous during prior 10/25/2017 08/04/20 19 Overview: 10/25/2017Patient had a previous miscarriage 02/2017. Denies any bleeding, pain or cramping. Miscarriage precautions given. TKRN Chlamydia infection complicating 05/28/2014 06/22/2015 Overview: Negative GC/Chlamydia 06/08/14. Sho Weiss, THIRD LOADER Elevated glucose 03/24/2014 09/04/2023 Overview: 10/02/22- Elevated 1 hour- 3 hour ordered. 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 ASCUS with positive high risk HPV [...] Overview: 12/22/17- UTI, treated with Macrobid by [facility] ER. Thelma Penny CNM Current with histo ry of spontaneous during prior 10/25/2017 08/04/20 19 Overview: 10/25/2017Patient had a previous miscarriage 02/2017. Denies any bleeding, pain or cramping. Miscarriage precautions given. TKRN Chlamydia infection complicating 05/28/2014 06/22/2015 Overview: Negative GC/Chlamydia 06/08/14. Sho Weiss, THIRD LOADER Elevated glucose 03/24/2014 09/04/2023 Overview: 10/02/22- Elevated 1 hour- 3 hour ordered. 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 ASCUS with positive high risk HPV [...] Overview: 12/22/17- UTI, treated with Macrobid by [facility] ER. Thelma Penny CNM Current with histo ry of spontaneous during prior 10/25/2017 08/04/20 19 Overview: 10/25/2017Patient had a previous miscarriage 02/2017. Denies any bleeding, pain or cramping. Miscarriage precautions given. TKRN Chlamydia infection complicating 05/28/2014 06/22/2015 Overview: Negative GC/Chlamydia 06/08/14. Sho Weiss CNP Elevated glucose 03/24/2014 09/04/2023 Overview: 10/02/22- Elevated 1 hour- 3 hour ordered. 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 ASCUS with positive high risk HPV [...] Overview: 12/22/17- UTI, treated with Macrobid by [facility] ER. Thelma Penny CNM Current with histo ry of spontaneous during prior 10/25/2017 08/04/20 Overview: 10/25/2017Patient had a previous miscarriage 02/2017. Denies any bleeding, pain or cramping. Miscarriage precautions given. TKRN Chlamydia infection complicating 05/28/2014 06/22/2015 Overview: Negative GC/Chlamydia 06/08/14. Sho Weiss, THIRD LOADER Elevated glucose 03/24/2014 09/04/2023 Overview: 10/02/22- Elevated 1 hour- 3 hour ordered. 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 ASCUS with positive high risk HPV [...] Overview: 12/22/17- UTI, treated with Macrobid by [facility] ER. Thelma Penny CNM Current with histo ry of spontaneous during prior 10/25/2017 08/04/20 19 Overview: 10/25/2017Patient had a previous miscarriage 02/2017. Denies any bleeding, pain or cramping. Miscarriage precautions given. TKRN Chlamydia infection complicating 05/28/2014 06/22/2015 Overview: Negative GC/Chlamydia 06/08/14. Sho Weiss, THIRD LOADER Elevated glucose 03/24/2014 09/04/2023 Overview: 10/02/22- Elevated 1 hour- 3 hour ordered. Jackie Correia APRN.CNM 03/30/14 - 3hr GTT normal - [...] as of this encounter (statuses as of 12/28/2023) [facility] History of Past illness Narrative* Problem Noted Date Resolved Date Threatened premature labor in third trimester 08/04/2019 Overview: 06/27/19 - BMZ #1 today and will repeat tomorrow at [facility] - Emely Tim MD ASCUS with positive high risk HPV [...] Overview: 12/22/17- UTI, treated with Macrobid by [facility] ER. Thelma Penny CNM Current with histo ry of spontaneous during prior 10/25/2017 08/04/2019 Overview: 10/25/2017Patient had a previous miscarriage 02/2017. Denies any bleeding, pain or cramping. Miscarriage precautions given. TKRN Chlamydia infection complicating 05/2806/22/2015 Overview: Negative GC/Chlamydia 06/08/14. Sho Weiss, THIRD LOADER Elevated glucose 03/24/2014 06/22/2015 Overview: 03/30/14 - [...] of this encounter (statuses as of 05/22/2022) [facility] History of Past illness Narrative* Problem Noted Date Resolved Date Threatened premature labor in third trimester 08/04/2019 Overview: 06/27/19 - BMZ #1 today and will repeat tomorrow at [facility] - Emely Tim MD ASCUS with positive high risk HPV [...] Overview: 12/22/17- UTI, treated with Macrobid by [facility] ER. Thelma Penny CNM Current with histo ry of spontaneous during prior 10/25/2017 08/04/2019 Overview: 10/25/2017Patient had a previous miscarriage 02/2017. Denies any bleeding, pain or cramping. Miscarriage precautions given. TKRN Chlamydia infection complicating 05/2806/22/2015 Overview: Negative GC/Chlamydia 06/08/14. Sho Weiss, THIRD LOADER Elevated glucose 03/24/2014 06/22/2015 Overview: 03/30/14 - [...] of this encounter (statuses as of 05/23/2022) [facility] History of Past illness Narrative* Problem Noted Date Resolved Date Threatened premature labor in third trimester 08/04/2019 Overview: 06/27/19 - BMZ #1 today and will repeat tomorrow at [facility] - Emely Tim MD ASCUS with positive high risk HPV [...] Horizon 14 panel carrier screening. Drawn today. hTelma Penny APRN.CNM Short interval between pregn ancies affecting , antepartum 12/26/2018 09/23/2019 Overview: 12/26/2018Patient delivered last child 05/26/2018. TKRN Anemia complicating , second trimester 04/16/2018 11/22/2020 Overview: 04/01/18-Hgb 10.7, start PO iron. Recheck in 4 weeks. Thelma Penny APRN.CNM UTI (urinary tract infection) in , ante 01/22/2018 01/15/2019 Overview: 12/22/17- UTI, treated with Macrobid by [facility] ER. Thelma Penny CNM Current with histo ry of spontaneous during prior 10/25/2017 08/04/2019 Overview: 10/25/2017Patient had a previous miscarriage 02/2017. Denies any bleeding, pain or cramping. Miscarriage precautions given. TKRN Chlamydia infection complicating 05/2806/22/2015 Overview: Negative GC/Chlamydia 06/08/14. Sho Weiss, THIRD LOADER Elevated glucose 03/24/2014 06/22/2015 Overview: 03/30/14 - [...] of this encounter (statuses as of 06/05/2022) [facility] History of Past illness Narrative* Problem Noted Date Resolved Date Threatened premature labor in third trimester 08/04/2019 Overview: 06/27/19 - BMZ #1 today and will repeat tomorrow at [facility] - Emely Tim MD ASCUS with positive high risk HPV [...] Overview: 12/22/17- UTI, treated with Macrobid by [facility] ER. Thelma Penny CNM Current with histo ry of spontaneous during prior 10/25/2017 08/04/2019 Overview: 10/25/2017Patient had a previous miscarriage 02/2017. Denies any bleeding, pain or cramping. Miscarriage precautions given. TKRN Chlamydia infection complicating 05/2806/22/2015 Overview: Negative GC/Chlamydia 06/08/14. Sho Weiss, THIRD LOADER Elevated glucose 03/24/2014 06/22/2015 Overview: 03/30/14 - [...] of this encounter (statuses as of 06/05/2022) [facility] History of Past illness Narrative* Problem Noted Date Resolved Date Threatened premature labor in third trimester 08/04/2019 Overview: 06/27/19 - BMZ #1 today and will repeat tomorrow at [facility] - Emely Tim MD ASCUS with positive high risk HPV cervical 01/1511/30/2020 Overview: 11/30/20-Pap smear Negative. Thelma Penny APRN.TIANNA 01/15/19-Patient with history of ASCUS positive HR [...] Overview: 12/22/17- UTI, treated with Macrobid by [facility] ER. Thelma Penny CNM Current with histo ry of spontaneous during prior 10/25/2017 08/04/2019 Overview: 10/25/2017Patient had a previous miscarriage 02/2017. Denies any bleeding, pain or cramping. Miscarriage precautions given. TKRN Chlamydia infection complicating 05/2806/22/2015 Overview: Negative GC/Chlamydia 06/08/14. Sho Weiss, THIRD LOADER Elevated glucose 03/24/2014 06/22/2015 Overview: 03/30/14 - [...] of this encounter (statuses as of 06/05/2022) [facility] History of Past illness Narrative* Problem Noted Date Resolved Date Threatened premature labor in third trimester 08/04/2019 Overview: 06/27/19 - BMZ #1 today and will repeat tomorrow at [facility] - Emely Tim MD ASCUS with positive high risk HPV [...] Horizon 14 panel carrier screening. Drawn today. Tehlma Penny APRN.CNM Short interval between pregn ancies affecting , antepartum 12/26/2018 09/23/2019 Overview: 12/26/2018Patient delivered last child 05/26/2018. TKRN Anemia complicating , second trimester 04/16/2018 11/22/2020 Overview: 04/01/18-Hgb 10.7, start PO iron. Recheck in 4 weeks. Thelma Penny APRN.CNM UTI (urinary tract infection) in , ante 01/22/2018 01/15/2019 Overview: 12/22/17- UTI, treated with Macrobid by [facility] ER. Thelma Penny CNM Current with histo ry of spontaneous during prior 10/25/2017 08/04/2019 Overview: 10/25/2017Patient had a previous miscarriage 02/2017. Denies any bleeding, pain or cramping. Miscarriage precautions given. TKRN Chlamydia infection complicating 05/2806/22/2015 Overview: Negative GC/Chlamydia 06/08/14. Sho Weiss, THIRD LOADER Elevated glucose 03/24/2014 06/22/2015 Overview: 03/30/14 - [...] of this encounter (statuses as of 07/18/2022) [facility] History of Past illness Narrative* Problem Noted Date Resolved Date Threatened premature labor in third trimester 08/04/2019 Overview: 06/27/19 - BMZ #1 today and will repeat tomorrow at [facility] - Emely Tim MD ASCUS with positive high risk HPV [...] Overview: 12/22/17- UTI, treated with Macrobid by [facility] ER. Thelma Penny CNM Current with histo ry of spontaneous during prior 10/25/2017 08/04/2019 Overview: 10/25/2017Patient had a previous miscarriage 02/2017. Denies any bleeding, pain or cramping. Miscarriage precautions given. TKRN Chlamydia infection complicating 05/2806/22/2015 Overview: Negative GC/Chlamydia 06/08/14. Sho Weiss, THIRD LOADER Elevated glucose 03/24/2014 06/22/2015 Overview: 03/30/14 - [...] of this encounter (statuses as of 08/03/2022) [facility] of Past illness Narrative* Problem Noted Date Resolved Date Threatened premature labor in third trimester 08/04/2019 Overview: 06/27/19 - BMZ #1 today and will repeat tomorrow at [facility] - Emely Tim MD ASCUS with positive high risk HPV [...] Overview: 12/22/17- UTI, treated with Macrobid by [facility] ER. Thelma Penny CNM Current with histo ry of spontaneous during prior 10/25/2017 08/04/2019 Overview: 10/25/2017Patient had a previous miscarriage 02/2017. Denies any bleeding, pain or cramping. Miscarriage precautions given. TKRN Chlamydia infection complicating 05/2806/22/2015 Overview: Negative GC/Chlamydia 06/08/14. Sho Weiss, THIRD LOADER Elevated glucose 03/24/2014 06/22/2015 Overview: 03/30/14 - [...] of this encounter (statuses as of 08/03/2022) [facility] of Past illness Narrative* Problem Noted Date Resolved Date Threatened premature labor in third trimester 08/04/2019 Overview: 06/27/19 - BMZ #1 today and will repeat tomorrow at [facility] - Emely Tim MD ASCUS with positive high risk HPV [...] Overview: 12/22/17- UTI, treated with Macrobid by [facility] ER. Thelma Penny CNM Current with histo ry of spontaneous during prior 10/25/2017 08/04/2019 Overview: 10/25/2017Patient had a previous miscarriage 02/2017. Denies any bleeding, pain or cramping. Miscarriage precautions given. TKRN Chlamydia infection complicating 05/2806/22/2015 Overview: Negative GC/Chlamydia 06/08/14. Sho Weiss, THIRD LOADER Elevated glucose 03/24/2014 06/22/2015 Overview: 03/30/14 - [...] of this encounter (statuses as of 08/03/2022) [facility] of Past illness Narrative* Problem Noted Date Resolved Date Threatened premature labor in third trimester 08/04/2019 Overview: 06/27/19 - BMZ #1 today and will repeat tomorrow at [facility] - Emely Tim MD ASCUS with positive high risk HPV [...] Overview: 12/22/17- UTI, treated with Macrobid by [facility] ER. Thelma Penny CNM Current with histo ry of spontaneous during prior 10/25/2017 08/04/2019 Overview: 10/25/2017Patient had a previous miscarriage 02/2017. Denies any bleeding, pain or cramping. Miscarriage precautions given. TKRN Chlamydia infection complicating 05/2806/22/2015 Overview: Negative GC/Chlamydia 06/08/14. Sho Weiss, THIRD LOADER Elevated glucose 03/24/2014 06/22/2015 Overview: 03/30/14 - [...] of this encounter (statuses as of 08/17/2022) [facility] of Past illness Narrative* Problem Noted Date Resolved Date Threatened premature labor in third trimester 08/04/2019 Overview: 8/2/19 - BMZ #1 today and will repeat tomorrow at [facility] - Emely Tim MD ASCUS with positive high risk HPV [...] Overview: 12/22/17- UTI, treated with Macrobid by [facility] ER. Thelma Penny CNM Current with histo ry of spontaneous during prior 10/25/2017 08/04/2019 Overview: 10/25/2017Patient had a previous miscarriage 02/2017. Denies any bleeding, pain or cramping. Miscarriage precautions given. TKRN Chlamydia infection complicating 05/2806/22/2015 Overview: Negative GC/Chlamydia 06/08/14. Sho Weiss, THIRD LOADER Elevated glucose 03/24/2014 06/22/2015 Overview: 03/30/14 - [...] of this encounter (statuses as of 09/29/2022) [facility] of Past illness Narrative* Problem Noted Date Resolved Date Threatened premature labor in third trimester 08/04/2019 Overview: 06/27/19 - BMZ #1 today and will repeat tomorrow at [facility] - Emely Tim MD ASCUS with positive high risk HPV [...] Overview: 12/22/17- UTI, treated with Macrobid by [facility] ER. Thelma Penny CNM Current with histo ry of spontaneous during prior 10/25/2017 08/04/2019 Overview: 10/25/2017Patient had a previous miscarriage 02/2017. Denies any bleeding, pain or cramping. Miscarriage precautions given. TKRN Chlamydia infection complicating 05/2806/22/2015 Overview: Negative GC/Chlamydia 06/08/14. Sho Weiss, THIRD LOADER of partner 03/20/2014 06/22/2015 Overview: 03/20/14 - [...] of this encounter (statuses as of 10/02/2022) [facility] of Past illness Narrative* Problem Noted Date Resolved Date Threatened premature labor in third trimester 08/04/2019 Overview: 06/27/19 - BMZ #1 today and will repeat tomorrow at [facility] - Emely Tim MD ASCUS with positive high risk HPV [...] Overview: 12/22/17- UTI, treated with Macrobid by [facility] ER. Thelma Penny CNM Current with histo ry of spontaneous during prior 10/25/2017 08/04/2019 Overview: 10/25/2017Patient had a previous miscarriage 02/2017. Denies any bleeding, pain or cramping. Miscarriage precautions given. TKRN Chlamydia infection complicating 05/2806/22/2015 Overview: Negative GC/Chlamydia 06/08/14. Sho Weiss, THIRD LOADER of partner 03/20/2014 06/22/2015 Overview: 03/20/14 - [...] of this encounter (statuses as of 10/23/2022) [facility] History of Past illness Narrative* Problem Noted Date Resolved Date Threatened premature labor in third trimester 08/04/2019 Overview: 06/27/19 - BMZ #1 today and will repeat tomorrow at [facility] - Emely Tim MD ASCUS with positive high risk HPV [...] Overview: 12/22/17- UTI, treated with Macrobid by [facility] ER. Thelma Penny CNM Current with histo ry of spontaneous during prior 10/25/2017 08/04/2019 Overview: 10/25/2017Patient had a previous miscarriage 02/2017. Denies any bleeding, pain or cramping. Miscarriage precautions given. TKRN Chlamydia infection complicating 05/2806/22/2015 Overview: Negative GC/Chlamydia 06/08/14. Sho Weiss, THIRD LOADER of partner 03/20/2014 06/22/2015 Overview: 03/20/14 - [...] of this encounter (statuses as of 10/23/2022) [facility]08-[facility] History of Past illness Narrative* Problem Noted Date Resolved Date Threatened premature labor in third trimester 08/04/2019 Overview: 06/27/19 - BMZ #1 today and will repeat tomorrow at [facility] - Emely Tim MD ASCUS with positive high risk HPV [...] Overview: 12/22/17- UTI, treated with Macrobid by [facility] ER. Thelma Penny CNM Current with histo ry of spontaneous during prior 10/25/2017 08/04/2019 Overview: 10/25/2017Patient had a previous miscarriage 02/2017. Denies any bleeding, pain or cramping. Miscarriage precautions given. TKRN Chlamydia infection complicating 05/2806/22/2015 Overview: Negative GC/Chlamydia 06/08/14. Sho Weiss, THIRD LOADER of partner 03/20/2014 06/22/2015 Overview: 03/20/14 - [...] of this encounter (statuses as of 10/27/2022) [facility] History of Past illness Narrative* Problem Noted Date Resolved Date Threatened premature labor in third trimester 08/04/2019 Overview: 06/27/19 - BMZ #1 today and will repeat tomorrow at [facility] - Emely Tim MD ASCUS with positive high risk HPV [...] Overview: 12/22/17- UTI, treated with Macrobid by [facility] ER. Thelma Penny CNM Current with histo ry of spontaneous during prior 10/25/2017 08/04/2019 Overview: 10/25/2017Patient had a previous miscarriage 02/2017. Denies any bleeding, pain or cramping. Miscarriage precautions given. TKRN Chlamydia infection complicating 05/2806/22/2015 Overview: Negative GC/Chlamydia 06/08/14. Sho Weiss, THIRD LOADER of partner 03/20/2014 06/22/2015 Overview: 03/20/14 - [...] of this encounter (statuses as of 10/27/2022) [facility] History of Past illness Narrative* Problem Noted Date Resolved Date Threatened premature labor in third trimester 08/04/2019 Overview: 06/27/19 - BMZ #1 today and will repeat tomorrow at [facility] - Emely Tim MD ASCUS with positive high risk HPV [...] Overview: 12/22/17- UTI, treated with Macrobid by [facility] ER. Thelma Penny CNM Current with histo ry of spontaneous during prior 10/25/2017 08/04/2019 Overview: 10/25/2017Patient had a previous miscarriage 02/2017. Denies any bleeding, pain or cramping. Miscarriage precautions given. TKRN Chlamydia infection complicating 05/2806/22/2015 Overview: Negative GC/Chlamydia 06/08/14. Sho Weiss, THIRD LOADER of partner 03/20/2014 06/22/2015 Overview: 03/20/14 - [...] of this encounter (statuses as of 11/13/2022) [facility] History of Past illness Narrative* Problem Noted Date Resolved Date Threatened premature labor in third trimester 08/04/2019 Overview: 06/27/19 - BMZ #1 today and will repeat tomorrow at [facility] - Emely Tim MD ASCUS with positive high risk HPV [...] Overview: 12/22/17- UTI, treated with Macrobid by [facility] ER. Thelma Penny CNM Current with histo ry of spontaneous during prior 10/25/2017 08/04/2019 Overview: 10/25/2017Patient had a previous miscarriage 02/2017. Denies any bleeding, pain or cramping. Miscarriage precautions given. TKRN Chlamydia infection complicating 05/2806/22/2015 Overview: Negative GC/Chlamydia 06/08/14. Sho Weiss, THIRD LOADER of partner 03/20/2014 06/22/2015 Overview: 03/20/14 - [...] of this encounter (statuses as of 11/17/2022) [facility] History of Past illness Narrative* Problem Noted Date Resolved Date Threatened premature labor in third trimester 08/04/2019 Overview: 06/27/19 - BMZ #1 today and will repeat tomorrow at [facility] - Emely Tim MD ASCUS with positive high risk HPV [...] Overview: 12/22/17- UTI, treated with Macrobid by [facility] ER. Thelma Penny CNM Current with histo ry of spontaneous during prior 10/25/2017 08/04/2019 Overview: 10/25/2017Patient had a previous miscarriage 02/2017. Denies any bleeding, pain or cramping. Miscarriage precautions given. TKRN Chlamydia infection complicating 05/2806/22/2015 Overview: Negative GC/Chlamydia 06/08/14. Sho Weiss, THIRD LOADER of partner 03/20/2014 06/22/2015 Overview: 03/20/14 - [...] of this encounter (statuses as of 11/29/2022) [facility]08-02[facility] History of Past illness Narrative* Problem Noted Date Resolved Date Threatened premature labor in third trimester 08/04/2019 Overview: 06/27/19 - BMZ #1 today and will repeat tomorrow at [facility] - Emely Tim MD ASCUS with positive high risk HPV [...] Overview: 12/22/17- UTI, treated with Macrobid by [facility] ER. Thelma Penny CNM Current with histo ry of spontaneous during prior 10/25/2017 08/04/2019 Overview: 10/25/2017Patient had a previous miscarriage 02/2017. Denies any bleeding, pain or cramping. Miscarriage precautions given. TKRN Chlamydia infection complicating 05/2806/22/2015 Overview: Negative GC/Chlamydia 06/08/14. Sho Weiss, THIRD LOADER of partner 03/20/2014 06/22/2015 Overview: 03/20/14 - [...] of this encounter (statuses as of 11/30/2022) [facility] History of Past illness Narrative* Problem Noted Date Resolved Date Threatened premature labor in third trimester 08/04/2019 Overview: 06/27/19 - BMZ #1 today and will repeat tomorrow at [facility] - Emely Tim MD ASCUS with positive high risk HPV [...] Overview: 12/22/17- UTI, treated with Macrobid by [facility] ER. Thelma Penny CNM Current with histo ry of spontaneous during prior 10/25/2017 08/04/2019 Overview: 10/25/2017Patient had a previous miscarriage 02/2017. Denies any bleeding, pain or cramping. Miscarriage precautions given. TKRN Chlamydia infection complicating 05/2806/22/2015 Overview: Negative GC/Chlamydia 06/08/14. Sho Weiss, THIRD LOADER of partner 03/20/2014 06/22/2015 Overview: 03/20/14 - [...] of this encounter (statuses as of 12/04/2022) [facility]08-02-2019 History of Past illness Narrative* Problem Noted Date Resolved Date Threatened premature labor in third trimester 08/04/2019 Overview: 06/27/19 - BMZ #1 today and will repeat tomorrow at [facility] - Emely Tim MD ASCUS with positive high risk HPV [...] Overview: 12/22/17- UTI, treated with Macrobid by [facility] ER. Thelma Penny CNM Current with histo ry of spontaneous during prior 10/25/2017 08/04/2019 Overview: 10/25/2017Patient had a previous miscarriage 02/2017. Denies any bleeding, pain or cramping. Miscarriage precautions given. TKRN Chlamydia infection complicating 05/2806/22/2015 Overview: Negative GC/Chlamydia 06/08/14. Sho Weiss, THIRD LOADER of partner 03/20/2014 06/22/2015 Overview: 03/20/14 - [...] of this encounter (statuses as of 12/13/2022) [facility] History of Past illness Narrative* Problem Noted Date Resolved Date Threatened premature labor in third trimester 08/04/2019 Overview: 06/27/19 - BMZ #1 today and will repeat tomorrow at [facility] - Emely Tim MD ASCUS with positive high risk HPV [...] Overview: 12/22/17- UTI, treated with Macrobid by [facility] ER. Thelma Penny CNM Current with histo ry of spontaneous during prior 10/25/2017 08/04/2019 Overview: 10/25/2017Patient had a previous miscarriage 02/2017. Denies any bleeding, pain or cramping. Miscarriage precautions given. TKRN Chlamydia infection complicating 05/2806/22/2015 Overview: Negative GC/Chlamydia 06/08/14. Sho Weiss, THIRD LOADER of partner 03/20/2014 06/22/2015 Overview: 03/20/14 - [...] of this encounter (statuses as of 12/18/2022) [facility]08-02-2019 History of Past illness Narrative* Problem Noted Date Resolved Date Threatened premature labor in third trimester 08/04/2019 Overview: 06/27/19 - BMZ #1 today and will repeat tomorrow at [facility] - Emely Tim MD ASCUS with positive high risk HPV [...] Overview: 12/22/17- UTI, treated with Macrobid by [facility] ER. Thelma Penny CNM Current with histo ry of spontaneous during prior 10/25/2017 08/04/2019 Overview: 10/25/2017Patient had a previous miscarriage 02/2017. Denies any bleeding, pain or cramping. Miscarriage precautions given. TKRN Chlamydia infection complicating 05/2806/22/2015 Overview: Negative GC/Chlamydia 06/08/14. Sho Weiss, THIRD LOADER of partner 03/20/2014 06/22/2015 Overview: 03/20/14 - [...] of this encounter (statuses as of 2022) [facility]08-02-2019 History of Past illness Narrative* Problem Noted Date Resolved Date Threatened premature labor in third trimester 08/04/2019 Overview: 06/27/19 - BMZ #1 today and will repeat tomorrow at [facility] - Emely Tim MD ASCUS with positive high risk HPV [...] Overview: 12/22/17- UTI, treated with Macrobid by [facility] ER. Thelma Penny CNM Current with histo ry of spontaneous during prior 10/25/2017 08/04/2019 Overview: 10/25/2017Patient had a previous miscarriage 02/2017. Denies any bleeding, pain or cramping. Miscarriage precautions given. TKRN Chlamydia infection complicating 05/2806/22/2015 Overview: Negative GC/Chlamydia 06/08/14. Sho Weiss, THIRD LOADER of partner 03/20/2014 06/22/2015 Overview: 03/20/14 - [...] of this encounter (statuses as of 04/05/2023) [facility]08-02-2019 History of Past illness Narrative* Problem Noted Date Resolved Date Threatened premature labor in third trimester 08/04/2019 Overview: 06/27/19 - BMZ #1 today and will repeat tomorrow at [facility] - Emely Tim MD ASCUS with positive high risk HPV [...] Overview: 12/22/17- UTI, treated with Macrobid by [facility] ER. Thelma Penny CNM Current with histo ry of spontaneous during prior 10/25/2017 08/04/2019 Overview: 10/25/2017Patient had a previous miscarriage 02/2017. Denies any bleeding, pain or cramping. Miscarriage precautions given. TKRN Chlamydia infection complicating 05/2806/22/2015 Overview: Negative GC/Chlamydia 06/08/14. Sho Weiss, THIRD LOADER of partner 03/20/2014 06/22/2015 Overview: 03/20/14 - [...] of this encounter (statuses as of 04/11/2023) [facility] History of Past illness Narrative* Problem Noted Date Diagnosed Date Resolved Date Threatened premature labor in third trimester 06/27/20 19 08/04/2019 Overview: 06/27/19 - BMZ #1 today and will repeat tomorrow at [facility] - Emely Tim MD ASCUS with positive high risk HPV [...] Overview: 12/22/17- UTI, treated with Macrobid by [facility] ER. Thelma Penny CNM Current with histo ry of spontaneous during prior 10/25/2017 08/04/20 19 Overview: 10/25/2017Patient had a previous miscarriage 02/2017. Denies any bleeding, pain or cramping. Miscarriage precautions given. TKRN Chlamydia infection complicating 05/28/2014 06/22/2015 Overview: Negative GC/Chlamydia 06/08/14. Sho Weiss, THIRD LOADER of partner 03/20/2014 06/22/2015 Overview: 03/20/14 - [...] of this encounter (statuses as of 07/12/2023) [facility] History of Past illness Narrative* Problem Noted Date Diagnosed Date Resolved Date Threatened premature labor in third trimester 06/27/20 19 08/04/2019 Overview: 06/27/19 - BMZ #1 today and will repeat tomorrow at [facility] - Emely Tim MD ASCUS with positive high risk HPV [...] Overview: 12/22/17- UTI, treated with Macrobid by [facility] ER. Thelma Penny CNM Current with histo ry of spontaneous during prior 10/25/2017 08/04/20 19 Overview: 10/25/2017Patient had a previous miscarriage 02/2017. Denies any bleeding, pain or cramping. Miscarriage precautions given. TKRN Chlamydia infection complicating 05/28/2014 06/22/2015 Overview: Negative GC/Chlamydia 06/08/14. Sho Weiss, THIRD LOADER of partner 03/20/2014 06/22/2015 Overview: 03/20/14 - [...] of this encounter (statuses as of 07/12/2023) [facility] History of Past illness Narrative* Problem Noted Date Diagnosed Date Resolved Date Threatened premature labor in third trimester 06/27/2008/04/2019 Overview: 06/27/19 - BMZ #1 today and will repeat tomorrow at [facility] - Emely Tim MD ASCUS with positive high risk HPV [...] Overview: 12/22/17- UTI, treated with Macrobid by [facility] ER. Thelma Penny CNM Current with histo ry of spontaneous during prior 10/25/2017 08/04/20 19 Overview: 10/25/2017Patient had a previous miscarriage 02/2017. Denies any bleeding, pain or cramping. Miscarriage precautions given. TKRN Chlamydia infection complicating 05/28/2014 06/22/2015 Overview: Negative GC/Chlamydia 06/08/14. Sho Weiss, THIRD LOADER of partner 03/20/2014 06/22/2015 Overview: 03/20/14 - [...] of this encounter (statuses as of 07/13/2023) [facility] History of Past illness Narrative* Problem Noted Date Diagnosed Date Resolved Date Threatened premature labor in third trimester 06/27/20 19 08/04/2019 Overview: 06/27/19 - BMZ #1 today and will repeat tomorrow at [facility] - Emely Tim MD ASCUS with positive high risk HPV [...] Overview: 12/22/17- UTI, treated with Macrobid by [facility] ER. Thelma Penny CNM Current with histo ry of spontaneous during prior 10/25/2017 08/04/20 19 Overview: 10/25/2017Patient had a previous miscarriage 02/2017. Denies any bleeding, pain or cramping. Miscarriage precautions given. TKRN Chlamydia infection complicating 05/28/2014 06/22/2015 Overview: Negative GC/Chlamydia 06/08/14. Sho Weiss, THIRD LOADER of partner 03/20/2014 06/22/2015 Overview: 03/20/14 - [...] of this encounter (statuses as of 07/25/2023) [facility] History of Past illness Narrative* Problem Noted Date Diagnosed Date Resolved Date Threatened premature labor in third trimester 06/27/20 19 08/04/2019 Overview: 06/27/19 - BMZ #1 today and will repeat tomorrow at [facility] - Emely Tim MD ASCUS with positive high risk HPV cervical 01/15/2019 11/30/2020 Overview: 11/30/20-Pap smear Negative. Thelma Penny APRN.TIANNA 01/15/19-Patient with history of ASCUS positive HR [...] Overview: 12/22/17- UTI, treated with Macrobid by [facility] ER. Thelma Penny CNM Current with histo ry of spontaneous during prior 10/25/2017 08/04/20 19 Overview: 10/25/2017Patient had a previous miscarriage 02/2017. Denies any bleeding, pain or cramping. Miscarriage precautions given. TKRN Chlamydia infection complicating 05/28/2014 06/22/2015 Overview: Negative GC/Chlamydia 06/08/14. Sho Weiss, THIRD LOADER of partner 03/20/2014 06/22/2015 Overview: 03/20/14 - [...] of this encounter (statuses as of 08/02/2023) [facility] of Past illness Narrative* Problem Noted Date Diagnosed Date Resolved Date Threatened premature labor in third trimester 06/27/20 19 08/04/2019 Overview: 06/27/19 - BMZ #1 today and will repeat tomorrow at [facility] - Emely Tim MD ASCUS with positive high risk HPV [...] Overview: 12/22/17- UTI, treated with Macrobid by [facility] ER. Thelma Penny CNM Current with histo ry of spontaneous during prior 10/25/2017 08/04/20 19 Overview: 10/25/2017Patient had a previous miscarriage 02/2017. Denies any bleeding, pain or cramping. Miscarriage precautions given. TKRN Chlamydia infection complicating 05/28/2014 06/22/2015 Overview: Negative GC/Chlamydia 06/08/14. Sho Isela, THIRD LOADER of partner 03/20/2014 06/22/2015 Overview: 03/20/14 - [...] of this encounter (statuses as of 09/01/2023) [facility] Supervision of high risk , [...] Other specified [facility] Encounter for screening for nuchal translucency- [facility] Diagnosis 11 weeks gestation of - Primary state, incidental History of delivery, currently with history of pre-term labor [facility] Diagnosis Encounter for (NT) nuchal translucency scan- Primary Other specified screening 11 weeks gestation of state, incidental [facility] 17 weeks gestation of - Primary state, incidental History of delivery, currently with history of pre-term labor [facility] Diagnosis Encounter for anatomic survey- Primary 20 weeks gestation of state, incidental [facility] Diagnosis 20 weeks gestation of - Primary state, incidental [facility] Diagnosis History of delivery- Primary [facility] Diagnosis 28 weeks gestation of - Primary state, incidental [facility] Diagnosis Elevated glucose Other abnormal glucose [facility] Diagnosis Bacterial sinusitis- Primary Unspecified sinusitis (chronic) [facility] Diagnosis Obesity complicating , second trimester- Primary 32 weeks gestation of state, incidental [facility] Diagnosis 32 weeks gestation of - Primary state, incidental Encounter for supervision of other normal in second trimester Mild acid reflux Esophageal reflux Anemia during in third trimester Abnormal glucose complicating Abnormal maternal glucose tolerance, complicating , childbirth, or the puerperium, unspecified as to episode of care [facility] Diagnosis Diet controlled gestational diabetes mellitus (GDM) in third trimester- Primary 34 weeks gestation of state, incidental [facility] Diagnosis 32 weeks gestation of state, incidental Encounter for supervision of other normal in second trimester Mild acid reflux Esophageal reflux [facility] Diagnosis Diet controlled gestational diabetes mellitus (GDM) in third trimester- Primary 36 weeks gestation of state, incidental [facility] Diagnosis 37 weeks gestation of - Primary state, incidental [facility] Diagnosis History of delivery, currently - Primary with history of pre-term labor Positive GBS test 39 weeks gestation of state, incidental [facility] Diagnosis headache, - Primary Other specified complications, condition or complication care and examination of lactating mother [facility] Diagnosis URI, acute- Primary Acute upper respiratory infections of unspecified site [facility] Diagnosis bloody nipple discharge- Primary Other and unspecified disorder of breast associated with childbirth, condition or complication control counseling General counseling for initiation of other contraceptive measures [facility] Diagnosis with uncertain viability, single or unspecified fetus- Primary 10 weeks gestation of state, incidental Encounter for Papanicolaou smear for cervical cancer screening History of hemorrhage Personal history of diseases of blood and blood-forming organs History of delivery History of gestational diabetes in prior , currently with other poor obstetric history [facility] Diagnosis Encounter to determine viability of , single or unspecified fetus- Primary [facility] Diagnosis Encounter for screening for nuchal translucency- Primary [facility] Diagnosis 18 weeks gestation of - Primary state, incidental Encounter for supervision of other normal in second trimester Encounter for screening of mother Unspecified screening [facility] Diagnosis History of delivery- Primary History of hemorrhage Personal history of diseases of blood and blood-forming organs Genetic testing Other investigation and testing for procreative management 18 weeks gestation of state, incidental Encounter for anatomic survey [facility] Diagnosis URI, acute- Primary Acute upper respiratory infections of unspecified site [facility] Diagnosis Supervision of high risk due to social problems, second trimester- Primary History of delivery, currently in second trimester 25 weeks gestation of state, incidental [facility] Diagnosis Sinobronchitis- Primary Unspecified sinusitis (chronic) [facility] Diagnosis Encounter for ultrasound to check growth- Primary Encounter for routine screening for malformation using ultrasonics Elevated blood pressure affecting in third trimester, antepartum Uterine size-date discrepancy, third trimester 34 weeks gestation of state, incidental [facility] Diagnosis Supervision of high risk due to social problems, second trimester- Primary 34 weeks gestation of state, incidental Uterine size-date discrepancy, third trimester Elevated blood pressure affecting in third trimester, antepartum History of delivery, currently in second trimester Abnormal glucose complicating Abnormal maternal glucose tolerance, complicating , childbirth, or the puerperium, unspecified as to episode of care Antepartum anemia complicating in third trimester documented in this encounter [facility] for referral (narrative)* Diagnostic Procedure Only (Routine) - Closed Specialty Diagnoses / Procedures Referred By Barbi t Referred To Contact [facility] Diagnoses 11 weeks gestation of Procedures NUCHAL TRANSLUCENCY [facility] NUCHAL [employer]UCENCY 1ST GESTATION Jackie Correia APRN.CNM [address] [place] [address] [facility] [address] [place] [id number] Referral ID Status Reason Start Date Expiration Date V isits Requested Visits Authorized [id number] Closed Auto-Generate d Referral 06/05/2022 11/25/2022 1 1 * Diagnostic Procedure Only (Routine) - Pending Review Specialty Diagnoses / Procedures Referred By Barbi t Referred To Contact [facility] Diagnoses 11 weeks gestation of Procedures OBSTETRIC ULTRASOUND WHI US PREG UTERUS AFTER 1ST TRIMEST GESTATION Jackie Correia APRN.CNM [address] [place] [address] [facility] [place] [place] [address] Referral ID Status Reason Start Date Expiration Date Visits Requested Visits Authorized [id number] Pending Review Auto-Generat ed Referral 06/05/2022 06/05/2023 1 1 [facility] for referral (narrative)* Diagnostic Procedure Only (Routine) - Pending Review Specialty Diagnoses / Procedures Referred By Contac t Referred To Contact [facility] Diagnoses History of delivery Procedures OBSTETRIC ULTRASOUND WHI US PREG UTERUS AFTER 1ST TRIMEST 1/1ST GESTATION Jackie Correia APRN.CNM [address] [place] [address] [facility] [address] [place] [address] Referral ID Status Reason Start Date Expiration Date Visits Requested Visits Authorized [id number] Pending Review Auto-Generat ed Referral 08/03/2022 08/03/2023 1 1 [facility] Procedure (Routine) - Pending Review Specialty Diagnoses / Procedures Referred By Barbi orozco Referred To Contact [facility] Diagnoses 34 weeks gestation of Uterine size-date discrepancy, third trimester Elevated blood pressure affecting in third trimester, antepartum Supervision of high risk due to social problems, second trimester History of delivery, currently in second trimester Abnormal glucose complicating Antepartum anemia complicating in third trimester Procedures NON-STRESS TEST NON-STRESS TEST Calixto Collado MD [address] [place] [id number] [facility] [address] [place] [address] Referral ID Status Reason Start Date Expiration Date Visits Requested Visits Authorized [id number] Pending Review Auto-Generat ed Referral 12/28/2023 12/27/2024 5 1 [facility] Summary Purpose Family History No Family History Records FoundNo Family History Records Found Advance Directives No Advanced Directives Records FoundDocuments on File Type Date Recorded Patient Group [employer] Expl anation Advance Directive(s) 09/14/2016 1:26 PM Advance Directive(s) 09/07/2016 11:47 AM Documents on File Type Date Recorded Patient Group [employer] Expl anation Advance Directive(s) 09/14/2016 1:26 PM [...] CC Education - COMMON 07/11/2023 [place] 07/11/2023 Problem Noted Date Diagnosed Date OB Reminders 06/05/2022 [facility] Education - [place] 07/11/2023 Education - [place] 07/11/2023 Problem Noted Date Diagnosed Date OB Reminders 06/05/2022 [facility] CC Education - [place] 07/11/2023 Education - [place] 07/11/2023 Problem Noted Date Diagnosed Date OB Reminders 06/05/2022 [facility] CC Education - [place] 07/11/2023 Education - [place] 07/11/2023 Problem Noted Date Diagnosed Date OB Reminders 06/05/2022 [facility] CC Education - [place] 07/11/2023 Education - [place] 07/11/2023 Problem Noted Date Diagnosed Date OB Reminders 06/05/2022 [facility] CC Education - [place] 07/11/2023 Education - [place] 07/11/2023 Problem Noted Date Diagnosed Date OB Reminders 06/05/2022 [facility] Education - [place] 07/11/2023 Education - [place] 07/11/2023 Problem Noted Date Diagnosed Date OB Reminders 06/05/2022 [facility] CC Education - [place] 07/11/2023 Education - [place] 07/11/2023 Problem Noted Date Diagnosed Date OB Reminders 06/05/2022 [facility] CC Education - [place] 07/11/2023 Education - [place] 07/11/2023 Problem Noted Date Diagnosed Date OB Reminders 06/05/2022 [facility] Education - [place] 07/11/2023 Education - [place] 07/11/2023 Problem Noted Date Diagnosed Date OB Reminders 06/05/2022 [facility] CC Education - [place] 07/11/2023 Education - [place] 07/11/2023 Problem Noted Date Diagnosed Date OB Reminders 06/05/2022 [facility] CC Education - [place] 07/11/2023 [place] - [place] 07/11/2023 Problem Noted Date Diagnosed Date OB Reminders 06/05/2022 [facility] CC Education - [place] 07/11/2023 [place] - [place] 07/11/2023 Problem Noted Date Diagnosed Date OB Reminders 06/05/2022 [facility] CC Education - [place] 07/11/2023 Education - [place] 07/11/2023 Reason for Referral Specialty Diagnoses / Procedures Referred By Barbi t Referred To Contact Diagnoses 10 weeks gestation of Procedures CONSULT TO MEDICAL GENETICS - MEDICAL GENETICS COUNSELING EACH 30 MINUTES Erica Menon APRN.THIRD LOADER [address] [place] [address] [address] Referral ID Status Reason Start Date Expiration Date Visits Requested Visits Authorized [id number] Authorized PCP Requested Referral Auto-Generate d Referral 07/11/2023 07/10/2024 1 1 Specialty Diagnoses / Procedures Referred By Barbi orozco Referred To Contact Diagnoses with uncertain viability, single or unspecified fetus Encounter for Papanicolaou smear for cervical cancer screening 10 weeks gestation of History of hemorrhage History of delivery Procedures CONSULT TO MATERNAL MEDI OFFICE/OUTPATIENT NEW HIGH MDM 60-74 MINUTES Erica Menon APRN.THIRD LOADER [address] [place] [address] Referral ID Status Reason Start Date Expiration Date Visits Requested Visits Authorized [id number] Authorized PCP Requested Referral Auto-Generate d Referral 07/11/2023 07/10/2024 1 1 Specialty Diagnoses / Procedures Referred By Barbi orozco Referred To Contact [facility] Diagnoses 10 weeks gestation of Procedures NUCHAL TRANSLUCENCY WHI US NUCHAL TRANSLUCENCY 1ST GESTATION Erica Menon APRN.THIRD LOADER [address] [place] [address] [place] [address] Referral ID Status Reason Start Date Expiration Date Visits Requested Visits Authorized [id number] Authorized Auto-Generat ed Referral 07/11/2023 07/10/2024 1 1 Specialty Diagnoses / Procedures Referred By Barbi orozco Referred To Contact [facility] Diagnoses 10 weeks gestation of Procedures OBSTETRIC ULTRASOUND WHI US PREG UTERUS AFTER 1ST TRIMEST GESTATION Erica Menon APRN.THIRD LOADER [address] [place] [address] [facility] [address] [place] [address] Referral ID Status Reason Start Date Expiration Date Visits Requested Visits Authorized [id number] Pending Review Auto-Generat ed Referral 07/11/2023 07/10/2024 1 1 Additional Source Comments INFORMATION SOURCE (unrecogn ized section and content) DATE CREATED AUTHOR AUTHOR'S ORGANIZ ATION 12/29/2023 [facility] Source Comments (unrecognize d section and content) In the event this informatio n is protected by the Federal Confidentiality of Alcohol and Drug Abuse Patient Records regulations: The Federal rules restrict any use of the information to criminally investigate or prosecute any alcohol or drug abuse patient.[facility] the event this information is protected by the Federal Confidentiality of Alcohol and Drug Abuse Patient Records regulations: The Federal rules restrict any use of the information to criminally investigate or prosecute any alcohol or drug abuse patient.[facility] Center[facility] the event this information is protected by the Federal Confidentiality of Alcohol and Drug Abuse Patient Records regulations: The Federal rules restrict any use of the information to criminally investigate or prosecute any alcohol or drug abuse patient.[facility] Center[facility] the event this information is protected by the Federal Confidentiality of Alcohol and Drug Abuse Patient Records regulations: The Federal rules restrict any use of the information to criminally investigate or prosecute any alcohol or drug abuse patient.[facility] CenterIn the event this information is protected by the Federal Confidentiality of Alcohol and Drug Abuse Patient Records regulations: The Federal rules restrict any use of the information to criminally investigate or prosecute any alcohol or drug abuse patient.[facility] CenterIn the event this information is protected by the Federal Confidentiality of Alcohol and Drug Abuse Patient Records regulations: The Federal rules restrict any use of the information to criminally investigate or prosecute any alcohol or drug abuse patient.[facility] CenterIn the event this information is protected by the Federal Confidentiality of Alcohol and Drug Abuse Patient Records regulations: The Federal rules restrict any use of the information to criminally investigate or prosecute any alcohol or drug abuse patient.[facility] CenterIn the event this information is protected by the Federal Confidentiality of Alcohol and Drug Abuse Patient Records regulations: The Federal rules restrict any use of the information to criminally investigate or prosecute any alcohol or drug abuse patient.[facility] Center[facility] the event this information is protected by the Federal Confidentiality of Alcohol and Drug Abuse Patient Records regulations: The Federal rules restrict any use of the information to criminally investigate or prosecute any alcohol or drug abuse patient.[facility] CenterIn the event this information is protected by the Federal Confidentiality of Alcohol and Drug Abuse Patient Records regulations: The Federal rules restrict any use of the information to criminally investigate or prosecute any alcohol or drug abuse patient.[facility] CenterIn the event this information is protected by the Federal Confidentiality of Alcohol and Drug Abuse Patient Records regulations: The Federal rules restrict any use of the information to criminally investigate or prosecute any alcohol or drug abuse patient.[facility] CenterIn the event this information is protected by the Federal Confidentiality of Alcohol and Drug Abuse Patient Records regulations: The Federal rules restrict any use of the information to criminally investigate or prosecute any alcohol or drug abuse patient.[facility] Center[facility] the event this information is protected by the Federal Confidentiality of Alcohol and Drug Abuse Patient Records regulations: The Federal rules restrict any use of the information to criminally investigate or prosecute any alcohol or drug abuse patient.[facility] CenterIn the event this information is protected by the Federal Confidentiality of Alcohol and Drug Abuse Patient Records regulations: The Federal rules restrict any use of the information to criminally investigate or prosecute any alcohol or drug abuse patient.[facility] CenterIn the event this information is protected by the Federal Confidentiality of Alcohol and Drug Abuse Patient Records regulations: The Federal rules restrict any use of the information to criminally investigate or prosecute any alcohol or drug abuse patient.[facility] CenterIn the event this information is protected by the Federal Confidentiality of Alcohol and Drug Abuse Patient Records regulations: The Federal rules restrict any use of the information to criminally investigate or prosecute any alcohol or drug abuse patient.[facility] CenterIn the event this information is protected by the Federal Confidentiality of Alcohol and Drug Abuse Patient Records regulations: The Federal rules restrict any use of the information to criminally investigate or prosecute any alcohol or drug abuse patient.[facility] CenterIn the event this information is protected by the Federal Confidentiality of Alcohol and Drug Abuse Patient Records regulations: The Federal rules restrict any use of the information to criminally investigate or prosecute any alcohol or drug abuse patient.[facility] CenterIn the event this information is protected by the Federal Confidentiality of Alcohol and Drug Abuse Patient Records regulations: The Federal rules restrict any use of the information to criminally investigate or prosecute any alcohol or drug abuse patient.[facility] CenterIn the event this information is protected by the Federal Confidentiality of Alcohol and Drug Abuse Patient Records regulations: The Federal rules restrict any use of the information to criminally investigate or prosecute any alcohol or drug abuse patient.[facility] CenterIn the event this information is protected by the Federal Confidentiality of Alcohol and Drug Abuse Patient Records regulations: The Federal rules restrict any use of the information to criminally investigate or prosecute any alcohol or drug abuse patient.[facility] CenterIn the event this information is protected by the Federal Confidentiality of Alcohol and Drug Abuse Patient Records regulations: The Federal rules restrict any use of the information to criminally investigate or prosecute any alcohol or drug abuse patient.[facility] CenterIn the event this information is protected by the Federal Confidentiality of Alcohol and Drug Abuse Patient Records regulations: The Federal rules restrict any use of the information to criminally investigate or prosecute any alcohol or drug abuse patient.[facility] CenterIn the event this information is protected by the Federal Confidentiality of Alcohol and Drug Abuse Patient Records regulations: The Federal rules restrict any use of the information to criminally investigate or prosecute any alcohol or drug abuse patient.[facility] CenterIn the event this information is protected by the Federal Confidentiality of Alcohol and Drug Abuse Patient Records regulations: The Federal rules restrict any use of the information to criminally investigate or prosecute any alcohol or drug abuse patient.[facility] CenterIn the event this information is protected by the Federal Confidentiality of Alcohol and Drug Abuse Patient Records regulations: The Federal rules restrict any use of the information to criminally investigate or prosecute any alcohol or drug abuse patient.[facility] CenterIn the event this information is protected by the Federal Confidentiality of Alcohol and Drug Abuse Patient Records regulations: The Federal rules restrict any use of the information to criminally investigate or prosecute any alcohol or drug abuse patient.[facility] CenterIn the event this information is protected by the Federal Confidentiality of Alcohol and Drug Abuse Patient Records regulations: The Federal rules restrict any use of the information to criminally investigate or prosecute any alcohol or drug abuse patient.[facility] CenterIn the event this information is protected by the Federal Confidentiality of Alcohol and Drug Abuse Patient Records regulations: The Federal rules restrict any use of the information to criminally investigate or prosecute any alcohol or drug abuse patient.[facility] CenterIn the event this information is protected by the Federal Confidentiality of Alcohol and Drug Abuse Patient Records regulations: The Federal rules restrict any use of the information to criminally investigate or prosecute any alcohol or drug abuse patient.[facility] CenterIn the event this information is protected by the Federal Confidentiality of Alcohol and Drug Abuse Patient Records regulations: The Federal rules restrict any use of the information to criminally investigate or prosecute any alcohol or drug abuse patient.[facility] CenterIn the event this information is protected by the Federal Confidentiality of Alcohol and Drug Abuse Patient Records regulations: The Federal rules restrict any use of the information to criminally investigate or prosecute any alcohol or drug abuse patient.[facility] CenterIn the event this information is protected by the Federal Confidentiality of Alcohol and Drug Abuse Patient Records regulations: The Federal rules restrict any use of the information to criminally investigate or prosecute any alcohol or drug abuse patient.[facility] CenterIn the event this information is protected by the Federal Confidentiality of Alcohol and Drug Abuse Patient Records regulations: The Federal rules restrict any use of the information to criminally investigate or prosecute any alcohol or drug abuse patient.[facility] CenterIn the event this information is protected by the Federal Confidentiality of Alcohol and Drug Abuse Patient Records regulations: The Federal rules restrict any use of the information to criminally investigate or prosecute any alcohol or drug abuse patient.[facility] CenterIn the event this information is protected by the Federal Confidentiality of Alcohol and Drug Abuse Patient Records regulations: The Federal rules restrict any use of the information to criminally investigate or prosecute any alcohol or drug abuse patient.[facility] CenterIn the event this information is protected by the Federal Confidentiality of Alcohol and Drug Abuse Patient Records regulations: The Federal rules restrict any use of the information to criminally investigate or prosecute any alcohol or drug abuse patient.[facility] CenterIn the event this information is protected by the Federal Confidentiality of Alcohol and Drug Abuse Patient Records regulations: The Federal rules restrict any use of the information to criminally investigate or prosecute any alcohol or drug abuse patient.[facility] CenterIn the event this information is protected by the Federal Confidentiality of Alcohol and Drug Abuse Patient Records regulations: The Federal rules restrict any use of the information to criminally investigate or prosecute any alcohol or drug abuse patient.[facility] CenterIn the event this information is protected by the Federal Confidentiality of Alcohol and Drug Abuse Patient Records regulations: The Federal rules restrict any use of the information to criminally investigate or prosecute any alcohol or drug abuse patient.[facility] CenterIn the event this information is protected by the Federal Confidentiality of Alcohol and Drug Abuse Patient Records regulations: The Federal rules restrict any use of the information to criminally investigate or prosecute any alcohol or drug abuse patient.[facility] Reason for Visit (unrecogniz ed section and content) Specialty Diagnoses / Procedures Referred By Contac t Referred To Contact [facility] Diagnoses 32 weeks gestation of Elevated blood pressure affecting in third trimester, antepartum Uterine size-date discrepancy, third trimester Procedures OBSTETRIC ULTRASOUND WHI US PREG UTERUS AFTER 1ST TRIMEST GESTATION Cinthia Griffith MD [address] [place] [address] [facility] [place] [address] Referral ID Status Reason Start Date Expiration Date V isits Requested Visits Authorized [id number] Closed Auto-Generate d Referral 12/13/2023 12/12/2024 1 1 Specialty Diagnoses / Procedures Referred By Contac t Referred To Contact Diagnoses with uncertain viability, single or unspecified fetus Encounter for Papanicolaou smear for cervical cancer screening 10 weeks gestation of History of hemorrhage History of delivery Procedures CONSULT TO MATERNAL MEDI OFFICE/OUTPATIENT NEW HIGH MDM 60-74 MINUTES Erica Menon, MEHRAN.THIRD LOADER [address] [place] [address] Referral ID Status Reason Start Date Expiration Date V isits Requested Visits Authorized [id number] Closed PCP Requested Referral Auto-Generated Referral 07/11/2023 07/10/2024 1 1 Reason Comments Care Reason Comments with uncertain dates Reason Comments Orders Reason Comments Initial OB Visit Specialty Diagnoses / Procedures Referred By Contac t Referred To Contact [facility] Diagnoses 11 weeks gestation of Procedures NUCHAL TRANSLUCENCY WHI US NUCHAL TRANSLUCENCY 1ST GESTATION Jackie Correia, MEHRAN.CNM [address] [place] [address] [facility] [address] [place] [address] Referral ID Status Reason Start Date Expiration Date V isits Requested Visits Authorized [id number] Closed Auto-Generate d Referral 06/05/2022 11/25/2022 1 1 Reason Onset Date Comments Care 07/18/2022 Reason Onset Date Comments Care 08/03/2022 Reason Onset Date Comments Care 09/29/2022 Reason Comments Question (OB Question) Influenza Reason Comments Pain, Sinus Head congestion x3 d ays Specialty Diagnoses / Procedures Referred By Contac t Referred To Contact [facility] Diagnoses History of delivery Procedures OBSTETRIC ULTRASOUND WHI US PREG UTERUS AFTER 1ST TRIMEST GESTATION Jackie Correia APRN.CN [address] [place] [address] [facility] [address] [place] [address] Referral ID Status Reason Start Date Expiration Date V isits Requested Visits Authorized [id number] Closed Auto-Generate d Referral 08/03/2022 08/03/2023 1 [...] Reason Comments Initial OB Visit 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 Reason Onset Date Comments Care 09/04/2023 Reason Comments OB-Headache Reason Comments Sinus Problem Sinus congestion and [place] x 3 days Reason Onset Date Comments Care 10/25/2023 Reason Comments PRAF Reason Comments Cough Productive cough, ch est congestion x6 weeks Reason Onset Date Comments Care 12/28/2023 Care Teams (unrecognized sec tion and content) Communication Assistant Relationship Specialty Start Date End Date Tiara Mishra MD [address] [place] [address] PCP - General Family Practice 09/05/16 Communication Assistant Relationship Specialty Start Date End Date Tiara Mishra MD [address] [place] [address] PCP - General Family Practice 09/05/16 Communication Assistant Relationship Specialty Start Date End Date Tiara Mishra MD [address] [place] [address] PCP - General Family Practice 09/05/16 Communication Assistant Relationship Specialty Start Date End Date Tiara Mishra MD [address] [place] [address] PCP - General Family Practice 09/05/16 Communication Assistant Relationship Specialty Start Date End Date Tiara Mishra MD [address] [place] [address] PCP - General Family Practice 09/05/16 Communication Assistant Relationship Specialty Start Date End Date Tiara Mishra MD [address] [place] [address] PCP - General Family Practice 09/05/16 Communication Assistant Relationship Specialty Start Date End Date Tiara Mishra MD [address] [place] [address] PCP - General Family Medicine 09/05/16 Communication Assistant Relationship Specialty Start Date End Date Tiara Mishra MD [address] [place] [address] PCP - General Family Medicine 09/05/16 Communication Assistant Relationship Specialty Start Date End Date Tiara Mishra MD [address] [place] [address] PCP - General Family Medicine 09/05/16 Communication Assistant Relationship Specialty Start Date End Date Tiara Mishra MD [address] [place] [address] PCP - General Family Medicine 09/05/16 Communication Assistant Relationship Specialty Start Date End Date Tiara Mishra MD [address] [facility] [address] PCP - General Family Medicine 09/05/16 Communication Assistant Relationship Specialty Start Date End Date Tiara Mishra MD [address] [facility] [place] [address] PCP - General Family Medicine 09/05/16 Communication Assistant Relationship Specialty Start Date End Date Tiara Mishra MD [address] [facility] [address] PCP - General Family Medicine 09/05/16 Communication Assistant Relationship Specialty Start Date End Date Tiara Mishra MD [address] [place] [address] PCP - General Family Medicine 09/05/16 Communication Assistant Relationship Specialty Start Date End Date Tiara Mishra MD [address] [place] [address] PCP - General Family Medicine 09/05/16 Communication Assistant Relationship Specialty Start Date End Date Tiara Mishra MD [address] [place] [address] PCP - General Family Medicine 09/05/16 Communication Assistant Relationship Specialty Start Date End Date Tiara Mishra MD [address] [place] [address] PCP - General Family Medicine 09/05/16 Communication Assistant Relationship Specialty Start Date End Date Tiara Mishra MD [address] [place] [address] PCP - General Family Medicine 09/05/16 Communication Assistant Relationship Specialty Start Date End Date Tiara Mishra MD [address] [place] [address] PCP - General Family Medicine 09/05/16 Communication Assistant Relationship Specialty Start Date End Date Tiara Mishra MD [address] [place] [address] PCP - General Family Medicine 09/05/16 Communication Assistant Relationship Specialty Start Date End Date Tiara Mishra MD [address] [place] [address] PCP - General Family Medicine 09/05/16 Communication Assistant Relationship Specialty Start Date End Date Tiara Mishra MD [address] [place] [address] PCP - General Family Medicine 09/05/16 Communication Assistant Relationship Specialty Start Date End Date Tiara Mishra MD [address] [place] [address] PCP - General Family Medicine 09/05/16 Communication Assistant Relationship Specialty Start Date End Date Tiara Mishra MD [address] [place] [address] PCP - General Family Medicine 09/05/16 Communication Assistant Relationship Specialty Start Date End Date Tiara Mishra MD [address] [place] [address] PCP - General Family Medicine 09/05/16 Communication Assistant Relationship Specialty Start Date End Date Tiara Mishra MD [address] [place] [address] PCP - General Family Medicine 09/05/16 Communication Assistant Relationship Specialty Start Date End Date Tiara Mishra MD [address] [place], [place] [address] PCP - [facility] 09/05/16 Communication Assistant Relationship Specialty Start Date End Date Tiara Mishra MD [address] [place], [place] [id number] PCP - [facility] 09/05/16 Communication Assistant Relationship Specialty Start Date End Date Tiara Mishra MD [address] [facility], [place] [id number] PCP - [facility] 09/05/16 Communication Assistant Relationship Specialty Start Date End Date Tiara Mishra MD [address] [place], [place] [address] PCP - [facility] 09/05/16 FOR RECORDS PERTAINING TO PATIENTS WHO [...] BE BASED ON THE PRIMARY CLINICAL RECORDS. [facility] [employer] [facility]. provides no warranty or guarantee of the accuracy or completeness of information in this document.
[2023-12-31 22:04] VITALS: BMI 33.8
[2023-12-31 22:08] VITALS: BP 137/82; PULSE 109; TEMP 36.8; O2SAT 99
[2023-12-31 22:13] VITALS: PULSE 119; O2SAT 99
[2023-12-31 22:28] LABS: ROM Internal Control Test YES-OK TO RESULT pt. (Internal QC)
[2023-12-31 22:29] LABS: ROM Patient Test POSITIVE (Negative)
--- OUTSIDE RECORDS SUMMARY | 2023-12-31 22:37 | XMS RPT_ITS | CCD ---
Author Name Unknown Address [address] [place] [address] Organization [facility] Care Team Providers Care Physician Office Rep Name Role Phone SAUNDRA DODSON Unavailable Unavailable [...] TIARA MISHRA Primary Care Unavailab le TIARA MISRHA Primary Care Unavailab SANDRA Fleming Attending Unavailable [...] 80.29 kg Calixto Collado MD Work Phone: [facility] 12-28-2023 09:22-0500 Diastolic blood pressure 82 mm[Hg] Calixto Collado MD Work Phone: [facility] 12-28-2023 09:22-0500 Systolic blood pressure 134 mm[Hg] Calixto Collado MD Work Phone: [facility] 11-11-2023 13:35-0500 Body temperature 98.71 [degF] Aman Dickens APRN.RN LICENSED PRACTICAL Work Phone: [facility] 11-11-2023 13:35-0500 Body weight 80.11 kg Aman Wenjulius GENERAL STUDIES PROGRAM CHAIR.RN LICENSED PRACTICAL Work Phone: [facility] 11-11-2023 13:35-0500 Diastolic blood pressure 95 mm[Hg] [facility] GENERAL STUDIES PROGRAM CHAIR.RN LICENSED PRACTICAL Work Phone: [facility] 11-11-2023 13:35-0500 Heart rate 100 /min Aman Wenjulius GENERAL STUDIES PROGRAM CHAIR.RN LICENSED PRACTICAL Work Phone: [facility] 11-11-2023 13:35-0500 Respiratory rate 22 /min [facility] GENERAL STUDIES PROGRAM CHAIR.RN LICENSED PRACTICAL Work Phone: [facility] 11-11-2023 13:35-0500 SaO2% (BldA) [Mass fraction] 98 % Amanadonis Wenjulius GENERAL STUDIES PROGRAM CHAIR.RN LICENSED PRACTICAL Work Phone: [facility] 11-11-2023 13:35-0500 Systolic blood pressure 143 mm[Hg] Aman Wenjulius GENERAL STUDIES PROGRAM CHAIR.RN LICENSED PRACTICAL Work Phone: [facility] 10-25-2023 16:00-0500 Body weight 78.02 kg Jada Chawla MD Work Phone: [facility] 10-25-2023 16:00-0500 Diastolic blood pressure 78 mm[Hg] Jada Chawla MD Work Phone: [facility] 10-25-2023 16:00-0500 Systolic blood pressure 120 mm[Hg] Jada Chawla MD Work Phone: [facility] 09-14-2023 12:01-0400 Body temperature 97.7 [degF] Brenda Tim GENERAL STUDIES PROGRAM CHAIR.RN LICENSED PRACTICAL Work Phone: [facility] 09-14-2023 12:01-0400 Body weight 75.75 kg Brenda Tim GENERAL STUDIES PROGRAM CHAIR.RN LICENSED PRACTICAL Work Phone: [facility] 09-14-2023 12:01-0400 Diastolic blood pressure 74 mm[Hg] Brenda Tim GENERAL STUDIES PROGRAM CHAIR.RN LICENSED PRACTICAL Work Phone: [facility] 09-14-2023 12:01-0400 Heart rate 98 /min Brenda Tim APRN.RN LICENSED PRACTICAL Work Phone: [facility] 09-14-2023 12:01-0400 Respiratory rate 18 /min Brenda Tim APRN.RN LICENSED PRACTICAL Work Phone: [facility] 09-14-2023 12:01-0400 SaO2% (BldA) [Mass fraction] 97 % Brenda Tim APRN.RN LICENSED PRACTICAL Work Phone: [facility] 09-14-2023 12:01-0400 Systolic blood pressure 122 mm[Hg] Brenda Tim APRN.RN LICENSED PRACTICAL Work Phone: [facility] 09-04-2023 11:10-0400 Body weight 72.12 kg Calixto Collado MD Work Phone: [facility] 09-04-2023 11:10-0400 Diastolic blood pressure 80 mm[Hg] Calixto Collado MD Work Phone: [facility] 09-04-2023 11:10-0400 Systolic blood pressure 120 mm[Hg] Calixto Collado MD Work Phone: [facility] 09-04-2023 10:02-0400 Body weight 72.12 kg Eduardo Guevara MD Work Phone: [facility] 09-04-2023 10:02-0400 Diastolic blood pressure 80 mm[Hg] Eduardo Guevara MD Work Phone: [facility] 09-04-2023 10:02-0400 Systolic blood pressure 120 mm[Hg] Eduardo Guevara MD Work Phone: [facility] 07-11-2023 13:06-0400 Body height 154.9 cm Erica Menon APRN.RN LICENSED PRACTICAL Work Phone: [facility] 07-11-2023 13:06-0400 Body weight 70.76 kg Erica Menon APRN.RN LICENSED PRACTICAL Work Phone: [facility] 07-11-2023 13:06-0400 Diastolic blood pressure 70 mm[Hg] Erica Menon APRN.RN LICENSED PRACTICAL Work Phone: [facility] 07-11-2023 13:06-0400 Systolic blood pressure 110 mm[Hg] Erica Menon APRN.RN LICENSED PRACTICAL Work Phone: [facility] 04-10-2023 15:11-0400 Body weight 66.68 kg Emely Tim MD Work Phone: [facility] 04-10-2023 15:11-0400 Diastolic blood pressure 60 mm[Hg] Emely Tim MD Work Phone: [facility] 04-10-2023 15:11-0400 Systolic blood pressure 110 mm[Hg] Emely Tim MD Work Phone: [facility] 04-05-2023 10:05-0400 Body temperature 97.81 [degF] Krislyn Aberegg PA Work Phone: [facility] 04-05-2023 10:05-0400 Body weight 66.77 kg Krislyn Aberegg PA Work Phone: [facility] 04-05-2023 10:05-0400 Diastolic blood pressure 76 mm[Hg] Krislyn Aberegg PA Work Phone: [facility] 04-05-2023 10:05-0400 Heart rate 97 /min Krislyn Aberegg PA Work Phone: [facility] 04-05-2023 10:05-0400 Respiratory rate 21 /min Krislyn Aberegg PA Work Phone: [facility] 04-05-2023 10:05-0400 SaO2% (BldA) [Mass fraction] 97 % Krislyn Aberegg PA Work Phone: [facility] 04-05-2023 10:05-0400 Systolic blood pressure 104 mm[Hg] Krislyn Aberegg PA Work Phone: [facility] 2022 13:24-0500 Body weight 74.75 kg Jackie Correia APRN.CNM Work Phone: [facility] 2022 13:24-0500 Diastolic blood pressure 74 mm[Hg] Jackie Plotts GENERAL STUDIES PROGRAM CHAIR.CNM Work Phone: [facility] 2022 13:24-0500 Systolic blood pressure 110 mm[Hg] Jackie Plotts GENERAL STUDIES PROGRAM CHAIR.CNM Work Phone: [facility] 12-13-2022 11:05-0500 Body weight 77.56 kg Jada Chawla MD Work Phone: [facility] 12-13-2022 11:05-0500 Diastolic blood pressure 76 mm[Hg] Jada Chawla MD Work Phone: [facility] 12-13-2022 11:05-0500 Systolic blood pressure 136 mm[Hg] Jada Chawla MD Work Phone: [facility] 12-04-2022 11:35-0500 Body weight 76.57 kg Thelma Penny GENERAL STUDIES PROGRAM CHAIR.CNM Work Phone: [facility] 12-04-2022 11:35-0500 Diastolic blood pressure 70 mm[Hg] Thelma Penny GENERAL STUDIES PROGRAM CHAIR.CNM Work Phone: [facility] 12-04-2022 11:35-0500 Systolic blood pressure 122 mm[Hg] Thelma Penny GENERAL STUDIES PROGRAM CHAIR.CNM Work Phone: [facility] 11-24-2022 13:28-0500 Body weight 78.02 kg Calixto Collado MD Work Phone: [facility] 11-24-2022 13:28-0500 Diastolic blood pressure 74 mm[Hg] Calixto Collado MD Work Phone: [facility] 11-24-2022 13:28-0500 Systolic blood pressure 122 mm[Hg] Calixto Collado MD Work Phone: [facility] 11-13-2022 14:03-0500 Body weight 76.66 kg Jackie Flexiggy GENERAL STUDIES PROGRAM CHAIR.CNM Work Phone: [facility] 11-13-2022 14:03-0500 Diastolic blood pressure 70 mm[Hg] Jackie Plotts GENERAL STUDIES PROGRAM CHAIR.CNM Work Phone: [facility] 11-13-2022 14:03-0500 Systolic blood pressure 122 mm[Hg] Jackie Plotts GENERAL STUDIES PROGRAM CHAIR.CNM Work Phone: [facility] 10-27-2022 13:39-0500 Body weight 76.66 kg Cinthia Griffith MD Work Phone: [facility] 10-27-2022 13:39-0500 Diastolic blood pressure 70 mm[Hg] Cinthia Griffith MD Work Phone: [facility] 10-27-2022 13:39-0500 Systolic blood pressure 120 mm[Hg] Cinthia Griffith MD Work Phone: [facility] 10-23-2022 15:58-0500 Body temperature 97.59 [degF] Amanda Praisler-Wood GENERAL STUDIES PROGRAM CHAIR.RN LICENSED PRACTICAL Work Phone: [facility] 10-23-2022 15:58-0500 Body weight 75.3 kg Amanda Praisler-Wood GENERAL STUDIES PROGRAM CHAIR.RN LICENSED PRACTICAL Work Phone: [facility] 10-23-2022 15:58-0500 Diastolic blood pressure 86 mm[Hg] Amanda Praisler-Wood GENERAL STUDIES PROGRAM CHAIR.RN LICENSED PRACTICAL Work Phone: [facility] 10-23-2022 15:58-0500 Heart rate 91 /min Amanda Praisler-Wood GENERAL STUDIES PROGRAM CHAIR.RN LICENSED PRACTICAL Work Phone: [facility] 10-23-2022 15:58-0500 Respiratory rate 18 /min Amanda Praisler-Wood GENERAL STUDIES PROGRAM CHAIR.RN LICENSED PRACTICAL Work Phone: [facility] 10-23-2022 15:58-0500 SaO2% (BldA) [Mass fraction] 100 % Amanda Praisler-Wood GENERAL STUDIES PROGRAM CHAIR.RN LICENSED PRACTICAL Work Phone: [facility] 10-23-2022 15:58-0500 Systolic blood pressure 122 mm[Hg] Amanda Praisler-Wood GENERAL STUDIES PROGRAM CHAIR.RN LICENSED PRACTICAL Work Phone: [facility] 09-29-2022 13:10-0400 Body weight 74.12 kg Thelma Penny GENERAL STUDIES PROGRAM CHAIR.CNM Work Phone: [facility] 09-29-2022 13:10-0400 Diastolic blood pressure 60 mm[Hg] Thelma Penny GENERAL STUDIES PROGRAM CHAIR.CNM Work Phone: [facility] 09-29-2022 13:10-0400 Systolic blood pressure 100 mm[Hg] Thelma Penny GENERAL STUDIES PROGRAM CHAIR.CNM Work Phone: [facility] 08-03-2022 14:31-0400 Body weight 68.95 kg Jackie Plotts GENERAL STUDIES PROGRAM CHAIR.CNM Work Phone: [facility] 08-03-2022 14:31-0400 Diastolic blood pressure 60 mm[Hg] Jackie Plotts GENERAL STUDIES PROGRAM CHAIR.CNM Work Phone: [facility] 08-03-2022 14:31-0400 Systolic blood pressure 110 mm[Hg] Jackie Plotts GENERAL STUDIES PROGRAM CHAIR.CNM Work Phone: [facility] 07-18-2022 10:32-0400 Body weight 67.59 kg Calixto Collado MD Work Phone: [facility] 07-18-2022 10:32-0400 Diastolic blood pressure 64 mm[Hg] Calixto Collado MD Work Phone: [facility] 07-18-2022 10:32-0400 Systolic blood pressure 118 mm[Hg] Calixto Collado MD Work Phone: [facility] 06-05-2022 13:12-0400 Body weight 65.32 kg Jackie Plotts GENERAL STUDIES PROGRAM CHAIR.CNM Work Phone: [facility] 06-05-2022 13:12-0400 Diastolic blood pressure 68 mm[Hg] Jackie Plotts GENERAL STUDIES PROGRAM CHAIR.CNM Work Phone: [facility] 06-05-2022 13:12-0400 Systolic blood pressure 110 mm[Hg] Jackie Plotts GENERAL STUDIES PROGRAM CHAIR.CNM Work Phone: [facility] Encounters Encounter Date Encounter Type Care Provider Facility Start: 12-28-2023 End: 12-29-2023 ambulatory JADA CHAWLA Facility:[facility] Start: 12-28-2023 End: 12-28-2023 ambulatory CALIXTO COLLADO Facility:[facility] Start: 12-28-2023 End: 12-28-2023 Patient encounter procedure Consulting Property Manager Diandra Ultrasound Work Phone: OB/Gynecology Procedures Date [...] Author Start: 07-11-2026 PAP TESTING PAP TESTING [facility] Start: 07-11-2026 Screening for malign ant neoplasm of cervix Pap Testing [facility] Start: 03-20-2024 Urine microalbumin profile [facility] Start: 12-10-2023 RSV Vaccine (1 - Ris k 1-dose series) RSV Vaccine (1 - Risk 1-dose series) [facility] Start: 11-26-2023 Depression Assessment Depression Ass essment [facility] Start: 11-22-2023 PAP TESTING PAP TESTING [facility] Start: 10-25-2023 End: 01-24-2024 CBC panel - Blood by Automated count [facility] Work Phone: Immunizations Immunization Date Immunization Notes Care Provider Melissa zarate 11-14-2018 influenza virus vaccine, unspecified formulation Emely Tim MD Work Phone: [facility] 03-20-2014 tetanus toxoid, redu camilo diphtheria toxoid, and acellular pertussis vaccine, adsorbed Nurse Wstr Work Phone: [facility] Work Phone: Payers Date Payer Category Payer Medicaid [id number] 2021 Private Health Insurance AET[employer] A ETNA CHOICE POS II [id number] 2021-Present [phone] [address] [place] [address] POS [id number] 2021 Private Health Insurance [employer] A ETNA CHOICE POS II [id number] 2021-Present [phone] [address] [place] [address] POS [id number] 2018 Medicaid [id number] 2018 Medicaid [employer] [id number] 2018-Present [phone] [address] [place] [address] Medicaid [id number] 2018 Medicaid [id number] Social History Date Type Detail Facility Start: 04-24-2016 End: 08-31-2022 Tobacco smoking status NHIS Ex-smoker [facility] End: 10-07-2013 History of tobacco use Current smoker [facility] Start: 04-24-2016 End: 08-31-2022 Tobacco use and exposure Smokeless tobacco non-user [facility] Start: 05-22-2022 End: 11-21-2023 Alcohol intake Current non-drinker of alcohol (finding) [facility] Start: 11-15-2020 Education 21 [facility] Start: 03-29-2022 [facility] Start: 1995 Sex Assigned At Not on file [facility] Start: 05-12-2022 End: 08-31-2022 Exposure to SARS-CoV-2 (event) Not sure [facility] Work Phone: End: 10-07-2013 History of tobacco use Cigarette Smoker [facility] Start: 11-14-2018 End: 07-11-2023 History of Social function [facility] Start: 11-14-2018 End: 07-11-2023 Tobacco use panel [facility] Adult Depression Screening Assessment 0 [facility] Medical Equipment Procedure Code Equipment Code Equipment [...] 4 - Moderate documented in this encounter [facility] 12-28-2023 Instructions Tiffany Tay Ma - 12/28/2023 9:20 AM EST SEQUENTIAL SCREENINGS The [facility] offers sequential screenings for women who are [...] It will require an appointment with our ekg technician. This is not an ultrasound performed [...] the above symptoms, contact our office at [phone] and ask to speak with a nurse. After hours, you can call doctors registry at [phone] OR call [facility] at [phone] and ask to have the doctor literacy education professor paged. If you consider this an emergency, dial [phone]--1 or go to your nearest emergency department. NEED HELP? Are you dealing with a violent or abusive relationship? Are you a victim of rape or sexual assult? Call [facility] ([place]) 24 hour Crisis Hotline: 267.959.5033 or 918-707-5357. MANUAL Your Guide to a Healthy manual is now on-line. Visit [email or web address] to download your free copy documented in this encounter [facility] 12-02-2023 Note HNO ID: [id number] Author: THELMA RENE APRN.RN LICENSED PRACTICAL Service: ? Author Type: Nurse Practitioner Type: [...] ED to rule out PE Declines EMS [facility] 11-21-2023 Note HNO ID: [id number] Author: Sandra Carias APRN.RN LICENSED PRACTICAL Service: ? Author Type: Nurse Practitioner Type: [...] ER with red flag symptoms Sandra Carias APRN.RN LICENSED PRACTICAL Prescription instructions reviewed with patient as applicable. [...] which included preparing to see the patient, [id number] patient care, completing clinical documentation, obtaining and/or reviewing separately obtained history, performing a medically appropriate examination, counseling and educating the patient/family/caregiver, and ordering medications, tests, or procedures. [facility] 11-11-2023 Note HNO ID: [id number] Author: Aman Dickens APRN.RN LICENSED PRACTICAL Service: ? Author Type: Nurse Practitioner Type: [...] Laterality Date ESOPHAGOGASTRODUODENOSCOPY TRANSORAL DIAGNOSTIC 09/14/16 EGD [place] ALLERGIES Patient has no known allergies. MEDICATIONS [...] as sinobronchitis. Recommend follow-up with PCP or SALES CENTER ASSOCIATE next 2 to 3 days for reevaluation. [...] agrees to plan (more content not included)... [facility] 11-11-2023 History of Presen t illness Narrative [...] as sinobronchitis. Recommend follow-up with PCP or SALES CENTER ASSOCIATE next 2 to 3 days for reevaluation. [...] of care. This note was generated using [employer] software. It may contain errors in wording, punctuation, or spelling. Aman Dickens APRN.RN LICENSED PRACTICAL documented in this encounter [facility] 11-02-2023 Miscellaneous Notes 2nd risk assessment form submitted 11/02/23 Marita Brothers RN documented in this encounter [facility] 10-25-2023 Miscellaneous Notes DM-Pt doing well. Denies [...] Jada Shah MD documented in this encounter [facility] 10-25-2023 Instructions Vijay Cooper RN - 10/25/2023 3:48 PM EST SEQUENTIAL SCREENINGS The [facility] offers sequential screenings for women who are [...] It will require an appointment with our ekg technician. This is not an ultrasound performed [...] the above symptoms, contact our office at [phone] and ask to speak with a nurse. After hours, you can call doctors registry at [phone] OR call [facility] at [phone] and ask to have the doctor literacy education professor paged. If you consider this an emergency, dial [phone]- or go to your nearest emergency department. NEED HELP? Are you dealing with a violent or abusive relationship? Are you a victim of rape or sexual assult? Call [facility] ([place]) 24 hour Crisis Hotline: 277.672.9236 or 999-878-7405. MANUAL Your Guide to a Healthy manual is now on-line. Visit [email or web address] to download your free copy documented in this encounter [facility] 09-14-2023 Note HNO ID: [id number] Author: Brenda Tim APRN.RN LICENSED PRACTICAL Service: ? Author Type: Nurse Practitioner Type: [...] Patient agreeable to treatment plan. Brenda Tim APRN.[facility] 09-14-2023 History of Presen t illness [...] Patient agreeable to treatment plan. Brenda Tim APRN.ASHELY documented in this encounter [facility] 09-14-2023 Miscellaneous Notes Patient notified and voiced [...] Sofiya Leal RN documented in this encounter [facility] 09-04-2023 Note HNO ID: [id number] Author: Eduardo Guevara MD Service: ? 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 She had consultation with MFM [...] Laterality Date ESOPHAGOGASTRODUODENOSCOPY TRANSORAL DIAGNOSTIC 09/14/16 EGD ([facility] FAMILY HISTORY Adopted: Yes Problem Relation Age [...] We discussed vagi (more content not included)... [facility] 09-04-2023 Miscellaneous Notes RR- VB No. LOF No. CTXS No. Movement: present. Other c/o: No. Medication list reviewed. Physical Exam See Flow Sheet Abd: soft, nontender, gravid Ext: edema: no A/P 18w1d Estimated Date of Delivery: 02/04/24 Labs: second part of sequential today declines flu vaccine. f/u in 4 weeks or prn Calixto Collado M.D. documented in this encounter [facility] 09-04-2023 Instructions Pascale Bingham Ma - 09/04/2023 10:51 AM EDT SEQUENTIAL SCREENINGS The [facility] offers sequential screenings for women who are [...] It will require an appointment with our ekg technician. This is not an ultrasound performed [...] the above symptoms, contact our office at [phone] and ask to speak with a nurse. After hours, you can call doctors registry at [phone] OR call [facility] at [phone] and ask to have the doctor literacy education professor paged. If you consider this an emergency, dial or go to your nearest emergency department. NEED HELP? Are you dealing with a violent or abusive relationship? Are you a victim of rape or sexual assult? Call [facility] ([place]) 24 hour Crisis Hotline: 664.870.4280 or 652-848-8619. MANUAL Your Guide to a Healthy manual is now on-line. 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 She had consultation with [facility] in 2019 , reports history of [...] Laterality Date ESOPHAGOGASTRODUODENOSCOPY TRANSORAL DIAGNOSTIC 09/14/16 EGD ([facility] FAMILY HISTORY Adopted: Yes Problem Relation Age [...] TIME: 10:28 AM documented in this encounter [facility] 08-30-2023 Miscellaneous Notes Patient notified. Lizz Cano RN Needs cervical length US so keep MFM consult scheduled Emely Tim MD 17w3d Patient called to cancel today's appointment because she does not have a administrator pesticide. She was scheduled to see you this [...] Sveta Ashford RN documented in this encounter [facility] 07-25-2023 Instructions Sveta Ashford RN - 07/25/2023 2:14 PM EDT SEQUENTIAL TESTING PROCESS Sequential Screen First Trimester Today you are currently: 12w2d weeks 07/25/2023: Ultrasound and blood test. Sequential Screen Second Trimester (16-17 Weeks Gestation) When you are called with your results, the nurse will give the optimal draw dates for the Sequential screen second trimester. Blood testing can be done at any [facility] lab. Please report to the any health actuary office java front end web developer for the Sequential Part 2 requisition [...] medicine office, for east side please call [phone] or for the West side call [phone] and ask for the the nurse. Thank you. documented in this encounter [facility] 07-25-2023 Miscellaneous Notes Patient here for First Trimester Screening. Please file order. documented in this encounter [facility] 07-13-2023 Miscellaneous Notes risk assessment form complete Joelle Awan RN documented in this encounter [facility] 07-12-2023 Note HNO ID: [id number] Author: Jada Gonzalez MD Service: ? Author Type: Physician Type: Progress Notes Filed: 07/12/2023 1:12 PM Note Text: OB point of care ultrasound was performed. See imaging tab for details. Jada Shah MD [facility] 07-12-2023 History of Presen t illness Narrative OB point of care ultrasound was performed. See imaging tab for details. Jada Shah MD documented in this encounter [facility] 07-11-2023 Note HNO ID: [id number] Author: Erica Menon APRN.RN LICENSED PRACTICAL Service: ? Author Type: Nurse Practitioner Type: [...] use: No Multivitamin with Folic acid: Yes Protestant or heritage: No Would refuse blood transfusion [...] Laterality Date ESOPHAGOGASTRODUODENOSCOPY TRANSORAL DIAGNOSTIC 09/14/16 EGD ([facility] Current Outpatient Medications Medication Sig Dispense Refill [...] 5 No current (more content not included)... [facility] 07-11-2023 Instructions Tiffany Tay Ma - 07/11/2023 1:05 PM EDT Please select the following link to access the [facility] Your Guide to a Healthy . [email or web address] documented in this encounter [facility] 07-11-2023 History of Presen t illness Narrative [...] for delivery: Have you had a prior paalcio between 20w and 36w6d?: (!) Yes (35weeks [...] use: No Multivitamin with Folic acid: Yes Protestant or heritage: No Would refuse blood transfusion [...] Laterality Date ESOPHAGOGASTRODUODENOSCOPY TRANSORAL DIAGNOSTIC 09/14/16 EGD ([facility] Current Outpatient Medications Medication Sig Dispense Refill [...] Positive reinforcement of current behavior. Erica Menon APRN.RN LICENSED PRACTICAL ASSESSMENT: 27 year old at 10w2d wks gestational age PLAN: 1) Patient oriented to practice. Discussed nutrition, folic acid supplementation, dietary guidelines, exercise, smoking, alcohol, caffeine, and drug use. Discussed gestational weight gain guidelines. Discussed routine OB labs including STD/HIV. Discussed how to access Your guide to a health and the Employment Law Specialist. Discussed aneuploidy and carrier screening. Regarding aneuploidy [...] prefers in person visits. Reviewed midwifery and territory sales professional services that are available. 2) History of . Will order MFM consult for further discussion. History of PPH requiring iron infusion 3) Grand multip Follow up in 2 weeks or sooner prn. Erica Menon APRN.ASHLEY documented in this encounter [facility] 04-10-2023 Note HNO ID: [id number] Author: Emely Tim MD Service: ? 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 Creative Writing Teacher History LMP: 04/08/2022 (Approximate), Unknown Age at Menarche: Age at First : Age at Menopause: Creative Writing Teacher History Comments: Sexual Activity: Yes; Male; TTC Contraception: No contraception data on record PAST MEDICAL HISTORY Diagnosis Date Abnormal Pap smear of cervix LGSIL Acid reflux Anemia complicating , second trimester 04/16/2018 ASCUS of cervix with negative high risk HPV Chlamydia infection complicating 05/28/2014 Migraines Overweight PAST SURGICAL HISTORY Procedure Laterality Date ESOPHAGOGASTRODUODENOSCOPY TRANSORAL DIAGNOSTIC 09/14/16 EGD ([facility] FAMILY HISTORY Adopted: Yes Problem Relation Age [...] Level: 4 - Moderate Emely Tim MD [facility] 04-10-2023 History of Presen t illness Narrative [...] L5 SAB0 IAB0 Ectopic0 Multiple0 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 Writing 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 History LMP: 04/08/2022 (Approximate), Unknown Age at Menarche: Age at First : Age at Menopause: Creative Writing Teacher History Comments: Sexual Activity: Yes; Male; TTC Contraception: No contraception data on record PAST MEDICAL HISTORY Diagnosis Date Abnormal Pap smear of cervix LGSIL Acid reflux Anemia complicating , second trimester 04/16/2018 ASCUS of cervix with negative high risk HPV Chlamydia infection complicating 05/28/2014 Migraines Overweight PAST SURGICAL HISTORY Procedure Laterality Date ESOPHAGOGASTRODUODENOSCOPY TRANSORAL DIAGNOSTIC 09/14/16 EGD ([facility] FAMILY HISTORY Adopted: Yes Problem Relation Age [...] Emely Tim MD documented in this encounter [facility] 04-05-2023 Note HNO ID: [id number] Author: KEVIN Prince Service: ? Author Type: Physician Teacher Preschool Type: Progress Notes Filed: 04/05/2023 10:20 AM Note Text: This note was created using Carrier IQriter. Subjective Sara Bhakta is a 27 year [...] other complaints. She has not tried anything weit-kew-laqprqb for symptoms PAST MEDICAL HISTORY Diagnosis Date [...] detail warranting prompt ER evaluation. KEVIN Prince [facility] 04-05-2023 History of Presen t illness Narrative This note was created using Incujector. Subjective Sara Bhakta is a 27 year [...] other complaints. She has not tried anything czvh-swx-mduvyqv for symptoms PAST MEDICAL HISTORY Diagnosis Date Abnormal Pap smear of cervix LGSIL Acid reflux Anemia complicating , second trimester 04/16/2018 ASCUS of cervix with negative high risk HPV Chlamydia infection complicating 05/28/2014 Migraines Overweight PAST SURGICAL HISTORY Procedure Laterality Date ESOPHAGOGASTRODUODENOSCOPY TRANSORAL DIAGNOSTIC 09/14/16 EGD ([facility] ALLERGIES Patient has no known allergies. MEDICATIONS [...] evaluation. KEVIN Prince documented in this encounter [facility] 2022 Instructions Jackie Correia APRN.CNM - 2022 1:44 PM EST Ibuprofen 600 mg by mouth every 6 hours Tylenol 1000 mg by mouth every 8 hours Cold and warm packs to back of neck Schedule with chiropractor documented in this encounter [facility] 2022 History of Presen t illness Narrative EARLY VISIT Sara Bhakta is a 27 year old here for a problem visit of post headache. She reports headache started on right side of head towards baptism last night. Took Tylenol with minimal relief. [...] no sleep concerns, does not feel rested Sylvarena since delivery: n/a Emotional support: Yes Exercise: [...] Blood pressures today- 119/77 average - Recommended patient care director - Reviewed preeclampsia precautions and when to keke Follow up: RTO next week for 2 week post visit Jackie Correia APRN.CNM documented in this encounter [facility] 12-18-2022 History of Presen t illness Narrative Patient delivered via by Dr. Griffith on 12/16/22 at [facility]. See OB history. Lizz Cano RN documented in this encounter [facility] 12-13-2022 Miscellaneous Notes DM-Pt doing well. Denies [...] Jada Shah MD documented in this encounter [facility] 12-13-2022 Instructions Tiffany Tay Vt - 12/13/2022 11:04 AM EST SEQUENTIAL SCREENINGS The [facility] offers sequential screenings for women who are [...] It will require an appointment with our ekg technician. This is not an ultrasound performed [...] the above symptoms, contact our office at [phone] and ask to speak with a nurse. After hours, you can call doctors registry at [phone] OR call [facility] at [phone] and ask to have the doctor literacy education professor paged. If you consider this an emergency, dial 9--4 or go to your nearest emergency department. NEED HELP? Are you dealing with a violent or abusive relationship? Are you a victim of rape or sexual assult? Call [facility] ([place]) 24 hour Crisis Hotline: 715.907.4145 or 105-848-5708. MANUAL Your Guide to a Healthy manual is now on-line. Visit [email or web address] to download your free copy documented in this encounter [facility] 12-04-2022 Miscellaneous Notes JAMES-S: Sara Bhakta is [...] Thelma Penny APRN.CNM documented in this encounter [facility] 12-04-2022 Loretta Hobbs Cma - 12/04/2022 11:06 AM EST SEQUENTIAL SCREENINGS The [facility] offers sequential screenings for women who are [...] It will require an appointment with our ekg technician. This is not an ultrasound performed [...] the above symptoms, contact our office at [phone] and ask to speak with a nurse. After hours, you can call doctors registry at [phone] OR call [facility] at [phone] and ask to have the doctor literacy education professor paged. If you consider this an emergency, dial 9--1 or go to your nearest emergency department. NEED HELP? Are you dealing with a violent or abusive relationship? Are you a victim of rape or sexual assult? Call [facility] ([place]) 24 hour Crisis Hotline: 569.632.8334 or 233-111-4857. MANUAL Your Guide to a Healthy manual is now on-line. Visit [email or web address] to download your free copy documented in this encounter [facility] 11-29-2022 Miscellaneous Notes Patient notified. Voiced understanding. [...] Lizz Cano RN documented in this encounter [facility] 11-24-2022 Miscellaneous Notes RR- VB No. LOF [...] Calixto Collado M.D. documented in this encounter [facility] 11-24-2022 Loretta Bingham Ma - 11/24/2022 1:26 PM EST SEQUENTIAL SCREENINGS The [facility] offers sequential screenings for women who are [...] It will require an appointment with our ekg technician. This is not an ultrasound performed [...] the above symptoms, contact our office at [phone] and ask to speak with a nurse. After hours, you can call doctors registry at [phone] OR call [facility] at [phone] and ask to have the doctor literacy education professor paged. If you consider this an emergency, dial 9-8 or go to your nearest emergency department. NEED HELP? Are you dealing with a violent or abusive relationship? Are you a victim of rape or sexual assult? Call [facility] ([place]) 24 hour Crisis Hotline: 763.666.2449 or 398-682-7069. MANUAL Your Guide to a Healthy manual is now on-line. Visit [email or web address] to download your free copy documented in this encounter [facility] 11-16-2022 Miscellaneous Notes filed [id number] Last RX sent 10/27. 30 tablets. Patient is taking twice a day. Would you like to increase number of tablets? Requested Prescriptions Pending Prescriptions Disp Refills famotidine (PEPCID) 20 mg tablet 30 tablet 0 Sig: Take 1 tablet by mouth twice daily. Sveta Ashford RN documented in this encounter [facility] 11-13-2022 Miscellaneous Notes S: Sara Bhakta is a 26 year old female who presents at 34 weeks gestation for a routine visit. Has been monitoring blood glucose levels but forgot to bring in the sheets today. Reports only 3 elevated levels after dinner only. All fasting levels within normal ranges. She will send results through [facility]. Denies headache, visual changes, chest pain, shortness [...] Jackie Correia APRN.CNM documented in this encounter [facility] 11-13-2022 Instructions Pascale Bingham Ma - 11/13/2022 1:58 PM EST SEQUENTIAL SCREENINGS The [facility] offers sequential screenings for women who are [...] It will require an appointment with our ekg technician. This is not an ultrasound performed [...] the above symptoms, contact our office at [phone] and ask to speak with a nurse. After hours, you can call doctors registry at [phone] OR call [facility] at [phone] and ask to have the doctor literacy education professor paged. If you consider this an emergency, dial 9--1 or go to your nearest emergency department. NEED HELP? Are you dealing with a violent or abusive relationship? Are you a victim of rape or sexual assult? Call [facility] ([place]) 24 hour Crisis Hotline: 831.230.4694 or 686-495-0431. MANUAL Your Guide to a Healthy manual is now on-line. Visit [email or web address] to download your free copy documented in this encounter [facility] 10-27-2022 Miscellaneous Notes SW- Recovered from the [...] Cinthia Griffith DO documented in this encounter [facility] 10-27-2022 Instructions Angela Brown MA - 10/27/2022 1:05 PM EST SEQUENTIAL SCREENINGS The [facility] offers sequential screenings for women who are [...] It will require an appointment with our ekg technician. This is not an ultrasound performed [...] the above symptoms, contact our office at [phone] and ask to speak with a nurse. After hours, you can call doctors registry at [phone] OR call [facility] at [phone] and ask to have the doctor literacy education professor paged. If you consider this an emergency, dial 91-4 or go to your nearest emergency department. NEED HELP? Are you dealing with a violent or abusive relationship? Are you a victim of rape or sexual assult? Call [facility] ([place]) 24 hour Crisis Hotline: 681.181.6131 or 838-811-5213. MANUAL Your Guide to a Healthy manual is now on-line. Visit [email or web address] to download your free copy documented in this encounter [facility] 10-23-2022 History of Presen t illness Narrative [...] Laterality Date ESOPHAGOGASTRODUODENOSCOPY TRANSORAL DIAGNOSTIC 09/14/16 EGD ([facility] ALLERGIES Patient has no known allergies. MEDICATIONS [...] Discussed expected course of illness Amanda Brown APRN.RN LICENSED PRACTICAL documented in this encounter [facility] 10-23-2022 Instructions Amanda Brown APRN.ASHLEY - 10/23/2022 [...] Sinusitis Patient Education What is Sinusitis? Sinusitis [cblw-qvb-czcm-tis] is inflammation of the sinuses or swelling [...] help. You may be instructed to take jepr-qcy-mpghbgi medications for symptoms. including fever reducers acetaminophen or ibuprofen, nasal saline spray, cough and cold preparations and decongestants as prescribed by the physician, nurse practitioner or physician reference library assistant. Self-Care and Prevention: Rest Fluids for hydration Good hand washing Humidifier Avoid smoking and exposure to second hand smoke Avoid sick contacts documented in this encounter [facility] 10-23-2022 Miscellaneous Notes Patient notified. Voiced understanding. NotesFirst message also sent for patient to refer [...] positive for influenza on Sunday, 10/19 at [facility]. Calling to report that she has sinus pressure that is making the left side of her face hurt. The pressure is even making her teeth hurt. Taking Tylenol only. NotesFirst message sent with link to medications safe in . Advised to go to ER if she develops SOB or CP. Next OB visit is on 10/27. Encouraged to rest and push fluids. Do you have anything further to advise. Sveta Ashford RN documented in this encounter [facility] 09-29-2022 Miscellaneous Notes JAMES-S: Sara Bhakta is [...] which included preparing to see the patient, mlmj-ay-muyw patient care, completing clinical documentation, obtaining and/or reviewing separately obtained history, performing a medically appropriate examination, counseling and educating the patient/family/caregiver, and ordering medications, tests, or procedures. documented in this encounter [facility] 09-29-2022 Instructions Thelma Penny APRN.CNM - 09/29/2022 [...] check with insurance for coverage) Go to [facility] online and fill out information SIGNS AND [...] the above symptoms, contact our office at [phone] and ask to speak with a nurse. After hours, you can call doctors registry at [phone] OR call [facility] at [phone] and ask to have the doctor literacy education professor paged. If you consider this an emergency, dial 9-1 or go to your nearest emergency department. NEED HELP? Are you dealing with a violent or abusive relationship? Are you a victim of rape or sexual assult? Call [facility] ([place]) 24 hour Crisis Hotline: 863.599.8513 or 409-505-6355. MANUAL Your Guide to a Healthy manual is now on-line. Visit [email or web address] to download your free copy documented in this encounter [facility] 08-17-2022 Miscellaneous Notes Agree with urgent care [...] Sveta Ashford RN documented in this encounter [facility] 08-03-2022 Miscellaneous Notes Sara Bhakta is a [...] Jackie Correia APRN.CNM documented in this encounter [facility] 08-03-2022 Instructions Tiffany Tay Ma - 08/03/2022 1:53 PM EDT SEQUENTIAL SCREENINGS The [facility] offers sequential screenings for women who are [...] It will require an appointment with our ekg technician. This is not an ultrasound performed [...] the above symptoms, contact our office at [phone] and ask to speak with a nurse. After hours, you can call doctors registry at [phone] OR call [facility] at [phone] and ask to have the doctor literacy education professor paged. If you consider this an emergency, dial 91-9 or go to your nearest emergency department. NEED HELP? Are you dealing with a violent or abusive relationship? Are you a victim of rape or sexual assult? Call [facility] ([place]) 24 hour Crisis Hotline: 710.987.5436 or 317-254-9759. MANUAL Your Guide to a Healthy manual is now on-line. Visit [email or web address] to download your free copy documented in this encounter [facility] 07-18-2022 Miscellaneous Notes RR- VB No. LOF [...] Calixto Collado M.D. documented in this encounter [facility] 07-18-2022 Loretta Bingham Ma - 07/18/2022 10:34 AM EDT SEQUENTIAL SCREENINGS The [facility] offers sequential screenings for women who are [...] It will require an appointment with our ekg technician. This is not an ultrasound performed [...] the above symptoms, contact our office at [phone] and ask to speak with a nurse. After hours, you can call doctors registry at [phone] OR call [facility] at [phone] and ask to have the doctor literacy education professor paged. If you consider this an emergency, dial 5-8-2 or go to your nearest emergency department. NEED HELP? Are you dealing with a violent or abusive relationship? Are you a victim of rape or sexual assult? Call [facility] [place] ([facility] 24 hour Crisis Hotline: 735.219.4434 or 517-040-0269. MANUAL Your Guide to a Healthy manual is now on-line. Visit [email or web address] to download your free copy documented in this encounter [facility] 06-05-2022 Miscellaneous Notes NOB completed today. Jackie Correia APRN.CNM documented in this encounter [facility] 06-05-2022 Instructions Sofiya Leal RN - 06/05/2022 2:00 PM EDT SEQUENTIAL TESTING PROCESS Sequential Screen First Trimester Today you are currently: 8w2d weeks 06/05/2022: Ultrasound and blood test. Sequential Screen Second Trimester (16-17 Weeks Gestation) When you are called with your results, the nurse will give the optimal draw dates for the Sequential screen second trimester. Blood testing can be done at any [facility] lab. Please report to the any health actuary office java front end web developer for the Sequential Part 2 requisition [...] medicine office, for east side please call [phone] or for the West side call [phone] and ask for the the nurse. Thank you. documented in this encounter [facility] 06-05-2022 Miscellaneous Notes Please file pended order Sofiya Leal RN Patient here for First Trimester Screening. See ultrasound report for details. Options for genetic screening and diagnosis discussed with the patient. Patient opts for first trimester screening and the sequential screening protocol. Limitations of screening tests discussed with the patient. Jackie Correia APRN.CNM documented in this encounter [facility] 06-05-2022 History of Presen t illness Narrative Images from the original note were not included. 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 [email or web address] documented in this encounter [facility] 05-23-2022 Miscellaneous Notes I don't think she [...] new OB appointment. documented in this encounter [facility] 05-22-2022 Miscellaneous Notes DISTANCE HEALTH VISIT This [...] Declined Lisa last . Does not want [place] this as well. 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 ASCUS with positive high risk HPV [...] Overview: 12/22/17- UTI, treated with Macrobid by [facility] ER. Thelma Penny CNM Current with histo ry of spontaneous during prior 10/25/2017 08/04/20 19 Overview: 10/25/2017Patient had a previous miscarriage 02/2017. Denies any bleeding, pain or cramping. Miscarriage precautions given. TKRN Chlamydia infection complicating 05/28/2014 06/22/2015 Overview: Negative GC/Chlamydia 06/08/14. 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 ASCUS with positive high risk HPV [...] Overview: 12/22/17- UTI, treated with Macrobid by [facility] ER. 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 ASCUS with positive high risk HPV [...] Overview: 12/22/17- UTI, treated with Macrobid by [facility] ER. 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 ASCUS with positive high risk HPV [...] Overview: 12/22/17- UTI, treated with Macrobid by [facility] ER. Thelma Penny CNM Current with histo ry of spontaneous during prior 10/25/2017 08/04/20 19 Overview: 10/25/2017Patient had a previous miscarriage 02/2017. Denies any bleeding, pain or cramping. Miscarriage precautions given. TKRN Chlamydia infection complicating 05/28/2014 06/22/2015 Overview: Negative GC/Chlamydia 06/08/14. 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 ASCUS with positive high risk HPV [...] Overview: 12/22/17- UTI, treated with Macrobid by [facility] ER. Thelma Penny CNM Current with histo ry of spontaneous during prior 10/25/2017 08/04/20 19 Overview: 10/25/2017Patient had a previous miscarriage 02/2017. Denies any bleeding, pain or cramping. Miscarriage precautions given. TKRN Chlamydia infection complicating 05/28/2014 06/22/2015 Overview: Negative GC/Chlamydia 06/08/14. 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 ASCUS with positive high risk HPV [...] Overview: 12/22/17- UTI, treated with Macrobid by [facility] ER. 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 ASCUS with positive high risk HPV [...] Overview: 12/22/17- UTI, treated with Macrobid by [facility] ER. Thelma Penny CNM Current with histo ry of spontaneous during prior 10/25/2017 08/04/20 Overview: 10/25/2017Patient had a previous miscarriage 02/2017. Denies any bleeding, pain or cramping. Miscarriage precautions given. TKRN Chlamydia infection complicating 05/28/2014 06/22/2015 Overview: Negative GC/Chlamydia 06/08/14. 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 ASCUS with positive high risk HPV [...] Overview: 12/22/17- UTI, treated with Macrobid by [facility] ER. Thelma Penny CNM Current with histo ry of spontaneous during prior 10/25/2017 08/04/20 19 Overview: 10/25/2017Patient had a previous miscarriage 02/2017. Denies any bleeding, pain or cramping. Miscarriage precautions given. TKRN Chlamydia infection complicating 05/28/2014 06/22/2015 Overview: Negative GC/Chlamydia 06/08/14. Sho Weiss, RN LICENSED PRACTICAL Elevated glucose 03/24/2014 09/04/2023 Overview: 10/02/22- Elevated [...] of this encounter (statuses as of 12/28/2023) [facility] History of Past illness Narrative* Problem Noted Date Resolved Date Threatened premature labor in third trimester 08/04/2019 Overview: 06/27/19 - BMZ #1 today and will repeat tomorrow at [facility] - Emely Tim MD ASCUS with positive [...] Overview: 12/22/17- UTI, treated with Macrobid by [facility] ER. Thelma Penny CNM Current with histo ry of spontaneous during prior 10/25/2017 08/04/2019 Overview: 10/25/2017Patient had a previous miscarriage 02/2017. Denies any bleeding, pain or cramping. Miscarriage precautions given. TKRN Chlamydia infection complicating 05/2806/22/2015 Overview: Negative GC/Chlamydia 06/08/14. Sho Weiss, RN LICENSED PRACTICAL Elevated glucose 03/24/2014 06/22/2015 Overview: 03/30/14 - [...] of this encounter (statuses as of 05/22/2022) [facility]08-02-2019 History of Past illness Narrative* Problem Noted Date Resolved Date Threatened premature labor in third trimester 08/04/2019 Overview: 06/27/19 - BMZ #1 today and will repeat tomorrow at [facility] - Emely Tim MD ASCUS with positive [...] Overview: 12/22/17- UTI, treated with Macrobid by [facility]. Thelma Penny CNM Current with histo ry of spontaneous during prior 10/25/2017 08/04/2019 Overview: 10/25/2017Patient had a previous miscarriage 02/2017. Denies any bleeding, pain or cramping. Miscarriage precautions given. TKRN Chlamydia infection complicating 05/2806/22/2015 Overview: Negative GC/Chlamydia 06/08/14. Sho Weiss, RN LICENSED PRACTICAL Elevated glucose 03/24/2014 06/22/2015 Overview: 03/30/14 - [...] of this encounter (statuses as of 05/23/2022) [facility]08-02-2019 History of Past illness Narrative* Problem Noted Date Resolved Date Threatened premature labor in third trimester 08/04/2019 Overview: 06/27/19 - BMZ #1 today and will repeat tomorrow at [facility] - Emely Tim MD ASCUS with positive [...] Overview: 12/22/17- UTI, treated with Macrobid by [facility]. Thelma Penny CNM Current with histo ry of spontaneous during prior 10/25/2017 08/04/2019 Overview: 10/25/2017Patient had a previous miscarriage 02/2017. Denies any bleeding, pain or cramping. Miscarriage precautions given. TKRN Chlamydia infection complicating 05/2806/22/2015 Overview: Negative GC/Chlamydia 06/08/14. Sho Weiss, RN LICENSED PRACTICAL Elevated glucose 03/24/2014 06/22/2015 Overview: 03/30/14 - [...] of this encounter (statuses as of 06/05/2022) [facility]08-02-2019 History of Past illness Narrative* Problem Noted Date Resolved Date Threatened premature labor in third trimester 08/04/2019 Overview: 06/27/19 - BMZ #1 today and will repeat tomorrow at [facility] - Emely Tim MD ASCUS with positive [...] Overview: 12/22/17- UTI, treated with Macrobid by [facility]. Thelma Penny CNM Current with histo ry of spontaneous during prior 10/25/2017 08/04/2019 Overview: 10/25/2017Patient had a previous miscarriage 02/2017. Denies any bleeding, pain or cramping. Miscarriage precautions given. TKRN Chlamydia infection complicating 05/2806/22/2015 Overview: Negative GC/Chlamydia 06/08/14. Sho Weiss, RN LICENSED PRACTICAL Elevated glucose 03/24/2014 06/22/2015 Overview: 03/30/14 - [...] of this encounter (statuses as of 06/05/2022) [facility]08-02-2019 History of Past illness Narrative* Problem Noted Date Resolved Date Threatened premature labor in third trimester 08/04/2019 Overview: 06/27/19 - BMZ #1 today and will repeat tomorrow at [facility] - Emely Tim MD ASCUS with positive [...] Overview: 12/22/17- UTI, treated with Macrobid by [facility]. Thelma Penny CNM Current with histo ry of spontaneous during prior 10/25/2017 08/04/2019 Overview: 10/25/2017Patient had a previous miscarriage 02/2017. Denies any bleeding, pain or cramping. Miscarriage precautions given. TKRN Chlamydia infection complicating 05/2806/22/2015 Overview: Negative GC/Chlamydia 06/08/14. Sho Weiss, RN LICENSED PRACTICAL Elevated glucose 03/24/2014 06/22/2015 Overview: 03/30/14 - [...] of this encounter (statuses as of 06/05/2022) [facility]08-02-2019 History of Past illness Narrative* Problem Noted Date Resolved Date Threatened premature labor in third trimester 08/04/2019 Overview: 06/27/19 - BMZ #1 today and will repeat tomorrow at [facility] - Emely Tim MD ASCUS with positive [...] Overview: 12/22/17- UTI, treated with Macrobid by [facility]. Thelma Penny CNM Current with histo ry of spontaneous during prior 10/25/2017 08/04/2019 Overview: 10/25/2017Patient had a previous miscarriage 02/2017. Denies any bleeding, pain or cramping. Miscarriage precautions given. TKRN Chlamydia infection complicating 05/2806/22/2015 Overview: Negative GC/Chlamydia 06/08/14. Sho Weiss, RN LICENSED PRACTICAL Elevated glucose 03/24/2014 06/22/2015 Overview: 03/30/14 - [...] of this encounter (statuses as of 07/18/2022) [facility]08-02-2019 History of Past illness Narrative* Problem Noted Date Resolved Date Threatened premature labor in third trimester 08/04/2019 Overview: 06/27/19 - BMZ #1 today and will repeat tomorrow at [facility] - Emely Tim MD ASCUS with positive [...] Overview: 12/22/17- UTI, treated with Macrobid by [facility]. Thelma Penny CNM Current with histo ry of spontaneous during prior 10/25/2017 08/04/2019 Overview: 10/25/2017Patient had a previous miscarriage 02/2017. Denies any bleeding, pain or cramping. Miscarriage precautions given. TKRN Chlamydia infection complicating 05/2806/22/2015 Overview: Negative GC/Chlamydia 06/08/14. Sho Weiss, RN LICENSED PRACTICAL Elevated glucose 03/24/2014 06/22/2015 Overview: 03/30/14 - [...] of this encounter (statuses as of 08/03/2022) [facility]08-02-2019 History of Past illness Narrative* Problem Noted Date Resolved Date Threatened premature labor in third trimester 08/04/2019 Overview: 06/27/19 - BMZ #1 today and will repeat tomorrow at [facility] - Emely Tim MD ASCUS with positive [...] Overview: 12/22/17- UTI, treated with Macrobid by [facility]. Thelma Penny CNM Current with histo ry of spontaneous during prior 10/25/2017 08/04/2019 Overview: 10/25/2017Patient had a previous miscarriage 02/2017. Denies any bleeding, pain or cramping. Miscarriage precautions given. TKRN Chlamydia infection complicating 05/2806/22/2015 Overview: Negative GC/Chlamydia 06/08/14. Sho Weiss, RN LICENSED PRACTICAL Elevated glucose 03/24/2014 06/22/2015 Overview: 03/30/14 - [...] of this encounter (statuses as of 08/03/2022) [facility]08-02-2019 History of Past illness Narrative* Problem Noted Date Resolved Date Threatened premature labor in third trimester 08/04/2019 Overview: 06/27/19 - BMZ #1 today and will repeat tomorrow at [facility] - Emely Tim MD ASCUS with positive [...] Overview: 12/22/17- UTI, treated with Macrobid by [facility]. Thelma Penny CNM Current with histo ry of spontaneous during prior 10/25/2017 08/04/2019 Overview: 10/25/2017Patient had a previous miscarriage 02/2017. Denies any bleeding, pain or cramping. Miscarriage precautions given. TKRN Chlamydia infection complicating 05/2806/22/2015 Overview: Negative GC/Chlamydia 06/08/14. Sho Weiss, RN LICENSED PRACTICAL Elevated glucose 03/24/2014 06/22/2015 Overview: 03/30/14 - [...] of this encounter (statuses as of 08/03/2022) [facility]08-02-2019 History of Past illness Narrative* Problem Noted Date Resolved Date Threatened premature labor in third trimester 08/04/2019 Overview: 06/27/19 - BMZ #1 today and will repeat tomorrow at [facility] - Emely Tim MD ASCUS with positive [...] Overview: 12/22/17- UTI, treated with Macrobid by [facility]. Thelma Penny CNM Current with histo ry of spontaneous during prior 10/25/2017 08/04/2019 Overview: 10/25/2017Patient had a previous miscarriage 02/2017. Denies any bleeding, pain or cramping. Miscarriage precautions given. TKRN Chlamydia infection complicating 05/2806/22/2015 Overview: Negative GC/Chlamydia 06/08/14. Sho Weiss, RN LICENSED PRACTICAL Elevated glucose 03/24/2014 06/22/2015 Overview: 03/30/14 - [...] of this encounter (statuses as of 08/17/2022) [facility]08-02-2019 History of Past illness Narrative* Problem Noted Date Resolved Date Threatened premature labor in third trimester 08/04/2019 Overview: 8/2/19 - BMZ #1 today and will repeat tomorrow at [facility] - Emely Tim MD ASCUS with positive [...] Overview: 12/22/17- UTI, treated with Macrobid by [facility]. Thelma Penny CNM Current with histo ry of spontaneous during prior 10/25/2017 08/04/2019 Overview: 10/25/2017Patient had a previous miscarriage 02/2017. Denies any bleeding, pain or cramping. Miscarriage precautions given. TKRN Chlamydia infection complicating 05/2806/22/2015 Overview: Negative GC/Chlamydia 06/08/14. Sho Weiss, RN LICENSED PRACTICAL Elevated glucose 03/24/2014 06/22/2015 Overview: 03/30/14 - [...] of this encounter (statuses as of 09/29/2022) [facility]08-02-2019 History of Past illness Narrative* Problem Noted Date Resolved Date Threatened premature labor in third trimester 08/04/2019 Overview: 06/27/19 - BMZ #1 today and will repeat tomorrow at [facility] - Emely Tim MD ASCUS with positive [...] Overview: 12/22/17- UTI, treated with Macrobid by [facility]. Thelma Penny CNM Current with histo ry of spontaneous during prior 10/25/2017 08/04/2019 Overview: 10/25/2017Patient had a previous miscarriage 02/2017. Denies any bleeding, pain or cramping. Miscarriage precautions given. TKRN Chlamydia infection complicating 05/2806/22/2015 Overview: Negative GC/Chlamydia 06/08/14. Sho Weiss, RN LICENSED PRACTICAL of partner 03/20/2014 06/22/2015 Overview: 03/20/14 - [...] of this encounter (statuses as of 10/02/2022) [facility]08-02-2019 History of Past illness Narrative* Problem Noted [...] Overview: 12/22/17- UTI, treated with Macrobid by [facility]. Thelma Penny CNM Current with histo ry of spontaneous during prior 10/25/2017 08/04/2019 Overview: 10/25/2017Patient had a previous miscarriage 02/2017. Denies any bleeding, pain or cramping. Miscarriage precautions given. TKRN Chlamydia infection complicating 05/2806/22/2015 Overview: Negative GC/Chlamydia 06/08/14. Sho Weiss, RN LICENSED PRACTICAL of partner 03/20/2014 06/22/2015 Overview: 03/20/14 - [...] of this encounter (statuses as of 10/23/2022) [facility]08-02-2019 History of Past illness Narrative* Problem Noted Date Resolved Date Threatened premature labor in third trimester 08/04/2019 Overview: 06/27/19 - BMZ #1 today and will repeat tomorrow at [facility] - Emely Tim MD ASCUS with positive [...] Overview: 12/22/17- UTI, treated with Macrobid by [facility]. Thelma Penny CNM Current with histo ry of spontaneous during prior 10/25/2017 08/04/2019 Overview: 10/25/2017Patient had a previous miscarriage 02/2017. Denies any bleeding, pain or cramping. Miscarriage precautions given. TKRN Chlamydia infection complicating 05/2806/22/2015 Overview: Negative GC/Chlamydia 06/08/14. Sho Weiss, RN LICENSED PRACTICAL of partner 03/20/2014 06/22/2015 Overview: 03/20/14 - [...] of this encounter (statuses as of 10/23/2022) [facility]08-02-2019 History of Past illness Narrative* Problem Noted Date Resolved Date Threatened premature labor in third trimester 08/04/2019 Overview: 06/27/19 - BMZ #1 today and will repeat tomorrow at [facility] - Emely Tim MD ASCUS with positive [...] Overview: 12/22/17- UTI, treated with Macrobid by [facility]. Thelma Penny CNM Current with histo ry of spontaneous during prior 10/25/2017 08/04/2019 Overview: 10/25/2017Patient had a previous miscarriage 02/2017. Denies any bleeding, pain or cramping. Miscarriage precautions given. TKRN Chlamydia infection complicating 05/2806/22/2015 Overview: Negative GC/Chlamydia 06/08/14. Sho Weiss, RN LICENSED PRACTICAL of partner 03/20/2014 06/22/2015 Overview: 03/20/14 - [...] of this encounter (statuses as of 10/27/2022) [facility]08-02-2019 History of Past illness Narrative* Problem Noted Date Resolved Date Threatened premature labor in third trimester 08/04/2019 Overview: 06/27/19 - BMZ #1 today and will repeat tomorrow at [facility] - Emely Tim MD ASCUS with positive [...] Overview: 12/22/17- UTI, treated with Macrobid by [facility]. Thelma Penny CNM Current with histo ry of spontaneous during prior 10/25/2017 08/04/2019 Overview: 10/25/2017Patient had a previous miscarriage 02/2017. Denies any bleeding, pain or cramping. Miscarriage precautions given. TKRN Chlamydia infection complicating 05/2806/22/2015 Overview: Negative GC/Chlamydia 06/08/14. Sho Weiss, RN LICENSED PRACTICAL of partner 03/20/2014 06/22/2015 Overview: 03/20/14 - [...] of this encounter (statuses as of 10/27/2022) [facility]08-02-2019 History of Past illness Narrative* Problem Noted Date Resolved Date Threatened premature labor in third trimester 08/04/2019 Overview: 06/27/19 - BMZ #1 today and will repeat tomorrow at [facility] - Emely Tim MD ASCUS with positive [...] Overview: 12/22/17- UTI, treated with Macrobid by [facility]. Thelma Penny CNM Current with histo ry of spontaneous during prior 10/25/2017 08/04/2019 Overview: 10/25/2017Patient had a previous miscarriage 02/2017. Denies any bleeding, pain or cramping. Miscarriage precautions given. TKRN Chlamydia infection complicating 05/2806/22/2015 Overview: Negative GC/Chlamydia 06/08/14. Sho Weiss, RN LICENSED PRACTICAL of partner 03/20/2014 06/22/2015 Overview: 03/20/14 - [...] of this encounter (statuses as of 11/13/2022) [facility]08-02-2019 History of Past illness Narrative* Problem Noted Date Resolved Date Threatened premature labor in third trimester 08/04/2019 Overview: 06/27/19 - BMZ #1 today and will repeat tomorrow at [facility] - Emely Tim MD ASCUS with positive [...] Overview: 12/22/17- UTI, treated with Macrobid by [facility]. Thelma Penny CNM Current with histo ry of spontaneous during prior 10/25/2017 08/04/2019 Overview: 10/25/2017Patient had a previous miscarriage 02/2017. Denies any bleeding, pain or cramping. Miscarriage precautions given. TKRN Chlamydia infection complicating 05/2806/22/2015 Overview: Negative GC/Chlamydia 06/08/14. Sho Weiss, RN LICENSED PRACTICAL of partner 03/20/2014 06/22/2015 Overview: 03/20/14 - [...] of this encounter (statuses as of 11/17/2022) [facility]08-02-2019 History of Past illness Narrative* Problem Noted Date Resolved Date Threatened premature labor in third trimester 08/04/2019 Overview: 06/27/19 - BMZ #1 today and will repeat tomorrow at [facility] - Emely Tim MD ASCUS with positive [...] Overview: 12/22/17- UTI, treated with Macrobid by [facility]. Thelma Penny CNM Current with histo ry of spontaneous during prior 10/25/2017 08/04/2019 Overview: 10/25/2017Patient had a previous miscarriage 02/2017. Denies any bleeding, pain or cramping. Miscarriage precautions given. TKRN Chlamydia infection complicating 05/2806/22/2015 Overview: Negative GC/Chlamydia 06/08/14. Sho Weiss, RN LICENSED PRACTICAL of partner 03/20/2014 06/22/2015 Overview: 03/20/14 - [...] of this encounter (statuses as of 11/29/2022) [facility]08-02-2019 History of Past illness Narrative* Problem Noted Date Resolved Date Threatened premature labor in third trimester 08/04/2019 Overview: 06/27/19 - BMZ #1 today and will repeat tomorrow at [facility] - Emely Tim MD ASCUS with positive [...] Overview: 12/22/17- UTI, treated with Macrobid by [facility]. Thelma Penny CNM Current with histo ry of spontaneous during prior 10/25/2017 08/04/2019 Overview: 10/25/2017Patient had a previous miscarriage 02/2017. Denies any bleeding, pain or cramping. Miscarriage precautions given. TKRN Chlamydia infection complicating 05/2806/22/2015 Overview: Negative GC/Chlamydia 06/08/14. Sho Weiss, RN LICENSED PRACTICAL of partner 03/20/2014 06/22/2015 Overview: 03/20/14 - [...] of this encounter (statuses as of 11/30/2022) [facility]08-02-2019 History of Past illness Narrative* Problem Noted Date Resolved Date Threatened premature labor in third trimester 08/04/2019 Overview: 06/27/19 - BMZ #1 today and will repeat tomorrow at [facility] - Emely Tim MD ASCUS with positive [...] Overview: 12/22/17- UTI, treated with Macrobid by [facility]. Thelma Penny CNM Current with histo ry of spontaneous during prior 10/25/2017 08/04/2019 Overview: 10/25/2017Patient had a previous miscarriage 02/2017. Denies any bleeding, pain or cramping. Miscarriage precautions given. TKRN Chlamydia infection complicating 05/2806/22/2015 Overview: Negative GC/Chlamydia 06/08/14. Sho Weiss, RN LICENSED PRACTICAL of partner 03/20/2014 06/22/2015 Overview: 03/20/14 - [...] of this encounter (statuses as of 12/04/2022) [facility]08-02-2019 History of Past illness Narrative* Problem Noted Date Resolved Date Threatened premature labor in third trimester 08/04/2019 Overview: 06/27/19 - BMZ #1 today and will repeat tomorrow at [facility] - Emely Tim MD ASCUS with positive [...] Overview: 12/22/17- UTI, treated with Macrobid by [facility]. Thelma Penny CNM Current with histo ry of spontaneous during prior 10/25/2017 08/04/2019 Overview: 10/25/2017Patient had a previous miscarriage 02/2017. Denies any bleeding, pain or cramping. Miscarriage precautions given. TKRN Chlamydia infection complicating 05/2806/22/2015 Overview: Negative GC/Chlamydia 06/08/14. Sho Weiss, RN LICENSED PRACTICAL of partner 03/20/2014 06/22/2015 Overview: 03/20/14 - [...] of this encounter (statuses as of 12/13/2022) [facility]08-02-2019 History of Past illness Narrative* Problem Noted Date Resolved Date Threatened premature labor in third trimester 08/04/2019 Overview: 06/27/19 - BMZ #1 today and will repeat tomorrow at [facility] - Emely Tim MD ASCUS with positive [...] Overview: 12/22/17- UTI, treated with Macrobid by [facility]. Thelma Penny CNM Current with histo ry of spontaneous during prior 10/25/2017 08/04/2019 Overview: 10/25/2017Patient had a previous miscarriage 02/2017. Denies any bleeding, pain or cramping. Miscarriage precautions given. TKRN Chlamydia infection complicating 05/2806/22/2015 Overview: Negative GC/Chlamydia 06/08/14. Sho Weiss, RN LICENSED PRACTICAL of partner 03/20/2014 06/22/2015 Overview: 03/20/14 - [...] of this encounter (statuses as of 12/18/2022) [facility]-02-2019 History of Past illness Narrative* Problem Noted Date Resolved Date Threatened premature labor in third trimester 08/04/2019 Overview: 06/27/19 - BMZ #1 today and will repeat tomorrow at [facility] - Emely Tim MD ASCUS with positive [...] Overview: 12/22/17- UTI, treated with Macrobid by [facility]. Thelma Penny CNM Current with histo ry of spontaneous during prior 10/25/2017 08/04/2019 Overview: 10/25/2017Patient had a previous miscarriage 02/2017. Denies any bleeding, pain or cramping. Miscarriage precautions given. TKRN Chlamydia infection complicating 05/2806/22/2015 Overview: Negative GC/Chlamydia 06/08/14. Sho Weiss, RN LICENSED PRACTICAL of partner 03/20/2014 06/22/2015 Overview: 03/20/14 - [...] of this encounter (statuses as of 2022) [facility]08-02-2019 History of Past illness Narrative* Problem Noted Date Resolved Date Threatened premature labor in third trimester 08/04/2019 Overview: 06/27/19 - BMZ #1 today and will repeat tomorrow at [facility] - Emely Tim MD ASCUS with positive [...] Overview: 12/22/17- UTI, treated with Macrobid by [facility]. Thelma Penny CNM Current with histo ry of spontaneous during prior 10/25/2017 08/04/2019 Overview: 10/25/2017Patient had a previous miscarriage 02/2017. Denies any bleeding, pain or cramping. Miscarriage precautions given. TKRN Chlamydia infection complicating 05/2806/22/2015 Overview: Negative GC/Chlamydia 06/08/14. Sho Weiss, RN LICENSED PRACTICAL of partner 03/20/2014 06/22/2015 Overview: 03/20/14 - [...] of this encounter (statuses as of 04/05/2023) [facility]-02[facility]2019 History of Past illness Narrative* Problem Noted Date Resolved Date Threatened premature labor in third trimester 08/04/2019 Overview: 06/27/19 - BMZ #1 today and will repeat tomorrow at [facility] - Emely Tim MD ASCUS with positive high risk HPV cervical 01/1511/30/2020 Overview: 11/30/20-Pap smear Negative. Thelma ePnny APRN.CNM 01/15/19-Patient with history of ASCUS positive [...] Overview: 12/22/17- UTI, treated with Macrobid by [facility]. Thelma Penny CNM Current with histo ry of spontaneous during prior 10/25/2017 08/04/2019 Overview: 10/25/2017Patient had a previous miscarriage 02/2017. Denies any bleeding, pain or cramping. Miscarriage precautions given. TKRN Chlamydia infection complicating 05/2806/22/2015 Overview: Negative GC/Chlamydia 06/08/14. Sho Weiss, RN LICENSED PRACTICAL of partner 03/20/2014 06/22/2015 Overview: 03/20/14 - [...] of this encounter (statuses as of 04/11/2023) [facility]-02-2019 History of Past illness Narrative* Problem Noted Date Diagnosed Date Resolved Date Threatened premature labor in third trimester 06/27/20 19 08/04/2019 Overview: 06/27/19 - BMZ #1 today and will repeat tomorrow at [facility] - Emely Tim MD ASCUS with positive [...] Overview: 12/22/17- UTI, treated with Macrobid by [facility]. Thelma Penny CNM Current with histo ry of spontaneous during prior 10/25/2017 08/04/20 19 Overview: 10/25/2017Patient had a previous miscarriage 02/2017. Denies any bleeding, pain or cramping. Miscarriage precautions given. TKRN Chlamydia infection complicating 05/28/2014 06/22/2015 Overview: Negative GC/Chlamydia 06/08/14. Sho Weiss, RN LICENSED PRACTICAL of partner 03/20/2014 06/22/2015 Overview: 03/20/14 - [...] of this encounter (statuses as of 07/12/2023) [facility]-02-2019 History of Past illness Narrative* Problem Noted Date Diagnosed Date Resolved Date Threatened premature labor in third trimester 06/27/20 19 08/04/2019 Overview: 06/27/19 - BMZ #1 today and will repeat tomorrow at [facility] - Emely Tim MD ASCUS with positive [...] Overview: 12/22/17- UTI, treated with Macrobid by [facility]. Thelma Penny CNM Current with histo ry of spontaneous during prior 10/25/2017 08/04/20 19 Overview: 10/25/2017Patient had a previous miscarriage 02/2017. Denies any bleeding, pain or cramping. Miscarriage precautions given. TKRN Chlamydia infection complicating 05/28/2014 06/22/2015 Overview: Negative GC/Chlamydia 06/08/14. Sho Weiss, RN LICENSED PRACTICAL of partner 03/20/2014 06/22/2015 Overview: 03/20/14 - [...] of this encounter (statuses as of 07/12/2023) [facility]-02-2019 History of Past illness Narrative* Problem Noted Date Diagnosed Date Resolved Date Threatened premature labor in third trimester 06/27/2008/04/2019 Overview: 06/27/19 - BMZ #1 today and will repeat tomorrow at [facility] - Emely Tim MD ASCUS with positive [...] Overview: 12/22/17- UTI, treated with Macrobid by [facility]. Thelma Penny CNM Current with histo ry of spontaneous during prior 10/25/2017 08/04/20 19 Overview: 10/25/2017Patient had a previous miscarriage 02/2017. Denies any bleeding, pain or cramping. Miscarriage precautions given. TKRN Chlamydia infection complicating 05/28/2014 06/22/2015 Overview: Negative GC/Chlamydia 06/08/14. Sho Weiss, RN LICENSED PRACTICAL of partner 03/20/2014 06/22/2015 Overview: 03/20/14 - [...] of this encounter (statuses as of 07/13/2023) [facility]08-02-2019 History of Past illness Narrative* Problem Noted Date Diagnosed Date Resolved Date Threatened premature labor in third trimester 06/27/20 19 08/04/2019 Overview: 06/27/19 - BMZ #1 today and will repeat tomorrow at [facility] - Emely Tim MD ASCUS with positive [...] Overview: 12/22/17- UTI, treated with Macrobid by [facility]. Thelma Penny CNM Current with histo ry of spontaneous during prior 10/25/2017 08/04/20 19 Overview: 10/25/2017Patient had a previous miscarriage 02/2017. Denies any bleeding, pain or cramping. Miscarriage precautions given. TKRN Chlamydia infection complicating 05/28/2014 06/22/2015 Overview: Negative GC/Chlamydia 06/08/14. Sho Weiss, RN LICENSED PRACTICAL of partner 03/20/2014 06/22/2015 Overview: 03/20/14 - [...] of this encounter (statuses as of 07/25/2023) [facility]08-02-2019 History of Past illness Narrative* Problem Noted Date Diagnosed Date Resolved Date Threatened premature labor in third trimester 06/27/20 19 08/04/2019 Overview: 06/27/19 - BMZ #1 today and will repeat tomorrow at [facility] - Emely Tim MD ASCUS with positive [...] Overview: 12/22/17- UTI, treated with Macrobid by [facility]. Thelma Penny CNM Current with histo ry of spontaneous during prior 10/25/2017 08/04/20 19 Overview: 10/25/2017Patient had a previous miscarriage 02/2017. Denies any bleeding, pain or cramping. Miscarriage precautions given. TKRN Chlamydia infection complicating 05/28/2014 06/22/2015 Overview: Negative GC/Chlamydia 06/08/14. Sho Weiss, RN LICENSED PRACTICAL of partner 03/20/2014 06/22/2015 Overview: 03/20/14 - [...] of this encounter (statuses as of 08/02/2023) [facility]08-02-2019 History of Past illness Narrative* Problem Noted Date Diagnosed Date Resolved Date Threatened premature labor in third trimester 06/27/20 19 08/04/2019 Overview: 06/27/19 - BMZ #1 today and will repeat tomorrow at [facility] - Emely Tim MD ASCUS with positive [...] Overview: 12/22/17- UTI, treated with Macrobid by [facility]. Thelma Penny CNM Current with histo ry of spontaneous during prior 10/25/2017 08/04/20 19 Overview: 10/25/2017Patient had a previous miscarriage 02/2017. Denies any bleeding, pain or cramping. Miscarriage precautions given. TKRN Chlamydia infection complicating 05/28/2014 06/22/2015 Overview: Negative GC/Chlamydia 06/08/14. Sho Isela, RN LICENSED PRACTICAL of partner 03/20/2014 06/22/2015 Overview: 03/20/14 - [...] of this encounter (statuses as of 09/01/2023) [facility] Diagnosis Supervision of high risk , [...] Other specified [facility] Encounter for screening for nuchal translucency- Primary [facility]* Diagnosis 11 weeks gestation of - Primary state, incidental History of delivery, currently with history of pre-term labor [facility] Diagnosis Encounter for (NT) nuchal translucency scan- Primary Other specified screening 11 weeks gestation of state, incidental [facility] Diagnosis 17 weeks gestation of - Primary state, incidental History of delivery, currently with history of pre-term labor [facility] Diagnosis Encounter for anatomic survey- Primary 20 weeks gestation of state, incidental [facility] Diagnosis 20 weeks gestation of - Primary state, incidental [facility] Diagnosis History of delivery- Primary [facility]* Diagnosis 28 weeks gestation of - Primary state, incidental [facility] Diagnosis Elevated glucose Other abnormal glucose [facility]* Diagnosis Bacterial sinusitis- Primary Unspecified sinusitis (chronic) documented [facility]* Diagnosis Obesity complicating , second trimester- Primary 32 weeks gestation of state, incidental [facility] Diagnosis 32 weeks gestation of - Primary state, incidental Encounter for supervision of other normal in second trimester Mild acid reflux Esophageal reflux Anemia during in third trimester Abnormal glucose complicating Abnormal maternal glucose tolerance, complicating , childbirth, or the puerperium, unspecified as to episode of care [facility]* Diagnosis Diet controlled gestational diabetes mellitus (GDM) in third trimester- Primary 34 weeks gestation of state, incidental [facility] Diagnosis 32 weeks gestation of state, incidental Encounter for supervision of other normal in second trimester Mild acid reflux Esophageal reflux [facility] Diagnosis Diet controlled gestational diabetes mellitus (GDM) in third trimester- Primary 36 weeks gestation of state, incidental [facility] Diagnosis 37 weeks gestation of - Primary state, incidental [facility] Diagnosis History of delivery, currently - Primary with history of pre-term labor Positive GBS test 39 weeks gestation of state, incidental [facility] Diagnosis headache, - Primary Other specified complications, condition or complication care and examination of lactating mother [facility]* Diagnosis URI, acute- Primary Acute upper respiratory infections of unspecified site [facility] Diagnosis bloody nipple discharge- Primary Other and unspecified disorder of breast associated with childbirth, condition or complication control counseling General counseling for initiation of other contraceptive measures [facility]* Diagnosis with uncertain viability, single or unspecified fetus- Primary 10 weeks gestation of state, incidental Encounter for Papanicolaou smear for cervical cancer screening History of hemorrhage Personal history of diseases of blood and blood-forming organs History of delivery History of gestational diabetes in prior , currently with other poor obstetric history [facility] Diagnosis Encounter to determine viability of , single or unspecified fetus- Primary [facility] Diagnosis Encounter for screening for nuchal translucency- Primary [facility] Diagnosis 18 weeks gestation of - Primary state, incidental Encounter for supervision of other normal in second trimester Encounter for screening of mother Unspecified screening [facility] Diagnosis History of delivery- Primary History of hemorrhage Personal history of diseases of blood and blood-forming organs Genetic testing Other investigation and testing for procreative management 18 weeks gestation of state, incidental Encounter for anatomic survey [facility]* Diagnosis URI, acute- Primary Acute upper respiratory infections of unspecified site [facility]* Diagnosis Supervision of high risk due to social problems, second trimester- Primary History of delivery, currently in second trimester 25 weeks gestation of state, incidental [facility] Diagnosis Sinobronchitis- Primary Unspecified sinusitis (chronic) [facility] Diagnosis Encounter for ultrasound to check growth- Primary Encounter for routine screening for malformation using ultrasonics Elevated blood pressure affecting in third trimester, antepartum Uterine size-date discrepancy, third trimester 34 weeks gestation of state, incidental [facility] Diagnosis Supervision of high risk due [...] in third trimester documented in this encounter [facility] for referral (narrative)* Diagnostic Procedure Only (Routine) - Closed Specialty Diagnoses / Procedures Referred By Barbi t Referred To Contact [facility] Diagnoses 11 weeks gestation of Procedures NUCHAL TRANSLUCENCY WHI US NUCHAL TRANSLUCENCY 1ST GESTATION Jackie Correia APRN.CNM [address] [place] [address] [facility] [address] [id number] Referral ID Status Reason Start Date Expiration Date V isits Requested Visits Authorized [id number] Closed Auto-Generate d Referral 06/05/2022 11/25/2022 1 1 * Diagnostic Procedure Only (Routine) - Pending Review Specialty Diagnoses / Procedures Referred By Barbi t Referred To Contact [facility] Diagnoses 11 weeks gestation of Procedures OBSTETRIC ULTRASOUND WHI US PREG UTERUS AFTER 1ST TRIMEST GESTATION Jackie Correia APRN.CNM [address] [place] [address] [facility] [address] [place] [address] Referral ID Status Reason Start Date Expiration Date Visits Requested Visits Authorized [id number] Pending Review Auto-Generat ed Referral 06/05/2022 06/05/2023 1 1 [facility] for referral (narrative)* Diagnostic Procedure Only (Routine) - Pending Review Specialty Diagnoses / Procedures Referred By Contac t Referred To Contact [facility] Diagnoses History of delivery Procedures OBSTETRIC ULTRASOUND WHI US PREG UTERUS AFTER 1ST TRIMEST 1/1ST GESTATION Jackie Correia APRN.CNM [address] [place] [address] [facility] [address] [place] [address] Referral ID Status Reason Start Date Expiration Date Visits Requested Visits Authorized [id number] Pending Review Auto-Generat ed Referral 08/03/2022 08/03/2023 1 1 [facility] Outpatient Procedure (Routine) - Pending Review Specialty Diagnoses / Procedures Referred By Barbi orozco Referred To Contact [facility] Diagnoses 34 weeks gestation of Uterine size-date discrepancy, third trimester Elevated blood pressure affecting in third trimester, antepartum Supervision of high risk due to social problems, second trimester History of delivery, currently in second trimester Abnormal glucose complicating Antepartum anemia complicating in third trimester Procedures NON-STRESS TEST NON-STRESS TEST Calixto Collado MD [address] [place] [id number] [facility] [address] [place] [address] Referral ID Status Reason Start Date Expiration Date Visits Requested Visits Authorized [id number] Pending Review Auto-Generat ed Referral 12/28/2023 12/27/2024 5 1 [facility] Summary Purpose Family History No Family History Records FoundNo Family History Records Found Advance Directives No Advanced Directives Records FoundDocuments on File Type Date Recorded 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 Advance Directive(s) 09/14/2016 1:26 PM Advance Directive(s) 09/07/2016 11:47 AM Documents on File Type Date Recorded 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 Advance Directive(s) 09/14/2016 1:26 PM [...] CC Education - COMMON 07/11/2023 [place] 07/11/2023 Problem Noted Date Diagnosed Date OB Reminders 06/05/2022 [facility] Education - [place] 07/11/2023 [place] - [place] 07/11/2023 Problem Noted Date Diagnosed Date OB Reminders 06/05/2022 [facility] Education - [place] 07/11/2023 [place] - [place] 07/11/2023 Problem Noted Date Diagnosed Date OB Reminders 06/05/2022 [facility] CC Education - [place] 07/11/2023 [place] - [place] 07/11/2023 Problem Noted Date Diagnosed Date OB Reminders 06/05/2022 [facility] CC Education - [place] 07/11/2023 [place] - [place] 07/11/2023 Problem Noted Date Diagnosed Date OB Reminders 06/05/2022 [facility] CC Education - [place] 07/11/2023 [place] - [place] 07/11/2023 Problem Noted Date Diagnosed Date OB Reminders 06/05/2022 [facility] Education - [place] 07/11/2023 [place] - [place] 07/11/2023 Problem Noted Date Diagnosed Date OB Reminders 06/05/2022 [facility] CC Education - [place] 07/11/2023 [place] - [place] 07/11/2023 Problem Noted Date Diagnosed Date OB Reminders 06/05/2022 [facility] Education - [place] 07/11/2023 [place] - [place] 07/11/2023 Problem Noted Date Diagnosed Date OB Reminders 06/05/2022 [facility] CC Education - [place] 07/11/2023 [place] - [place] 07/11/2023 Problem Noted Date Diagnosed Date OB [...] CC Education - [place] 07/11/2023 [place] - [place] 07/11/2023 Reason for Referral Specialty Diagnoses / Procedures Referred By Barbi t Referred To Contact Diagnoses 10 weeks gestation of Procedures CONSULT TO MEDICAL GENETICS - MEDICAL GENETICS COUNSELING EACH 30 MINUTES Erica Menon APRN.RN LICENSED PRACTICAL [address] [place] [address] [address] Referral ID Status Reason Start Date Expiration Date Visits Requested Visits Authorized [id number] Authorized PCP Requested Referral Auto-Generate d Referral 07/11/2023 07/10/2024 1 1 Specialty Diagnoses / Procedures Referred By Barbi orozco Referred To Contact Diagnoses with uncertain viability, single or unspecified fetus Encounter for Papanicolaou smear for cervical cancer screening 10 weeks gestation of History of hemorrhage History of delivery Procedures CONSULT TO MATERNAL MEDI OFFICE/OUTPATIENT NEW HIGH MDM 60-74 MINUTES Erica Menon APRN.RN LICENSED PRACTICAL [address] [place] [address] Referral ID Status Reason Start Date Expiration Date Visits Requested Visits Authorized [id number] Authorized PCP Requested Referral Auto-Generate d Referral 07/11/2023 07/10/2024 1 1 Specialty Diagnoses / Procedures Referred By Barbi orozco Referred To Contact [facility] Diagnoses 10 weeks gestation of Procedures NUCHAL TRANSLUCENCY WHI US NUCHAL TRANSLUCENCY 1ST GESTATION Eirca Menon APRN.RN LICENSED PRACTICAL [address] [place] [address] [place] [address] Referral ID Status Reason Start Date Expiration Date Visits Requested Visits Authorized [id number] Authorized Auto-Generat ed Referral 07/11/2023 07/10/2024 1 1 Specialty Diagnoses / Procedures Referred By Barbi orozco Referred To Contact [facility] Diagnoses 10 weeks gestation of Procedures OBSTETRIC ULTRASOUND WHI US PREG UTERUS AFTER 1ST TRIMEST GESTATION Erica Menon APRN.RN LICENSED PRACTICAL [address] [place] [address] [facility] [address] [place] [address] Referral ID Status Reason Start Date Expiration Date Visits Requested Visits Authorized [id number] Pending Review Auto-Generat ed Referral 07/11/2023 07/10/2024 1 1 Additional Source Comments INFORMATION SOURCE (unrecogn ized section and content) DATE CREATED AUTHOR AUTHOR'S ORGANIZ ATION 12/29/2023 [facility] Source Comments (unrecognize d section and content) In the event this informatio n is protected by the Federal Confidentiality of Alcohol and Drug Abuse Patient Records regulations: The Federal rules restrict any use of the information to criminally investigate or prosecute any alcohol or drug abuse patient.[facility] the event this information is protected by the Federal Confidentiality of Alcohol and Drug Abuse Patient Records regulations: The Federal rules restrict any use of the information to criminally investigate or prosecute any alcohol or drug abuse patient.[facility] the event this information is protected by the Federal Confidentiality of Alcohol and Drug Abuse Patient Records regulations: The Federal rules restrict any use of the information to criminally investigate or prosecute any alcohol or drug abuse patient.[facility] the event this information is protected by the Federal Confidentiality of Alcohol and Drug Abuse Patient Records regulations: The Federal rules restrict any use of the information to criminally investigate or prosecute any alcohol or drug abuse patient.[facility] the event this information is protected by the Federal Confidentiality of Alcohol and Drug Abuse Patient Records regulations: The Federal rules restrict any use of the information to criminally investigate or prosecute any alcohol or drug abuse patient.[facility] the event this information is protected by the Federal Confidentiality of Alcohol and Drug Abuse Patient Records regulations: The Federal rules restrict any use of the information to criminally investigate or prosecute any alcohol or drug abuse patient.[facility] the event this information is protected by the Federal Confidentiality of Alcohol and Drug Abuse Patient Records regulations: The Federal rules restrict any use of the information to criminally investigate or prosecute any alcohol or drug abuse patient.[facility] the event this information is protected by the Federal Confidentiality of Alcohol and Drug Abuse Patient Records regulations: The Federal rules restrict any use of the information to criminally investigate or prosecute any alcohol or drug abuse patient.[facility] the event this information is protected by the Federal Confidentiality of Alcohol and Drug Abuse Patient Records regulations: The Federal rules restrict any use of the information to criminally investigate or prosecute any alcohol or drug abuse patient.[facility] the event this information is protected by the Federal Confidentiality of Alcohol and Drug Abuse Patient Records regulations: The Federal rules restrict any use of the information to criminally investigate or prosecute any alcohol or drug abuse patient.[facility] the event this information is protected by the Federal Confidentiality of Alcohol and Drug Abuse Patient Records regulations: The Federal rules restrict any use of the information to criminally investigate or prosecute any alcohol or drug abuse patient.[facility] the event this information is protected by the Federal Confidentiality of Alcohol and Drug Abuse Patient Records regulations: The Federal rules restrict any use of the information to criminally investigate or prosecute any alcohol or drug abuse patient.[facility] the event this information is protected by the Federal Confidentiality of Alcohol and Drug Abuse Patient Records regulations: The Federal rules restrict any use of the information to criminally investigate or prosecute any alcohol or drug abuse patient.[facility] the event this information is protected by the Federal Confidentiality of Alcohol and Drug Abuse Patient Records regulations: The Federal rules restrict any use of the information to criminally investigate or prosecute any alcohol or drug abuse patient.[facility] the event this information is protected by the Federal Confidentiality of Alcohol and Drug Abuse Patient Records regulations: The Federal rules restrict any use of the information to criminally investigate or prosecute any alcohol or drug abuse patient.[facility] the event this information is protected by the Federal Confidentiality of Alcohol and Drug Abuse Patient Records regulations: The Federal rules restrict any use of the information to criminally investigate or prosecute any alcohol or drug abuse patient.[facility] the event this information is protected by the Federal Confidentiality of Alcohol and Drug Abuse Patient Records regulations: The Federal rules restrict any use of the information to criminally investigate or prosecute any alcohol or drug abuse patient.[facility] the event this information is protected by the Federal Confidentiality of Alcohol and Drug Abuse Patient Records regulations: The Federal rules restrict any use of the information to criminally investigate or prosecute any alcohol or drug abuse patient.[facility] the event this information is protected by the Federal Confidentiality of Alcohol and Drug Abuse Patient Records regulations: The Federal rules restrict any use of the information to criminally investigate or prosecute any alcohol or drug abuse patient.[facility] the event this information is protected by the Federal Confidentiality of Alcohol and Drug Abuse Patient Records regulations: The Federal rules restrict any use of the information to criminally investigate or prosecute any alcohol or drug abuse patient.[facility] the event this information is protected by the Federal Confidentiality of Alcohol and Drug Abuse Patient Records regulations: The Federal rules restrict any use of the information to criminally investigate or prosecute any alcohol or drug abuse patient.[facility] the event this information is protected by the Federal Confidentiality of Alcohol and Drug Abuse Patient Records regulations: The Federal rules restrict any use of the information to criminally investigate or prosecute any alcohol or drug abuse patient.[facility] the event this information is protected by the Federal Confidentiality of Alcohol and Drug Abuse Patient Records regulations: The Federal rules restrict any use of the information to criminally investigate or prosecute any alcohol or drug abuse patient.[facility] the event this information is protected by the Federal Confidentiality of Alcohol and Drug Abuse Patient Records regulations: The Federal rules restrict any use of the information to criminally investigate or prosecute any alcohol or drug abuse patient.[facility] the event this information is protected by the Federal Confidentiality of Alcohol and Drug Abuse Patient Records regulations: The Federal rules restrict any use of the information to criminally investigate or prosecute any alcohol or drug abuse patient.[facility] the event this information is protected by the Federal Confidentiality of Alcohol and Drug Abuse Patient Records regulations: The Federal rules restrict any use of the information to criminally investigate or prosecute any alcohol or drug abuse patient.[facility] the event this information is protected by the Federal Confidentiality of Alcohol and Drug Abuse Patient Records regulations: The Federal rules restrict any use of the information to criminally investigate or prosecute any alcohol or drug abuse patient.[facility] the event this information is protected by the Federal Confidentiality of Alcohol and Drug Abuse Patient Records regulations: The Federal rules restrict any use of the information to criminally investigate or prosecute any alcohol or drug abuse patient.[facility] the event this information is protected by the Federal Confidentiality of Alcohol and Drug Abuse Patient Records regulations: The Federal rules restrict any use of the information to criminally investigate or prosecute any alcohol or drug abuse patient.[facility] HealthIn the event this information is protected by the Federal Confidentiality of Alcohol and Drug Abuse Patient Records regulations: The Federal rules restrict any use of the information to criminally investigate or prosecute any alcohol or drug abuse patient.[facility] HealthIn the event this information is protected by the Federal Confidentiality of Alcohol and Drug Abuse Patient Records regulations: The Federal rules restrict any use of the information to criminally investigate or prosecute any alcohol or drug abuse patient.[facility] HealthIn the event this information is protected by the Federal Confidentiality of Alcohol and Drug Abuse Patient Records regulations: The Federal rules restrict any use of the information to criminally investigate or prosecute any alcohol or drug abuse patient.Mad[facility] HealthIn the event this information is protected by the Federal Confidentiality of Alcohol and Drug Abuse Patient Records regulations: The Federal rules restrict any use of the information to criminally investigate or prosecute any alcohol or drug abuse patient.Mad[facility] HealthIn the event this information is protected by the Federal Confidentiality of Alcohol and Drug Abuse Patient Records regulations: The Federal rules restrict any use of the information to criminally investigate or prosecute any alcohol or drug abuse patient.Mad[facility] HealthIn the event this information is protected by the Federal Confidentiality of Alcohol and Drug Abuse Patient Records regulations: The Federal rules restrict any use of the information to criminally investigate or prosecute any alcohol or drug abuse patient.Mad[facility] HealthIn the event this information is protected by the Federal Confidentiality of Alcohol and Drug Abuse Patient Records regulations: The Federal rules restrict any use of the information to criminally investigate or prosecute any alcohol or drug abuse patient.Mad[facility] HealthIn the event this information is protected by the Federal Confidentiality of Alcohol and Drug Abuse Patient Records regulations: The Federal rules restrict any use of the information to criminally investigate or prosecute any alcohol or drug abuse patient.Mad[facility] HealthIn the event this information is protected by the Federal Confidentiality of Alcohol and Drug Abuse Patient Records regulations: The Federal rules restrict any use of the information to criminally investigate or prosecute any alcohol or drug abuse patient.Mad[facility] HealthIn the event this information is protected by the Federal Confidentiality of Alcohol and Drug Abuse Patient Records regulations: The Federal rules restrict any use of the information to criminally investigate or prosecute any alcohol or drug abuse patient.Mad[facility] HealthIn the event this information is protected by the Federal Confidentiality of Alcohol and Drug Abuse Patient Records regulations: The Federal rules restrict any use of the information to criminally investigate or prosecute any alcohol or drug abuse patient.Mad[facility] HealthIn the event this information is protected by the Federal Confidentiality of Alcohol and Drug Abuse Patient Records regulations: The Federal rules restrict any use of the information to criminally investigate or prosecute any alcohol or drug abuse patient.[facility] Reason for Visit (unrecogniz ed section and content) Specialty Diagnoses / Procedures Referred By Contac t Referred To Contact [facility] Diagnoses 32 weeks gestation of Elevated blood pressure affecting in third trimester, antepartum Uterine size-date discrepancy, third trimester Procedures OBSTETRIC ULTRASOUND WHI US PREG UTERUS AFTER 1ST TRIMEST GESTATION Cinthia Griffith MD [address] [place] [address] [facility] [address] [place] [address] Referral ID Status Reason Start Date Expiration Date V isits Requested Visits Authorized [id number] Closed Auto-Generate d Referral 12/13/2023 12/12/2024 1 1 Specialty Diagnoses / Procedures Referred By Contac t Referred To Contact Diagnoses with uncertain viability, single or unspecified fetus Encounter for Papanicolaou smear for cervical cancer screening 10 weeks gestation of History of hemorrhage History of delivery Procedures CONSULT TO MATERNAL MEDI OFFICE/OUTPATIENT NEW HIGH MDM 60-74 MINUTES Erica Menon, MEHRAN.RN LICENSED PRACTICAL [address] [place] [address] Referral ID Status Reason Start Date Expiration Date V isits Requested Visits Authorized [id number] Closed PCP Requested Referral Auto-Generated Referral 07/11/2023 07/10/2024 1 1 Reason Comments Care Reason Comments with uncertain dates Reason Comments Orders Reason Comments Initial OB Visit Specialty Diagnoses / Procedures Referred By Contac t Referred To Contact [facility] Diagnoses 11 weeks gestation of Procedures NUCHAL TRANSLUCENCY WHI US NUCHAL TRANSLUCENCY 1ST GESTATION Jackie Correia, MEHRAN.CNM [address] [place] [address] [facility] [address] [place] [address] Referral ID Status Reason Start Date Expiration Date V isits Requested Visits Authorized [id number] Closed Auto-Generate d Referral 06/05/2022 11/25/2022 1 1 Reason Onset Date Comments Care 07/18/2022 Reason Onset Date Comments Care 08/03/2022 Reason Onset Date Comments Care 09/29/2022 Reason Comments Question (OB Question) Influenza Reason Comments Pain, Sinus Head congestion x3 d ays Specialty Diagnoses / Procedures Referred By Contac t Referred To Contact [facility] Diagnoses History of delivery Procedures OBSTETRIC ULTRASOUND WHI US PREG UTERUS AFTER 1ST TRIMEST GESTATION Jackie Correia APRN.CN [id number] [place] [address] [facility] [address] [place] [id number] Referral ID Status Reason Start Date Expiration Date V isits Requested Visits Authorized [id number] Closed Auto-Generate d Referral 08/03/2022 08/03/2023 1 [...] Reason Comments Initial OB Visit Reason Comments 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 Marketing - Other Risk A ssessment Form Reason Onset Date Comments Care 09/04/2023 Reason Comments OB-Headache Reason Comments Sinus Problem Sinus congestion and POS[place] x 3 days Reason Onset Date Comments Care 10/25/2023 Reason Comments PRAF Reason Comments Cough Productive cough, ch est congestion x6 weeks Reason Onset Date Comments Care 12/28/2023 Care Teams (unrecognized sec tion and content) Physician Office Rep Relationship Specialty Start Date End Date Tiara Mishra MD [address] [place] [address] PCP - General Family Practice 09/05/16 Physician Office Rep Relationship Specialty Start Date End Date Tiara Mishra MD [address] [place] [address] PCP - General Family Practice 09/05/16 Physician Office Rep Relationship Specialty Start Date End Date Tiara Mishra MD [address] [place] [address] PCP - General Family Practice 09/05/16 Physician Office Rep Relationship Specialty Start Date End Date Tiara Mishra MD [address] [place] [address] PCP - General Family Practice 09/05/16 Physician Office Rep Relationship Specialty Start Date End Date Tiara Mishra MD [address] [place] [address] PCP - General Family Practice 09/05/16 Physician Office Rep Relationship Specialty Start Date End Date Tiara Mishra MD [address] [place] [address] PCP - General Family Practice 09/05/16 Physician Office Rep Relationship Specialty Start Date End Date Tiara Mishra MD [address] [place] [address] PCP - General Family Medicine 09/05/16 Physician Office Rep Relationship Specialty Start Date End Date Tiara Mishra MD [address] [place] [address] PCP - General Family Medicine 09/05/16 Physician Office Rep Relationship Specialty Start Date End Date Tiara Mishra MD [address] [place] [address] PCP - General Family Medicine 09/05/16 Physician Office Rep Relationship Specialty Start Date End Date Tiara Mishra MD [address] [place] [address] PCP - General Family Medicine 09/05/16 Physician Office Rep Relationship Specialty Start Date End Date Tiara Mishra MD [address] [facility] [place] [address] PCP - General Family Medicine 09/05/16 Physician Office Rep Relationship Specialty Start Date End Date Tiara Mishra MD [address] [place] [place] [address] PCP - General Family Medicine 09/05/16 Physician Office Rep Relationship Specialty Start Date End Date Tiara Mishra MD [address] [place] [place] [address] PCP - General Family Medicine 09/05/16 Physician Office Rep Relationship Specialty Start Date End Date Tiara Mishra MD [address] [place] [address] PCP - General Family Medicine 09/05/16 Physician Office Rep Relationship Specialty Start Date End Date Tiara Mishra MD [address] [place] [address] PCP - General Family Medicine 09/05/16 Physician Office Rep Relationship Specialty Start Date End Date Tiara Mishra MD [address] [place] [address] PCP - General Family Medicine 09/05/16 Physician Office Rep Relationship Specialty Start Date End Date Tiara Mishra MD [address] [place] [address] PCP - General Family Medicine 09/05/16 Physician Office Rep Relationship Specialty Start Date End Date Tiara Mishra MD [address] [place] [address] PCP - General Family Medicine 09/05/16 Physician Office Rep Relationship Specialty Start Date End Date Tiara Mishra MD [address] [place] [address] PCP - General Family Medicine 09/05/16 Physician Office Rep Relationship Specialty Start Date End Date Tiara Mishra MD [address] [place] [address] PCP - General Family Medicine 09/05/16 Physician Office Rep Relationship Specialty Start Date End Date Tiara Mishra MD [address] [place] [address] PCP - General Family Medicine 09/05/16 Physician Office Rep Relationship Specialty Start Date End Date Tiara Mishra MD [address] [place] [address] PCP - General Family Medicine 09/05/16 Physician Office Rep Relationship Specialty Start Date End Date Tiara Mishra MD [address] [place] [address] PCP - General Family Medicine 09/05/16 Physician Office Rep Relationship Specialty Start Date End Date Tiara Mishra MD [address] [place] [address] PCP - General Family Medicine 09/05/16 Physician Office Rep Relationship Specialty Start Date End Date Tiara Mihsra MD [address] [place] [address] PCP - General Family Medicine 09/05/16 Physician Office Rep Relationship Specialty Start Date End Date Tiara Mishra MD [address] [place] [address] PCP - General Family Medicine 09/05/16 Physician Office Rep Relationship Specialty Start Date End Date Tiara Mishra MD [address] [place], [place] [address] PCP - [facility] 09/05/16 Physician Office Rep Relationship Specialty Start Date End Date Tiara Mishra MD [address] [place], [place] [address] PCP - [facility] 09/05/16 Physician Office Rep Relationship Specialty Start Date End Date Tiara Mishra MD [address] [facility], [place] [id number] PCP - [facility] 09/05/16 Physician Office Rep Relationship Specialty Start Date End Date Tiara Mishra MD [address] [place], [place] [id number] PCP - [facility] 09/05/16 FOR RECORDS PERTAINING TO PATIENTS [...] BE BASED ON THE PRIMARY CLINICAL RECORDS. [facility] [employer] [facility]. provides no warranty or guarantee of the accuracy or completeness of information in this document.
[2023-12-31] MEDS: Lactated Ringers 1,000 ML 50 ML IV (22:50)
[2023-12-31] MEDS: Penicillin G Pot 5,000,000 UNITS in 0.9% Normal Saline (100mL MB+) 100 ML 150 UNITS IV (22:55)
[2023-12-31 23:02] LABS: Absolute Lymphocyte Count 1.63 X10^3/uL (0.83-4.51); Absolute Neutrophil Count 8.3 X10^3/uL (2.0-7.7); Basophil# 0.05 X10^3/uL; Basophil% 0.5 % (0-1); Eosinophil# 0.05 X10^3/uL; Eosinophils% 0.5 % (0-5); Hematocrit 32.9 % (37-47); Lymphocyte # 1.63 X10^3/ul (0.83-4.51); Lymphocyte % 14.8 % (19-41); Mean Corp Hgb Conc 30.4 g/dL (32-36); Mean Corpuscular Hgb 25.9 pg (27.0-32.0); Mean Corpuscular Volume 85.2 fL (81-99); Mean Platelet Vol. 10.2 fl (6.2-12.0); Monocyte# 0.81 X10^3/uL; Monocyte% 7.4 % (0-10); NRBC Flagged by Analyzer 0 % (0-5); Neutrophil # 8.34 X10^3/uL (2.7-7.7); Neutrophil % 75.6 % (47-70); Platelet Count 189 K/mm3 (150-450); RBC Distribution Width CV 18.6 % (11.6-14.6); RBC Distribution Width SD 56.8 fl (35.1-43.9); Red Blood Count 3.86 M/mm3 (4.2-5.4)
[2023-12-31 23:20] LABS: AST(SGOT) 14 U/L (15-37); Alanine Aminotransfer ALT/SGPT 23 U/L (13-56); Creatinine, Serum 0.55 mg/dL (0.55-1.02); EST Glomerular Filtration Rate 140 mL/min (>60); Est Glom Filt Rate - Afr Amer 169 mL/min (>60); Estimated Creatinine Clearance 145.71 ml/min; Uric Acid 5.7 mg/dL (2.6-6.0)
[2023-12-31 23:41] LABS: Syphilis Antibodies Non-reactive
[2024-01-01] VITALS (51 sets, daily range): BP systolic 113–156; BP diastolic 53–90; PULSE 79–128; RESP 16; TEMP 36.1–37.3; O2SAT 90–100
[2024-01-01 01:02] LABS: Protein, Urine (Random) < 6.0 mg/dL (<11.9)
[2024-01-01] MEDS: Acetaminophen 500 MG Tablet PO (01:06)
[2024-01-01] MEDS: Penicillin G 3,000,000 Units 50 ML 100 UNITS IV ×3 (03:15→11:30)
[2024-01-01] MEDS: Oxytocin 15 Units/NS 250ml 15 UNITS/250 ML IV.SOLN 2 UNITS IV (04:35)
[2024-01-01] MEDS: Lactated Ringers 1,000 ML 50 ML IV (04:56)
--- NOTE | 2024-01-01 05:10 | PCM.HP.OB ---
HPI - General General Date of Admission: 12/31/23 HPI Narrative RONAL BHAKTA, is a 28 F who presents at 35w1d with PPROM around 2030 on 12/31/23. Maternal Data Information [place] Calculator Estimated Delivery Date Method Current WG Current Estimate 02/04/24 Manual 35w 1d PFSH PFS Medical History (Updated 01/01/24 @ 05:26 by Thelma Penny CNM) Chlamydia infection affecting Elevated blood pressure reading without diagnosis of hypertension GERD (gastroesophageal reflux disease) Headache History of pre-term labor History of delivery Kidney disease Positive GBS test (~01/01/24) hemorrhage (~01/01/24) hemorrhage Vaginal laceration Home Medications vit no.95-ferrous fumarate 28 mg-folic acid 800 mcg tablet () 1 tab PO DAILY 12/31/23 [History Last Taken 12/28/23 08:00 1 TAB] Allergy/AdvReac Type Severity Reaction Status Date / Time No Known Allergies Allergy Verified 12/31/23 22:09 Social History Smoking Status: Former smoker History Elective abortions Hx Para 5 Spontaneous abortions Hx # Term Pregnancies Ectopic pregnancies Hx # Pregnancies Multiple births # of living children NST FHR Rate Baby A Baseline: 125 Variability:: Moderate Accelerations:: 15 x 15 Decelerations:: None FHR Category:: Category I Uterine Activity:: Irregular, mild Vital Signs Vital Signs Vital Signs: 12/31/23 22:08 12/31/23 22:08 12/31/23 22:08 Temperature Temperature Source Pulse Rate 109 H Blood Pressure 137/82 H BP Systolic 137 BP Diastolic 82 Pulse Ox 99 12/31/23 22:08 12/31/23 22:08 12/31/23 22:13 Temperature 98.3 F Temperature Source Temporal Pulse Rate 119 H Blood Pressure BP Systolic BP Diastolic Pulse Ox 12/31/23 22:13 01/01/24 00:24 01/01/24 00:24 Temperature Temperature Source Pulse Rate 108 H Blood Pressure 134/84 H BP Systolic 134 BP Diastolic 84 Pulse Ox 99 01/01/24 00:24 01/01/24 00:24 01/01/24 00:24 Temperature 97.0 F L Temperature Source Tympanic Pulse Rate Blood Pressure BP Systolic BP Diastolic Pulse Ox 98 01/01/24 01:08 01/01/24 01:08 01/01/24 01:08 Temperature Temperature Source Tympanic Pulse Rate 108 H Blood Pressure 139/70 H BP Systolic 139 BP Diastolic 70 Pulse Ox 01/01/24 01:08 01/01/24 01:08 01/01/24 01:08 Temperature 97.6 F L Temperature Source Pulse Rate 109 H Blood Pressure BP Systolic BP Diastolic Pulse Ox 100 01/01/24 02:12 01/01/24 02:12 01/01/24 02:11 Temperature Temperature Source Pulse Rate 100 Blood Pressure 129/78 H BP Systolic 129 BP Diastolic 78 Pulse Ox 99 01/01/24 02:13 01/01/24 02:13 01/01/24 02:25 Temperature 98.0 F Temperature Source Tympanic Pulse Rate 113 H Blood Pressure BP Systolic BP Diastolic Pulse Ox 01/01/24 02:25 01/01/24 03:02 01/01/24 03:02 Temperature Temperature Source Pulse Rate 102 H Blood Pressure BP Systolic BP Diastolic Pulse Ox 100 100 01/01/24 03:05 01/01/24 03:05 01/01/24 04:48 Temperature Temperature Source Tympanic Pulse Rate 111 H Blood Pressure 156/85 H BP Systolic 156 BP Diastolic 85 Pulse Ox 01/01/24 04:48 01/01/24 04:48 01/01/24 04:48 Temperature Temperature Source Pulse Rate 109 H Blood Pressure 134/79 H BP Systolic 134 BP Diastolic 79 Pulse Ox 99 01/01/24 04:48 Temperature 97.8 F Temperature Source Pulse Rate Blood Pressure BP Systolic BP Diastolic Pulse Ox Weight Weight: 179 lb Body Mass Index (BMI) 33.8 Physical Exam Const alert and oriented x3 General Appearance: cooperative Orientation / Consciousness: awake, oriented to person, oriented to place and oriented to time Exam Limitations: no limitations HEENT normocephalic Head and Scalp: normal to inspection, normocephalic and atraumatic Face and Sinus: normal facial exam Eyes General Eye: normal appearance of both eyes Neck full ROM Chest Chest: symmetrical chest wall rise Resp normal respiratory effort and normal air movement Auscultation: clear to auscultation bilaterally Cardio regular rate, regular rhythm, S1 normal heart sound, S2 normal heart sound, no murmurs, no rub, no gallops and no clicks GI normal to inspection, nondistended, normoactive bowel sounds and non-tender appearance of the vagina normal Bladder / Kidney Exam: no CVA tenderness Manual OB Exam: estimated gestational size appropriate, presentation cephalic, dilated 5.5 cm , effaced 70, station -2 and other AROM fore bag, clear fluid Amniotic Fluid: clear amniotic fluid Back/Spine normal ROM Extremity normal to inspection and full ROM Skin no rashes or lesions noted Neuro oriented x3, CN's II-XII intact bilaterally and moves all extremities Sensorium / Orientation: awake, alert and oriented to person Motor Exam: clonus absent Deep Tendon Reflexes: Rt Patellar (L4): 2+ and Lt Patellar (L4): 2+ Labs Labs Labs: Blood Type AB POSITIVE Antibody Screen NEGATIVE Hct 32.9 % (37-47) L Hgb 10.0 g/dL (12.0-15.0) L Obstetrics Ultrasound Syphilis Total Ab Non-reactive Group B Strep DNA Negative (Negative) Rhogam given: No RPR negative HIV negative Rubella immune HBsAG negative HepC negative AB positive GBS positive Assessment & Plan (1) History of hemorrhage: (2) premature rupture of membranes (PPROM) delivered, current hospitalization: (3) 35 weeks gestation of : PLAN: Plan 1) Admit to labor and delivery 2) Routine labs, BP slightly elevated, will do preeclampsia labs 3) Pitocin for augmentation 4) Reviewed Celestone, will deliver before 24hrs and second dose. Reviewed with patient and declines. 5) Planning nitrous for pain management 6) collaborative physician, notified of patient status, above assessment and plan
[2024-01-01] MEDS: LACTATED RINGERS 500 ML 999 ML IV (10:06)
[2024-01-01] MEDS: fentaNYL 100 MCG/2 ML Ampul IV (11:07)
[2024-01-01] MEDS: DiphenhydrAMINE 50 MG/ML Syringe IV (11:11)
--- NOTE | 2024-01-01 11:17 | PN.OBGYN_ITS ---
Subjective Subjective Patient laboring unmedicated. Partner at bedside. Objective Data Objective Data Vital Signs: Vital Signs Temp Pulse BP Pulse Ox 98.0 F 112 H 140/84 H 100 01/01/24 09:47 01/01/24 09:47 01/01/24 09:47 01/01/24 09:47 Weight: 179 lb Body Mass Index (BMI) 33.8 Intake & Output: Intake and Output for Last 24 Hours 12/30/23 12/31/23 01/01/24 23:59 23:59 23:59 Intake Total 105 / 105 1201.70 / 1201.70 Output Total 1200 / 1200 Balance 105 / 105 1.70 / 1.70 Lab / Micro Data 12/31/23 22:50 12/31/23 22:50 Labs: Laboratory Results - last 24 hr 12/31/23 22:16: Vag Amniotic Fld Detect POSITIVE H 12/31/23 22:50: WBC 11.0, RBC 3.86 L, Hgb 10.0 L, Hct 32.9 L, MCV 85.2, MCH 25.9 L, MCHC 30.4 L, RDW Std Deviation 56.8 H, RDW Coeff of Chance 18.6 H, Plt Count 189, MPV 10.2, Immature Gran % (Auto) 1.200 H, Neut % (Auto) 75.6 H, Lymph % (Auto) 14.8 L, [place] % (Auto) 7.4, Eos % (Auto) 0.5, Baso % (Auto) 0.5, Absolute Neuts (auto) 8.3 H, Absolute Lymphs (auto) 1.63, Nucleated RBC % 0, Creatinine 0.55, Estim Creat Clear Calc 145.71, Est GFR (MDRD) Af Amer 169, Est GFR (MDRD) Non-Af 140, Uric Acid 5.7, AST 14 L, ALT 23, Syphilis Total Ab Non-reactive, Blood Type AB POSITIVE, Antibody Screen NEGATIVE 12/31/23 23:57: U Random Total Protein < 6.0, Urine Creatinine 14.20, Protein/Creatinin Ratio TNP NST FHR Rate Baby A Baseline: 120 Variability:: Moderate Accelerations:: 15 x 15 Decelerations:: None FHR Category:: Category I Uterine Activity:: Every 2-3 minutes, strong Assessment & Plan (1) 35 weeks gestation of : (2) premature rupture of membranes (PPROM) delivered, current hospitalization: PLAN: Plan 1) Active labor, progressing 2) Requesting pain medication,denies epidural. Fentanyl and benadryl. 3) Currently Category 1, periods of minimal with accelerations 4) Continue with Pitocin per protocol 5) Positional changes 6) notified of patient in labor
[2024-01-01] MEDS: fentaNYL-bupivacaine (epidural) 100 ML BAG EPIDURAL (12:48)
--- NOTE | 2024-01-01 13:25 | OP.PCM_ITS ---
Maternal Data Information [place] Calculator Estimated Delivery Date Method Current WG Current Estimate 02/04/24 Manual 35w 1d Vaginal Delivery Maternal Presentation Maternal Presentation: Active Labor and Spontaneous Rupture of Membranes Maternal Presentation: PPROM Operative Information Date of Procedure: 01/01/24 Pre-Operative Diagnosis: PPROM at 35 weeks Post-Operative Diagnosis: Vaginal Delivery Surgery / Procedure Performed: Spontaneous Vaginal Delivery Type of Anesthesia: Epidural Estimated Blood Loss: 450ml Time of Delivery: 13:16 Findings Description of Procedure: Progressed to complete with urge to push. Epidural for pain management. of viable male infant over intact perineum. APGARS 8,9 respectively. head delivered with body immediately forthcoming. Placed on maternal abdomen, strong cry. Mouth and nares suctioned for secretions. Pitocin started for active 3rd stage management. Cord doubly clamped and cut by FOB after pulsations ceased, delayed cord clamping. Placed to awaiting occupational ther and nursery staff. Placenta delivered intact via guevara, 3 vessel cord intact. Perineum inspected and revealed intact.Fundus firm and hemostasis achieved. EBL 450ml . Mom and baby stable, planning to breastfeed Family bonding well. notified of delivery. ELA Crooks present for delivery Presentation: Vertex and SHARLA Amniotic Membrane Rupture Type: Spontaneous Amniotic Fluid Description: Clear Placental Delivery Description: Spontaneous Placenta Disposition: [facility] Cord Vessel Description: 3 Vessels Cord Entanglement: None A Gender: Male (1 minute): 8 (5 minute): 9 Delayed Cord Clamping: Yes Post Vaginal Delivery Medications Given After Delivery: IV Pitocin Episiotomy Description: None Laceration: None Complication Complications: - ()
[2024-01-01] MEDS: Oxytocin 15 Units/NS 250ml 15 UNITS/250 ML IV.SOLN 6 UNITS IV (14:01)
[2024-01-01] MEDS: Oxytocin 15 Units/NS 250ml 15 UNITS/250 ML IV.SOLN 83 UNITS IV (15:54)
[2024-01-01] MEDS: 0.9% Saline Lock 10 ML Syringe IV (16:21)
[2024-01-01] MEDS: Senna/Docusate Sodium 1 Tablet PO (19:39)
[2024-01-01] MEDS: Acetaminophen 500 MG Tablet 1000 MG PO (23:55)
[2024-01-02] MEDS: Ibuprofen 600 MG Tablet PO (04:07)
[2024-01-02 06:28] LABS: Absolute Lymphocyte Count 1.92 X10^3/uL (0.83-4.51); Absolute Neutrophil Count 8.1 X10^3/uL (2.0-7.7); Basophil# 0.05 X10^3/uL; Basophil% 0.5 % (0-1); Eosinophil# 0.06 X10^3/uL; Eosinophils% 0.5 % (0-5); Hematocrit 26.5 % (37-47); Hemoglobin 8.2 g/dL (12.0-15.0); Lymphocyte # 1.92 X10^3/ul (0.83-4.51); Lymphocyte % 17.6 % (19-41); Mean Corp Hgb Conc 30.9 g/dL (32-36); Mean Corpuscular Hgb 26.2 pg (27.0-32.0); Mean Corpuscular Volume 84.7 fL (81-99); Mean Platelet Vol. 9.7 fl (6.2-12.0); Monocyte# 0.65 X10^3/uL; NRBC Flagged by Analyzer 0 % (0-5); Neutrophil # 8.14 X10^3/uL (2.7-7.7); Neutrophil % 74.5 % (47-70); Platelet Count 182 K/mm3 (150-450); RBC Distribution Width CV 18.7 % (11.6-14.6); RBC Distribution Width SD 56.1 fl (35.1-43.9); Red Blood Count 3.13 M/mm3 (4.2-5.4); White Blood Count 10.9 K/mm3 (4.4-11.0)
--- NOTE | 2024-01-02 07:02 | PCM.DC.SUM ---
Providers Date of Admission: 12/31/23 Primary Care Physician: No Primary Care Phys Reason For Visit: VAGINAL DELIVERY Diagnosis Discharge Diagnosis (1) (spontaneous vaginal delivery): Status: Acute Code(s): O80 - Encounter for full-term uncomplicated delivery (2) Vaginal laceration: Status: Acute Code(s): S31.41XA - Laceration without foreign body of vagina and vulva, initial encounter Medications at Discharge Home Medications vit no.95-ferrous fumarate 28 mg-folic acid 800 mcg tablet () 1 tab PO DAILY 12/31/23 Hospital Course Operations None Procedures None Summary of Care Provided Minutes Spent on Discharge: 10 Hospital Course: Patient had . Hospital course was uneventful. Physical Exam Narrative Patient seen at bedside. Baby remains in SCN. Patient is pumping and feeling. Ambulating and voiding without difficulty. Lochia decreasing. Denies any pain. Desires discharge home- unsure if will stay Hotel due to other children at home. Const alert and no apparent distress General Appearance: cooperative and comfortable Exam Limitations: no limitations HEENT normocephalic Eyes General Eye: normal appearance of both eyes Neck full ROM General: normal visual inspection Chest Chest: symmetrical chest wall rise Resp normal respiratory effort and normal air movement Effort and Inspection: symmetric chest movement Auscultation: clear to auscultation bilaterally Cardio regular rate and regular rhythm GI normal to inspection, nondistended, normoactive bowel sounds Back/Spine normal ROM Extremity full ROM and no calf tenderness General Extremity: normal exam except as noted Skin no rashes or lesions noted Neuro CN's II-XII intact bilaterally Psych mental status grossly normal Weight / BMI Weight Weight: 179 lb Body Mass Index (BMI) 33.8 ABG / Lab / Microbiology Data 01/02/24 06:20 12/31/23 22:50 Laboratory: Laboratory Results - last 24 hr 01/02/24 06:20: WBC 10.9, RBC 3.13 L, Hgb 8.2 L, Hct 26.5 L, MCV 84.7, MCH 26.2 L, MCHC 30.9 L, RDW Std Deviation 56.1 H, RDW Coeff of Chance 18.7 H, Plt Count 182, MPV 9.7, Immature Gran % (Auto) 0.900, Neut % (Auto) 74.5 H, Lymph % (Auto) 17.6 L, [place] % (Auto) 6.0, Eos % (Auto) 0.5, Baso % (Auto) 0.5, Absolute Neuts (auto) 8.1 H, Absolute Lymphs (auto) 1.92, Nucleated RBC % 0 Meaningful Use Info Meaningful Use Diagnoses (Choose all that apply): None applicable Discharge Plan Admission Admit Date/Time: 12/31/23 22:31 Primary Reason for Your Visit: Labor and Delivery Attending Provider: Thelma Penny Primary Care Provider: Care Physician,No Primary Discharge Orders/Prescriptions Prescriptions: Continued PNV cmb#95-ferrous fumarate-FA [] 28 mg iron- 800 mcg tablet 1 tab PO DAILY Referrals / Follow Up: Jackie Correia CNM [Med Staff - Adv Practice Prof] - Care Physician,No Primary [Primary Care Provider] - Disposition Disposition (needs filled in before D/C Order can be placed): Home, Self Care
--- NOTE | 2024-01-02 07:19 | DCINST_ITS ---
Discharge Instructions Diet Discharge Diet: No restrictions Activity May resume sexual activity in: 6-8 weeks Weight Bearing Status: Weight bearing as tolerated Dressing / Incision Call your doctor if you observe: Fever of 101 or Higher, Inability to urinate, Using more than 1 pad per hour, Shortness of breath, Chest pain, Calf discomfort and Uncontrolled pain Follow Up Care When: 2 weeks virtual visit/ 6 weeks in office Test Results: Test results from this visit will be discussed in further detail at your follow- up appointment, if applicable. Discharge Plan Admission Admit Date/Time: 12/31/23 22:31 Primary Reason for Your Visit: Labor and Delivery Attending Provider: Thelma Penny Primary Care Provider: Care Physician,No Primary Discharge Orders/Prescriptions Prescriptions: Continued PNV [id number] fumarate-FA [] 28 mg iron- 800 mcg tablet 1 tab PO DAILY Referrals / Follow Up: Jackie Correia CNM [Med Staff - Adv Practice Prof] - Care Physician,No Primary [Primary Care Provider] - Disposition Disposition (needs filled in before D/C Order can be placed): Home, Self Care
[2024-01-02] MEDS: Acetaminophen 500 MG Tablet 1000 MG PO (09:17)
[2024-01-02 09:20] VITALS: BP 128/69; PULSE 82; RESP 16; O2SAT 98
== END 2024-01-02 11:10 | disposition home or self-care (01) | DRG 560 ==
LOC: WPOUT 22:34 → WP 22:34
PROVIDERS: Admitting Provider Advanced Practice Midwife; Visit Provider Advanced Practice Midwife
DX: O42.913 Preterm premature rupture of membranes, unspecified as to length of time between rupture and onset of labor, third trimester (principal); Z37.0 Single live birth; O26.23 Pregnancy care for patient with recurrent pregnancy loss, third trimester; Z3A.35 35 weeks gestation of pregnancy; Z87.59 Personal history of other complications of pregnancy, childbirth and the puerperium; Z87.891 Personal history of nicotine dependence
CPT/HCPCS: 59025; 59050; 82565; 82570; 84112; 84156; 84450; 84460; 84550; 85025; 86780; 86850; 86900; 86901; 99221; J7120; A4216; G0378

== ENCOUNTER 2024-11-22 04:20 | Emergency (ER) | payer BC, MEDICAID, SELFPAY ==
[2024-11-22 04:21] VITALS: BP 165/90; PULSE 115; RESP 19; TEMP 36.9; O2SAT 100; BMI 29.1
--- NOTE | 2024-11-22 04:29 | CT_ITS ---
INDICATION: ? Epiglottitis EXAMINATION: CT NECK WITH CONTRAST - CT Maxillofacial and Neck W/ Contrast Injection COMPARISON: None. A radiation dose optimization technique was used for this scan. Findings: Contrast enhanced serial CT axial images through the orbits, extending through the face and neck with coronal and sagittal reformatted series. IV Contrast dosage and agent: 75 cc Isovue-370 IV. SKULL BASE: Visualized brain parenchyma is unremarkable. ORBITS: No obvious acute globe abnormality. No infiltration the orbital fat. SOFT TISSUES: No prevertebral soft tissue thickening. Airway is unremarkable. No obvious vascular abnormality. No focal fluid collection, mass, or adenopathy. No infiltration of the deep fat planes of the face or neck. No thickening of the epiglottis or aryepiglottic folds. Lung apices are unremarkable. OSSEOUS STRUCTURES: No TMJ subluxation. Paranasal sinuses appear clear. No evidence of cervical spine fracture or subluxation. No concerning bony lesion or abnormal sclerosis to suggest lesion. DISCS/JOINTS: No significant degenerative change. CT/Soft Tissue Neck WITH Contrast IMPRESSION: No focal fluid collection, mass, or adenopathy. No significant thickening of the epiglottis or aryepiglottic folds. Electronically Signed: Donald Pina MD at 7:03 EST ,
[2024-11-22 04:37] LABS: Absolute Lymphocyte Count 5.87 X10^3/uL (0.83-4.51); Absolute Neutrophil Count 5.3 X10^3/uL (2.0-7.7); Basophil# 0.09 X10^3/uL; Basophil% 0.7 % (0-1); Eosinophil# 0.19 X10^3/uL; Eosinophils% 1.6 % (0-5); Hematocrit 42.7 % (37-47); Hemoglobin 14.6 g/dL (12.0-15.0); Lymphocyte # 5.87 X10^3/ul (0.83-4.51); Lymphocyte % 48.5 % (19-41); Mean Corp Hgb Conc 34.2 g/dL (32-36); Mean Corpuscular Hgb 29.1 pg (27.0-32.0); Mean Corpuscular Volume 85.2 fL (81-99); Mean Platelet Vol. 9.7 fl (6.2-12.0); Monocyte# 0.62 X10^3/uL; Monocyte% 5.1 % (0-10); NRBC Flagged by Analyzer 0 % (0-5); Neutrophil # 5.29 X10^3/uL (2.7-7.7); Neutrophil % 43.8 % (47-70); POSITIVE DIFFERENTIAL YES; POSITIVE MORPHOLOGY YES; Platelet Count 402 K/mm3 (150-450); RBC Distribution Width CV 11.9 % (11.6-14.6); RBC Distribution Width SD 36.4 fl (35.1-43.9); Red Blood Count 5.01 M/mm3 (4.2-5.4); White Blood Count 12.1 K/mm3 (4.4-11.0)
[2024-11-22] MEDS: 0.9% Normal Saline (1000mL) 1,000 ML 999 ML IV (04:38)
[2024-11-22 04:39] LABS: Differential Indicated SCAN CRITERIA MET
[2024-11-22] MEDS: dexAMETHasone 10 MG/ML Vial IV (04:39)
[2024-11-22] MEDS: Lidocaine 2% Viscous15 ML UDC 10 ML PO (04:39)
[2024-11-22 04:52] LABS: Anion Gap 7 (5-15); BUN 13 mg/dL (7-18); BUN/Creat Ratio 13.1 RATIO (10-20); Calcium,Total 9.1 mg/dL (8.5-10.1); Chloride 110 mmol/L (98-107); Creatinine, Serum 0.99 mg/dL (0.55-1.02); EST Glomerular Filtration Rate 70 mL/min (>60); Est Glom Filt Rate - Afr Amer 84 mL/min (>60); Estimated Creatinine Clearance 75.02 ml/min; Glucose 98 mg/dL (74-106); Potassium 3.1 mmol/L (3.5-5.1); Sodium Level 142 mmol/L (136-145)
[2024-11-22 05:07] LABS: Differential Comment SCANNED
[2024-11-22 05:21] VITALS: BP 120/67; PULSE 95; RESP 20; O2SAT 97
[2024-11-22 06:00] VITALS: BP 104/67; PULSE 91; RESP 19; O2SAT 95
--- NOTE | 2024-11-22 07:16 | EDS_ITS ---
HPI History of Present Illness Chief Complaint: Sore Throat Informant: patient Narrative Narrative: Patient is a 28-year-old female with past medical history of GERD. She states she awoke early this morning with sensation that she was having difficulty swallowing. She denies any new exposures or known sick contact. She denies any history of angioedema or hives or angioedema or chronic idiopathic urticaria. She states that it hurts to swallow but she is able to get her saliva down but she still had concerned that she was going to have swelling of her throat and loss of her airway and therefore comes in for evaluation [facility] Medical History (Updated 12/01/24 @ 06:[address] Georges Bello DO) (spontaneous vaginal delivery) 35 weeks gestation of premature rupture of membranes (PPROM) delivered, current hospitalization History of hemorrhage hemorrhage Kidney disease hemorrhage (~01/01/24) Vaginal laceration Elevated blood pressure reading without diagnosis of hypertension Chlamydia infection affecting History of delivery Positive GBS test (~01/01/24) GERD (gastroesophageal reflux disease) History of pre-term labor Headache Home Medications ?Medication ?Instructions ?Recorded ?Last Taken ?Type prednisone 20 mg tablet 40 mg (2 x 20 mg) PO DAILY 7 days 11/22/24 Unknown Rx #14 tabs Allergy/AdvReac Type Severity Reaction Status Date / Time No Known Allergies Allergy Verified 11/22/24 04:25 Social History Smoking Status: Former smoker ROS ROS ED Constitutional Constitutional ED: Denies chills or fever(s) Eyes Eyes: Denies change in vision ENT ENT ED: Reports sore throat Cardiovascular Cardiovascular: Reports racing heartbeat; Denies chest pain Respiratory/Chest Respiratory/Chest: Denies cough or dyspnea Gastrointestinal Gastrointestinal: Denies abdominal pain, diarrhea, nausea or vomiting Genitourinary Genitourinary ED: Denies dysuria Musculoskeletal Musculoskeletal: Denies neck pain Integumentary Denies rash Neurologic Neurologic: Denies headache(s) Psychiatric Psychiatric: Reports anxiety Hematologic/Lymphatic Hematologic/Lymphatic: Denies easy bleeding or easy bruising Allergic/Immunologic Allergic/Immunologic ED: Denies mouth swelling, tongue swelling or urticaria EXAM Physical Exam Const Vital Signs: 11/22/24 04:21 11/22/24 05:11/22/24 06:00 Temperature 98.4 F Temperature Source Oral Pulse Rate 115 H 95 91 Respiratory Rate 19 H 20 H 19 H Blood Pressure 165/90 H 120/67 104/67 Blood Pressure Mean 115 84 79 Pulse Ox 100 97 95 Oxygen Delivery Method Room Air Room Air Positive well nourished and well developed General Appearance ED: well developed; Negative for pallor HEENT Reports moist mucous membranes HEENT Narrative: The patient's uvula is enlarged and inflamed consistent with uvulitis. However there is no tongue or lip swelling no oral lesions no airway edema or compromise No hard palate petechiae. No trismus. No change in voice. No difficulty with secretions. Eyes PERRL and EOMs intact bilaterally Neck supple and no JVD Neck Narrative: No nuchal rigidity or meningeal signs No crepitance or subcutaneous emphysema noted No pain with external manipulation of the thyroid cartilage Resp normal respiratory effort and clear to auscultation bilaterally Cardio regular rhythm Rate: tachycardic Extremity normal to inspection Neuro oriented x3, CN's II-XII intact bilaterally and no sensory deficits noted Sensorium / Orientation: alert Motor Exam: strength 5/5 throughout Psych Mood & Affect: anxious and tearful Skin no rashes or lesions noted and no wounds General Skin Exam: Negative for jaundice or pallor MDM MDM MDM Narrative Medical decision making narrative: Patient arrived to the ER tachycardic and hypertensive but was extremely anxious. She reported sensation of throat swelling and had concern for angioedema. Physical exam shows soft tissue changes in the posterior pharynx consistent with uvulitis. There is no secondary changes to suggest peritonsillar abscess or retropharyngeal abscess. By exam there also no signs of epiglottitis. However because of her concern for this I did elect to perform basic laboratory studies as well as a CT scan of the soft tissue neck. The patient's white count is slightly elevated at 12.1 without left shift which would correlate with stress response or inflammation. The remainder of her labs do not reveal any clinically significant Gabi abnormalities or signs of acute kidney injury. CT scan did not reveal any type of peritonsillar abscess or signs of epiglottitis. After receiving treatment in the ER the patient's vitals normalized and she had improvement of her symptoms. She did not progress to any type of angioedema or respiratory distress and therefore there is no need for further workup and she is otherwise safe for discharge History & Record Review Discussion w/independent historian: Patient Lab Data Attestation: I reviewed the patient's lab results. Labs: Laboratory Results - last 24 hr 11/22/24 04:24 WBC 12.1 H RBC 5.01 Hgb 14.6 Hct 42.7 MCV 85.2 MCH 29.1 MCHC 34.2 RDW Std Deviation 36.4 RDW Coeff of Chance 11.9 Plt Count 402 MPV 9.7 Immature Gran % (Auto) 0.300 Neut % (Auto) 43.8 L Lymph % (Auto) 48.5 H [place] % (Auto) 5.1 Eos % (Auto) 1.6 Baso % (Auto) 0.7 Absolute Neuts (auto) 5.3 Absolute Lymphs (auto) 5.87 H Nucleated RBC % 0 Differential Comment SCANNED Sodium 142 Potassium 3.1 L Chloride 110 H Carbon Dioxide 25.0 Anion Gap 7 BUN 13 Creatinine 0.99 Estim Creat Clear Calc 75.02 Est GFR (MDRD) Af Amer 84 Est GFR (MDRD) Non-Af 70 BUN/Creatinine Ratio 13.1 Glucose 98 Calcium 9.1 Radiography Diagnostic Testing: Clinical Impression(s) from Imaging Studies Soft Tissue Neck CT 11/22/24 04:29 IMPRESSION: No focal fluid collection, mass, or adenopathy. No significant thickening of the epiglottis or aryepiglottic folds. Electronically Signed: Donald Pina MD at 7:03 EST Reading Location ID and State: [facility] [place] / [place] Tel , Service support , Discharge Plan Triage Chief Complaint: Sore Throat ED Provider: Georges Bello Dx/Rx/DC Orders Clinical Impression: Uvulitis, GERD (gastroesophageal reflux disease) Instructions: ED Uvulitis Prescriptions: New prednisone 20 mg tablet 40 mg PO DAILY 7 Days Qty: 14 0RF Primary Care Provider: Care Physician,No Primary Referrals: Ramo Dubois MD [Med Staff - Active Staff] - Care Physician,No Primary [Primary Care Provider] - Activity Restrictions/Additional Instructions: Your workup showed no signs airway blockage or compromise. Your uvula is swollen and inflamed and this is secondary to a virus which should run its course over the next 7 days. It will typically take 2 to 3 days for the swelling to improve. Perform salt water gargles and use the steroids as directed to help control symptoms and return to the ER should you have any further concerns Print Language: French Disposition Disposition: Home, Self Care Discharge Date/Time: 11/22/24 07:32
[2024-11-22 07:31] VITALS: BP 106/62; BP 106/72; PULSE 62; RESP 16; TEMP 36.4; O2SAT 100
== END 2024-11-22 07:32 | disposition home or self-care (01) ==
PROVIDERS: Emergency Provider Emergency Medicine; Visit Provider Emergency Medicine
DX: K12.2 Cellulitis and abscess of mouth (principal); K21.9 Gastro-esophageal reflux disease without esophagitis; Z87.891 Personal history of nicotine dependence; F41.9 Anxiety disorder, unspecified
CPT/HCPCS: 70491; 80048; 85025; 87651; 96361; 96374; 99283; Q9967